=== PATIENT | male | born 1940 | race Caucasian/White ===

== ENCOUNTER → 2025-02-19 | Outpatient (CLI) | payer MEDICARE, OTHER, SELFPAY ==
--- NOTE | 2025-02-19 11:00 | CT_ITS ---
PROCEDURE: CT CHEST, ABD, PEL W/CONTRAST 02/19/2025 REASON FOR EXAM: ESOPHAGEAL CA-IV ONLY TECHNIQUE: Chest, abdomen and pelvis CT with intravenous contrast. Coronal and Sagittal reconstruction series were provided. One or more dose reduction techniques were used (e.g., Automated exposure control, adjustment of the mA and/or kV according to patient size, use of iterative reconstruction technique. PATIENT PREPARATION: Per protocol ORAL CONTRAST TYPE: None. AMOUNT: mL CONTRAST: Isovue 370 VOLUME: 62mL 20 gauge IV RADIATION DOSE SUMMARY: CTDlvol: 19.09 mGy DLP: 1005.71 mGycm COMPARISON: No comparison images are available at time of dictation. FINDINGS: CT CHEST: Mediastinum, lymph nodes and hardware: Esophageal stent is in place. Extensive soft tissue thickening surrounding the esophagus stent measuring 5.3 cm in anteroposterior dimension, 6.9 cm in transverse dimension and 20 cm in craniocaudal dimension consistent with malignancy. Innumerable paraesophageal and mediastinal pathological lymph nodes. For example, a left para-aortic lymph node measures 2 cm. Large sliding hiatal hernia. Heart and Vasculature: Moderate cardiomegaly. Atherosclerotic calcifications of the coronary arteries. Lungs and Airways: Dependent atelectasis in the lower lobes. Pleura: Small bilateral pleural effusions. Bones: No acute bony abnormalities. CT ABDOMEN/PELVIS: Liver: Two indeterminate cyst in the right hepatic lobe with the largest measures 2.2 cm. Gallbladder: Status post cholecystectomy. Spleen: No splenomegaly. Pancreas: Unremarkable. Adrenals: Unremarkable. Kidneys: Multiple parapelvic kidney cysts. A 1.2 cm simple cyst at the midpole of the right kidney. Perinephric fat stranding. Correlation with urinalysis is recommended. Bladder: Unremarkable. Reproductive Organs: Unremarkable. Bowel: Colonic diverticulosis with no evidence of acute diverticulitis. No bowel wall obstruction. Appendix: Normal. Lymph nodes: No lymphadenopathy in the abdomen and pelvis. Vasculature: No aneurysm. Atherosclerotic calcifications. Peritoneum / Retroperitoneum: No free air or free fluid. Bones: No acute bony abnormalities. A 2 mm indeterminate sclerotic focus at the right femur. Another 2 mm dystrophic chronic lesion in the left iliac bone. A 1 cm sclerotic lesion in the right iliac bone. CT/CT Chest, Abd, Pel w/Contrast IMPRESSION: Extensive soft tissue thickening surrounding the esophagus stent measuring 5.3 cm in anteroposterior dimension, 6.9 cm in transverse dimension and 20 cm in craniocaudal dimension consistent with malign gordon. Innumerable paraesophageal and mediastinal pathological lymph nodes. For example, a left bony foci in the right femur and the iliac bones, indeterminate. Lymph node measures 2 cm. No acute abdominopelvic abnormalities. Subcentimeter sclerotic bony lesions in the iliac bones in the right femur, ind eterminate. Reading Location: [id number]
== END | disposition home or self-care (01) ==
LOC: CT 10:59
PROVIDERS: PCP Family Medicine; Referring Provider Internal Medicine Medical Oncology; Visit Provider Internal Medicine Medical Oncology
DX: C15.9 Malignant neoplasm of esophagus, unspecified (principal)
CPT/HCPCS: 71260; 74177; Q9967

== ENCOUNTER 2025-02-27 11:35 | Outpatient (RCR) | payer MEDICARE, OTHER, SELFPAY | END 2025-02-28 23:59 | LOC: NS 11:35 | PROVIDERS: PCP Family Medicine; Visit Provider Internal Medicine Medical Oncology | DX: Z71.3 Dietary counseling and surveillance (principal) | CPT/HCPCS: 97802 ==

== ENCOUNTER 2025-03-03 11:08 | Day surgery (SDC) | payer MEDICARE, OTHER, SELFPAY ==
[2025-03-03] VITALS (9 sets, daily range): BP systolic 92–133; BP diastolic 73–88; PULSE 90–106; RESP 16–18; TEMP 36.2–36.8; O2SAT 95–97; BMI 25.7
--- NOTE | 2025-03-03 11:20 | PCM.PRE.AN2 ---
ASA Classification* ASA Classification ASA Classification: 2 Assessment & Plan Anesthesia* Anesthesia Assessment Anesthesia Assessment: Discussed sedation and/or anesthesia options, risks, benefits, and alternatives with patient/parents/legal guardian/POA. Questions invited. The patient/parents/legal guardian/POA seems to understand and agrees to proceed with anesthesia plan. Reviewed the physical assessment, medical history, allergy history and patient home medications list prior to surgery/procedure/anesthetic and documented any changes. Performed airway and anesthesia risk assessments. Anesthesia Type Anesthesia Type: MAC Anesthesia Focused Assessment* Airway Assessment Mouth opens: >3 cm Mallampati Score: II Labs Anesthesia Preop lab: CBC WBC, (4.4-11.0) 16.1 K/mm3 H 02/19/25, 10:46 RBC, (4.6-6.2) 4.67 M/mm3 02/19/25, 10:46 Hgb, (13.0-16.5) 13.5 g/dL 02/19/25, 10:46 Hct, (40-54) 40.2 % 02/19/25, 10:46 Plt Count, (150-450) 412 K/mm3 02/19/25, 10:46 CHEMISTRY Potassium, (3.3-5.1) 4.5 mmol/L 02/19/25, 10:46 Sodium, (133-145) 136 mmol/L 02/19/25, 10:46 BUN, (4-19) 20 mg/dL H 02/19/25, 10:46 Creatinine, (0.70-1.20) 0.87 mg/dL 02/19/25, 10:46 Glucose, (70-99) 109 mg/dL H 02/19/25, 10:46 COAG Pre-Assessment Diagnosis/Proposed Procedure Planned Operative Procedure(s): RIGHT POSS LEFT INTERNAL JUGULAR PORT Anesthesia History Anesthesia History - installations inspector: Anesthesia History - installations inspector Hx Hospitalization No 02/28/25 10:03 Any Problems With Anesthesia No 02/28/25 10:03 Cholinesterase deficiency No 02/28/25 10:03 You/Your Family Experience No 02/28/25 10:03 fever (hyperthermia) with Relationship Recent Exposure to Contagious Disease Does patient have nerve No 02/28/25 10:03 stimulator Patient instructed to have device shut off --Does patient have Pacemaker or ICD? When Was Last Pacemaker Check QUESTION #4 FULL TEXT: You/Your Family Experience fever (hyperthermia) with Anesthesia Last Oral Intake Last Oral intake: Last Oral Intake NPO since Meds taken in AM with sips of water? Meds patient instructed to take am of surgery PONV PONV - installations inspector: PONV - installations inspector Female No 02/28/25 10:03 HX of Motion Sickness Yes 02/28/25 10:03 HX of N/V After Surgery No 02/28/25 10:03 Non-Smoker Yes 02/28/25 10:03 Duration of Surgery greater No 02/28/25 10:03 than 60 minutes Number of Risk Factors 2 02/28/25 10:03 PONV Score Moderate Risk 02/28/25 10:03 Height & Weight Height & Weight: Anesthesia: Height & Weight Height 5 ft 5 in 02/26/25 13:50 Respiratory Assessment Respiratory Assessment - installations inspector: Respiratory Tract Infection Hx - installations inspector Hx Respiratory Tract Infection No 02/28/25 10:03 STOP Sleep Apnea STOP Sleep Apnea - installations inspector: STOP Sleep Apnea - installations inspector Hx Hypertension Yes: NO MEDS FOR 2 WEEKS 02/28/25 10:03 Hx Sleep Apnea No 02/28/25 10:03 CPAP BIPAP Do you snore loudly (louder Yes 02/28/25 10:03 than talking or can be heard Do you often feel tired/ No 02/28/25 10:03 fatigued/ sleepy during daytime? Has anyone observed you stop No 02/28/25 10:03 breathing during sleep? STOP Results Positive 02/28/25 10:03 QUESTION #5 FULL TEXT : Do you snore loudly (louder than talking or can be heard through closed doors)? Tobacco Use History Tobacco Use History - installations inspector: Tobacco Use History - installations inspector Tobacco Use Smoking Status Never smoker 02/28/25 10:03 Hx Tobacco Use No 02/28/25 10:03 Years Smoking Packs Smoked per Day Smoking Cessation Date was within the last 15 years Hx Smoking Cessation Date Hx Smoking Cessation Counseling Hematologic Medial History Hematologic Hx - installations inspector: Hematologic Medical Hx - roasterman Hx of Blood Transfusion Yes 02/28/25 10:03 Hx of Transfusion in last 3 No 02/28/25 10:03 Months Date of Last Transfusion (if within last 3 months) Ever experience any problems No 02/28/25 10:03 with transfusion(s)? Specify any problems Hx of Preganancy in last 3 N/A 02/28/25 10:03 Months Nurse Filling Out Transfusion DSCHRIBER 02/28/25 10:03 & Questions: Date: 02/28/25 02/28/25 10:03 Time: 10:06 02/28/25 10:03 Patient unable to answer at this time (ie. confused, unrespo /Reproduction History /Reproductive History - installations inspector: /Reproductive Hx- installations inspector Hx Now No 02/28/25 10:03 Gestational Age (in weeks): EDC: Hx Hx Para Hx Section SAB No 02/28/25 10:03 Active Medications Active Medications: Current Medications Generic Name Dose Route Start Last Admin Trade Name Freq PRN Reason Stop Dose Admin Cefazolin Sodium 2 gm/ Sodium 110 mls @ 200 mls/hr 03/03/25 13:00 Chloride IV 03/03/25 13:32 INTRAOP ONE Lactated Ringer's 1,000 mls @ 15 mls/hr 03/03/25 11:30 IV .Q48H CESIA PFSH Medical History Wears dentures Cancer Low iron Easy bruising Injury of head and neck Dietary restriction Non-smoker Hoarseness Hypertension Esophageal pain Walker as ambulation aid Spinal injury Osteoarthritis Dysphagia Anemia Acid reflux disease Home Medications ?Medication ?Instructions ?Recorded ?Last Taken ?Type rabeprazole 20 mg tablet,delayed 20 mg PO QDAY 02/19/25 Unknown History release ondansetron 4 mg disintegrating 4 mg PO Q8H PRN nausea and 02/27/25 Unknown Rx tablet vomiting #30 tabs Allergy/AdvReac Type Severity Reaction Status Date / Time acetaminophen (From Allergy unknown Verified 02/28/25 10:00 Darvocet-N) propoxyphene (From Allergy unknown Verified 02/28/25 10:00 Darvocet-N) gabapentin AdvReac dizziness, Verified 02/28/25 10:00 light headed Family History Father Diabetes Sister Diabetes Surgical History Hx of hernia repair Hx of foot surgery History of esophagogastroduodenoscopy (EGD) History of cholecystectomy History of cataract surgery History of arthroplasty of left knee Status post right foot surgery Social History Smoking Status: Never smoker alcohol intake: never substance use type: does not use Review of Systems (Anesthesia) ROS Narrative System reviewed and no additional complaints, except as documented.
--- NOTE | 2025-03-03 11:53 | HP.PCM_ITS ---
History and Physical
--- NOTE | 2025-03-03 11:53 | PCM.HP.BLA ---
History and Physical Date of Admission: 03/03/25 Intake Vital Signs 02/19/2509:49 02/21/2509:23 02/26/2513:50 Height 5 ft 5 in 5 ft 5 in 5 ft 5 in Weight: 157 lb 5 oz 157 lb BMI 26.2 26.1 BP 113/75 99/72 Blood Pressure Location Rt brachial Rt brachial Position Sitting Sitting Respiration 16 16 Pulse 89 Pulse Source Monitor Temp 97.5 F L Pulse Oximetry (%) 96 94 Oxygen Delivery Method room air room air Intake Visit Reasons: PORT PLACEMENT, POSSIBLE PEG Chief Complaint: esophageal ca Workforce Management Coordinator Required: No Is patient in pain?: No Allergies acetaminophen (From Darvocet-N) Allergy (Verified 02/26/25 13:51) unknown propoxyphene (From Darvocet-N) Allergy (Verified 02/26/25 13:51) unknown gabapentin Adverse Reaction (Verified 02/26/25 13:51) dizziness, light headed Medications ?Medication ?Instructions ?Recorded ?Confirmed ?Type rabeprazole 20 mg tablet,delayed 20 mg PO QDAY 02/19/25 02/26/25 History release Have you fallen in the past year?: No PFSH Medical History Spinal injury Right shoulder pain Osteoarthritis Lesion of face Hyperlipidemia Dysphagia Anemia Acid reflux disease Surgical History History of cholecystectomy History of cataract surgery Inguinal hernia History of arthroplasty of left knee Status post right foot surgery Family History Father Diabetes Sister Diabetes Social History Smoking Status: Never smoker alcohol intake: never substance use type: does not use HPI HPI HPI: Patient is an 84-year-old male here with metastatic esophageal cancer. He is here for port and PEG discussion. He is not wanting a PEG tube at this time. He reports he is swallowing well after he had a stent placed into his esophagus. He would only like port at this time. ROS General General: Yes weight change and fatigue; No appetite, colon cancer, breast cancer or weakness HEENT HEENT: Yes difficulty swallowing; No eye injury, eye surgery, swollen glands or hoarseness Endo Endocrine: No thyroid disease, diabetes mellitus, thyroid cancer, Hair loss, heat intolerance or cold intolerance Skin Skin: No rash or changing moles Breast Breast: No left breast lump, right breast lump, nipple discharge, breast pain, abnormal mammogram, abnormal US or breast enlargement Musc Musculoskeletal: Yes arthritis; No back problems, rheumatoid arthritis, gout or joint pain Cardio Cardiovascular: No murmur, pacemaker, heart disease, atrial fibrillation, high blood pressure, heart attack, heart stent, palpitations, shortness of breath with exertion or chest pain Psych Psychiatric: No depression, anxiety or hearing voices Resp Respiratory: No shortness of breath, No sleep apnea, Yes cough, No COPD, No asthma, No emphysema and No wheezing Gastro Gastrointestinal: No abdominal pain, Yes nausea or vomiting, No diarrhea, Yes constipation, No blood in stool, Yes acid reflux, No hemorrhoids, No ulcers, No gallbladder problem and No black,tarry stools [place] Hematologic: No blood thinners, No blood disorders, No bleeding, No anemia and No blood clots Neuro Neurologic: No system reviewed and no additional complaints, except as documented, No as per HPI, No abnormal gait, No abnormal hearing, No abnormal movements, No abnormal speech, No behavioral changes, No burning sensations, No confusion, No convulsions, No disequilibrium, No dizziness, No localized weakness, No frequent falls, No headache(s), No lack of coordination, No loss of vision, No memory loss, No numbness, No other visual disturbances, No radicular pain, No restless legs, No sensory deficit, No syncope, No tingling, No tremor(s), No weakness and No other Exam Const General: cooperative and frail appearing Orientation: alert and oriented x3 [facility] Head: normal to inspection Neck Neck: normal visual inspection and full ROM Chest Chest palpation & inspection: normal inspection of the chest Resp Effort & Inspection: normal respiratory effort Auscultation: clear to auscultation bilaterally Cardio Rate: regular rate Rhythm: regular rhythm GI Inspection: non-distended Palpation: soft and nontender Skin General: no rashes or lesions noted Neuro General: patient alert and patient oriented x3 Extrem General: full ROM Psych Appearance: grossly normal Mental Status: mental status grossly normal Assessment and Plan Assessment and Plan (1) Esophageal adenocarcinoma: Status: Acute Comment: Discussed disease, staging with CT and PET/CT before deciding on therapy which may include Chemotherapy, Radiation therapy and or Surgery. Pt wants therapy. (2) Encounter for insertion of venous access port: Status: Acute Plan The patient would like a port placed but he would like to forego PEG tube placement at this time. I also have concerns with a PEG tube as the patient has an esophageal stent in place and I think it may be hard to place a PEG tube. The patient may eventually require a laparoscopic feeding tube. I discussed right chest port placement with the patient in detail. I discussed the risks including but not limited to bleeding, infection, injury to other organs such as the vessels in the neck or the lung. Patient understands the risks and is willing to proceed. Vinod Hicks MD Pager: [facility] [address] [place] [address] [address] [place] [address] Office: I have examined the patient and the H&P has been reviewed. There are no clinical changes since date of exam.
[2025-03-03] MEDS: Lactated Ringers 1,000 ML 15 ML IV (11:59)
[2025-03-03] MEDS: Cefazolin 1 GM/5 ML Vial 2 GM IV (12:32)
[2025-03-03] MEDS: Midazolam 2 MG/2 ML Syringe 1 MG IV (12:43)
[2025-03-03] MEDS: Lidocaine 1% /Epi 1:100 (20ml) 20 ML Vial (12:49)
--- NOTE | 2025-03-03 13:11 | OP.PCM_ITS ---
Operative Report (Standard)
--- NOTE | 2025-03-03 13:11 | PCM.OPRPT ---
Operative Report (Standard) Operative Information Date of Procedure: 03/03/25 Pre-Operative Diagnosis: Esophageal cancer and need for vascular access for chemotherapy Post-Operative Diagnosis: Same Surgery/Procedure Performed: Ultrasound and fluoroscopy guided right chest port placement utilizing right IJ centrifugal separator: No Type of Anesthesia: Local MAC RN Documented Start/Stop Times: Operation Date: 03/03/25 13:00 Case Time Into Pre-Op 03/03/25 11:18 Out of Pre-Op 03/03/25 12:28 Anesthesia Start 03/03/25 12:32 Into Room 03/03/25 12:32 Procedure Start 03/03/25 12:46 Procedure End 03/03/25 13:02 Anesthesia End 03/03/25 13:06 Out of Room 03/03/25 13:06 Procedure Start Time: 12:46 Procedure Stop Time: 13:02 Select all DRAINS/GRAFTS/IMPLANTS that apply: Implanted device Implanted device details: 8 Irish PowerPort Estimated Blood Loss: 5 Specimen collected: No Description of surgery: After obtaining informed consent patient was brought back to the operating room MAC anesthesia was induced and the right chest and neck were prepped in normal sterile fashion. Ultrasound was used to evaluate both IJs and the right IJ was selected. Next, using a needle, the right IJ was accessed and a guidewire was passed on into the superior vena cava under fluoroscopy guidance. A small incision was made over the puncture site and the dilator introducer was placed over the guidewire. Next this was capped and the pocket was made for the port. 1% lidocaine with epinephrine was injected in the proposed port site. An incision was made with scalpel. Electrocautery was used to make a pocket under the skin and subcutaneous tissue. Hemostasis was obtained. Next, the catheter was tunneled up to the neck incision site and placed through the introducer. The peel-away introducer was removed and the position of the catheter was confirmed on fluoroscopy. Next, the catheter was trimmed and attached to the port with the locking device. Interrupted 2-0 Vicryl sutures were used to anchor the port to the chest wall and then the port was placed inside the pocket. The pocket was then flushed with saline and the port irrigated with saline. There was good blood return and the port flushed easily. Next, heparin was injected into the port. The skin was closed with subcutaneous interrupted 3-0 Vicryl sutures. A single 3-0 Vicryl sutures placed under the skin at the neck incision site. The port was then accessed and the catheter was flushed with heparinized saline. Steri-Strips were placed as well as op sites. Patient tolerated procedure well, was taken to PACU in stable condition. Chest x-ray will be obtained. Surgical Findings: None Complications Complications: No Admit VTE Documentation VTE Mechan Device Prophylaxis: SCD's
--- NOTE | 2025-03-03 13:12 | DCINST_ITS ---
Discharge Instructions
--- NOTE | 2025-03-03 13:12 | EX.PCM.DISCH ---
Discharge Instructions Procedure Port-A-Cath Diet Discharge Diet: Light diet - advance as tolerated (Pain medication may cause nausea. You should typically eat light foods as you take your pain medication.) Activity Discharge Activity: Return to Normal Activity and May Shower (with your bandage in place in 1-2 days after surgery. DO NOT SHOWER WHEN YOUR PORT IS ACCESSED.) Additional Activity Instructions:: Alternate ibuprofen and Tylenol for pain control Dressing / Incision Call your doctor if your incision/area has: Continuous Slow Oozing, Sudden Increased Bleeding, Increased Pain/ Swelling, Increased Redness and Foul Smelling Discharge Call your doctor if you observe: Fever of 101 or Higher Remove Dressing in: 2 days Cleanse incision/area with: Soap & Water Follow Up Care Please Follow Up With: Vinod Hicks MD When: as needed [phone] Test Results: Test results from this visit will be discussed in further detail at your follow-up appointment, if applicable. Discharge Plan Admission Attending Provider: Vinod Hicks Primary Care Provider: Ervin Tate Instructions Print Language: Indonesian Discharge Orders/Prescriptions Prescriptions: No Action rabeprazole 20 mg tablet,delayed release (DR/EC) 20 mg PO QDAY ondansetron 4 mg tablet,disintegrating 4 mg PO Q8H PRN (Reason: nausea and vomiting) Qty: 30 0RF Referrals / Follow Up: Ervin Tate DO [Primary Care Provider, Medical] Disposition Disposition (needs filled in before D/C Order can be placed): Home, Self Care
--- NOTE | 2025-03-03 13:20 | RAD_ITS ---
PROCEDURE: RAD/CXR for Line Placement
--- NOTE | 2025-03-03 13:45 | EKG12_ITS ---
Test Reason : arrythmia
--- NOTE | 2025-03-03 14:07 | POSTOP.ANE_ITS ---
Anesthesia: Postop Eval I
--- NOTE | 2025-03-03 14:07 | PCM.POST.ANE ---
Anesthesia: Postop Eval I Current Vital Signs Temperature: 98.2 F Pulse Rate: 94 Blood Pressure: 112/84 Respiratory Rate: 16 Pulse Ox: 97 Oxygen Delivery Method: Room Air Assessment Airway patent: Yes Spontaneous unlabored respirations: Yes Mental status: Awake and Calm nausea: No Vomiting: No Anesthesia Complication: No Fluid Hydration Crystalloid volume administer (ml): 200 Total IV fluid infused: 200 Progress Note Post-operative progress note: Patient appears to be in Atrial Fibrillation upon arrival to PACU. PLODDING MACHINE OPERATOR states, patient probably in AFIB upon arrival to OR. Anesthesia document: Postop Eval 1 completed: Yes
--- NOTE | 2025-03-03 14:09 | POSTOPAN2_ITS ---
Anesthesia Postop Eval I Sum
--- NOTE | 2025-03-03 14:09 | PCM.POSTANE2 ---
Anesthesia Postop Eval I Sum Postop Eval Completion status Anesthesia document: Postop Eval 1 completed: Yes Anesthesia Postop Eval I Summary Anesthesia Postop Eval I Summary: Anesthesia Postop Eval I: Assessment Summary Airway patent Yes 03/03/25 14:09 Spontaneous unlabored Yes 03/03/25 14:09 respirations Mental status Awake,Calm 03/03/25 14:09 nausea No 03/03/25 14:09 Vomiting No 03/03/25 14:09 Anesthesia Postop Eval I: Fluid Summary Crystalloid volume administer 200 03/03/25 14:09 (ml) Colloids volume administered ( ml) Blood Product volume administered (ml) Total IV fluid infused 200 03/03/25 14:09 Anesthesia Postop Eval I: Summary Notes Anesthesia Complication No 03/03/25 14:09 Anesthesia Complication Comment: Post-operative progress note Patient appears to 03/03/25 14:09 be in Atrial Fibrillation upon arrival to PACU. CHARGER OPERATOR states, patient probably in AFIB upon arrival to OR. Anesthesia: Postop Eval II Evaluation Mental status: Awake and Calm Pain Level: 0 nausea: No Vomiting: No Progress Note Post-operative progress note: Atrial fibrillation. discussed with Dr. Lind and patient. Dr. Hicks's office will set up Cardiology visit with patient on outpatient basis, per patient wishes as he prefers not to be admitted. I did inform patient of risk of Stroke, HI, Rapid HR. seems to understand importance of urgent follow up. Complications Anesthesia Complication: No
== END 2025-03-03 14:43 | disposition home or self-care (01) ==
LOC: SDC 11:10 → AC 11:12
PROVIDERS: PCP Family Medicine; Referring Provider Surgery; Visit Provider Surgery
PROC: (CPT 36561; principal; 2025-03-03 12:45)
DX: Z45.2 Encounter for adjustment and management of vascular access device (principal); C15.9 Malignant neoplasm of esophagus, unspecified; E78.5 Hyperlipidemia, unspecified; K21.9 Gastro-esophageal reflux disease without esophagitis; Z79.899 Other long term (current) drug therapy
CPT/HCPCS: 36561; 00532; 71045; 77001; 93005; C1788; J2405

== ENCOUNTER 2025-03-18 11:37 | Inpatient (IN) | payer MEDICARE, OTHER, SELFPAY ==
[2025-03-18] VITALS (30 sets, daily range): BP systolic 74–114; BP diastolic 47–85; PULSE 102–163; RESP 17–25; TEMP 36.5–36.8; O2SAT 91–100; BMI 25.4; BMI 25.2
--- NOTE | 2025-03-18 11:51 | EKG12_ITS ---
Test Reason : SOB Blood Pressure : */* mmHG Vent. Rate : 153 BPM Atrial Rate : * BPM P-R Int : * ms QRS Dur : 130 ms QT Int : 330 ms P-R-T Axes : * -74 74 degrees QTcB Int : 526 ms Critical Test Result: High HR Atrial fibrillation with rapid ventricular response Left axis deviation Right bundle branch block Inferior infarct , age undetermined Abnormal ECG Confirmed by LEIGH ABDALLA MD ([id number]), film and video editor CHRISTOPHER JUNG ([id number]) on 03/19/2025 6:49:56 AM Referred By: NOELLE/CG Confirmed By: LEIGH ABDALLA MD
--- NOTE | 2025-03-18 11:51 | RAD_ITS ---
PROCEDURE: CHEST 1 VIEW (PORTABLE) 03/18/2025 REASON FOR EXAM: TACHYPNEA TECHNIQUE: Frontal view of the chest. COMPARISON: 03/03/2025 FINDINGS: Hardware: Right-sided MediPort unchanged. Heart: Heart size is mildly enlarged. Lungs: Interval development of a moderate right pleural effusion, superimposed consolidation not excluded. Diffuse pulmonary vascular congestion. No definite pneumothorax. Bones: The bones are unremarkable. RAD/Chest 1 View (Portable) IMPRESSION: 1. Developing moderate right pleural effusion, superimposed consolidation not e xcluded. 2. Mild cardiomegaly and diffuse pulmonary vascular congestion. [facility]
[2025-03-18] MEDS: 0.9% Normal Saline (500mL Bag) 500 ML 999 ML IV (12:02)
[2025-03-18 12:06] LABS: Hematocrit 31.8 % (40-54); Hemoglobin 10.8 g/dL (13.0-16.5); Immature Granulocytes Count 0.310 X10^3/uL (0.0-0.0); Mean Corp Hgb Conc 34.0 g/dL (32-36); Mean Corpuscular Volume 87.6 fL (80-94); Mean Platelet Vol. 9.4 fl (6.2-12.0); NRBC Flagged by Analyzer 0 % (0-5); POSITIVE DIFFERENTIAL YES; Platelet Count 372 K/mm3 (150-450); RBC Distribution Width CV 14.6 % (11.6-14.6); RBC Distribution Width SD 46.5 fl (35.1-43.9); Red Blood Count 3.63 M/mm3 (4.6-6.2); White Blood Count 19.9 K/mm3 (4.4-11.0)
[2025-03-18 12:43] LABS: Troponin T High Sensitivity 34 ng/L (<=22)
[2025-03-18] MEDS: 0.9% Normal Saline (500mL Bag) 500 ML 1000 ML IV (12:59)
[2025-03-18 13:11] LABS: Anion Gap 15 (5-15); BUN 62 mg/dL (4-19); BUN/Creat Ratio 63.3 RATIO (10-20); Calcium,Total 9.1 mg/dL (7.6-11.0); Carbon Dioxide 21.6 mmol/L (21.0-32.0); Chloride 96 mmol/L (98-108); Estimated Creatinine Clearance 51.07 ml/min (50-250); Glucose 126 mg/dL (70-99); Potassium 4.1 mmol/L (3.3-5.1)
--- NOTE | 2025-03-18 13:39 | EDS_ITS ---
HPI History of Present Illness Chief Complaint: Palpitations Detail of Chief Complaint: Fast heart rate Informant: patient, spouse/S.O. and other (Radiology HARNESS WORKER who performed thoracentesis) Onset/Context/Timing Onset: - (Unknown, patient's not felt well for the past 2 to 3 weeks) Context: - (Unknown) Timing: Continuous (Presumed) Quality: Generalized weakness and not feeling well Location: Cardiovascular Current Severity: Severe Maximum Severity: Severe Worsened by: Dyspnea with activity Relieved by: Nothing Associated Symptoms Associated Symptoms: Weight loss Narrative Narrative: Patient is an 84-year-old male. No and is discuss CODE STATUS with this gentleman. He has history of nonoperable adenocarcinoma of the esophagus. He is undergoing radiation therapy by Dr. Quintin Lewis. He had a thoracentesis performed today. 950 cc of fluid was removed. Patient was brought to the emergency department because of rapid heartbeat. Patient was unaware that he had a fast heart rate. Patient states he does not feel well. He endorses weight loss. He denies heat or cold intolerance. He does report lightheadedness with activity and dyspnea with activity. He denies orthopnea or PND. He denies chest pressure or tightness. He denies abdominal pain. He denies black or maroon-colored stool. He denies dysuria, frequency, urgency or hematuria. Prior similar symptoms: No Recent Illness/Hospital[facility]: [facility] Medical History Afib Wears dentures Cancer Low iron Easy bruising Injury of head and neck Dietary restriction Non-smoker Hoarseness Hypertension Esophageal pain Walker as ambulation aid Spinal injury Osteoarthritis Dysphagia Anemia Acid reflux disease Home Medications ?Medication ?Instructions ?Recorded ?Last Taken ?Type rabeprazole 20 mg tablet,delayed 20 mg PO QDAY 5 Unknown History release Allergy/AdvReac Type Severity Reaction Status Date / Time acetaminophen (From Allergy unknown Verified 03/18/25 11:41 Darvocet-N) propoxyphene (From Allergy unknown Verified 03/18/25 11:41 Darvocet-N) gabapentin AdvReac dizziness, Verified 03/18/25 11:41 light headed Family History Father Diabetes Sister Diabetes Surgical History Hx of hernia repair Hx of foot surgery History of esophagogastroduodenoscopy (EGD) History of cholecystectomy History of cataract surgery History of arthroplasty of left knee Status post right foot surgery Social History Smoking Status: Never smoker alcohol intake: never substance use type: does not use ROS ROS ED Constitutional Constitutional ED: Reports weight loss; Denies chills, fever(s), subjective or sweats Eyes Eyes: Denies blurry vision or change in vision ENT ENT ED: Denies ear pain, rhinorrhea or sore throat Cardiovascular Cardiovascular: Reports orthopnea; Denies chest pain, palpitations, paroxysmal nocturnal dyspnea or racing heartbeat Respiratory/Chest Respiratory/Chest: Reports dyspnea, dyspnea on exertion and orthopnea; Denies cough, paroxysmal nocturnal dyspnea or sputum Gastrointestinal Gastrointestinal: Reports other Details: Patient states his stool is dark. He is not on iron. ; Denies abdominal pain, diarrhea, melena or vomiting Genitourinary Genitourinary ED: Denies dysuria, hematuria or urinary frequency Musculoskeletal Musculoskeletal: Denies arthralgias or myalgias Integumentary Denies abscess, Abrasions or rash Neurologic Neurologic: Reports weakness; Denies headache(s) or paresthesias Psychiatric Psychiatric: Denies anxiety or depression Endocrine Endocrinology: Denies cold intolerance or heat intolerance Hematologic/Lymphatic Hematologic/Lymphatic: Reports systems reviewed and no addt'l complaints, except as documented EXAM Physical Exam Const Vital Signs: 03/18/25 11:38 03/18/25 12:05 03/18/25 12:07 Temperature 97.8 F Temperature Source Oral Pulse Rate 154 H 163 H Respiratory Rate 24 H 19 H Respiratory Effort Normal Blood Pressure 91/76 83/62 L Blood Pressure Mean 81 69 Pulse Ox 91 98 Oxygen Delivery Method Room Air Room Air 03/18/25 12:30 03/18/25 13:00 03/18/25 13:30 Temperature Temperature Source Pulse Rate 130 H 123 H 130 H Respiratory Rate 25 H 17 19 H Respiratory Effort Blood Pressure 97/62 87/72 L 101/50 L Blood Pressure Mean 73 77 67 Pulse Ox 92 93 100 Oxygen Delivery Method Room Air Room Air 03/18/25 13:59 03/18/25 14:00 03/18/25 14:30 Temperature 97.7 F L Temperature Source Pulse Rate 102 H 110 H 109 H Respiratory Rate 17 23 H 18 Respiratory Effort Blood Pressure 87/66 L 96/59 L 82/61 L Blood Pressure Mean 73 71 68 Pulse Ox 96 94 99 Oxygen Delivery Method Positive well developed; Negative for obese or contractures Constitutional Narrative: Patient is not appear well. He appears slightly pale. Blood pressure is low. General Appearance ED: well developed and pallor; Negative for contractures, cyanotic, diaphoretic or NAD Nutritional Appearance: Negative for obese HEENT HEENT Narrative: Head is atraumatic and normocephalic. Ears are normal. Nares patent. Eyes PERRL and EOMs intact bilaterally Eyes Narrative: Question of pallor to the conjunctive up. General Eye ED: Yes pale conjunctiva Neck no lymphadenopathy, supple and no JVD Resp normal respiratory effort and clear to auscultation bilaterally Cardio S1 normal heart sound, S2 normal heart sound and no murmurs; Negative for regular rate or regular rhythm Rate: tachycardic Rhythm: abnormal rhythm irregularly irregular GI normal to inspection, nondistended, normoactive bowel sounds, non-tender, non- distended and no masses; Negative for hepatosplenomegaly Palpation: soft Back/Spine no CVA tenderness Extremity Negative for normal to inspection General Extremety ED: Yes edema; Negative for tenderness General Extremity: edema Neuro oriented x3 and CN's II-XII intact bilaterally Sensorium / Orientation: alert Psych mental status grossly normal Skin no rashes or lesions noted, no wounds and No skin turgor normal Skin Narrative: Patient has skin markings for radiation. General Skin Exam: pallor; Negative for elasticity normal or jaundice MDM MDM MDM Narrative Medical decision making narrative: Patient with A-fib which is new onset. He has not seen a assembly machine feeder in 5 years. states he saw someone at the clinic 5 years ago. He is not seeing anyone through the [facility]. He denies chest pressure, tightness or heaviness. He is unaware that his heart is going fast and regular and does not know when it may have started. Has patient hypotensive but no history of heart failure he received a 500 cc bolus and 10 mg of diltiazem. His heart rate slowed down slightly and blood pressure did improve. He received another additional 500 cc bolus and was given an additional dose of diltiazem. There was no improvement [id number] his heart rate is again above 150. Will assess TSH to evaluate for possible hyperthyroidism, troponin to rule out cardiac ischemia. Chest x-ray was obtained to assess for pneumonia, CHF, pneum othorax. Since patient had no improvement with diltiazem and fluid boluses with respect to his heart rate and the fact that his TSH is low he was given 5 mg of metoprolol. Also, Dr. Butler who is on-call for assembly machine feeder was paged. Patient's presentation not consistent with pulmonary embolus. Therefore D-dimer is not obtained especially since he has history of cancer. If there was concern for PE he is considered moderate to high risk and would need a CTA. History & Record Review Additional record(s) reviewed:: Prior outpatient record, Prior ED visit and Prior labs Lab Data Attestation: I reviewed the patient's lab results. Lab results narrative: White count is elevated 19.9 thousand. There is a shift. In light of this blood cultures were ordered. H&H is 10.8 and 31.8. Indices are normal. Basic metabolic panel reveals an elevated glucose of 126. CO2 and anion gap are normal. Lactate is elevated at 2.3. TSH is low at 0.17. First troponin was elevated 34. Labs: Laboratory Results - last 24 hr 03/18/25 11:59 WBC 19.9 H RBC 3.63 L Hgb 10.8 L Hct 31.8 L MCV 87.6 MCH 29.8 MCHC 34.0 RDW Std Deviation 46.5 H RDW Coeff of Kat 14.6 Plt Count 372 MPV 9.4 Immature Gran % (Auto) 1.600 H Neut % (Auto) 93.3 H Lymph % (Auto) 0.9 L [place] % (Auto) 3.9 Eos % (Auto) 0.1 Baso % (Auto) 0.2 Absolute Neuts (auto) 18.6 H Absolute Lymphs (auto) 0.18 L Nucleated RBC % 0 Sodium 132 L Potassium 4.1 Chloride 96 L Carbon Dioxide 21.6 Anion Gap 15 BUN 62 H Creatinine 0.97 Estim Creat Clear Calc 51.07 Est GFR (MDRD) Non-Af 78 BUN/Creatinine Ratio 63.3 H Glucose 126 H Lactic Acid 2.3 H* Calcium 9.1 Troponin T High Sens 34 H TSH 0.170 L Radiography Chest X-Ray - ED: 1 View and Read by ED Physician (Patient has a small right pleural effusion which is residual. There is also evidence of enlarged heart question of some mild cephalization. There is no curly B-lines. The hilum is full and is asymmetric. This is probably due to his adenocarcinoma.) Diagnostic Testing: Clinical Impression(s) from Imaging Studies Chest X-Ray 03/18/25 11:51 IMPRESSION: 1. Developing moderate right pleural effusion, superimposed consolidation not excluded. 2. Mild cardiomegaly and diffuse pulmonary vascular congestion. Reading Location: [facility] Differential Diagnosis Chest pain/SOB: pneumothorax Reason(s) pneumothorax less likely: Positive for bilateral breath sounds and PELLETIZER TENDER withhout PTX, pneumonia Reason(s) pneumonia less likely: Positive for no infiltrate on CXR, no noted fever and symptoms not consistent with acute infection, aortic dissection Reason(s) Aortic dissection less likely:: Positive for normal vascular exam, normal neurological exam, no significant risk factors for dissection, no widened mediastinum on CXR, pain not sudden onset, no ripping/tearing pain and no pain to back, CHF Reason(s) CHF less likely: Positive for no orthopnea and COPD Reason(s) COPD less likely: Positive for no significant wheezing on exam, no tachypnea, no conversational dyspnea and normal air movement noted on auscultation on lungs Management Discussion w/another healthcare provider: Hospitalist (Hospitalist was paged for admission. Will discuss patient's history, physical, CODE STATUS, treatment etc.) and Airline Lounge Receptionist (Dr. Rodríguez recommended metoprolol 25 mg twice daily. He will see patient in consultation.) Critical Care Time Critical Care Time: Yes Critical care time (excluding procedures): 30-74 minutes (33), Including time spent: (History, physical, documentation, discussion with patient and family, discussion regarding CODE STATUS), Discussing w/Patient &/or Family/Machine Fancy Stitcher, Discussing w/Consultants, Arranging Admission or Transfer and - (Spoke with Dr. Naveen Knox. He will see patient in the emergency department and discussed his CODE STATUS again. He will determine appropriate unit for admission) Discharge Plan Dx/Rx/DC Orders Clinical Impression: Atrial fibrillation with rapid ventricular response, Acute hypotension, Pleural effusion, right, Esophageal adenocarcinoma, DNR (do not resuscitate) discussion Disposition Disposition: Acute Care [facility]
[2025-03-18 14:47] LABS: Troponin T High Sens 2 HR 32 ng/L (<=22)
--- NOTE | 2025-03-18 14:56 | HP.PCM.HOS_ITS ---
HPI - General General Date of Admission: 03/18/25 Date of Service: 03/18/25 Chief Complaint: New onset A-fib with RVR HPI Narrative STARLA MASCORRO, is a 84 M who presented to [facility] ED on 03/18/2025 with new onset A-fib with RVR. 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 Chatman and Dr. Mullins, see office notes for further details. In short, he was found imaging to have an esophageal mass in December. Had upper endoscopy on 02/10 with mass at 30 cm obstructing the esophagus. Biopsy was done and pathology showed moderately differentiated adenocarcinoma. He had another endoscopy with placement of esophageal stent on 02/17. He had CT chest abdomen pelvis and PET CT scan done for staging and was found to have stage IVb cancer with extensive local disease in bilateral adrenal gland involvement. Plan determined at that time was for palliative radiation therapy to keep esophagus open then consider systemic therapy. Patient has now completed 7 rounds of radiation therapy as of 03/18, last treatment on morning of 03/18. Patient was found on imaging recently to have a right sided pleural effusion, and he had right-sided thoracentesis done this morning as well with 905 mL removed. He was noted to be in A-fib with RVR at that time and was sent to the ED for further evaluation. In the ED was in A-fib with RVR with heart rate to the 140s to 150s and was hypotensive to the 80s over 60s. Lab workup notable for for mild hyperthyroidism with REGIS 0.17 and free T4 1.50 and lactic acid 2.3. He was given two 500 cc IV fluid boluses, two IV Cardizem boluses and a dose of IV Lopressor with some improvement in heart rate and blood pressure, but he did not convert back to sinus rhythm. Hospitalist was then contacted for admission. I saw the patient at bedside in the ED, was present. Patient was laying back in bed and was fatigued appearing but was otherwise answering questions with short appropriate responses for me. He denied any palpitations or chest pain currently. Did note that he has not been eating or drinking much over the past several days due to weakness and fatigue. Has not had any aspiration events. Does have difficulty swallowing with a solids but is typically able to get liquids down. Importantly, I discussed goals of care with the patient and his for about 15 minutes at the bedside. I noted that given his stage IV cancer, worsening weakness with poor p.o. intake, and new onset A-fib with RVR with hypotension, I am very concerned both about his short-term prognosis. I discussed with him that per Dr. Chatman's note, patient has stage IV cancer and the radiation therapy and chemotherapy are palliative in nature and not curative. I also discussed code status and noted that full code would be quite aggressive with the patient at this time given his prognosis. Patient's was the primary person to answer questions during this conversation and seemed to have some difficulty grasping the severity of the patient's illness. She and patient did note wanting to keep him full code at this time. I noted to them that I would like to have palliative care see the patient during his hospitalization for assistance with goals of care discussions and they were agreeable to this. Will be admitted for further management. [facility] Medical History Afib Wears dentures Cancer Low iron Easy bruising Injury of head and neck Dietary restriction Non-smoker Hoarseness Hypertension Esophageal pain Walker as ambulation aid Spinal injury Osteoarthritis Dysphagia Anemia Acid reflux disease Home Medications ?Medication ?Instructions ?Recorded ?Last Taken ?Type rabeprazole 20 mg tablet,delayed 20 mg PO QDAY 5 Unknown History release Allergy/AdvReac Type Severity Reaction Status Date / Time acetaminophen (From Allergy unknown Verified 03/18/25 11:41 Darvocet-N) propoxyphene (From Allergy unknown Verified 03/18/25 11:41 Darvocet-N) gabapentin AdvReac dizziness, Verified 03/18/25 11:41 light headed Family History Father Diabetes Sister Diabetes Surgical History Hx of hernia repair Hx of foot surgery History of esophagogastroduodenoscopy (EGD) History of cholecystectomy History of cataract surgery History of arthroplasty of left knee Status post right foot surgery Social History Smoking Status: Never smoker alcohol intake: never substance use type: does not use ROS Constitutional Constitutional: Reports fatigue and weakness; Denies chills or fever(s) ENT HEENT: Reports dysphagia Cardiovascular Cardiovascular: Denies chest pain, dyspnea on exertion, edema, lightheadedness or palpitations Respiratory/Chest Respiratory/Chest: Denies cough, productive cough, shortness of breath at rest or wheezing Gastrointestinal Gastrointestinal: Denies abdominal pain Musculoskeletal Musculoskeletal: Denies arthralgias or myalgias Neurologic Neurologic: Denies dizziness, focal weakness, headache(s), numbness or tingling Vital Signs Vital Signs Vital Signs: 03/18/25 11:38 03/18/25 12:05 03/18/25 12:07 Temperature 97.8 F Temperature Source Oral Pulse Rate 154 H 163 H Respiratory Rate 24 H 19 H Respiratory Effort Normal Blood Pressure 91/76 83/62 L Blood Pressure Mean 81 69 Pulse Ox 91 98 Oxygen Delivery Method Room Air Room Air 03/18/25 12:30 03/18/25 13:00 03/18/25 13:30 Temperature Temperature Source Pulse Rate 130 H 123 H 130 H Respiratory Rate 25 H 17 19 H Respiratory Effort Blood Pressure 97/62 87/72 L 101/50 L Blood Pressure Mean 73 77 67 Pulse Ox 92 93 100 Oxygen Delivery Method Room Air Room Air 03/18/25 13:59 03/18/25 14:00 03/18/25 14:30 Temperature 97.7 F L Temperature Source Pulse Rate 102 H 110 H 109 H Respiratory Rate 17 23 H 18 Respiratory Effort Blood Pressure 87/66 L 96/59 L 82/61 L Blood Pressure Mean 73 71 68 Pulse Ox 96 94 99 Oxygen Delivery Method Weight Weight: 69.3 kg Body Mass Index (BMI) 25.4 Physical Exam Const alert and no apparent distress Constitutional Narrative: Elderly male, fatigued and somewhat lethargic appearing, otherwise laying back in bed fairly comfortably, answering questions with short appropriate responses, in no acute distress. General Appearance: cooperative and comfortable HEENT normocephalic, head/scalp atraumatic, hearing grossly normal bilaterally, nasal mucous membranes and turbinates normal and moist oral mucous membranes Eyes PERRL, EOMs intact bilaterally and conjunctivae normal Neck full ROM Chest inspection of chest normal Resp no use of accessory muscles and clear to auscultation bilaterally Resp Narrative: Breathing comfortably on room air at rest. Diminished breath sounds in right lung base noted, otherwise good air movement throughout with no wheezing or crackles noted. Cardio no murmurs and peripheral pulses 2+ throughout Cardio Narrative: A-fib with RVR. GI normal to inspection, nondistended, normoactive bowel sounds, soft to palpation, non-tender and non-distended Back/Spine normal ROM Extremity normal to inspection and no pedal edema Skin no rashes or lesions noted Psych mental status grossly normal Psych Narrative: Flat affect. Results Lab / Micro Data 03/18/25 11:59 03/18/25 11:59 Labs: Laboratory Results - last 24 hr 03/18/25 11:59: WBC 19.9 H, RBC 3.63 L, Hgb 10.8 L, Hct 31.8 L, MCV 87.6, MCH 29.8, MCHC 34.0, RDW Std Deviation 46.5 H, RDW Coeff of Kat 14.6, Plt Count 372, MPV 9.4, Immature Gran % (Auto) 1.600 H, Neut % (Auto) 93.3 H, Lymph % (Auto) 0.9 L, Hall % (Auto) 3.9, Eos % (Auto) 0.1, Baso % (Auto) 0.2, Absolute Neuts (auto) 18.6 H, Absolute Lymphs (auto) 0.18 L, Nucleated RBC % 0, Sodium 132 L, Potassium 4.1, Chloride 96 L, Carbon Dioxide 21.6, Anion Gap 15, BUN 62 H, Creatinine 0.97, Estim Creat Clear Calc 51.07, Est GFR (MDRD) Non-Af 78, B UN/Creatinine Ratio 63.3 H, Glucose 126 H, Lactic Acid 2.3 H*, Calcium 9.1, T roponin T High Sens 34 H, TSH 0.170 L 03/18/25 14:00: Troponin T Hi Sens 2 Hr 32 H Imaging Radiology Impression Chest X-Ray 03/18/25 11:51 IMPRESSION: 1. Developing moderate right pleural effusion, superimposed consolidation not excluded. 2. Mild cardiomegaly and diffuse pulmonary vascular congestion. Reading Location: [facility] Assessment & Plan Assessment/Plan (1) Atrial fibrillation with rapid ventricular response: (2) Acute hypotension: (3) Upper GI bleed: PLAN: Plan Patient is an 84-year-old male who presented to [facility] ED on 03/18/2025 with new onset A-fib with RVR. 1. New onset A-fib with RVR with hypotension ? Admit under inpatient status to ICU. Cardiology consulted. Found to have new onset A-fib with RVR on morning of admission during thoracentesis as below with heart 140s to 150s and hypotension to the 80s over 60s. Heart rate and blood pressure mildly improved with IV fluids, IV Cardizem boluses and dose of IV Lopressor. Started on Cardizem drip but rate remained in the 130s to 140s so this was discontinued. Given dose of IV digoxin to 50 mg with minimal improvement. Given ongoing borderline hypotension to the 80s over 50s, decision made to give IV amiodarone bolus followed by amiodarone drip. Unfortunately heart rate remains in the 130s to 140s at this time on amiodarone drip. Continue MAPs greater than 65 with no need for pressors to this point. Will continue amiodarone drip overnight. Echocardiogram ordered. Appreciate further cardiology recommendations. 2. Suspected upper GI bleed with acute blood loss anemia in setting of esophageal cancer ? GI consulted. Hemoglobin 10.8 on admit, was 13.5 on most recent labs on 02/19. BUN 62 and BUN/creatinine ratio 63 which is highly concerning for upper GI bleed. This is presumed secondary to esophageal cancer below. Given IV Protonix 80 mg bolus and started on IV Protonix drip. Will repeat H&H this evening and then CBC tomorrow morning. Presume this contributing to patient's hypotension as above, so pending repeat H&H will need to consider blood transfusion. 3. Adult failure to thrive in setting of stage IV esophageal cancer ? Palliative care consulted. PT/OT/case management consulted. See HPI for further details. In short, recently diagnosed with stage IV esophageal cancer on esophageal biopsy from EGD on 02/10. Had esophageal stenting done on 02/17. Has had 7 rounds of radiation therapy done as of 03/18 with plan for 15 rounds of treatment total for palliative radiation. Goal of radiation therapy has been to keep the esophagus open for p.o. intake. Has port in place and tentative plan per Dr. Chatman is for systemic palliative chemotherapy after radiation is completed. Patient has had poor p.o. intake since shortly after beginning radiation therapy and has been weaker than previously. Discussed goals of care with patient and his at the bedside on admit, and given the recent diagnosis and decent functional status to this point, was difficult for patient and to grasp the severity of his illness. Appreciate palliative care assistance. Can consider oncology and/or radiation oncology consults as needed. 4. Low TSH level ? TSH 0.17, free T4 1.50 on admit. No prior history of thyroid issues. Patient with no symptoms of hyperthyroidism aside from A-fib with RVR as above, so clinically I suspect A-fib is secondary to cancer as above rather than hyperthyroidism. Suspect mild free T4 elevation may be due to some degree of thyroid hormone release in setting of recent radiation therapy to the esophageal area. Continue treatment for A-fib with RVR as above. 5. Leukocytosis ? Hemoglobin 19.9 on admit. Suspect reactive in setting of cancer and suspected GI bleed above. No infectious symptoms noted. No need for antibiotics at this time. Follow-up a.m. CBC. 6. Right-sided pleural effusion ? Patient had thoracentesis on the morning of 03/18 with 905 mL of cloudy matt- colored fluid removed. 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 Stable on room air at rest at this time. No further inpatient needs, continue close outpatient follow-up. DVT prophylaxis: SCDs CODE STATUS: Full code, verified Expected disposition: TBD Total clinical time spent by myself addressing the patient's medical issues, reviewing all the data, and collaborating with patient's care team: 86 minutes. Charges/Coding Visit Charges Inpatient E&M: 92874 Init Hosp L3
--- NOTE | 2025-03-18 15:02 | ECHOD_ITS ---
Reason For Study Reason For Study: AFIB/FLUTTER Procedure This was a 2D Doppler, Color Flow transthoracic echocardiogram. The study was technically difficult. Due to heart rate/arrhythmia. Exam performed portable in ICU/CCU. Left Ventricle Normal LV size. The left ventricular ejection fraction is 55 %. No regional wall motion abnormalities noted. Right Ventricle Normal RV size. Normal systolic function. Atria Normal left atrium. Normal right atrium. Mitral Valve Normal mitral valve. Tricuspid Valve Normal tricuspid valve. Mild (1+) tricuspid valve insufficiency. Pulmonary artery systolic pressure is 36 mmHg. Aortic Valve Normal aortic valve. Trisinus/trileaflet aortic valve. Pulmonic Valve Normal pulmonic valve. Great Vessels Normal aortic root. The pulmonary artery is normal size. Inferior vena cava collapse with respiration. Pericardium/Pleural No pericardial effusion. MMode/2D Measurements & Calculations LVIDd: 3.9 cm IVSd: 0.88 cm Ao root diam: 3.5 cm LVIDs: 2.0 cm LVPWd: 0.93 cm RVDd: 4.2 cm FS: 48.2 % LAV(MOD-bp): 36.0 ml LVAd ap4: 25.4 cm2 SV(MOD-sp4): 42.4 ml LAV(MOD-bp) Indexed: 20.4 ml/m2 LVLd ap4: 7.4 cm SI(MOD-sp4): 24.1 ml/m2 LAV(MOD-sp2): 37.2 ml EDV(MOD-sp4): 76.8 ml LAV(MOD-sp4): 35.4 ml EDV(sp4-el): 74.1 ml LVAs ap4: 16.0 cm2 LVLs ap4: 6.6 cm ESV(MOD-sp4): 34.4 ml ESV(sp4-el): 33.3 ml EF(MOD-sp4): 55.2 % EF(sp4-el): 55.1 % SV(sp4-el): 40.8 ml LA A4 area: 15.8 cm2 LA dimension(2D): 3.1 cm RA A4 area: 20.7 cm2 TAPSE: 2.0 cm Doppler Measurements & Calculations MV E max izabella: 105.1 cm/sec Ao V2 max: 145.7 cm/sec LV V1 max: 108.7 cm/sec Ao max P.5 mmHg LV V1 max P.7 mmHg Ao V2 mean: 96.4 cm/sec LV V1 mean P.3 mmHg Ao mean P.0 mmHg LV V1 mean: 73.8 cm/sec Ao V2 VTI: 17.2 cm LV V1 VTI: 13.3 cm AV (velocity ratio): 0.78 PA V2 max: 97.3 cm/sec TR max izabella: 282.7 cm/sec TR max P.0 mmHg ECHO/Echo Complete Interpretation Summary The left ventricular ejection fraction is 55 %. Normal LV size. Mild (1+) tricuspid valve insufficiency. Pulmonary artery systolic pressure is 36 mmHg. Ordering Physician: Edwar Knox Referring Physician: Ervin Tate Performed By: Linda Villegas, VENKATA, RVT
--- NOTE | 2025-03-18 15:16 | CASEMGMT ---
Care Management Face to Face with patient for initial transition planning/care coordination assessment in the ED. This technical proposal writer introduced self and role at [facility]. Patient alert and oriented, though fell asleep partway through assessment. Patient's finished answering assessment questions; and daughter were bedside. Care providers, pharmacy, and demographics verified. Admitting Diagnosis: a-fib, Esophageal adenocarcinoma Other diagnosis history: hypertension, anemia, nonoperable adenocarcinoma of the esophagus PCP: Ervin Tate Specialists: Compa, oncology. Susanna, radiation oncology. Preferred Pharmacy: [facility] in [place] Insurance: Medicare A B (primary). Physician Wyarno (secondary). Prescription Benefit: yes Living Will/HPOA: none and questioning whether or not there was a desire to complete during admission LNOK: Renetta, daughter Shweta, son Michel. Living Arrangements: lives with in a ranch style home with 3 steps to enter. They are reportedly working on a ramp. Patient is reportedly independent with all ADLs/IADLs. Transportation: and daughter Shweta drive; Shweta if after dark. DME: cane, walker, shower chair, bedside commode, bed railings, mobility chair HHC: none SNF/Rehab: none Community Resources: none Patient goals: Patient asleep; patient's wishes for patient to discharge home. Patient's states being willing to have HHC if needed, though heavily denies wanting patient to be in a SNF. Disposition Plan: admission to acute; RN CM/SW to follow for discharge planning needs that may arise. Beverley Bhandari, COMPUTER NETWORK SPECIALIST, HELPDESK ADMINISTRATOR
--- OUTSIDE RECORDS SUMMARY | 2025-03-18 15:54 | XMS RPT_ITS | CCD ---
Author Organization [facility] Care Team Providers Care Ammonia Box Operator Name Role Phone Jace Tate Primary Care Provider PROVIDER, UNKNOWN Referring Unavailable Sandip Kidd Attending Unavailable Jace Tate Primary Care Unavailable PROVIDER, UNKNOWN Referring Unavailable Sandip Kidd Attending Unavailable Jace Tate Primary Care Unavailable PROVIDER, UNKNOWN Referring Unavailable Ld Pace Attending Unavailable Jace Tate Primary Care Unavailable PROVIDER, UNKNOWN Referring Unavailable Ld Pace Attending Unavailable Jace Tate Primary Care Unavailable BEBETO SAPP, JACE Holbrook Primary Care Physician JACE TATE DO Attending Unavailable BEBETO , JACE Yusef Primary Care Unavailable BEBETO , JACE Holbrook Attending Unavailable BEBETO , JACE Yusef Primary Care Unavailable BEBETO SAPP, JACE Holbrook Attending Unavailable BEBETO SAPP, JACE Holbrook Primary Care Unavailable BEBETO SAPP, JACE Yusef Primary Care Unavailable BEBETO , JACE Holbrook Attending Unavailable BEBETO DO, JACE Holbrook Attending Unavailable BEBETO DO, JACE Yusef Primary Care Unavailable BEBETO DO, JACE Yusef Primary Care Unavailable BEBETO DO, JACE Holbrook Attending Unavailable BEBETO SAPP, JACE Yusef Primary Care Unavailable BEBETO SAPP, JACE Holbrook Attending Unavailable JACE TATE DO Attending Unavailable BEBETO DO, JACE Yusef Primary Care Unavailable BEBETO DO, JACE J Attending Unavailable BEBETO DO, JACE J Primary Care Unavailable BEBETO , JACE Yusef Attending Unavailable BEBETO SAPP, JACE Yusef Primary Care Unavailable Jace Tate Primary Care Provider JACE TATE DO Attending Unavailable BEBETO DO, JACE Yusef Primary Care Unavailable BEBETO DO, JCAE J Primary Care Unavailable BEBETO , JACE J Attending Unavailable BEBETO , JACE J Attending Unavailable BEBETO SAPP, JACE Yusef Primary Care Unavailable BEBETO SAPP, JACE Holbrook Attending Unavailable BEBETO SAPP, JACE Holbrook Primary Care Unavailable BEBETO , JACE Yusef Primary Care Unavailable BEBETO , JACE Yusef Attending Unavailable BEBETO DO, JACE J Primary Care Unavailable BEBETO DO, JACE J Attending Unavailable BEBETO DO, JACE J Attending Unavailable BEBETO DO, JACE J Primary Care Unavailable BEBETO DO, JACE J Primary Care Unavailable BEBETO DO, JACE J Attending Unavailable BEBETO DO, JACE J Attending Unavailable BEBETO DO, JACE J Primary Care Unavailable MEJIA SANTOYO, DR BLISS Attending Unavailabl e BEBETO DO, JACE J Primary Care Unavailable MEJIA SANTOYO, DR BLISS Attending Unavailabl e BEBETO DO, JACE J Primary Care Unavailable MEJIA SANTOYO, DR BLISS Attending Unavailabl e BEBETO DO, JACE J Primary Care Unavailable BEBETO DO, JACE J Attending Unavailable BEBETO DO, JACE J Primary Care Unavailable BEBETO DO, JACE J Attending Unavailable BEBETO DO, JACE J Primary Care Unavailable Vinod Hicks Referring Unavailable Vinod Hicks Attending Unavailable Bebeto, Jace Primary Care Unavailable Bebeto, Jace Primary Care Unavailable Prakeesha, Arcadio Attending Unavailable Bebeto, Jace Primary Care Unavailable Arcadio Chatman Attending Unavailable Bebeto, Jace Primary Care Unavailable Arcadio Chatman Referring Unavailable Arcadio Chatman Attending Unavailable Bebeto, Jace Referring Unavailable Arcadio Chatman Attending Unavailable Bebeto, Jace Primary Care Unavailable Bebeto, Jace Referring Unavailable Quintin Mullins Attending Unavailable Bebeto, Jace Primary Care Unavailable Bebeto, Jace Primary Care Unavailable Bebeto, Jace Referring Unavailable Quintin Mullins Attending Unavailable Bebeto, Jace Primary Care Unavailable Quintin Mullins Attending Unavailable Bebeto, Jace Primary Care Unavailable Quintin Mullins Attending Unavailable Bebeto, Jace Primary Care Unavailable Abby Dunn Attending Unavailable Bebeto, Jace Primary Care Unavailable Vinod Hicks Referring Unavailable Vinod Hicks Attending Unavailable Vinod Hicks Consulting Unavailable Bebeto, Jace Primary Care Unavailable Quintin Mullins Attending Unavailable Quintin Mullins Attending Unavailable Bebeto, Jace Primary Care Unavailable Bebeto, Jace Referring Unavailable Bebeto, Jace Primary Care Unavailable PraArcadio navarro Attending Unavailable Bebeto, Jace Primary Care Unavailable Quintin Mullins Attending Unavailable Arcadio Chatman Referring Unavailable Bebeto, Jace Referring Unavailable Vinod Hicks Attending Unavailable Bebeto, Jace Primary Care Unavailable Dr. Jace Tate DO Primary Care Physician [phone] Abby Dunn LPN Attending Physician Ciaraa Dr. Jace Romano DO Referring Provider [phone] Compa SANTOYO, Dr. Ervin Attending Physician Dr. Arcadio Chatman MD Referring Provider Dr. Quintin Mullins DO Attending Physician Fabiola SANTOYO, Dr. Brock Attending Physician Dr. Vinod Hicks MD Referring Provider Fabiola SANTOYO, Dr. Brock Nurse Practitioner Allergies Allergy Classification Reported Allergen(s) Allergy Type Date of Onset Reaction(s) Facility (4 sources) Etodolac Drug Allergy 04-16-20 [facility] Work Phone: (20 sources) gabapentin; Translations: [gabapentin] Drug Allergy 04-16-20 Lightheadedness (finding) [facility] Work Phone: (8 sources) [facility] Acetaminophen / Propoxyphene; Translations: [acetaminophen-p ropoxyphene] Drug Allergy [facility] (3 sources) Etodolac Propensity to adverse reactions 04-16-20 [facility] (1 source) Acetaminophen Drug Allergy 03-12-20 [facility] (1 source) gabapentin Drug Allergy 03-12-20 25 [facility] (1 source) Propoxyphene Drug Allergy 03-12-20 25 [facility] (1 source) Acetaminophen Drug Allergy 03-12-20 unknown [facility] Medications Current Medications Medication Drug Class(es) Dates Sig (Normalized) Sig (Original) acetaminophen 500 mg oral tablet (5 sources) Start: 11-16-2021 acetaminophen (TYLENOL) tablet 1,000 mg take 2 tablets by [facility] every six hours as needed for pain acetaminophen (TYLENOL) 325 MG tablet Ta ke 650 mg by mouth every 6 hours as needed for Pain 0 Active acetaminophen 325 mg / HYDRO codone bitartrate 5 mg oral tablet (1 source) Opioid Agonist Start: 03-12-2025 Start: 03-12-2025 acetaminophen 325 mg / oxyCODONE hydrochloride 5 mg oral tablet (4 sources) Opioid Agonist Start: 11-16-2021 End: 05-15-2022 take 1 tablet by mouth every six hours as needed for pain oxyCODONE-acetaminophen (Percocet) 5-325 MG tablet TAKE 1 TABLET BY MOUTH EVERY 6 HOURS NEEDED FOR PAIN FOR UP TO 7 DAYS. TAKE LOWEST DOSE POSSIBLE TO MANAGE PAIN 28 tablet 0 11/16/2021 05/15/2022 Active ALPRAZolam 0.25 mg disintegrating oral tablet (1 source) Benzodiazepine Start: 11-16-2021 ALPRAZolam (NIRAVAM) dissolvable tablet 0.25 mg aspirin 81 mg delayed release oral tablet (5 sources) Platelet Aggregation Inhibitor, Nonsteroidal Anti-inflammatory Drug Start: 11-16-2021 End: 11-16-2022 take 1 tablet by mouth in the morning aspirin 81 MG EC tablet TAKE 1 TABLET BY MOUTH IN THE MORNING. 30 tablet 0 11/16/2021 11/16/2022 Active calcium chloride 0.0014 meq/ml / potassium chloride 0.004 meq/ml / sodium chloride 0.103 meq/ml / sodium lactate 0.028 meq/ml injectable solution (2 sources) Start: 11-16-2021 lactated ringers infusion 1 ml diphenhydrAMINE hydrochloride 50 mg/ml cartridge (1 source) Histamine-1 Receptor Antagonist Start: 11-16-2021 End: 11-16-2021 diphenhydrAMINE (BENADRYL) injection 12.5 mg 1 ml HYDROmorphone hydrochloride 1 mg/ml cartridge (1 source) Opioid Agonist Start: 11-16-2021 HYDROmorphone (DILAUDID) injection 0.25 mg labetalol (NORMODYNE;TRANDAT E) injection 5 mg (1 source) Start: 11-16-2021 labetalol (NORMODYNE;TRANDATE) injection 5 mg 10 ml lidocaine hydrochloride 10 mg/ml injection (1 source) Antiarrhythmic, Amide Local Anesthetic Start: 11-16-2021 End: 11-16-2021 lidocaine PF 1 % injection 1 mL 1 ml LORazepam 2 mg/ml injection (1 source) Benzodiazepine Start: 11-16-2021 End: 11-16-2021 LORazepam (ATIVAN) injection 0.5 mg ondansetron 4 mg disintegrating oral tablet (8 sources) Serotonin-3 Receptor Antagonist Start: 02-27-2025 take 1 tablet by mouth every eight hours as needed for nausea and vomiting Start: 02-13-2025 End: 02-18-2025 ondansetron 8 mg oral tablet Dose : 8 mg = 1 tab(s), Oral, TID, X 5 day(s), # 15 tab(s), 0 Refill(s), 02/18/25 11:53:00 AM EDT, Pharmacy: [facility]/pharmacy #[id number], 167, cm, 02/10/25 10:17:00 EDT, Height, kg, 02/10/25 10:17:00 EDT, Dosing Weight Start Date: 02/13/25 Stop Date: 02/18/25 Status: Ordered Medication Dispense Status: Completed Quantity: 15.0 Unit: tab(s) Total Allowed Fills: 1 Fills Dispensed: 0 Start: 11-16-2021 End: 11-16-2021 ondansetron (ZOFRAN) injecti on 4 mg Start: 11-16-2021 End: 11-16-2022 take 1 tablet by mouth three times daily as needed for nausea ondansetron ODT (Zofran-ODT) 4 MG disintegrating tablet TAKE 1 TABLET BY MOUTH 3 TIMES DAILY NEEDED FOR NAUSEA OR VOMITING 21 tablet 0 11/16/2021 11/16/2022 Active RABEprazole sodium 20 mg delayed release oral tablet (3 sources) Proton Pump Inhibitor Start: 02-10-2025 take 1 tablet by mouth once daily 5 ml sodium chloride 9 mg/ml injection (6 sources) Start: 11-16-2021 sodium chlorid e flush 0.9 % injection 5-40 mL Start: 11-16-2021 0.9 % sodium c hloride bolus Start: 11-16-2021 0.9 % sodium c hloride infusion Start: 11-16-2021 sodium chlorid e flush 0.9 % injection 5-40 mL Completed/Discontinued Medications Medication Drug Class(es) Dates Sig (Normalized) Sig (Original) amLODIPine 10 mg oral tablet (20 sources) Dihydropyridine Calcium Channel Armani Start: 01-01-2025 End: 02-19-2025 take 1 tablet by mouth once daily Amlodipine 10 mg tablet Discontinued 10 mg PO daily February 17, 2025 11:00pm February 19, 2025 8:41am Start: 04-08-2024 take 1 tablet by andrew th once daily amLODIPine 10 mg oral tablet 1 tab(s), Oral, qDay, # 90 tab(s), 1 Refill(s), [id number] 167, cm, 03/04/24 10:01:00 EST, Height, kg, 03/04/24 10:01:00 EST, Dosing Weight Start Date: 04/08/24 Status: Ordered Quantity: 90.0 Unit: tab(s) Repeat number: 2 Start: 07-04-2023 take 1 tablet by [facility] once daily amLODIPine 10 mg oral tablet 1 tab(s), Oral, qDay, # 90 tab(s), 1 Refill(s), [id number], 167.7, cm, 07/04/23 7:50:00 EST, Height, kg, 07/04/23 7:50:00 EST, Dosing Weight Start Date: 07/04/23 Status: Ordered Start: 01-03-2023 take 1 tablet by [facility] once daily amLODIPine 10 mg oral tablet 1 tab(s), Oral, qDay, # 90 tab(s), 1 Refill(s), [id number] 167.7, cm, 01/03/23 9:00:00 EDT, Height, kg, 01/03/23 9:00:00 EDT, Dosing Weight Start Date: 01/03/23 Status: Ordered Start: 06-20-2022 take 1 tablet by [facility] once daily amLODIPine 10 mg oral tablet 1 tab(s), Oral, qDay, # 90 tab(s), 1 Refill(s), Pharmacy: [facility] [id number], 167.7, cm, 02/14/22 13:09:00 EDT, Height, kg, 02/14/22 13:09:00 EDT, Dosing Weight Start Date: 06/20/22 Status: Ordered take 1 tablet by [facility] once daily amLODIPine (NORVASC) 10 MG tablet Take 10 mg by mouth daily 0 Active famotidine 20 mg oral tablet (18 sources) Histamine-2 Receptor Antagonist Start: 02-18-2025 End: 02-19-2025 take 1 tablet by mouth once daily Famotidine 20 mg tablet Discontinued 20 mg PO daily February 17, 2025 11:00pm February 19, 2025 8:41am Start: 01-03-2023 End: 07-02-2023 Pepcid 20 mg oral tablet Dos e : 20 mg = 1 tab(s), Oral, qDay, # 90 tab(s), 1 Refill(s), [id number], 167.7, cm, 01/03/23 9:00:00 EDT, Height, kg, 01/03/23 9:00:00 EDT, Dosing Weight Start Date: 01/03/23 Stop Date: 07/02/23 Status: Ordered Medication Dispense Status: Completed Quantity: 90.0 Unit: tab(s) Total Allowed Fills: 2 Fills Dispensed: 0 Start: 11-16-2021 End: 11-16-2021 famotidine (PEPCID) tablet 2 0 mg Start: 12-16-2020 Pepcid 20 mg o ral tablet Dose : 20 mg = 1 tab(s), Oral, qDay, # 30 tab(s), 0 Refill(s), [id number], 167.7, cm, 12/15/20 17:44:00 EDT, Height, kg, 12/15/20 17:44:00 EDT, Dosing Weight Start Date: 12/16/20 Status: Ordered lisinopril 20 mg oral tablet (20 sources) Angiotensin Converting Enzyme Inhibitor Start: 01-01-2025 End: 02-19-2025 take 1 tablet by mouth once daily Lisinopril 20 mg tablet Discontinued 20 mg PO daily February 17, 2025 11:00pm February 19, 2025 8:41am Start: 07-01-2024 take 1 tablet by andrew th once daily lisinopril 20 mg oral tablet 1 tab(s), Oral, qDay, # 90 tab(s), 1 Refill(s), Pharmacy: [facility] STORE [id number], 167, cm, 03/04/24 10:01:00 EST, Height, kg, 03/04/24 10:01:00 EST, Dosing Weight Start Date: 07/01/24 Status: Ordered Quantity: 90.0 Unit: tab(s) Repeat number: 1 Start: 07-04-2023 take 1 tablet by andrew th once daily lisinopril 20 mg oral tablet 1 tab(s), Oral, qDay, # 90 tab(s), 1 Refill(s), [id number], 167.7, cm, 07/04/23 7:50:00 EST, Height, kg, 07/04/23 7:50:00 EST, Dosing Weight Start Date: 07/04/23 Status: Ordered Start: 01-03-2023 take 1 tablet by [facility] once daily lisinopril 20 mg oral tablet 1 tab(s), Oral, qDay, # 90 tab(s), 1 Refill(s), [id number], 167.7, cm, 01/03/23 9:00:00 EDT, Height, kg, 01/03/23 9:00:00 EDT, Dosing Weight Start Date: 01/03/23 Status: Ordered Start: 06-20-2022 take 1 tablet by [facility] once daily lisinopril 20 mg oral tablet 1 tab(s), Oral, qDay, # 90 tab(s), 1 Refill(s), Pharmacy: [facility] STORE [id number], 167.7, cm, 02/14/22 13:09:00 EDT, Height, kg, 02/14/22 13:09:00 EDT, Dosing Weight Start Date: 06/20/22 Status: Ordered Start: 02-19-2021 lisinopril (ND INIVIL;ZESTRIL) 20 MG tablet Problems Active Problems Problem Classification Problem Date Documented Da te Episodic/Chronic Allergic reactions (2 sources) Allergy status to narcotic agent status; Translations: [Allergy status to other drugs, medicaments and biological substances status] Onset: 5 Episodic Cancer of esophagus (12 sources) Malignant neoplasm of esophagus, unspecified; Translations: [Adenocarcinoma of esophagus] Onset: 5 Chronic Comment on above: Esophageal adenocarc inoma, 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 Patient want to pursue treatment. Cardiac dysrhythmias (3 sources) Unspecified atrial fibrillation; Translations: [Atrial fibrillation] Onset: 2 Chronic Deficiency and other anemia (16 sources) Anemia 01-03-2015 Episodic Deficiency and other anemia (5 sources) Anemia, unspecified; Translations: [Anemia, unspecified] Onset: 4 Episodic Disorders of lipid metabolism (20 sources) Hyperlipidemia; Translations: [Hyperlipidemia, unspecified] Onset: 4 06-30-2022 Chronic Esophageal disorders (17 sources) Gastroesophageal reflux disease; Translations: [Gastro-esophageal reflux disease without esophagitis] Onset: 5 01-03-2015 Chronic Esophageal disorders (2 sources) Esophageal mass; Translations: [Mass of esophagus] Episodic Essential hypertension (5 sources) Essential (primary) hypertension; Translations: [Essential (primary) hypertension] Onset: 2 Chronic Nausea and vomiting (2 sources) Vomiting; Translations: [Vomiting, unspecified] 02-28-2025 Episodic Osteoarthritis (20 sources) Inflammation of joint of foot; Translations: [Primary osteoarthritis, unspecified ankle and foot] Onset: 1 04-16-2021 Chronic Other aftercare (1 source) Other halfway (current) drug therapy; Translations: [Other laborer marine terminal (current) drug therapy] Onset: 5 Episodic Other aftercare (1 source) Encounter for adjustment and management of vascular access device; Translations: [Encounter for adjustment and management of vascular access device] Onset: 5 Episodic Other aftercare (2 sources) Patient encounter status; Translations: [Encounter for adjustment and management of vascular access device] 02-26-2025 Episodic Other connective tissue disease (3 sources) Presence of left artificial knee joint; Translations: [Presence of left artificial knee joint] Onset: 2 Chronic Other connective tissue disease (1 source) Dysfunction of posterior tibial tendon of right foot; Translations: [Posterior tibial tendinitis, right leg] Episodic Other connective tissue disease (2 sources) Posterior tibial tendinitis, right leg; Translations: [Posterior tibial tendinitis, right leg] Onset: 2 Episodic Other connective tissue disease (2 sources) Arthrodesis status; Translations: [Arthrodesis status] Onset: 2 Episodic Other connective tissue disease (16 sources) Pain in hallux 02-14-2022 Episodic Other gastrointestinal disorders (3 sources) Dysphagia 01-09-2025 Episodic Other injuries and conditions due to external causes (16 sources) Spinal injury 01-03-2015 Episodic Other non-traumatic joint disorders (16 sources) Shoulder pain 12-24-2021 Episodic Other screening for suspected conditions (not mental disorders or infectious disease) (20 sources) Abnormal electrocardiogram [ECG] [EKG]; Translations: [Viral screening status] Onset: 2 Episodic Other skin disorders (3 sources) Lesion of face 01-22-2025 Episodic Residual codes; unclassified (1 source) Sleep apnea, unspecified; Translations: [Sleep apnea, unspecified] Onset: 5 Chronic Residual codes; unclassified (15 sources) Needs influenza immunization 01-03-2023 Episodic Unclassified (2 sources) Congenital pes cavus, right foot; Translations: [Congenital pes cavus, right foot] Onset: 2 Unclassified (20 sources) Patient encounter status 06-30-2022 Unclassified (1 source) Other specified disease of esophagus; Translations: [Other specified disease of esophagus] Onset: 5 Unclassified (1 source) C15.9 - Malignant neoplasm of esophagus, unspecified Unclassified (1 source) K22.89 - Other specified disease of esophagus Past or Other Problems Problem Classification Problem Date Documented Da te Episodic/Chronic Acquired foot deformities (8 sources) Talipes cavus; Translations: [Congenital pes cavus, unspecified foot] Onset: 04-16-2021 04-16-2021 Episodic Results Test Name Value Interpretation Reference Range Facility Radiation Oncology Visiton 1 05-12-2024 Radiation Oncology Visit [facility] [address] [place] [id number] OFFICE VISIT Date of Service: 03/12/25912 MR#: [id number] Acct: [id number] Name: LETITIA MASCORRO Rep #: [id number] : 1940 From: Quintin Mullins DO Age/Sex: 84/M Location: [facility] [place] Status: Signed Intake Vital Signs 03/03/25 11:37 03/12/25 09:27 03/12/25 09:31 Height 5 ft 5 in 5 ft 5 in 5 ft 5 in Weight: 153 lb 4 oz BMI 25.4 BP 91/64 Blood Pressure Location Rt brachial Position Sitting Respiration 16 Pulse 120 H Pulse Source Monitor Temp 97.3 F L Temperature Source Temporal Artery Pulse Oximetry (%) 95 Oxygen Delivery Method room air Intake Is patient in pain?: No Allergies acetaminophen (From Darvocet-N) Allergy (Verified 03/12/25 09:27) unknown propoxyphene (From Darvocet-N) Allergy (Verified 03/12/25 09:27) unknown gabapentin Adverse Reaction (Verified 03/12/25 09:27) dizziness, light headed Medications ???Medication ???Instructions ???Recorded ???Confirmed ???Type rabeprazole 20 mg tablet,delayed 20 mg PO QDAY 02/19/25 03/12/25 Hi story release ondansetron 4 mg disintegrating 4 mg PO Q8H PRN nausea and 5 03/12/25 Rx tablet vomiting #30 tabs hydrocodone-acetaminophen 5-325mg 1 tab PO Q6H PRN 03/12/25 5 History 5mg-325mg Have you fallen in the past year?: No PFSH PFSH Medical History Afib Wears dentures Cancer Low iron Easy bruising Injury of head and neck Dietary restriction Non-smoker Hoarseness Hypertension Esophageal pain Walker as ambulation aid Spinal injury Osteoarthritis Dysphagia Anemia Acid reflux disease Home Medications ???Medication ???Instructions ???Recorded ???Last Taken ???Type rabeprazole 20 mg tablet,delayed 20 mg PO QDAY 02/19/25 Unknown His tory release ondansetron 4 mg disintegrating 4 mg PO Q8H PRN nausea and 5 Unknown Rx tablet vomiting #30 tabs hydrocodone-acetaminophen 5-325mg 1 tab PO Q6H PRN 03/12/25 Unknown History 5mg-325mg Allergy/AdvReac Type Severity Reaction Status Date / Time acetaminophen (From Allergy unknown Verified 03/12/25 09:27 Darvocet-N) propoxyphene (From Allergy unknown Verified 03/12/25 09:27 Darvocet-N) gabapentin AdvReac dizziness, Verified 03/12/25 09:27 light headed Family History Father Diabetes Sister Diabetes Surgical History Hx of hernia repair Hx of foot surgery History of esophagogastroduodenoscopy (EGD) History of cholecystectomy History of cataract surgery History of arthroplasty of left knee Status post right foot surgery Social History Smoking Status: Never smoker alcohol intake: never substance use type: does not use Diagnosis: Isaiah Mascorro is an 84-year-old male diagnosed with at least locally 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 Plan: Plan was made to complete palliative radiation therapy consisting of 3750 cGy delivered in 15 fractions to the esophageal primary tumor and surrounding adenopathy. Treatment Data: Treatment Site: I am I let him go up sorry he yeah Current total dose/Total dose planned: 750 cGy / 3750 cGy Fraction number: Chemotherapy: none Subjective: Pain: 0 / 10 Fatigue: none Skin: no erythema, rash, desquamation GI: swallowing limited diet without coughing, stent in place. No reflux Respiratory: some cough since stent placed, Robitussin, mild SOB, no hemoptysis Objective: Weight: 153 lbs 4 oz Physical Exam: Gen: NAD Resp: CTAB. No wheezes, rhonchi, or rales. No increased work of breathing. On room air. CV: RRR. No murmurs. Skin: no erythema, rash, desquamation. Assessment Plan Assessment/Plan (1) Esophageal adenocarcinoma: PLAN: Plan Assessment: Tolerating treatment well overall.??? I reviewed and approved all treatment associated imaging. Nausea: planning zofran odt tid, take prior to treatment as well Pain in right ribs, induced by coughing, moderate, tylenol helps Some increase in SOB, mild pleural effusion. Weight stable Plan: Continue treatment as planned.??? I have reviewed potential treatment associated toxicities as well as timing for resolution and management. Follow up next week or sooner if needed. Thank you for allowing me to participate in the management and care of your patient. If I may answer any questions in the interim, p (more content not included)... Normal [facility] 12 Lead EKGon 03-03-2025 12 Lead EKG [facility] Cardiovascular Services [address] [place] [address] 12 Lead EKG 03/03/25 1346 MR#: [id number] Acct: [id number] Name: LETITIA MASCORRO Rep #: [id number] : 1940 84 From: Lisandra Irby MD Attending Dr: Dr. Vinod Hicks MD Status: DEP [facility] [place] Ordering Dr: Yovanny Ochoa MD Date: 03/03/25 Location: [facility] [place] Sex: M C Admitted: Test Reason : arrythmia Blood Pressure : */* mmHG Vent. Rate : 96 BPM Atrial Rate : * BPM P-R Int : * ms QRS Dur : 136 ms QT Int : 392 ms P-R-T Axes : * -66 18 degrees QTcB Int : 495 ms Atrial fibrillation Left axis deviation Right bundle branch block Abnormal ECG No previous ECGs available Baseline artifact Confirmed by Lisandra Irby ([id number]), editor house organ PATRICIA AMAYA ([id number]) on 03/04/2025 1:01:09 PM Referred By: Vinod Hicks Confirmed By: Lisandra Irby 03/04/25 1301 Date Lisandra Irby MD CC: Dr. Vinod Hicks MD; Dr. Yovanny Ochoa MD; Dr. Jace Tate DO Signed Normal [facility] CXR for Line Placementon CXR for Line Placement [facility] Imaging Services [address] [place] [address] CXR for Line Placement MR#: [id number] Acct: [id number] Name: LETITIA MASCORRO Rep #: [id number] : 1940 M 84 From: Akbar Palm PCP: Dr. Jace Tate DO Status: REG [facility] Study: CXR for Line Placement Date of Exam: 03/03/25 Exam# [id number] Ordering Dr: Vinod Hicks PROCEDURE: CXR FOR LINE PLACEMENT 03/03/2025 REASON FOR EXAM: LINE PLACEMENT TECHNIQUE: Procedure Code: RADCXRLP Modality: DX Procedure: CXR FOR LINE PLACEMENT COMPARISON: None. RAD/CXR for Line Placement IMPRESSION: A right subclavian central venous catheter with port is seen, tip projecting near the expected junction of the SVC and right atrium. Lungs appear clear throughout. No pleural effusion or pneumothorax is noted. The cardiomediastinal silhouette is remarkable for a somewhat tortuous aorta; no evidence of cardiomegaly. No acute osseous change is seen. No evidence of acute cardiopulmonary disease. Reading Location: [place] [address] CC: Dr. Vinod Hicks MD; Dr. Jace Tate DO Guest Service Agent: Signed [facility] Discharge Instructionon Discharge Instruction [facility] Medical Records Department [address] [place] [address] Instructions for Home/Discharge Instructions 03/03/25 1312 MR#: [id number] Acct: [id number] Name: LETITIA MASCORRO Rep #: [id number] : 1940 84 From: Vinod Hicks MD PCP: Dr. Jace Tate, Status:REG [facility] Discharge Instructions Procedure Port-A-Cath Diet Discharge Diet: Light diet - advance as tolerated (Pain medication may cause nausea. You should typically eat light foods as you take your pain medication.) Activity Discharge Activity: Return to Normal Activity and May Shower (with your bandage in place in 1-2 days after surgery. DO NOT SHOWER WHEN YOUR PORT IS ACCESSED.) Additional Activity Instructions:: Alternate ibuprofen and Tylenol for pain control Dressing / Incision Call your doctor if your incision/area has: Continuous Slow Oozing, Sudden Increased Bleeding, Increased Pain/ Swelling, Increased Redness and Foul Smelling Discharge Call your doctor if you observe: Fever of 101 or Higher Remove Dressing in: 2 days Cleanse incision/area with: Soap Water Follow Up Care Please Follow Up With: Vinod Hicks MD When: as needed [phone] Test Results: Test results from this visit will be discussed in further detail at your follow-up appointment, if applicable. Discharge Plan Admission Attending Provider: Vinod Hicks Primary Care Provider: Jace Tate Instructions Print Language: Luxembourger Discharge Orders/Prescriptions Prescriptions: No Action rabeprazole 20 mg tablet,delayed release (DR/EC) 20 mg PO QDAY ondansetron 4 mg tablet,disintegrating 4 mg PO Q8H PRN (Reason: nausea and vomiting) Qty: 30 0RF Referrals / Follow Up: Jace Tate DO [Primary Care Provider, Medical] Disposition Disposition (needs filled in before D/C Order can be placed): Home, Self Care 03/03/25 1313 Vinod Hicks MD CC: Dr. Jace Tate DO Signed [facility] MR/POSTOP.[facility] 03-03-2025 MR/POSTOP.[facility] Medical Records Department [address] [place] [address] Anesthesia Postop Eval I 03/03/25 1407 MR#: [id number] Acct: [id number] Name: LETITIA MASCORRO Rep #: [id number] : 1940 84 From: Yovanny Ochoa MD PCP: Dr. Jace Tate DO Status:REG SDC Y Race: C Location: [place] [address] Anesthesia: Postop Eval I Current Vital Signs Temperature: 98.2 F Pulse Rate: 94 Blood Pressure: 112/84 Respiratory Rate: 16 Pulse Ox: 97 Oxygen Delivery Method: Room Air Assessment Airway patent: Yes Spontaneous unlabored respirations: Yes Mental status: Awake and Calm nausea: No Vomiting: No Anesthesia Complication: No Fluid Hydration Crystalloid volume administer (ml): 200 Total IV fluid infused: 200 Progress Note Post-operative progress note: Patient appears to be in Atrial Fibrillation upon arrival to PACU. DISTRICT ATTORNEY states, patient probably in AFIB upon arrival to OR. Anesthesia document: Postop Eval 1 completed: Yes 03/03/25 1409 Date [facility]cho[facility] Signature: Date CC: Signed [facility] MR/OZFOINQM2fa 03-03-2025 MR/POSTOPAN2 [facility] Medical Records Department [address] [place] [address] Anesthesia Postop Eval II 03/03/25 1409 MR#: [id number] Acct: [id number] Name: LETITIA MASCORRO Rep #: [id number] : 1940 84 From: Yovanny Ochoa MD PCP: Dr. Jace Tate, DO Status:REG [facility] Y Race: C Location: [place] [address] Anesthesia Postop Eval I Sum Postop Eval Completion status Anesthesia document: Postop Eval 1 completed: Yes Anesthesia Postop Eval I Summary Anesthesia Postop Eval I Summary: Anesthesia Postop Eval I: Assessment Summary Airway patent Yes 03/03/25 14:09 Spontaneous unlabored Yes 03/03/25 14:09 respirations Mental status Awake,Calm 03/03/25 14:09 nausea No 03/03/25 14:09 Vomiting No 03/03/25 14:09 Anesthesia Postop Eval I: Fluid Summary Crystalloid volume administer 200 03/03/25 14:09 (ml) Colloids volume administered ( ml) Blood Product volume administered (ml) Total IV fluid infused 200 03/03/25 14:09 Anesthesia Postop Eval I: Summary Notes Anesthesia Complication No 03/03/25 14:09 Anesthesia Complication Comment: Post-operative progress note Patient appears to 03/03/25 14:09 be in Atrial Fibrillation upon arrival to PACU. DISTRICT ATTORNEY states, patient probably in AFIB upon arrival to OR. Anesthesia: Postop Eval II Evaluation Mental status: Awake and Calm Pain Level: 0 nausea: No Vomiting: No Progress Note Post-operative progress note: Atrial fibrillation. discussed with Dr. Lind and patient. Dr. Hicks's office will set up Cardiology visit with patient on outpatient basis, per patient wishes as he prefers not to be admitted. I did inform patient of risk of Stroke, TX, Rapid HR. seems to understand importance of urgent follow up. Complications Anesthesia Complication: No 03/03/25 1414 Date Yovanny Vigil Signature: Date CC: Signed [facility] Operative Reporton 5 Operative Report [facility] Medical Records Department [address] [place] [address] Operative Report 03/03/25 1311 MR#: [id number] Acct: [id number] Name: LETITIA MASCORRO Rep #: [id number] : 1940 84 From: Vinod Hicks MD PCP: Dr. Jace Tate, DO Status:[facility] Location: [place] [address] Operative Report (Standard) Operative Information Date of Procedure: 03/03/25 Pre-Operative Diagnosis: Esophageal cancer and need for vascular access for chemotherapy Post-Operative Diagnosis: Same Surgery/Procedure Performed: Ultrasound and fluoroscopy guided right chest port placement utilizing right IJ banquet server on call: No Type of Anesthesia: Local MAC RN Documented Start/Stop Times: Operation Date: 03/03/25 13:00 Case Time Into Pre-Op 03/03/25 11:18 Out of Pre-Op 03/03/25 12:28 Anesthesia Start 03/03/25 12:32 Into Room 03/03/25 12:32 Procedure Start 03/03/25 12:46 Procedure End 03/03/25 13:02 Anesthesia End 03/03/25 13:06 Out of Room 03/03/25 13:06 Procedure Start Time: 12:46 Procedure Stop Time: 13:02 Select all DRAINS/GRAFTS/IMPLANTS that apply: Implanted device Implanted device details: 8 [employer] PowerPort Estimated Blood Loss: 5 Specimen collected: No Description of surgery: After obtaining informed consent patient was brought back to the operating room MAC anesthesia was induced and the right chest and neck were prepped in normal sterile fashion. Ultrasound was used to evaluate both IJs and the right IJ was selected. Next, using a needle, the right IJ was accessed and a guidewire was passed on into the superior vena cava under fluoroscopy guidance. A small incision was made over the puncture site and the dilator introducer was placed over the guidewire. Next this was capped and the pocket was made for the port. 1% lidocaine with epinephrine was injected in the proposed port site. An incision was made with scalpel. Electrocautery was used to make a pocket under the skin and subcutaneous tissue. Hemostasis was obtained. Next, the catheter was tunneled up to the neck incision site and placed through the introducer. The peel-away introducer was removed and the position of the catheter was confirmed on fluoroscopy. Next, the catheter was trimmed and attached to the port with the locking device. Interrupted 2-0 Vicryl sutures were used to anchor the port to the chest wall and then the port was placed inside the pocket. The pocket was then flushed with saline and the port irrigated with saline. There was good blood return and the port flushed easily. Next, heparin was injected into the port. The skin was closed with subcutaneous interrupted 3-0 Vicryl sutures. A single 3-0 Vicryl sutures placed under the skin at the neck incision site. The port was then accessed and the catheter was flushed with heparinized saline. Steri-Strips were placed as well as op sites. Patient tolerated procedure well, was taken to PACU in stable condition. Chest x-ray will be obtained. Surgical Findings: None Complications Complications: No Admit VTE Documentation VTE Mechan Device Prophylaxis: SCD's 03/03/25 1312 Cosigner Signature (if applicable): CC: Dr. Vinod Hicks MD; Dr. Jace Tate DO Signed [facility] Oncology Visit Reporton 10-3 Oncology Visit Report [facility] [address] [place] [address] OFFICE VISIT Date of Service: 02/27/25 1009 MR#: [id number] Acct: [id number] Name: LETITIA MASCORRO Rep #: [id number] : 1940 From: Arcadio Chatman MD Age/Sex: 84/M Location: [facility] Status: Signed HPI Subjective Date of Service 02/27/25 Chief Complaint F/u for esophageal ca History of Present Illness 84-year-old man presented with difficulty swallowing. Esophagram on 02/06/2025 showed large mass involving the inferior half of the distal esophagus with extension into the proximal stomach suggestive of esophageal cancer. Had upper GI endoscopy on 02/10/2025 which showed mass at 30 cm obstructing the esophagus. Biopsy was done. 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 He had another endoscopy with placement of stent on 02/17/2025. His swallowing has improved, referred for further evaluation and management. He had CT scan of the chest abdomen and pelvis, PET CT scan to stage disease, comes for follow-up, swallowing is improved. [facility] Medical History (Updated 02/28/25 @ 13:[address] Arcadio Chatman MD) Wears dentures Cancer Low iron Easy bruising Injury of head and neck Dietary restriction Non-smoker Hoarseness Hypertension Esophageal pain Walker as ambulation aid Spinal injury Osteoarthritis Dysphagia Anemia Acid reflux disease Surgical History (Updated 02/28/25 @ 10:20 by Amanda Freeman) Hx of hernia repair Hx of foot surgery History of esophagogastroduodenoscopy (EGD) History of cholecystectomy History of cataract surgery History of arthroplasty of left knee Status post right foot surgery Family History Father Diabetes Sister Diabetes Social History Smoking Status: Never smoker alcohol intake: never substance use type: does not use Intake Vital Signs 02/19/25 09:49 02/26/25 13:50 02/27/25 10:11 Height 5 ft 5 in 5 ft 5 in 5 ft 5 in BP 111/79 Blood Pressure Location Rt brachial Position Sitting Respiration 18 Pulse 114 H Pulse Source Monitor Temp 98.3 F Temperature Source Temporal Artery Pulse Oximetry (%) 97 Oxygen Delivery Method room air Intake Accompanied by: Is patient in pain?: No Allergies acetaminophen (From Darvocet-N) Allergy (Verified 02/28/25 10:00) unknown propoxyphene (From Darvocet-N) Allergy (Verified 02/28/25 10:00) unknown gabapentin Adverse Reaction (Verified 02/28/25 10:00) dizziness, light headed Medications ???Medication ???Instructions ???Recorded ???Confirmed ???Type rabeprazole 20 mg tablet,delayed 20 mg PO QDAY 02/19/25 02/28/25 Hi story release ondansetron 4 mg disintegrating 4 mg PO Q8H PRN nausea and 5 02/28/25 Rx tablet vomiting #30 tabs Have you fallen in the past year?: No Central Venous Access Central Venous Access: No 02/25/2025 PET/CT reviewed. PET/PET/CT Tumor Base -Thigh Init IMPRESSION: FDG avid- 1. Large hypermetabolic mediastinal mass consistent with the known esophageal carcinoma, with extensive contiguous metastatic foci including numerous lymph nodes, throughout the mediastinum, extending superiorly, even unto the bilateral supraclavicular lymph nodes. 2. Bilateral adrenal metastatic foci. Other: 1. Prior cholecystectomy. 2. Moderate sigmoid diverticulosis. Please note the low-dose CT scan was performed to facilitate PET image reconstruction and anatomic localization and does not replace a diagnostic CT. Any diagnostic CT requested and performed at the time of the PET will be reported separately. . 02/19/2025 CT c/a/p reviewed. CT/CT Chest, Abd, Pel w/Contrast IMPRESSION: Extensive soft tissue thickening surrounding the esophagus stent measuring 5.3 cm in anteroposterior dimension, 6.9 cm in transverse dimension and 20 cm in craniocaudal dimension consistent with malignancy. Innumerable paraesophageal and mediastinal pathological lymph nodes. For example, a left bony foci in the right femur and the iliac bones, indeterminate. Lymph node measures 2 cm. No acute abdominopelvic abnormalities. Subcentimeter sclerotic bony lesions in the iliac bones in the right femur, indeterminate. Exam Physical Exam Narrative PS 1 Has difficulty walking because of childhood accident. Elderly man, sitting in a wheelchair., uses a walker at home. Const alert, oriented x3 and no apparent distress Coding Level of Care Code Off vis,est,level 4 Diagnoses Esophageal adenocarcinoma C15.9 Vomiting R11.10 Vomiting type: uns (more content not included)... [facility] Radiation Oncology Visiton 1 Radiation Oncology Visit [facility] [address] [place] [address] OFFICE VISIT Date of Service: 02/27/25 1121 MR#: [id number] Acct: [id number] Name: LETITIA MASCORRO Rep #: [id number] : 1940 From: Quintin Mullins DO Age/Sex: 84/M Location: [facility] [place] Status: Signed Intake Vital Signs 02/21/25 09:23 02/26/25 13:50 02/27/25 11:21 Height 5 ft 5 in 5 ft 5 in 5 ft 5 in Weight: 157 lb BMI 26.1 BP 99/72 111/79 Blood Pressure Location Rt brachial Rt brachial Position Sitting Sitting Respiration 16 18 Pulse 114 H Pulse Source Monitor Temp 98.3 F Temperature Source Temporal Artery Pulse Oximetry (%) 94 97 Oxygen Delivery Method room air room air Intake Is patient in pain?: No Allergies acetaminophen (From Darvocet-N) Allergy (Verified 02/27/25 10:15) unknown propoxyphene (From Darvocet-N) Allergy (Verified 02/27/25 10:15) unknown gabapentin Adverse Reaction (Verified 02/27/25 10:15) dizziness, light headed Have you fallen in the past year?: No Central Venous Access Central Venous Access: Yes Port/PICC: Port PFSH PFSH Medical History Spinal injury Right shoulder pain Osteoarthritis Lesion of face Hyperlipidemia Dysphagia Anemia Acid reflux disease Allergy/AdvReac Type Severity Reaction Status Date / Time acetaminophen (From Allergy unknown Verified 02/27/25 10:15 Darvocet-N) propoxyphene (From Allergy unknown Verified 02/27/25 10:15 Darvocet-N) gabapentin AdvReac dizziness, Verified 02/27/25 10:15 light headed Family History Father Diabetes Sister Diabetes Surgical History History of cholecystectomy History of cataract surgery Inguinal hernia History of arthroplasty of left knee Status post right foot surgery Social History Smoking Status: Never smoker alcohol intake: never substance use type: does not use Diagnosis: Isaiah Mascorro is an 84-year-old male diagnosed with at least locally 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 History of Present Illness: 02/06/2025: Patient completed esophagram.??? This demonstrated a large mass involving the inferior half of the esophagus with extension into the proximal stomach highly concerning for esophageal malignancy. 02/17/2025: Patient completed EGD.??? At about 24 cm from the incisors there was a tumor obstructing the esophagus and the scope could not be passed any further.??? Stent was placed and biopsy was completed.??? Pathology was consistent with moderately differentiated adenocarcinoma HER2 3+. 02/19/2025: Patient completed CT chest/abdomen/pelvis with contrast.??? This demonstrated esophageal stent in place with extensive soft tissue thickening surrounding the esophageal stent measuring 5.3 cm in AP dimension, 6.9 cm in transverse dimension, and 20 cm in craniocaudal dimension consistent with malignancy.??? There are innumerable paraesophageal and mediastinal pathologically enlarged lymph nodes.??? There is a large sliding hiatal hernia.??? There are 2 indeterminate liver cyst in the right hepatic lobe with the largest measuring 2.2 cm.??? There are 3 sclerotic bony lesions 1 measuring 2 mm in the right femur, another measuring 2 mm in the left iliac bone, and the third measuring 1 cm in the right iliac bone. 02/25/2025:??? PET performed.??? This demonstrated a large hypermetabolic mediastinal mass consistent with known esophageal carcinoma with extensive contiguous metastatic foci including numerous lymph nodes throughout the mediastinum extending superiorly even into the bilateral supraclavicular lymph nodes.??? Bilateral adrenal metastatic foci are also noted. Radiation Treatment History: No prior history of radiation therapy. No pacemaker. No diagnosis of radiosensitizing comorbidity. Interval History: Patient returns for follow-up to review PET scan results and discuss treatment recommendations. Continues to have difficulty with swallowing but can get down liquids and soft pur???ed type foods. Does not want a PEG tube. Denies having pain right now. Overall denies having other new concerns since his last visit last week. Review of Systems: A 12-point review of systems was completed and was negative except for what is noted in the HPI/Interval History and by the nurse. Physical Exam: Weight: N/A ECO KARNOFSKY SCORE: 60% CONSTITUTIONAL: Well-developed, well-nourished, and in no appare (more content not included)... [facility] Surgery Visit Reporton 02-26 Surgery Visit Report [facility] [address] [place] [address] OFFICE VISIT Date of Service: 02/26/25 MR#: [id number] Acct: [id number] Name: LETITIA MASCORRO Rep #: [id number] : 1940 Provider: Dr. Vinod rowland MD Age/Sex: 84/M Location: [facility] Status: Signed Intake Vital Signs 02/19/25 09:49 02/21/25 09:23 02/26/25 13:50 Height 5 ft 5 in 5 ft 5 in 5 ft 5 in Weight: 157 lb 5 oz 157 lb BMI 26.2 26.1 BP 113/75 99/72 Blood Pressure Location Rt brachial Rt brachial Position Sitting Sitting Respiration 16 16 Pulse 89 Pulse Source Monitor Temp 97.5 F L Pulse Oximetry (%) 96 94 Oxygen Delivery Method room air room air Intake Visit Reasons: PORT PLACEMENT, POSSIBLE PEG Chief Complaint: esophageal ca Razor Sharpener Required: No Is patient in pain?: No Allergies acetaminophen (From [employer]) Allergy (Verified 02/26/25 13:51) unknown propoxyphene (From Darvocet-N) Allergy (Verified 02/26/25 13:51) unknown gabapentin Adverse Reaction (Verified 02/26/25 13:51) dizziness, light headed Medications ???Medication ???Instructions ???Recorded ???Confirmed ???Type rabeprazole 20 mg tablet,delayed 20 mg PO QDAY 02/19/25 02/26/25 Hi story release Have you fallen in the past year?: No PFSH Medical History Spinal injury Right shoulder pain Osteoarthritis Lesion of face Hyperlipidemia Dysphagia Anemia Acid reflux disease Surgical History History of cholecystectomy History of cataract surgery Inguinal hernia History of arthroplasty of left knee Status post right foot surgery Family History Father Diabetes Sister Diabetes Social History Smoking Status: Never smoker alcohol intake: never substance use type: does not use HPI HPI HPI: Patient is an 84-year-old male here with metastatic esophageal cancer. He is here for port and PEG discussion. He is not wanting a PEG tube at this time. He reports he is swallowing well after he had a stent placed into his esophagus. He would only like port at this time. ROS General General: Yes weight change and fatigue; No appetite, colon cancer, breast cancer or weakness HEENT HEENT: Yes difficulty swallowing; No eye injury, eye surgery, swollen glands or hoarseness Endo Endocrine: No thyroid disease, diabetes mellitus, thyroid cancer, Hair loss, heat intolerance or cold intolerance Skin Skin: No rash or changing moles Breast Breast: No left breast lump, right breast lump, nipple discharge, breast pain, abnormal mammogram, abnormal US or breast enlargement Musc Musculoskeletal: Yes arthritis; No back problems, rheumatoid arthritis, gout or joint pain Cardio Cardiovascular: No murmur, pacemaker, heart disease, atrial fibrillation, high blood pressure, heart attack, heart stent, palpitations, shortness of breath with exertion or chest pain Psych Psychiatric: No depression, anxiety or hearing voices Resp Respiratory: No shortness of breath, No sleep apnea, Yes cough, No COPD, No asthma, No emphysema and No wheezing Gastro Gastrointestinal: No abdominal pain, Yes nausea or vomiting, No diarrhea, Yes constipation, No blood in stool, Yes acid reflux, No hemorrhoids, No ulcers, No gallbladder problem and No black,tarry stools Kane Hematologic: No blood thinners, No blood disorders, No bleeding, No anemia and No blood clots Neuro Neurologic: No system reviewed and no additional complaints, except as documented, No as per HPI, No abnormal gait, No abnormal hearing, No abnormal movements, No abnormal speech, No behavioral changes, No burning sensations, No confusion, No convulsions, No disequilibrium, No dizziness, No localized weakness, No frequent falls, No headache(s), No lack of coordination, No loss of vision, No memory loss, No numbness, No other visual disturbances, No radicular pain, No restless legs, No sensory deficit, No syncope, No tingling, No tremor(s), No weakness and No other Exam Const General: cooperative and frail appearing Orientation: alert and oriented x3 HENMT Head: normal to inspection Neck Neck: normal visual inspection and full ROM Chest Chest palpation inspection: normal inspection of the chest Resp Effort Inspection: normal respiratory effort Auscultation: clear to auscultation bilaterally Cardio Rate: regular rate Rhythm: regular rhythm GI Inspection: non-distended Palpation: soft and nontender Skin General: no rashes or lesions noted Neuro General: patient alert and patient oriented x3 Extrem General: full ROM Psych Appearance: grossly normal Mental (more content not included)... [facility] PET/CT Tumor Base -Thigh Ini [facility] 02-25-2025 PET/CT Tumor Base -Thigh Init [facility] Imaging Services [address] [place], [place] [id number] PET/CT Tumor Base -Thigh Init MR#: [id number] Acct: [id number] Name: LETITIA MASCORRO Rep #: [id number] : 1940 M 84 From: Akbar Palm PCP: Dr. Jace Tate, DO Status: REG [facility] Study: PET/CT Tumor Base -Thigh Init Date of Exam: Exam# [id number] Ordering Dr: Quintin Mullins DO ADDENDUM by Dr. Akbar Archer MD on 03/06/25 at 1640 History of extensive esophageal adenocarcinoma, involving most of the thoracic esophagus. [facility] 03/06/25 1640 Date cc: Dr. Jace Tate DO; Dr. Quintin Mullins DO * Signed PROCEDURE: PET/CT TUMOR BASE -THIGH INIT 02/25/2025 REASON FOR EXAM: 84 y/o M with ESOPHAGEAL adenocarcinoma. TECHNIQUE: Procedure Code: PETPTCTINIT Modality: PT Procedure: PET/CT TUMOR BASE -THIGH INIT Following the intravenous administration of radionucleotide, image acquisition on a dedicated PET/CT unit was performed at one hour post injection. A preliminary CT study encompassing the Skull base, neck, chest, abdomen, pelvis, and proximal thighs was performed for purposes of attenuation correction and anatomic localization. The proximal thighs were also included. The patient's blood glucose level was 98 mg/dL (allowable range: 50-180 mg/dL). RADIOPHARMACEUTICAL: 13.402 mCi 18F-FDG (Fluorodeoxyglucose F18) IV was injected into he patient. RADIATION DOSE SUMMARY: Effective Dose: Approximately 7 mSv for a standard whole-body PET scan Organ Doses: Varies by organ, with higher doses typically to the bladder, liver, and brain COMPARISON: COMPARISON FROM CT, PET OR OTHER PERTINENT EXAMS: CT examination of 02/19/2025. FINDINGS: Physiologic uptake: There may be expected metabolic uptake within the brain, tongue and floor of the mouth and larynx/vocal cords, heart, franky (many normal individuals have hilar uptake in less than 3 nodes with mildly avid hilar nodes less than 2.7 SUV), liver and spleen, system, and GI tract and symmetric muscle uptake. FDG AVID AND NON-AVID LESIONS. Reported avid SUV values (g/mL*) are maximum SUV. NECK: There are no significant neck abnormalities. CHEST: Chest wall- There are no significant chest wall abnormalities. Axilla- There are no significant axillary abnormalities. Lung parenchyma- There are no significant lung parenchyma abnormalities. Mediastinum- Large hypermetabolic mediastinal mass consistent with the known esophageal carcinoma, with extensive contiguous metastatic foci including numerous lymph nodes, throughout the mediastinum, extending superiorly, even involving the bilateral supraclavicular lymph nodes. SUV max Right supraclavicular SUV max of 66.5; Left supraclavicular SUV max of 31.9. Pleura- There are no significant pleural abnormalities. ABDOMEN: Bilateral Adrenal metastatic foci are seen, right worse than left, with SUV max in the right of 19.7. And SUV max of the left of 22.1. Prior cholecystectomy. Stomach- No significant abnormalities. Liver-few small hepatic cysts again seen. No significant abnormalities. Spleen- No significant abnormalities. Pancrease- No significant abnormalities. Kidneys- No significant abnormalities. Bowel- Normal bowel activity. Spine- No significant abnormalities. PELVIS: Moderate sigmoid diverticulosis. Bowel- Normal physiologic bowel activity is identified. Masses- There are no pelvic masses. Bones- With the use of bone window settings, there are no osteolytic or osteoblastic lesions. There are no FDG avid lesions within the visualized portion of the axial skeleton. PET/PET/CT Tumor Base -Thigh Init IMPRESSION: FDG avid- 1. Large hypermetabolic mediastinal mass consistent with the known esophageal carcinoma, with extensive contiguous metastatic foci including numerous lymph nodes, throughout the mediastinum, extending superiorly, even unto the bilateral supraclavicular lymph nodes. 2. Bilateral adrenal metastatic foci. Other: 1. Prior cholecystectomy. 2. Moderate sigmoid diverticulosis. Please note the low-dose CT scan was performed to facilitate PET image reconstruction and anatomic localization and does not replace a diagnostic CT. Any diagnostic CT requested and performed at the time of the PET will be reported separately. Reading Location: [place] [address] CC: Dr. Jace Tate DO; Dr. Quintin Mullins DO Guest Service Agent: Signed Normal [facility] Radiation Oncology Visiton 1 Radiation Oncology Visit [facility] [place] [address] OFFICE VISIT Date of Service: 02/21/25915 MR#: [id number] Acct: [id number] Name: LETITIA MASCORRO Rep #: [id number] : 1940 From: Quintin Susanna Age/Sex: 84/M Location: [facility] [place] Status: Signed Intake Vital Signs 02/19/25 09:49 02/21/25 09:23 Height 5 ft 5 in 5 ft 5 in Weight: 156 lb 7 oz 157 lb 5 oz BMI 26.0 26.2 BP 113/75 Blood Pressure Location Rt brachial Position Sitting Respiration 16 Pulse 89 Pulse Source Monitor Temp 97.5 F L Temperature Source Temporal Artery Pulse Oximetry (%) 96 Oxygen Delivery Method room air Intake Is patient in pain?: No Allergies acetaminophen (From Darvocet-N) Allergy (Verified 02/21/25 09:23) unknown propoxyphene (From Darvocet-N) Allergy (Verified 02/21/25 09:23) unknown gabapentin Adverse Reaction (Verified 02/21/25 09:23) dizziness, light headed Medications ???Medication ???Instructions ???Recorded ???Confirmed ???Type rabeprazole 20 mg tablet,delayed 20 mg PO QDAY 02/19/25 02/21/25 Hi story release Have you fallen in the past year?: No PFSH PFSH Medical History Spinal injury Right shoulder pain Osteoarthritis Lesion of face Hyperlipidemia Dysphagia Anemia Acid reflux disease Home Medications ???Medication ???Instructions ???Recorded ???Last Taken ???Type rabeprazole 20 mg tablet,delayed 20 mg PO QDAY 02/19/25 Unknown His tory release Allergy/AdvReac Type Severity Reaction Status Date / Time acetaminophen (From Allergy unknown Verified 02/21/25 09:23 Darvocet-N) propoxyphene (From Allergy unknown Verified 02/21/25 09:23 Darvocet-N) gabapentin AdvReac dizziness, Verified 02/21/25 09:23 light headed Family History Father Diabetes Sister Diabetes Surgical History History of cholecystectomy History of cataract surgery Inguinal hernia History of arthroplasty of left knee Status post right foot surgery Social History Smoking Status: Never smoker alcohol intake: never substance use type: does not use Referring Provider: Arcadio Chatman MD Diagnosis: Isaiah Mascorro is an 84-year-old male diagnosed with at least 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 History of Present Illness: 02/06/2025: Patient completed esophagram.??? This demonstrated a large mass involving the inferior half of the esophagus with extension into the proximal stomach highly concerning for esophageal malignancy. 02/10/2025: Patient completed EGD.??? At about 24 cm from the incisors there was a tumor obstructing the esophagus and the scope could not be passed any further.??? Stent was placed and biopsy was completed.??? Pathology was consistent with moderately differentiated adenocarcinoma HER2 3+. 02/19/2025: Patient completed CT chest/abdomen/pelvis with contrast.??? This demonstrated esophageal stent in place with extensive soft tissue thickening surrounding the esophageal stent measuring 5.3 cm in AP dimension, 6.9 cm in transverse dimension, and 20 cm in craniocaudal dimension consistent with malignancy.??? There are innumerable paraesophageal and mediastinal pathologically enlarged lymph nodes.??? There is a large sliding hiatal hernia.??? There are 2 indeterminate liver cyst in the right hepatic lobe with the largest measuring 2.2 cm.??? There are 3 sclerotic bony lesions 1 measuring 2 mm in the right femur, another measuring 2 mm in the left iliac bone, and the third measuring 1 cm in the right iliac bone. Radiation Treatment History: No prior history of radiation therapy. No pacemaker. No diagnosis of radiosensitizing comorbidity. Interval History: Patient presents for initial consultation. He does report having a history of mild swallowing difficulty dating back for about 1 year but over the last 3 to 4 months it became much more severe. He got to the point where he could only swallow liquids and even that was a struggle. He denies ever having regurgitation. He does have occasional pain with swallowing. He otherwise denies pain elsewhere in his body. He denies cough, shortness of breath. He denies hematemesis or melena. He did complete EGD with stent placement about 2 weeks ago and reports doing well since then. He is able to swallow pur???ed foods and liquids but has not attempted any solids. He remains relatively inactive in his daily life spending most of his time in his c (more content not included)... Normal [facility] Carcinoembryonic Antigenon 1 CEA 2.0 ng/mL Normal 0.0-4.7 [facility] Comment on above: Result Comment: Nons mokers <3.9 Smokers <5.6 [facility] Electrochemiluminescence Immunoassay (ECLIA) Values obtained with different assay methods or kits cannot be used interchangeably. Results cannot be interpreted as absolute evidence of the presence or absence of malignant disease. Performed at: [facility] [address] [id number] Project Control Officer: Larry Stanley PhD, Phone: [phone] Performed By: #### L 3100.2300, L504.2610, L100.0100, L500.4050 #### [facility] [address] [place], [place], [id number] Absolute lymphocyte countOrd ered By: Arcadio Compa on 02-19-2025 Lymphocytes Auto (Unsp spec) [#/Vol] 1.43 10*3/uL 0.83-4.51 [facility] Absolute neutrophil countOrd ered By: Arcadio Chatman on 02-19-2025 Neutrophils (Bld) [#/Vol] 13.1 10*3/uL High 2.0-7.7 [facility] Anion gap in Serum or Plasma Ordered By: Arcadio Chatman on 02-19-2025 Anion gap [Moles/Vol] 12 mmol/L 5-15 [facility] Automated lymphocyte count a s percentage of total leukocytesOrdered By: Arcadio Chatman on 02-19-2025 Lymphocytes/100 WBC Auto (Unsp spec) 8.9 % Low 19-41 [facility] BUN/creatinine ratioOrdered By: Arcadio Chatman on 02-19-2025 Urea nitrogen/Creatinine [Mass ratio] 22.9 mg/mg High 10- [facility] Basophil percentageOrdered B y: Arcadio Chatman on 02-19-2025 Basophils/100 WBC (Bld) 0.3 % 0-1 [facility] Bilirubin, totalOrdered By: Arcadio Chatman on 02-19-2025 Bilirubin [Mass/Vol] 0.61 mg/dL 0.00-1.30 [facility] CBC W/Diff, Automatedon 01-30 Absolute Lymph 1.43 X10 3/uL Normal 0.83-4.51 [facility] Comment on above: Performed By: #### L 3100.2300, L504.2610, L100.0100, L500.4050 #### [facility] [address] [place], [address] Absolute Neut 13.1 X10 3/uL High 2.0-7.7 [facility] Comment on above: Performed By: #### L 3100.2300, L504.2610, L100.0100, L500.4050 #### [facility] [address] [place], [address] Basophils/100 WBC (Bld) 0.3 % Normal 0-1 [facility] Comment on above: Performed By: #### L 3100.2300, L504.2610, L100.0100, L500.4050 #### [facility] [address] [place], [address] Eosinophils/100 WBC (Bld) 1.1 % Normal 0-5 [facility] Comment on above: Performed By: #### L 3100.2300, L504.2610, L100.0100, L500.4050 #### [facility] [address] [place], [address] Erythrocyte distribution width (RBC) [Ratio] 13.3 % Normal 11.6-14.6 [facility] Comment on above: Performed By: #### L 3100.2300, L504.2610, L100.0100, L500.4050 #### [facility] [address] [place], [address] Hematocrit (Bld) [Volume fraction] 40.2 % Normal 40-54 [facility] Comment on above: Performed By: #### L 3100.2300, L504.2610, L100.0100, L500.4050 #### [facility] [address] [place], [address] Hemoglobin (Bld) [Mass/Vol] 13.5 g/dL Normal 13.0-16.5 [facility] Comment on above: Performed By: #### L 3100.2300, L504.2610, L100.0100, L500.4050 #### [facility] [address] [place], [address] IG% 0.300 Normal 0.0-0.9 [facility] Comment on above: Result Comment: IG% - Immature Granulocytes (promyelocytes, myelocytes and metamyelocytes) > 1% indicates that a LEFT SHIFT is Present. Performed By: #### L 3100.2300, L504.2610, L100.0100, L500.4050 #### [facility] [address] [place], [address] Lymphocytes/100 WBC (Bld) 8.9 % Low 19-41 [facility] Comment on above: Performed By: #### L 3100.2300, L504.2610, L100.0100, L500.4050 #### [facility] [address] [place], [address] MCH (RBC) [Entitic mass] 28.9 pg Normal 27.0-32.0 [facility] Comment on above: Performed By: #### L 3100.2300, L504.2610, L100.0100, L500.4050 #### [facility] [address] [place], [address] MCHC (RBC) [Mass/Vol] 33.6 g/dL Normal 32-36 [facility] Comment on above: Performed By: #### L 3100.2300, L504.2610, L100.0100, L500.4050 #### [facility] [address] [place], [address] MCV (RBC) [Entitic vol] 86.1 fL Normal 80-94 [facility] Comment on above: Performed By: #### L 3100.2300, L504.2610, L100.0100, L500.4050 #### [facility] [address] [place], [address] Monocytes/100 WBC (Bld) 7.6 % Normal 0-10 [facility] Comment on above: Performed By: #### L 3100.2300, L504.2610, L100.0100, L500.4050 #### [facility] [address] [place], [address] Neutrophils/100 WBC (Bld) 81.8 % High 47-70 [facility] Comment on above: Performed By: #### L 3100.2300, L504.2610, L100.0100, L500.4050 #### [facility] [address] [place], [address] Nucleated RBC (Bld) [#/Vol] 0 10*3/uL Normal 0-5 [facility] Comment on above: Performed By: #### L 3100.2300, L504.2610, L100.0100, L500.4050 #### [facility] [address] [place], [address] Platelet mean volume (Bld) [Entitic vol] 9.1 fL Normal 6.2-12.0 [facility] Comment on above: Performed By: #### L 3100.2300, L504.2610, L100.0100, L500.4050 #### [facility] [address] [place], [address] Platelets (Bld) [#/Vol] 412 10*3/uL Normal 150-450 [facility] Comment on above: Performed By: #### L 3100.2300, L504.2610, L100.0100, L500.4050 #### [facility] [address] [place], [address] RBC (Bld) [#/Vol] 4.67 10*6/uL Normal 4.6-6.2 [facility] Comment on above: Performed By: #### L 3100.2300, L504.2610, L100.0100, L500.4050 #### [facility] [address] [place], [address] RDW SD 41.8 fl Normal 35.1-43.9 [facility] Comment on above: Performed By: #### L 3100.2300, L504.2610, L100.0100, L500.4050 #### [facility] [address] [place], [address] WBC (Bld) [#/Vol] 16.1 10*3/uL High 4.4-11.0 [facility] Comment on above: Performed By: #### L 3100.2300, L504.2610, L100.0100, L500.4050 #### [facility] [address] [place], [address] CT Chest, Abd, Pel w/Contras ton 02-19-2025 CT Chest, Abd, Pel w/Contrast [facility] Imaging Services [address] [place] [address] CT Chest, Abd, Pel w/Contrast MR#: [id number] Acct: [id number] Name: LETITIA MASCORRO Rep #: [id number] : 1940 M 84 From: Husam Abad MD PCP: Dr. Jace Tate, DO Status: REG CLI Study: CT Chest, Abd, Pel w/Contrast Date of Exam: Exam# [id number] Ordering Dr: Arcadio Chatman MD PROCEDURE: CT CHEST, ABD, PEL W/CONTRAST 02/19/2025 REASON FOR EXAM: ESOPHAGEAL CA-IV ONLY TECHNIQUE: Chest, abdomen and pelvis CT with intravenous contrast. Coronal and Sagittal reconstruction series were provided. One or more dose reduction techniques were used (e.g., Automated exposure control, adjustment of the mA and/or kV according to patient size, use of iterative reconstruction technique. PATIENT PREPARATION: Per protocol ORAL CONTRAST TYPE: None. AMOUNT: mL CONTRAST: Isovue 370 VOLUME: 62mL 20 gauge IV RADIATION DOSE SUMMARY: CTDlvol: 19.09 mGy DLP: 1005.71 mGycm COMPARISON: No comparison images are available at time of dictation. FINDINGS: CT CHEST: Mediastinum, lymph nodes and hardware: Esophageal stent is in place. Extensive soft tissue thickening surrounding the esophagus stent measuring 5.3 cm in anteroposterior dimension, 6.9 cm in transverse dimension and 20 cm in craniocaudal dimension consistent with malignancy. Innumerable paraesophageal and mediastinal pathological lymph nodes. For example, a left para-aortic lymph node measures 2 cm. Large sliding hiatal hernia. Heart and Vasculature: Moderate cardiomegaly. Atherosclerotic calcifications of the coronary arteries. Lungs and Airways: Dependent atelectasis in the lower lobes. Pleura: Small bilateral pleural effusions. Bones: No acute bony abnormalities. CT ABDOMEN/PELVIS: Liver: Two indeterminate cyst in the right hepatic lobe with the largest measures 2.2 cm. Gallbladder: Status post cholecystectomy. Spleen: No splenomegaly. Pancreas: Unremarkable. Adrenals: Unremarkable. Kidneys: Multiple parapelvic kidney cysts. A 1.2 cm simple cyst at the midpole of the right kidney. Perinephric fat stranding. Correlation with urinalysis is recommended. Bladder: Unremarkable. Reproductive Organs: Unremarkable. Bowel: Colonic diverticulosis with no evidence of acute diverticulitis. No bowel wall obstruction. Appendix: Normal. Lymph nodes: No lymphadenopathy in the abdomen and pelvis. Vasculature: No aneurysm. Atherosclerotic calcifications. Peritoneum / Retroperitoneum: No free air or free fluid. Bones: No acute bony abnormalities. A 2 mm indeterminate sclerotic focus at the right femur. Another 2 mm dystrophic chronic lesion in the left iliac bone. A 1 cm sclerotic lesion in the right iliac bone. CT/CT Chest, Abd, Pel w/Contrast IMPRESSION: Extensive soft tissue thickening surrounding the esophagus stent measuring 5.3 cm in anteroposterior dimension, 6.9 cm in transverse dimension and 20 cm in craniocaudal dimension consistent with malignancy. Innumerable paraesophageal and mediastinal pathological lymph nodes. For example, a left bony foci in the right femur and the iliac bones, indeterminate. Lymph node measures 2 cm. No acute abdominopelvic abnormalities. Subcentimeter sclerotic bony lesions in the iliac bones in the right femur, indeterminate. Reading Location: [facility] CC: Dr. Arcadio Chatman MD; Dr. Jace Tate DO Guest Service Agent: Signed Normal [facility] Carbon dioxide, total [Moles /volume] in Central venous bloodOrdered By: Arcadio Chatman on 02-19-2025 CO2 [Moles/Vol] 24.2 mmol/L 21.0-32.0 [facility] Chloride assayOrdered By: Jackelin Chatman on 02-19-2025 Chloride [Moles/Vol] 100 mmol/L 98-108 [facility] Comprehensive Metabolic Prof ilon 02-19-2025 Albumin [Mass/Vol] 3.5 g/dL Normal 3.4-4.8 [facility] Comment on above: Performed By: #### L 3100.2300, L504.2610, L100.0100, L500.4050 #### [facility] [address] [place], [address] Albumin/Globulin [Mass ratio] 1.2 {ratio} Normal 0.9-2.4 [facility] Comment on above: Performed By: #### L 3100.2300, L504.2610, L100.0100, L500.4050 #### [facility] [address] [place], [address] ALK PHOS 90 U/L Normal 40-129 [facility] Comment on above: Performed By: #### L 3100.2300, L504.2610, L100.0100, L500.4050 #### [facility] [address] [place], [address] ALT [Catalytic activity/Vol] 9 U/L Normal <=46 [facility] Comment on above: Performed By: #### L 3100.2300, L504.2610, L100.0100, L500.4050 #### [facility] [address] [place], [address] AST [Catalytic activity/Vol] 17 U/L Normal <=37 [facility] Comment on above: Performed By: #### L 3100.2300, L504.2610, L100.0100, L500.4050 #### [facility] [address] [place], [address] Bilirubin [Mass/Vol] 0.61 mg/dL Normal 0.00-1.30 [facility] Comment on above: Performed By: #### L 3100.2300, L504.2610, L100.0100, L500.4050 #### [facility] [address] [place], [address] BUN/CRE 22.9 RATIO High 10-20 [facility] Comment on above: Performed By: #### L 3100.2300, L504.2610, L100.0100, L500.4050 #### [facility] [address] [place], [address] Calcium [Mass/Vol] 8.7 mg/dL Normal 7.6-11.0 [facility] Comment on above: Performed By: #### L 3100.2300, L504.2610, L100.0100, L500.4050 #### [facility] [address] [place], [address] Chloride [Moles/Vol] 100 mmol/L Normal 98-108 [facility] Comment on above: Performed By: #### L 3100.2300, L504.2610, L100.0100, L500.4050 #### [facility] [address] [place], [address] CO2 [Moles/Vol] 24.2 mmol/L Normal 21.0-32.0 [facility] Comment on above: Performed By: #### L 3100.2300, L504.2610, L100.0100, L500.4050 #### [facility] [address] [place], [address] Creatinine [Mass/Vol] 0.87 mg/dL Normal 0.70-1.20 [facility] Comment on above: Performed By: #### L 3100.2300, L504.2610, L100.0100, L500.4050 #### [facility] [address] [place], [address] GAP 12 Normal 5-15 [facility] Comment on above: Performed By: #### L 3100.2300, L504.2610, L100.0100, L500.4050 #### [facility] [address] [place], [address] GFR/1.73 sq M.predicted among non-blacks MDRD (S/P/Bld) [Vol rate/Area] 86 mL/min/{1.73_m2} Normal >60 [facility] Comment on above: Result Comment: mL/m in/1.73m2 CKD-EPI Creatinine Equation (2020) Performed By: #### L 3100.2300, L504.2610, L100.0100, L500.4050 #### [facility] [address] [place], [address] Globulin (S) [Mass/Vol] 3.0 g/dL Normal 2.2-4.2 [facility] Comment on above: Performed By: #### L 3100.2300, L504.2610, L100.0100, L500.4050 #### [facility] [address] [place], [address] Glucose [Mass/Vol] 109 mg/dL High 70-99 [facility] Comment on above: Performed By: #### L 3100.2300, L504.2610, L100.0100, L500.4050 #### [facility] [address] [place], [address] Potassium [Moles/Vol] 4.5 mmol/L Normal 3.3-5.1 [facility] Comment on above: Performed By: #### L 3100.2300, L504.2610, L100.0100, L500.4050 #### [facility] [address] [place], [address] Sodium [Moles/Vol] 136 mmol/L Normal 133-145 [facility] Comment on above: Performed By: #### L 3100.2300, L504.2610, L100.0100, L500.4050 #### [facility] [address] [place], [address] T PROT 6.6 g/dL Normal 5.9-8.4 [facility] Comment on above: Performed By: #### L 3100.2300, L504.2610, L100.0100, L500.4050 #### [facility] [address] [place], [address] Urea nitrogen [Mass/Vol] 20 mg/dL High 4-19 [facility] Comment on above: Performed By: #### L 3100.2300, L504.2610, L100.0100, L500.4050 #### [facility] [address] [place], [address] Eosinophil percentageOrdered By: Arcadio Chatman on 02-19-2025 Eosinophils/100 WBC (Bld) 1.1 % 0-5 [facility] Erythrocyte distribution wid th ratioOrdered By: Arcadio Chatman on 02-19-2025 Erythrocyte distribution width (RBC) [Ratio] 13.3 % 11.6-14.6 [facility] Erythrocyte distribution wid th standard deviationOrdered By: Arcadio Chatman on 02-19-2025 Erythrocyte distribution width (RBC) [Ratio] 41.8 fl 35.1-43.9 [facility] Glomerular filtration rate ( GFR) estimation/1.73 sq m using serum, plasma, or whole bOrdered By: Arcadio Chatman on 02-19-2025 GFR/1.73 sq M.predicted among non-blacks MDRD (S/P/Bld) [Vol rate/Area] 86 mL/min/{1.73_m2} >60 [facility] Comment on above: mL/min/1.73m2 CKD-EP I Creatinine Equation (2020) Hematocrit Auto (Bld) [Volum e fraction]Ordered By: Arcadio Chatman on 02-19-2025 Hematocrit (Bld) [Volume fraction] 40.2 % 40-54 [facility] Hemoglobin measurementOrdere d By: Arcadio Chatman on 02-19-2025 Hemoglobin (Bld) [Mass/Vol] 13.5 g/dL 13.0-16.5 [facility] Immature granulocytes/100 WB C Auto (Bld)Ordered By: Arcadio Chatman on 02-19-2025 Immature granulocytes/100 WBC (Bld) 0.300 % 0.0-0.9 [facility] Comment on above: IG% - Immature Granu locytes (promyelocytes, myelocytes and metamyelocytes) > 1% indicates that a LEFT SHIFT is Present. LDHon 02-19-2025 LDH 439 U/L High 87-241 [facility] Comment on above: Order Comment: 1 Performed By: #### L 3100.2300, L504.2610, L100.0100, L500.4050 #### [facility] [address] [place], [place], [id number] Laboratory - Chemistry and C hemistry - challengeOrdered By: Arcadio Chatman on 02-19-2025 AST [Catalytic activity/Vol] 17 U/L <38 [facility] Lactate dehydrogenase (LDH) measurementOrdered By: Arcadio Chatman on 02-19-2025 LDH [Catalytic activity/Vol] 439 U/L High 87-241 [facility] MCV (mean corpuscular volume ) determinationOrdered By: Arcadio Chatman on 02-19-2025 MCV (RBC) [Entitic vol] 86.1 fL 80-94 [facility] Mean corpuscular hemoglobin (MCH) determinationOrdered By: Arcadio Chatman on 02-19-2025 MCH (RBC) [Entitic mass] 28.9 pg 27.0-32.0 [facility] Mean corpuscular hemoglobin concentration (MCHC) determinationOrdered By: Arcadio Chatman on 02-19-2025 MCHC (RBC) [Mass/Vol] 33.6 g/dL 32-36 [facility] Mean platelet volume determi nationOrdered By: Arcadio Chatman on 02-19-2025 Platelet mean volume (Bld) [Entitic vol] 9.1 fL 6.2-12.0 [facility] Monocyte percentageOrdered B y: Arcadio Chatman on 02-19-2025 Monocytes/100 WBC (Bld) 7.6 % 0-10 [facility] Neutrophil percentageOrdered By: Arcadio Chatman on 02-19-2025 Neutrophils/100 WBC (Bld) 81.8 % High 47-70 [facility] Nucleated red blood cell per centageOrdered By: Arcadio Chatman on 02-19-2025 Nucleated RBC/100 WBC (Bld) [Ratio] 0 % 0-5 [facility] Oncology Visit Reporton 01-30 Oncology Visit Report [facility] [address] [place] [address] OFFICE VISIT Date of Service: 02/19/25 0939 MR#: [id number] Acct: [id number] Name: LETITIA MASCORRO Rep #: [id number] : 1940 From: Arcadio Chatman MD Age/Sex: 84/M Location: [facility] [place] Status: Signed HPI Subjective Date of Service 02/19/25 Chief Complaint Referred for Esophageal cancer. History of Present Illness 84-year-old man presented with difficulty swallowing. Esophagram on 02/06/2025 showed large mass involving the inferior half of the distal esophagus with extension into the proximal stomach suggestive of esophageal cancer. Had upper GI endoscopy on 02/10/2025 which showed mass at 30 cm obstructing the esophagus. Biopsy was done. 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 He had another endoscopy with placement of stent on 02/17/2025. His swallowing has improved, now referred for further evaluation and management. [facility] Medical History Spinal injury Right shoulder pain Osteoarthritis Lesion of face Hyperlipidemia Dysphagia Anemia Acid reflux disease Surgical History History of cholecystectomy History of cataract surgery Inguinal hernia History of arthroplasty of left knee Status post right foot surgery Family History Father Diabetes Sister Diabetes Social History Smoking Status: Never smoker alcohol intake: never substance use type: does not use ROS ROS Narrative Sitting in a wheelchair, walks with a cane. Constitutional Constitutional: Reports systems reviewed and no addt'l complaints, except as documented Eyes Eyes: Reports systems reviewed and no addt'l complaints, except as documented ENT HEENT: Reports systems reviewed and no addt'l complaints, except as documented Cardiovascular Cardiovascular: Reports systems reviewed and no addt'l complaints, except as documented Respiratory/Chest Respiratory/Chest: Reports systems reviewed and no addt'l complaints, except as documented Gastrointestinal Gastrointestinal: Reports systems reviewed and no addt'l complaints, except as documented Genitourinary Genitourinary: Reports systems reviewed and no addt'l complaints, except as documented Musculoskeletal Musculoskeletal: Reports systems reviewed and no addt'l complaints, except as documented Integumentary Integumentary: Reports systems reviewed and no addt'l complaints, except as documented Neurologic Neurologic: Reports systems reviewed and no addt'l complaints, except as documented Psychiatric Psychiatric: Reports systems reviewed and no addt'l complaints, except as documented Endocrine Endocrinology: Reports systems reviewed and no addt'l complaints, except as documented Hematologic/Lymphatic Hematologic/Lymphatic: Reports systems reviewed and no addt'l complaints, except as documented Allergic/Immunologic Allergic/Immunologic: Reports systems reviewed and no addt'l complaints, except as documented Intake Vital Signs 02/19/25 09:46 02/19/25 09:49 Height 5 ft 5 in 5 ft 5 in Weight: 70.959 kg 70.959 kg BMI 26.0 26.0 BP 114/75 Blood Pressure Location Rt brachial Position Sitting Respiration 18 Pulse 95 Pulse Source Monitor Temp 98.3 F Temperature Source Temporal Artery Pulse Oximetry (%) 97 Oxygen Delivery Method room air Intake Is patient in pain?: No Allergies acetaminophen (From Darvocet-N) Allergy (Verified 02/19/25 09:40) unknown propoxyphene (From Darvocet-N) Allergy (Verified 02/19/25 09:40) unknown gabapentin Adverse Reaction (Verified 02/19/25 09:40) dizziness, light headed Medications ???Medication ???Instructions ???Recorded ???Confirmed ???Type rabeprazole 20 mg tablet,delayed 20 mg PO QDAY 02/19/25 02/19/25 Hi story release Have you fallen in the past year?: No Central Venous Access Central Venous Access: No Exam Physical Exam Const alert, oriented x3 and no apparent distress HEENT normocephalic, external ears normal and external nose normal Eyes PERRL, EOMs intact bilaterally, conjunctivae normal and no scleral icterus Neck supple Lymph Lymphatic: no lymphadenopathy noted Resp clear to auscultation bilaterally Cardio regular rate, regular rhythm, S1 normal heart sound, S2 normal heart sound and no murmurs GI soft to palpation, non-tender and non-distended no CVA tenderness Back/Spine thoracic and lumbar spine normal to inspection Extremity normal to inspection and no clubbing, cyanosis or edema Skin no rashes or lesions noted Neuro oriented x3, CN's II-XII intact bilate (more content not included)... Normal [facility] Platelet countOrdered By: Jackelin Chatman on 02-19-2025 Platelets (Bld) [#/Vol] 412 10*3/uL 150-450 [facility] Potassium measurement (mass/ volume)Ordered By: Arcadio Chatman on 02-19-2025 Potassium (Unsp spec) [Mass/Vol] 4.5 mmol/L 3.3-5.1 [facility] RBC Auto (Bld) [#/Vol]Ordere d By: Arcadio Chatman on 02-19-2025 RBC (Bld) [#/Vol] 4.67 10*6/uL 4.6-6.2 [facility] Serum creatinine measurement (mass/volume)Ordered By: Arcadio Chatman on 02-19-2025 Creatinine [Mass/Vol] 0.87 mg/dL 0.70-1.20 [facility] Serum globulin measurementOr dered By: Arcadio Chatman on 02-19-2025 Globulin (S) [Mass/Vol] 3.0 g/dL 2.2-4.2 [facility] Serum glucose measurement (m ass/volume)Ordered By: Arcadio Chatman on 02-19-2025 Glucose [Mass/Vol] 109 mg/dL High 70-99 [facility] Serum or plasma alanine gutierrez otransferase (ALT) measurementOrdered By: Arcadio Chatman on 02-19-2025 ALT [Catalytic activity/Vol] 9 U/L <47 [facility] Serum or plasma albumin neel urement (mass/volume)Ordered By: Arcadio Chatman on 02-19-2025 Albumin [Mass/Vol] 3.5 g/dL 3.4-4.8 [facility] Serum or plasma albumin/glob ulin mass ratioOrdered By: Arcadio Chatman on 02-19-2025 Albumin/Globulin [Mass ratio] 1.2 {ratio} 0.9-2.4 [facility] Serum or plasma alkaline migue sphatase measurementOrdered By: Arcadio Chatman on 02-19-2025 ALP [Catalytic activity/Vol] 90 U/L 40-129 [facility] Serum or plasma calcium neel urement (mass/volume)Ordered By: Arcadio Chatman on 02-19-2025 Calcium [Mass/Vol] 8.7 mg/dL 7.6-11.0 [facility] Serum or plasma carcinoembry onic antigen measurement (mass/volume)Ordered By: Arcadio Chatman on 02-19-2025 Carcinoembryonic Ag [Mass/Vol] 2.0 ng/mL 0.0-4.7 [facility] Comment on above: Nonsmokers <3.9 Smok ers <5.6[employer] Electrochemiluminescence Immunoassay(ECLIA)Values obtained with different assay methods or kitscannot be used interchangeably. Results cannot beinterpreted as absolute evidence of the presence orabsence of malignant disease.Performed at: [address] [id number] Director: Larry Stanley PhD, Phone: [phone] Serum or plasma urea nitroge n measurement (mass/volume)Ordered By: Arcadio Chatman on 02-19-2025 Urea nitrogen [Mass/Vol] 20 mg/dL High 4-19 [facility] Sodium levelOrdered By: Suhas Chatman on 02-19-2025 Sodium [Moles/Vol] 136 mmol/L 133-145 [facility] Total proteinOrdered By: Juliano Chatman on 02-19-2025 Protein [Mass/Vol] 6.6 g/dL 5.9-8.4 [facility] White blood cell (WBC) count Ordered By: Arcadio Chatman on 02-19-2025 WBC (Bld) [#/Vol] 16.1 10*3/uL High 4.4-11.0 [facility] XR FLUORO < 1HR TECH TIMEon 02-17-2025 XR FLUORO < 1HR TECH TIME ORIGINAL Images acquired, not reported on this accession number. Normal [facility] Final Surgical Pathology Rep [facility] 02-12-2025 Final Surgical Pathology Report . 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 Biomarker Reporting Template GASTRIC HER2 BIOMARKER TESTS TEST(S) PERFORMED: HER2 (by immunohistochemistry) HER2 by IHC RESULTS: Positive (Score 3+) HER2 (PROTEIN EXPRESSION BY IMMUNOHISTOCHEMISTRY): FOOD AND DRUG ADMINISTRATION (FDA) CLEARED (TEST / VENDOR) - [place] PRIMARY ANTIBODY: 4B5 SURVEYOR MINE TUMOR BLOCK(S): A1 MLH1 Result _X__ Intact nuclear expression MSH2 Result _X__ Intact nuclear expression MSH6 Result _X__ Intact nuclear expression PMS2 Result _X__ Intact nuclear expression __X_ Background nonneoplastic tissue / internal control with intact nuclear expression IHC Interpretation _X__ No loss of nuclear expression of MMR proteins: low probability of MSI-H Comment: There are exceptions to the above IHC interpretations. These results should not be considered in isolation, and clinical correlation with genetic counseling is recommended to assess the need for germline testing. MMR - IHC performed on [employer] automated immunostainer using FDA approved protocol. CLINICAL INFORMATION: DYSPHASIA Procedure: ESOPHAGOSCOPY WITH BIOPSY Preoperative diagnosis: DYSPHAGIA Postoperative diagnosis: SAME SPECIMEN: A ESOPHAGEAL MASS GROSS DESCRIPTION: All parts labelled with patient name and [id number] Received in formalin labeled esophageal mass are multiple humphries-brown tissue fragments aggregating 1.5 x 0.3 x 0.2 cm.. TS-1 Alka Wolf, Grossing Acute Coordinator/ Dr. Raúl Valle, Pathologist Performed by Alka Wolf Pathology Reports Accession: Collected Date/Time: Received Date/Time: Pathologist: [id number] 02/10/2025 11:12 EDT 02/11/2025 09:34 EDT MD AYESHA CRUZ MICROSCOPIC DESCRIPTION: The microscopic examination is performed, except in the case of Gross Only. Verified by Pathology Report verified by [facility] AYESHA CRUZ MD Sign out Date: 02/12/2025 14:55 Performing Lab: [facility], [address] [place] [address] Pathology Dept Disclaimer If ancillary studies were utilized, the following Laboratory Developed Test (LDT) disclaimer will apply: Under CLIA requirements, [facility] is qualified to perform high complexity testing. For all ancillary stains, positive and negative controls stain appropriately. Performance characteristics of immunohistochemical and chromogenic in-situ hybridization tests have been determined by [facility]. These tests are used for clinical purposes, They should not be regarded as investigational or for research. Normal [facility] XR ESOPHOGRAM W/BARIUM TABLE Ton 02-06-2025 XR ESOPHOGRAM W/BARIUM TABLET ORIGINAL EXAMINATION: SINGLE CONTRAST ESOPHAGRAM 02/06/2025 HISTORY: ORDERING SYSTEM PROVIDED HISTORY: Reason for Exam: Dysphagia, burning with swallowing. COMPARISON: None. TECHNIQUE: Multiple single contrast images of the esophagus and gastroesophageal junction were obtained following the oral administration of barium FLUOROSCOPY DOSE AND TYPE: Radiation Exposure Index: Kerma mGy, 30.1. 29 images were obtained. FINDINGS: The barium tablet does not pass through the midesophagus. Beginning at the level the mid esophagus there is a long segment stricture which appears to extend into the proximal stomach, this measures approximately 15 cm, there is associated gross irregularity of the luminal wall with some masslike areas. A portion of the fundus of the stomach is above the diaphragm, this is not able to be filled on this study. No evidence of leak. No gastroesophageal reflux was seen. 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 Moderate paraesophageal hernia Interpreted by: Lisandra Burrell MD Preliminary Report By: Lisandra Burrell MD Electronically signed By Lisandra Burrell MD Dictated Date: 02/06/2025 9:22:10 AM Prelim Date: 02/06/2025 9:28:42 AM Sign Date: 02/06/2025 9:28:42 AM Ordering Provider: LARRY BA Normal [facility] .Auto Diffon 01-09-2025 Basophil, Absolute 0.0 10 3/mcL Normal 0.0-0.3 [facility] Comment on above: Performed By: #### F E, GFR, ADIFF, LIPID, CBC, CMP, ANEU, FERR #### [address] [address] Basophils/100 WBC (Bld) 0.2 % Normal 0.0-2.5 [facility] Comment on above: Performed By: #### F E, GFR, ADIFF, LIPID, CBC, CMP, ANEU, FERR #### [address] [address] Eosinophil, Absolute 0.3 10 3/mcL Normal 0.0-0.7 [facility] Comment on above: Performed By: #### F E, GFR, ADIFF, LIPID, CBC, CMP, ANEU, FERR #### [address] [address] Eosinophils/100 WBC (Bld) 2.9 % Normal 0.0-6.0 [facility] Comment on above: Performed By: #### F E, GFR, ADIFF, LIPID, CBC, CMP, ANEU, FERR #### [address] [address] Lymphocyte, Absolute 2.0 10 3/mcL Normal 0.9-4.3 [facility] Comment on above: Performed By: #### F E, GFR, ADIFF, LIPID, CBC, CMP, ANEU, FERR #### [address] [address] Lymphocytes/100 WBC (Bld) 22.1 % Normal 20.0-40.0 [facility] Comment on above: Performed By: #### F E, GFR, ADIFF, LIPID, CBC, CMP, ANEU, FERR #### [address] [address] Monocyte, Absolute 0.8 10 3/mcL Normal 0.1-1.4 [facility] Comment on above: Performed By: #### F E, GFR, ADIFF, LIPID, CBC, CMP, ANEU, FERR #### [address] [address] Monocytes/100 WBC (Bld) 9.0 % Normal 2.0-13.0 [facility] Comment on above: Performed By: #### F E, GFR, ADIFF, LIPID, CBC, CMP, ANEU, FERR #### [address] [address] Neutrophils/100 WBC (Bld) 65.8 % Normal 50.0-75.0 [facility] Comment on above: Performed By: #### F E, GFR, ADIFF, LIPID, CBC, CMP, ANEU, FERR #### [address] [address] .GFRon 01-09-2025 Estimated Glomerular Filtration Rate 70 ml/min/1.73sqm Normal [facility] Comment on above: Result Comment: Stages of Chronic Kidney Disease (CKD) Stage Description eGFR(ml/min/1.73 sq.m.) CKD 1 Normal kidney function or >=90 normal kindney function with possible kidney damage (ex. Proteinuria) CKD 2 Kidney damage with mild loss 60-89 of kidney function CKD 3a Mild to moderate loss of kidney 45-59 function CKD 3b Moderate to severe loss of 30-44 of kindey function CKD 4 Severe loss of kidney function 15-29 CKD 5 Kidney failure <15 Note: (go live 2024) the eGFR calculation was updated to the 2020 CKD-EPI creatinine equation without a race factor to calculate the eGFR results. Performed By: #### A DIFF, FERR, CBC, GFR, CMP, FE, ANEU #### [place] [id number] .NEUABSon 01-09-2025 Neutrophil, Absolute 5.9 10 3/mcL Normal 2.3-8.1 [facility] Comment on above: Performed By: #### F E, GFR, ADIFF, LIPID, CBC, CMP, ANEU, FERR #### [place] [address] CBCon 01-09-2025 Erythrocyte distribution width (RBC) [Ratio] 14.0 % Normal 11.5-15.5 [facility] Comment on above: Performed By: #### F E, GFR, ADIFF, LIPID, CBC, CMP, ANEU, FERR #### [place] [address] Hematocrit (Bld) [Volume fraction] 43.2 % Normal 40.0-52.0 [facility] Comment on above: Performed By: #### F E, GFR, ADIFF, LIPID, CBC, CMP, ANEU, FERR #### [place] [address] Hgb 14.4 G/dL Normal 13.0-17.5 [facility] Comment on above: Performed By: #### F E, GFR, ADIFF, LIPID, CBC, CMP, ANEU, FERR #### [place] [address] MCH (RBC) [Entitic mass] 29.8 pg Normal 27.0-33.0 [facility] Comment on above: Performed By: #### F E, GFR, ADIFF, LIPID, CBC, CMP, ANEU, FERR #### [place] [address] MCHC 33.2 G/dL Normal 32.0-36.0 [facility] Comment on above: Performed By: #### F E, GFR, ADIFF, LIPID, CBC, CMP, ANEU, FERR #### [place] [address] MCV (RBC) [Entitic vol] 89.7 fL Normal 81.0-100.0 [facility] Comment on above: Performed By: #### F E, GFR, ADIFF, LIPID, CBC, CMP, ANEU, FERR #### [place] [address] Platelet 379 10 3/mcL Normal 150-450 [facility] Comment on above: Performed By: #### F E, GFR, ADIFF, LIPID, CBC, CMP, ANEU, FERR #### [place] [address] Platelet mean volume (Bld) [Entitic vol] 7.7 fL Normal 6.4-10.5 [facility] Comment on above: Performed By: #### F E, GFR, ADIFF, LIPID, CBC, CMP, ANEU, FERR #### [place] [address] RBC 4.82 10 6/mcL Normal 4.50-6.00 [facility] Comment on above: Performed By: #### F E, GFR, ADIFF, LIPID, CBC, CMP, ANEU, FERR #### [place] [id number] WBC 8.9 10 3/mcL Normal 4.5-10.8 [facility] Comment on above: Performed By: #### F E, GFR, ADIFF, LIPID, CBC, CMP, ANEU, FERR #### [place] [address] CMPon 01-09-2025 Albumin Level 3.6 G/dL Normal 3.2-4.8 [facility] Comment on above: Performed By: #### A DIFF, FERR, CBC, GFR, CMP, FE, ANEU #### [place] [address] Albumin/Globulin [Mass ratio] 1.1 {ratio} Normal 0.9-1.6 [facility] Comment on above: Performed By: #### A DIFF, FERR, CBC, GFR, CMP, FE, ANEU #### [place] [id number] ALP [Catalytic activity/Vol] 79 U/L Normal 38-126 [facility] Comment on above: Performed By: #### A DIFF, FERR, CBC, GFR, CMP, FE, ANEU #### [place] [address] ALT/SGPT <7 Low 12-55 [facility] Comment on above: Performed By: #### A DIFF, FERR, CBC, GFR, CMP, FE, ANEU #### [place] [id number] AST [Catalytic activity/Vol] 14 U/L Normal 8-34 [facility] Comment on above: Performed By: #### A DIFF, FERR, CBC, GFR, CMP, FE, ANEU #### [place] [address] Bili Total 0.80 mg/dL Normal 0.20-1.20 [facility] Comment on above: Result Comment: Use of this assay is not recommended for patients undergoing treatment with eltrombopag due to the potential for falsely elevated results. Performed By: #### A DIFF, FERR, CBC, GFR, CMP, FE, ANEU #### [place] [address] BUN/Creatinine Ratio 15.1 ratio Normal 10.0-22.0 [facility] Comment on above: Performed By: #### A DIFF, FERR, CBC, GFR, CMP, FE, ANEU #### [place] [address] Calcium [Mass/Vol] 9.6 mg/dL Normal 8.7-10.4 [facility] Comment on above: Performed By: #### A DIFF, FERR, CBC, GFR, CMP, FE, ANEU #### [place] [address] Chloride [Moles/Vol] 106 mmol/L Normal 98-110 [facility] Comment on above: Performed By: #### A DIFF, FERR, CBC, GFR, CMP, FE, ANEU #### [address] [address] CO2 [Moles/Vol] 27 mmol/L Normal 22-32 [facility] Comment on above: Performed By: #### A DIFF, FERR, CBC, GFR, CMP, FE, ANEU #### [address] [address] Creatinine [Mass/Vol] 1.06 mg/dL Normal 0.60-1.40 [facility] Comment on above: Result Comment: Test ing performed on [employer] analyzer using enzymatic creatinine methodology. Performed By: #### A DIFF, FERR, CBC, GFR, CMP, FE, ANEU #### [address] [address] Electrolyte Balance 7.0 mEq/L Normal 4.0-15.0 [facility] Comment on above: Performed By: #### A DIFF, FERR, CBC, GFR, CMP, FE, ANEU #### [address] [address] Globulin 3.3 G/dL Normal 2.5-4.2 [facility] Comment on above: Performed By: #### A DIFF, FERR, CBC, GFR, CMP, FE, ANEU #### [address] [address] Glucose [Mass/Vol] 83 mg/dL Normal 82-115 [facility] Comment on above: Performed By: #### A DIFF, FERR, CBC, GFR, CMP, FE, ANEU #### [address] [address] Potassium [Moles/Vol] 4.8 mmol/L Normal 3.5-5.0 [facility] Comment on above: Performed By: #### A DIFF, FERR, CBC, GFR, CMP, FE, ANEU #### [address] [address] Sodium [Moles/Vol] 140 mmol/L Normal 136-145 [facility] Comment on above: Performed By: #### A DIFF, FERR, CBC, GFR, CMP, FE, ANEU #### [address] [address] Total Protein 6.9 G/dL Normal 5.7-8.2 [facility] Comment on above: Performed By: #### A DIFF, FERR, CBC, GFR, CMP, FE, ANEU #### [address] [address] Urea nitrogen [Mass/Vol] 16.0 mg/dL Normal 8.0-22.0 [facility] Comment on above: Performed By: #### A DIFF, FERR, CBC, GFR, CMP, FE, ANEU #### [address] [address] FEon 01-09-2025 Iron [Mass/Vol] 70 ug/dL Normal 65-175 [facility] Comment on above: Performed By: #### A DIFF, FERR, CBC, GFR, CMP, FE, ANEU #### [address] [address] Chris 01-09-2025 Ferritin [Mass/Vol] 88.0 ng/mL Normal 26.0-388.0 [facility] Comment on above: Performed By: #### A DIFF, FERR, CBC, GFR, CMP, FE, ANEU #### [address] [address] LIPIDon 01-09-2025 Cholesterol [Mass/Vol] 166 mg/dL Normal 50-199 [facility] Comment on above: Result Comment: Chol esterol Reference Interval: Less than 200 Desirable 200-239 Borderline high risk 240 and above High risk Performed By: #### A DIFF, FERR, CBC, GFR, CMP, FE, ANEU #### [address] [address] Cholesterol in HDL [Mass/Vol] 37 mg/dL Low 40-59 [facility] Comment on above: Performed By: #### A DIFF, FERR, CBC, GFR, CMP, FE, ANEU #### [address] [address] Cholesterol in LDL [Mass/Vol] 91 mg/dL Normal 0-129 [facility] Comment on above: Performed By: #### A DIFF, FERR, CBC, GFR, CMP, FE, ANEU #### [address] [address] Triglyceride [Mass/Vol] 191 mg/dL High 3-149 [facility] Comment on above: Performed By: #### A DIFF, FERR, CBC, GFR, CMP, FE, ANEU #### [address] [address] .Auto Diffon 09-09-2024 Basophil, Absolute 0.1 10 3/mcL Normal 0.0-0.3 [facility] Comment on above: Performed By: #### A DIFF, FERR, CBC, GFR, CMP, FE, ANEU #### [address] [address] Basophils/100 WBC (Bld) 0.5 % Normal 0.0-2.5 [facility] Comment on above: Performed By: #### A DIFF, FERR, CBC, GFR, CMP, FE, ANEU #### [address] [address] Eosinophil, Absolute 0.3 10 3/mcL Normal 0.0-0.7 [facility] Comment on above: Performed By: #### A DIFF, FERR, CBC, GFR, CMP, FE, ANEU #### [address] [address] Eosinophils/100 WBC (Bld) 3.0 % Normal 0.0-6.0 [facility] Comment on above: Performed By: #### A DIFF, FERR, CBC, GFR, CMP, FE, ANEU #### [address] [address] Lymphocyte, Absolute 1.9 10 3/mcL Normal 0.9-4.3 [facility] Comment on above: Performed By: #### A DIFF, FERR, CBC, GFR, CMP, FE, ANEU #### [address] [address] Lymphocytes/100 WBC (Bld) 19.5 % Low 20.0-40.0 [facility] Comment on above: Performed By: #### A DIFF, FERR, CBC, GFR, CMP, FE, ANEU #### [address] [address] Monocyte, Absolute 0.9 10 3/mcL Normal 0.1-1.4 [facility] Comment on above: Performed By: #### A DIFF, FERR, CBC, GFR, CMP, FE, ANEU #### [address] [address] Monocytes/100 WBC (Bld) 8.7 % Normal 2.0-13.0 [facility] Comment on above: Performed By: #### A DIFF, FERR, CBC, GFR, CMP, FE, ANEU #### [address] [address] Neutrophils/100 WBC (Bld) 68.3 % Normal 50.0-75.0 [facility] Comment on above: Performed By: #### A DIFF, FERR, CBC, GFR, CMP, FE, ANEU #### [place] [address] .GFRon 09-09-2024 Estimated Glomerular Filtration Rate 85 ml/min/1.73sqm Normal [facility] Comment on above: Result Comment: Stages of Chronic Kidney Disease (CKD) Stage Description eGFR(ml/min/1.73 sq.m.) CKD 1 Normal kidney function or >=90 normal kindney function with possible kidney damage (ex. Proteinuria) CKD 2 Kidney damage with mild loss 60-89 of kidney function CKD 3a Mild to moderate loss of kidney 45-59 function CKD 3b Moderate to severe loss of 30-44 of kindey function CKD 4 Severe loss of kidney function 15-29 CKD 5 Kidney failure <15 Note: (go live 2024) the eGFR calculation was updated to the 2020 CKD-EPI creatinine equation without a race factor to calculate the eGFR results. Performed By: #### A DIFF, FERR, CBC, GFR, CMP, FE, ANEU #### [address] [address] .NEUABSon 09-09-2024 Neutrophil, Absolute 6.8 10 3/mcL Normal 2.3-8.1 [facility] Comment on above: Performed By: #### A DIFF, FERR, CBC, GFR, CMP, FE, ANEU #### [place] [address] CBCon 09-09-2024 Erythrocyte distribution width (RBC) [Ratio] 23.9 % High 11.5-15.5 [facility] Comment on above: Performed By: #### A DIFF, FERR, CBC, GFR, CMP, FE, ANEU #### [place] [address] Hematocrit (Bld) [Volume fraction] 36.8 % Low 40.0-52.0 [facility] Comment on above: Performed By: #### A DIFF, FERR, CBC, GFR, CMP, FE, ANEU #### [place] [address] Hgb 11.5 G/dL Low 13.0-17.5 [facility] Comment on above: Performed By: #### A DIFF, FERR, CBC, GFR, CMP, FE, ANEU #### [place] [address] MCH (RBC) [Entitic mass] 25.7 pg Low 27.0-33.0 [facility] Comment on above: Performed By: #### A DIFF, FERR, CBC, GFR, CMP, FE, ANEU #### [place] [address] MCHC 31.3 G/dL Low 32.0-36.0 [facility] Comment on above: Performed By: #### A DIFF, FERR, CBC, GFR, CMP, FE, ANEU #### [place] [address] MCV (RBC) [Entitic vol] 82.2 fL Normal 81.0-100.0 [facility] Comment on above: Performed By: #### A DIFF, FERR, CBC, GFR, CMP, FE, ANEU #### [place] [address] Platelet 410 10 3/mcL Normal 150-450 [facility] Comment on above: Performed By: #### A DIFF, FERR, CBC, GFR, CMP, FE, ANEU #### [place] [address] Platelet mean volume (Bld) [Entitic vol] 7.9 fL Normal 6.4-10.5 [facility] Comment on above: Performed By: #### A DIFF, FERR, CBC, GFR, CMP, FE, ANEU #### [place] [address] RBC 4.48 10 6/mcL Low 4.50-6.00 [facility] Comment on above: Performed By: #### A DIFF, FERR, CBC, GFR, CMP, FE, ANEU #### [place] [address] WBC 10.0 10 3/mcL Normal 4.5-10.8 [facility] Comment on above: Performed By: #### A DIFF, FERR, CBC, GFR, CMP, FE, ANEU #### [place] [address] CMPon 09-09-2024 Albumin Level 3.1 G/dL Low 3.2-4.8 [facility] Comment on above: Performed By: #### A DIFF, FERR, CBC, GFR, CMP, FE, ANEU #### [place] [address] Albumin/Globulin [Mass ratio] 1.0 {ratio} Normal 0.9-1.6 [facility] Comment on above: Performed By: #### A DIFF, FERR, CBC, GFR, CMP, FE, ANEU #### [place] [address] ALP [Catalytic activity/Vol] 74 U/L Normal 38-126 [facility] Comment on above: Performed By: #### A DIFF, FERR, CBC, GFR, CMP, FE, ANEU #### [place] [address] ALT [Catalytic activity/Vol] 9 U/L Low 12-55 [facility] Comment on above: Performed By: #### A DIFF, FERR, CBC, GFR, CMP, FE, ANEU #### [place] [address] AST [Catalytic activity/Vol] 17 U/L Normal 8-34 [facility] Comment on above: Performed By: #### A DIFF, FERR, CBC, GFR, CMP, FE, ANEU #### [place] [id number] Bili Total 0.50 mg/dL Normal 0.20-1.20 [facility] Comment on above: Result Comment: Use of this assay is not recommended for patients undergoing treatment with eltrombopag due to the potential for falsely elevated results. Performed By: #### A DIFF, FERR, CBC, GFR, CMP, FE, ANEU #### [place] [address] BUN/Creatinine Ratio 17.6 ratio Normal 10.0-22.0 [facility] Comment on above: Performed By: #### A DIFF, FERR, CBC, GFR, CMP, FE, ANEU #### [place] [id number] Calcium [Mass/Vol] 8.5 mg/dL Low 8.7-10.4 [facility] Comment on above: Performed By: #### A DIFF, FERR, CBC, GFR, CMP, FE, ANEU #### [place] [address] Chloride [Moles/Vol] 109 mmol/L Normal 98-110 [facility] Comment on above: Performed By: #### A DIFF, FERR, CBC, GFR, CMP, FE, ANEU #### [place] [id number] CO2 [Moles/Vol] 25 mmol/L Normal 22-32 [facility] Comment on above: Performed By: #### A DIFF, FERR, CBC, GFR, CMP, FE, ANEU #### [place] [id number] Creatinine [Mass/Vol] 0.91 mg/dL Normal 0.60-1.40 [facility] Comment on above: Result Comment: Test ing performed on [employer] analyzer using enzymatic creatinine methodology. Performed By: #### A DIFF, FERR, CBC, GFR, CMP, FE, ANEU #### [place] [id number] Electrolyte Balance 9.0 mEq/L Normal 4.0-15.0 [facility] Comment on above: Performed By: #### A DIFF, FERR, CBC, GFR, CMP, FE, ANEU #### [address] [address] Globulin 3.0 G/dL Normal 2.5-4.2 [facility] Comment on above: Performed By: #### A DIFF, FERR, CBC, GFR, CMP, FE, ANEU #### [address] [address] Glucose [Mass/Vol] 143 mg/dL High 82-115 [facility] Comment on above: Performed By: #### A DIFF, FERR, CBC, GFR, CMP, FE, ANEU #### [address] [address] Potassium [Moles/Vol] 4.2 mmol/L Normal 3.5-5.0 [facility] Comment on above: Performed By: #### A DIFF, FERR, CBC, GFR, CMP, FE, ANEU #### [address] [address] Sodium [Moles/Vol] 143 mmol/L Normal 136-145 [facility] Comment on above: Performed By: #### A DIFF, FERR, CBC, GFR, CMP, FE, ANEU #### [place] [id number] Total Protein 6.1 G/dL Normal 5.7-8.2 [facility] Comment on above: Performed By: #### A DIFF, FERR, CBC, GFR, CMP, FE, ANEU #### [address] [address] Urea nitrogen [Mass/Vol] 16.0 mg/dL Normal 8.0-22.0 [facility] Comment on above: Performed By: #### A DIFF, FERR, CBC, GFR, CMP, FE, ANEU #### [address] [address] FEon 09-09-2024 Iron [Mass/Vol] 47 ug/dL Low 65-175 [facility] Comment on above: Performed By: #### A DIFF, FERR, CBC, GFR, CMP, FE, ANEU #### [address] [address] Chris 09-09-2024 Ferritin [Mass/Vol] 180.0 ng/mL Normal 26.0-388.0 [facility] Comment on above: Performed By: #### A DIFF, FERR, CBC, GFR, CMP, FE, ANEU #### [facility] [address] [place] [address] .Auto Diffon 08-02-2024 Basophil, Absolute 0.1 10 3/mcL Normal 0.0-0.3 [facility] Comment on above: Performed By: #### A LAITH, FE, ADIFF, CBC, FERR ####[address] [address] Basophils/100 WBC (Bld) 0.6 % Normal 0.0-2.5 [facility] Comment on above: Performed By: #### A LAITH, FE, ADIFF, CBC, FERR ####[address] [address] Eosinophil, Absolute 0.2 10 3/mcL Normal 0.0-0.7 [facility] Comment on above: Performed By: #### A LAITH, FE, ADIFF, CBC, FERR ####[address] [address] Eosinophils/100 WBC (Bld) 1.6 % Normal 0.0-6.0 [facility] Comment on above: Performed By: #### A LAITH, FE, ADIFF, CBC, FERR ####[address] [address] Lymphocyte, Absolute 2.0 10 3/mcL Normal 0.9-4.3 [facility] Comment on above: Performed By: #### A LAITH, FE, ADIFF, CBC, FERR ####[address] [address] Lymphocytes/100 WBC (Bld) 17.9 % Low 20.0-40.0 [facility] Comment on above: Performed By: #### A LAITH, FE, ADIFF, CBC, FERR ####[address] [address] Monocyte, Absolute 1.3 10 3/mcL Normal 0.1-1.4 [facility] Comment on above: Performed By: #### A LAITH, FE, ADIFF, CBC, FERR ####[address] [address] Monocytes/100 WBC (Bld) 11.7 % Normal 2.0-13.0 [facility] Comment on above: Performed By: #### A LAITH, FE, ADIFF, CBC, FERR ####[address] [address] Neutrophils/100 WBC (Bld) 68.2 % Normal 50.0-75.0 [facility] Comment on above: Performed By: #### A LAITH, FE, ADIFF, CBC, FERR ####[address] [address] .NEUABSon 08-02-2024 Neutrophil, Absolute 7.5 10 3/mcL Normal 2.3-8.1 [facility] Comment on above: Performed By: #### A LAITH, FE, ADIFF, CBC, FERR ####[place] [address] CBCon 08-02-2024 Erythrocyte distribution width (RBC) [Ratio] 20.2 % High 11.5-15.5 [facility] Comment on above: Performed By: #### A LAITH, FE, ADIFF, CBC, FERR ####[place] [address] Hematocrit (Bld) [Volume fraction] 33.9 % Low 40.0-52.0 [facility] Comment on above: Performed By: #### A LAITH, FE, ADIFF, CBC, FERR ####[place] [address] Hgb 10.7 G/dL Low 13.0-17.5 [facility] Comment on above: Performed By: #### A LAITH, FE, ADIFF, CBC, FERR ####[place] [address] MCH (RBC) [Entitic mass] 24.3 pg Low 27.0-33.0 [facility] Comment on above: Performed By: #### A LAITH, FE, ADIFF, CBC, FERR ####[address] [address] MCHC 31.6 G/dL Low 32.0-36.0 [facility] Comment on above: Performed By: #### A LAITH, FE, ADIFF, CBC, FERR ####[address] [address] MCV (RBC) [Entitic vol] 77.1 fL Low 81.0-100.0 [facility] Comment on above: Performed By: #### A LAITH, FE, ADIFF, CBC, FERR ####[address] [address] Platelet 433 10 3/mcL Normal 150-450 [facility] Comment on above: Performed By: #### A LAITH, FE, ADIFF, CBC, FERR ####[address] [address] Platelet mean volume (Bld) [Entitic vol] 7.5 fL Normal 6.4-10.5 [facility] Comment on above: Performed By: #### A LAITH, FE, ADIFF, CBC, FERR ####[address] [address] RBC 4.39 10 6/mcL Low 4.50-6.00 [facility] Comment on above: Performed By: #### A LAITH, FE, ADIFF, CBC, FERR ####[address] [address] WBC 10.9 10 3/mcL High 4.5-10.8 [facility] Comment on above: Performed By: #### A LAITH, FE, ADIFF, CBC, FERR ####[address] [address] FEon 08-02-2024 Iron [Mass/Vol] 13 ug/dL Low 65-175 [facility] Comment on above: Performed By: #### A LAITH, FE, ADIFF, CBC, FERR ####[address] [address] Chris 08-02-2024 Ferritin [Mass/Vol] 68.0 ng/mL Normal 26.0-388.0 [facility] Comment on above: Performed By: #### A LAITH, FE, ADIFF, CBC, FERR ####[address] [address] .Auto Diffon 07-18-2024 Basophil, Absolute 0.1 10 3/mcL Normal 0.0-0.2 [facility] Comment on above: Performed By: #### A DIFF, CBC, ANEU #### [address] [address] Basophils/100 WBC (Bld) 1.0 % Normal 0.0-2.5 [facility] Comment on above: Performed By: #### A DIFF, CBC, ANEU #### [address] [address] Eosinophil, Absolute 0.3 10 3/mcL Normal 0.0-0.7 [facility] Comment on above: Performed By: #### A DIFF, CBC, ANEU #### [address] [address] Eosinophils/100 WBC (Bld) 3.3 % Normal 0.0-7.0 [facility] Comment on above: Performed By: #### A DIFF, CBC, ANEU #### [address] [address] Lymphocyte, Absolute 1.7 10 3/mcL Normal 0.9-4.3 [facility] Comment on above: Performed By: #### A DIFF, CBC, ANEU #### [address] [address] Lymphocytes/100 WBC (Bld) 17.9 % Low 20.0-40.0 [facility] Comment on above: Performed By: #### A DIFF, CBC, ANEU #### [address] [address] Monocyte, Absolute 0.9 10 3/mcL Normal 0.1-1.4 [facility] Comment on above: Performed By: #### A DIFF, CBC, ANEU #### [address] [address] Monocytes/100 WBC (Bld) 9.6 % Normal 2.0-13.0 [facility] Comment on above: Performed By: #### A DIFF, CBC, ANEU #### [address] [address] Neutrophils/100 WBC (Bld) 68.2 % Normal 50.0-75.0 [facility] Comment on above: Performed By: #### A DIFF, CBC, ANEU #### [address] [address] .NEUABSon 07-18-2024 Neutrophil, Absolute 6.3 10 3/mcL Normal 2.3-8.1 [facility] Comment on above: Performed By: #### A DIFF, CBC, ANEU #### [address] [address] CBCon 07-18-2024 Erythrocyte distribution width (RBC) [Ratio] 16.9 % High 11.5-15.5 [facility] Comment on above: Performed By: #### A DIFF, CBC, ANEU #### [address] [address] Hematocrit (Bld) [Volume fraction] 29.0 % Low 40.0-52.0 [facility] Comment on above: Performed By: #### A DIFF, CBC, ANEU #### [address] [address] Hgb 9.3 G/dL Low 13.0-17.5 [facility] Comment on above: Performed By: #### A DIFF, CBC, ANEU #### [address] [address] MCH (RBC) [Entitic mass] 23.9 pg Low 27.0-33.0 [facility] Comment on above: Performed By: #### A DIFF, CBC, ANEU #### [facility] [address] [place], [place] [address] MCHC 32.2 G/dL Normal 32.0-36.0 [facility] Comment on above: Performed By: #### A DIFF, CBC, ANEU #### [place] [id number] [place], [place] [address] MCV (RBC) [Entitic vol] 74.4 fL Low 81.0-100.0 [facility] Comment on above: Performed By: #### A DIFF, CBC, ANEU #### [address] [address] Platelet 633 10 3/mcL High 150-450 [facility] Comment on above: Performed By: #### A DIFF, CBC, ANEU #### [address] [address] Platelet mean volume (Bld) [Entitic vol] 6.6 fL Normal 6.4-10.5 [facility] Comment on above: Performed By: #### A DIFF, CBC, ANEU #### [address] [address] RBC 3.90 10 6/mcL Low 4.50-6.00 [facility] Comment on above: Performed By: #### A DIFF, CBC, ANEU #### [address] [address] WBC 9.2 10 3/mcL Normal 4.5-10.8 [facility] Comment on above: Performed By: #### A DIFF, CBC, ANEU #### [address] [address] .Auto Diffon 07-11-2024 Basophil, Absolute 0.1 10 3/mcL Normal 0.0-0.2 [facility] Comment on above: Performed By: #### G FR, ADIFF, CMP, ANEU, CBC, LIPID #### [address] [address] Basophils/100 WBC (Bld) 1.1 % Normal 0.0-2.5 [facility] Comment on above: Performed By: #### G FR, ADIFF, CMP, ANEU, CBC, LIPID #### [address] [address] Eosinophil, Absolute 0.1 10 3/mcL Normal 0.0-0.7 [facility] Comment on above: Performed By: #### G FR, ADIFF, CMP, ANEU, CBC, LIPID #### [address] [address] Eosinophils/100 WBC (Bld) 1.0 % Normal 0.0-7.0 [facility] Comment on above: Performed By: #### G FR, ADIFF, CMP, ANEU, CBC, LIPID #### [address] [address] Lymphocyte, Absolute 1.1 10 3/mcL Normal 0.9-4.3 [facility] Comment on above: Performed By: #### G FR, ADIFF, CMP, ANEU, CBC, LIPID #### [address] [address] Lymphocytes/100 WBC (Bld) 9.1 % Low 20.0-40.0 [facility] Comment on above: Performed By: #### G FR, ADIFF, CMP, ANEU, CBC, LIPID #### [address] [address] Monocyte, Absolute 1.1 10 3/mcL Normal 0.1-1.4 [facility] Comment on above: Performed By: #### G FR, ADIFF, CMP, ANEU, CBC, LIPID #### [address] [address] Monocytes/100 WBC (Bld) 8.7 % Normal 2.0-13.0 [facility] Comment on above: Performed By: #### G FR, ADIFF, CMP, ANEU, CBC, LIPID #### [address] [address] Neutrophils/100 WBC (Bld) 80.1 % High 50.0-75.0 [facility] Comment on above: Performed By: #### G FR, ADIFF, CMP, ANEU, CBC, LIPID #### [address] [address] .GFRon 07-11-2024 Estimated Glomerular Filtration Rate 70 ml/min/1.73sqm Normal [facility] Comment on above: Result Comment: Stages of Chronic Kidney Disease (CKD) Stage Description eGFR(ml/min/1.73 sq.m.) CKD 1 Normal kidney function or >=90 normal kindney function with possible kidney damage (ex. Proteinuria) CKD 2 Kidney damage with mild loss 60-89 of kidney function CKD 3a Mild to moderate loss of kidney 45-59 function CKD 3b Moderate to severe loss of 30-44 of kindey function CKD 4 Severe loss of kidney function 15-29 CKD 5 Kidney failure <15 Note: (go live 2024) the eGFR calculation was updated to the 2020 CKD-EPI creatinine equation without a race factor to calculate the eGFR results. Performed By: #### G FR, ADIFF, CMP, ANEU, CBC, LIPID #### [address] [address] .NEUABSon 07-11-2024 Neutrophil, Absolute 9.8 10 3/mcL High 2.3-8.1 [facility] Comment on above: Performed By: #### G FR, ADIFF, CMP, ANEU, CBC, LIPID ####[address] [address] CBCon 07-11-2024 Erythrocyte distribution width (RBC) [Ratio] 16.9 % High 11.5-15.5 [facility] Comment on above: Performed By: #### G FR, ADIFF, CMP, ANEU, CBC, LIPID #### [address] [address] Hematocrit (Bld) [Volume fraction] 30.7 % Low 40.0-52.0 [facility] Comment on above: Performed By: #### G FR, ADIFF, CMP, ANEU, CBC, LIPID #### [address] [address] Hgb 9.6 G/dL Low 13.0-17.5 [facility] Comment on above: Performed By: #### G FR, ADIFF, CMP, ANEU, CBC, LIPID #### [address] [address] MCH (RBC) [Entitic mass] 24.0 pg Low 27.0-33.0 [facility] Comment on above: Performed By: #### G FR, ADIFF, CMP, ANEU, CBC, LIPID #### [place] [address] MCHC 31.1 G/dL Low 32.0-36.0 [facility] Comment on above: Performed By: #### G FR, ADIFF, CMP, ANEU, CBC, LIPID #### [place] [address] MCV (RBC) [Entitic vol] 77.2 fL Low 81.0-100.0 [facility] Comment on above: Performed By: #### G FR, ADIFF, CMP, ANEU, CBC, LIPID #### [place] [address] Platelet 515 10 3/mcL High 150-450 [facility] Comment on above: Performed By: #### G FR, ADIFF, CMP, ANEU, CBC, LIPID #### [place] [address] Platelet mean volume (Bld) [Entitic vol] 7.5 fL Normal 6.4-10.5 [facility] Comment on above: Performed By: #### G FR, ADIFF, CMP, ANEU, CBC, LIPID #### [address] [address] RBC 3.98 10 6/mcL Low 4.50-6.00 [facility] Comment on above: Performed By: #### G FR, ADIFF, CMP, ANEU, CBC, LIPID #### [address] [address] WBC 12.2 10 3/mcL High 4.5-10.8 [facility] Comment on above: Performed By: #### G FR, ADIFF, CMP, ANEU, CBC, LIPID #### [address] [address] CMPon 07-11-2024 Albumin Level 3.0 G/dL Low 3.4-4.8 [facility] Comment on above: Performed By: #### G FR, ADIFF, CMP, ANEU, CBC, LIPID #### [address] [address] Albumin/Globulin [Mass ratio] 0.9 {ratio} Low 1.1-2.5 [facility] Comment on above: Performed By: #### G FR, ADIFF, CMP, ANEU, CBC, LIPID #### [place] [id number] ALP [Catalytic activity/Vol] 98 U/L Normal 40-135 [facility] Comment on above: Performed By: #### G FR, ADIFF, CMP, ANEU, CBC, LIPID #### [place] [id number] ALT [Catalytic activity/Vol] 13 U/L Low 16-63 [facility] Comment on above: Performed By: #### G FR, ADIFF, CMP, ANEU, CBC, LIPID #### [place] [address] AST [Catalytic activity/Vol] 24 U/L Normal 10-40 [facility] Comment on above: Performed By: #### G FR, ADIFF, CMP, ANEU, CBC, LIPID #### [place] [address] Bili Total 0.5 mg/dL Normal 0.2-1.0 [facility] Comment on above: Result Comment: Use of this assay is not recommended for patients undergoing treatment with eltrombopag due to the potential for falsely elevated results. Performed By: #### G FR, ADIFF, CMP, ANEU, CBC, LIPID #### [address] [address] BUN/Creatinine Ratio 18 ratio Normal 7-27 [facility] Comment on above: Performed By: #### G FR, ADIFF, CMP, ANEU, CBC, LIPID #### [address] [address] Calcium [Mass/Vol] 8.6 mg/dL Normal 8.4-10.2 [facility] Comment on above: Performed By: #### G FR, ADIFF, CMP, ANEU, CBC, LIPID #### [address] [address] Chloride [Moles/Vol] 104 mmol/L Normal 98-107 [facility] Comment on above: Performed By: #### G FR, ADIFF, CMP, ANEU, CBC, LIPID #### [address] [address] CO2 [Moles/Vol] 24 mmol/L Normal 23-31 [facility] Comment on above: Performed By: #### G FR, ADIFF, CMP, ANEU, CBC, LIPID #### [place] [address] Creatinine [Mass/Vol] 1.07 mg/dL Normal 0.70-1.30 [facility] Comment on above: Result Comment: Test ing performed on Siemens Dimension EXL analyzer using a modified kinetic Cadence technique. Performed By: #### G FR, ADIFF, CMP, ANEU, CBC, LIPID #### [address] [address] Electrolyte Balance 8.0 mEq/L Normal 4.0-15.0 [facility] Comment on above: Performed By: #### G FR, ADIFF, CMP, ANEU, CBC, LIPID #### [address] [address] Globulin 3.5 G/dL Normal 1.5-3.8 [facility] Comment on above: Performed By: #### G FR, ADIFF, CMP, ANEU, CBC, LIPID #### [address] [address] Glucose [Mass/Vol] 92 mg/dL Normal 83-110 [facility] Comment on above: Performed By: #### G FR, ADIFF, CMP, ANEU, CBC, LIPID #### [address] [address] Potassium [Moles/Vol] 4.5 mmol/L Normal 3.5-5.1 [facility] Comment on above: Performed By: #### G FR, ADIFF, CMP, ANEU, CBC, LIPID #### [address] [address] Sodium [Moles/Vol] 136 mmol/L Normal 136-145 [facility] Comment on above: Performed By: #### G FR, ADIFF, CMP, ANEU, CBC, LIPID #### [address] [address] Total Protein 6.5 G/dL Normal 6.4-8.2 [facility] Comment on above: Performed By: #### G FR, ADIFF, CMP, ANEU, CBC, LIPID #### [address] [address] Urea nitrogen [Mass/Vol] 19 mg/dL High 7-18 [facility] Comment on above: Performed By: #### G FR, ADIFF, CMP, ANEU, CBC, LIPID #### [address] [address] LIPIDon 07-11-2024 Cholesterol [Mass/Vol] 149 mg/dL Normal 0-200 [facility] Comment on above: Result Comment: Chol esterol Reference Interval: Less than 200 Desirable 200-239 Borderline high risk 240 and above High risk Performed By: #### G FR, ADIFF, CMP, ANEU, CBC, LIPID #### [address] [address] Cholesterol in HDL [Mass/Vol] 43 mg/dL Normal 40-60 [facility] Comment on above: Performed By: #### G FR, ADIFF, CMP, ANEU, CBC, LIPID #### [address] [address] Cholesterol in LDL [Mass/Vol] 84 mg/dL Normal 0-130 [facility] Comment on above: Performed By: #### G FR, ADIFF, CMP, ANEU, CBC, LIPID #### [address] [address] Triglyceride [Mass/Vol] 108 mg/dL Normal 0-150 [facility] Comment on above: Result Comment: Trig lyceride Reference Interval: Less than 150 Normal 150-199 Borderline high risk 200-499 High risk 500 or higher Very high risk Performed By: #### G FR, ADIFF, CMP, ANEU, CBC, LIPID #### [address] [address] .Auto Diffon 07-04-2023 Basophil, Absolute 0.1 10 3/mcL Normal 0.0-0.3 [facility] [place] ([place]) Comment on above: Performed By: #### R BCP #### [address] [address] Basophils/100 WBC (Bld) 1.2 % Normal 0.0-2.5 [facility] ([place]) Comment on above: Performed By: #### R BCP #### [address] [address] Eosinophil, Absolute 0.4 10 3/mcL Normal 0.0-0.7 [facility] ([place]) Comment on above: Performed By: #### R BCP #### [address] [address] Eosinophils/100 WBC (Bld) 6.3 % High 0.0-6.0 [facility] ([place]) Comment on above: Performed By: #### R BCP #### [address] [address] Lymphocyte, Absolute 1.4 10 3/mcL Normal 0.9-4.3 [facility] ([place]) Comment on above: Performed By: #### R BCP #### [address] [address] Lymphocytes/100 WBC (Bld) 20.9 % Normal 20.0-40.0 [facility] ([place]) Comment on above: Performed By: #### R BCP #### [address] [address] Monocyte, Absolute 0.6 10 3/mcL Normal 0.1-1.4 [facility] ([place]) Comment on above: Performed By: #### R BCP #### [address] [address] Monocytes/100 WBC (Bld) 9.4 % Normal 2.0-13.0 [facility] ([place]) Comment on above: Performed By: #### R BCP #### [address] [address] Neutrophils/100 WBC (Bld) 62.2 % Normal 50.0-75.0 [facility] ([place]) Comment on above: Performed By: #### R BCP #### [address] [address] .GFRon 07-04-2023 GFR Non- >60 Normal [facility] ([place]) Comment on above: Result Comment: GFR Population mean for , Non- Americans Ages 20-29 = 116 mL/min/1.73 sq.m. Ages 30-39 = 107 mL/min/1.73 sq.m. Ages 40-49 = 99 mL/min/1.73 sq.m. Ages 50-59 = 93 mL/min/1.73 sq.m. Ages 60-69 = 85 mL/min/1.73 sq.m. Ages 70+ = 75 mL/min/1.73 sq.m. Chronic Kidney Disease: Less than 60 mL/min/1.73 square meters End Stage Renal Disease: Less than 15 mL/min/1.73 square meters Performed By: #### A BOG, ANSG #### [address] [address] GFR >60 [facility] [facility] ([place]) Comment on above: Result Comment: GFR Population mean for , Non- Americans Ages 20-29 = 116 mL/min/1.73 sq.m. Ages 30-39 = 107 mL/min/1.73 sq.m. Ages 40-49 = 99 mL/min/1.73 sq.m. Ages 50-59 = 93 mL/min/1.73 sq.m. Ages 60-69 = 85 mL/min/1.73 sq.m. Ages 70+ = 75 mL/min/1.73 sq.m. Chronic Kidney Disease: Less than 60 mL/min/1.73 square meters End Stage Renal Disease: Less than 15 mL/min/1.73 square meters Performed By: #### A PAULA EVANS #### [place] [address] .Morphon 07-04-2023 Acanthocytes 1+ Normal [facility] ([place]) Comment on above: Performed By: #### A ROSY EVANSG #### [place] [address] Anisocytosis Ql (Bld) 3+ Normal [facility] ([place]) Comment on above: Performed By: #### A PAULA EVANS #### [place] [address] Microcytosis 1+ Normal [facility] ([place]) Comment on above: Performed By: #### A PAULA EVANS #### [place] [address] Ovalocytes 2+ Normal [facility] ([place]) Comment on above: Performed By: #### A PAULA EVANS #### [place] [address] Platelet Estimate Normal [facility] ([place]) Comment on above: Performed By: #### A PAULA EVANS #### [place] [address] Poik 1+ Normal [facility] ([place]) Comment on above: Performed By: #### A PAULA EVANS #### [place] [address] Tear Cell 1+ Normal [facility] ([place]) Comment on above: Performed By: #### A PAULA EVANS #### [place] [address] Toxic Gran 1+ Normal [facility] ([place]) Comment on above: Performed By: #### A PAULA EVANS #### [place] [address] .NEUABSon 07-04-2023 Neutrophil, Absolute 4.3 10 3/mcL Normal 2.3-8.1 [facility] ([place]) Comment on above: Performed By: #### R BCP #### [place] [id number] CBCon 07-04-2023 Erythrocyte distribution width (RBC) [Ratio] 31.1 % High 11.5-15.5 [facility] ([place]) Comment on above: Performed By: #### A ROSY EVANSG #### [place] [address] Hematocrit (Bld) [Volume fraction] 38.7 % Low 40.0-52.0 [facility] ([place] Comment on above: Performed By: #### A ROSY EVANSG #### [place] [address] Hgb 12.4 G/dL Low 13.0-17.5 [facility] ([place]) Comment on above: Performed By: #### A ROSY EVANSG #### [address] [address] MCH (RBC) [Entitic mass] 26.7 pg Low 27.0-33.0 [facility] ([place] Comment on above: Performed By: #### A ROSY EVANSG #### [address] [address] MCHC 32.1 G/dL Normal 32.0-36.0 [facility] ([place]) Comment on above: Performed By: #### A CRISTINA ANSG #### [address] [address] MCV (RBC) [Entitic vol] 83.3 fL Normal 81.0-100.0 [facility] ([place]) Comment on above: Performed By: #### A ROSY EVANSG #### [address] [address] Platelet 337 10 3/mcL Normal 150-450 [facility] ([place]) Comment on above: Performed By: #### A PAULA EVANS #### [address] [address] Platelet mean volume (Bld) [Entitic vol] 8.9 fL Normal 6.4-10.5 [facility] ([place]) Comment on above: Performed By: #### A PAULA EVANS #### [address] [address] RBC 4.64 10 6/mcL Normal 4.50-6.00 [facility] ([place]) Comment on above: Performed By: #### A PAULA EVANS #### [address] [address] WBC 6.9 10 3/mcL Normal 4.5-10.8 [facility] ([place] Comment on above: Performed By: #### A PAULA EVANS #### [address] [address] CMPon 07-04-2023 Albumin Level 3.6 G/dL Normal 3.2-4.8 [facility] ([place]) Comment on above: Performed By: #### A PAULA EVANS #### [address] [address] Albumin/Globulin [Mass ratio] 1.4 {ratio} Normal 0.9-1.6 [facility] ([place]) Comment on above: Performed By: #### A PAULA EVANS #### [address] [address] ALP [Catalytic activity/Vol] 73 U/L Normal 38-126 [facility] ([place]) Comment on above: Performed By: #### A PAULA EVANS #### [address] [address] ALT [Catalytic activity/Vol] 9 U/L Low 12-55 [facility] ([place] Comment on above: Performed By: #### A PAULA EVANS #### [address] [address] AST [Catalytic activity/Vol] 14 U/L Normal 8-34 [facility] ([place]) Comment on above: Performed By: #### A PAULA EVANS #### [address] [address] Bili Total 0.70 mg/dL Normal 0.20-1.20 [facility] ([place]) Comment on above: Result Comment: Use of this assay is not recommended for patients undergoing treatment with eltrombopag due to the potential for falsely elevated results. Performed By: #### A PAULA EVANS #### [address] [address] BUN/Creatinine Ratio 17.0 ratio Normal 10.0-22.0 [facility] ([place]) Comment on above: Performed By: #### A PAULA EVANS #### [place] [id number] Calcium [Mass/Vol] 9.0 mg/dL Normal 8.7-10.4 [facility] ([place]) Comment on above: Performed By: #### A PAULA EVANS #### [place] [id number] Chloride [Moles/Vol] 111 mmol/L High 98-110 [facility] ([place]) Comment on above: Performed By: #### A PAULA EVANS #### [place] [id number] CO2 [Moles/Vol] 28 mmol/L Normal 22-32 [facility] ([place]) Comment on above: Performed By: #### A PAULA EVANS #### [address] [address] Creatinine [Mass/Vol] 0.88 mg/dL Normal 0.60-1.40 [facility] ([place] Comment on above: Performed By: #### A PAULA EVANS #### [address] [address] Electrolyte Balance 4.0 mEq/L Normal 4.0-15.0 [facility] [place] Comment on [place]: Performed By: #### A PAULA EVANS #### [address] [address] Globulin 2.5 G/dL Normal 1.5-3.8 [facility] ([place]) Comment on above: Performed By: #### A PAULA EVANS #### [address] [address] Glucose [Mass/Vol] 85 mg/dL Normal 82-115 [facility] ([place] Comment on above: Performed By: #### A PAULA EVANS #### [address] [address] Potassium [Moles/Vol] 4.6 mmol/L Normal 3.5-5.0 [facility] ([place] Comment on above: Performed By: #### A PAULA EVANS #### [address] [address] Sodium [Moles/Vol] 143 mmol/L Normal 136-145 [facility] ([place] Comment on above: Performed By: #### A PAULA EVANS #### [address] [address] Total Protein 6.1 G/dL Normal 5.7-8.2 [facility] ([place]) Comment on above: Result Comment: No te - New Reference Range in effect 19 Performed By: #### A PAULA EVANS #### [address] [address] Urea nitrogen [Mass/Vol] 15.0 mg/dL Normal 8.0-22.0 [facility] ([place]) Comment on above: Performed By: #### A PAULA EVANS #### [address] [address] FEon 07-04-2023 Iron [Mass/Vol] 53 ug/dL Low 65-175 [facility] ([place]) Comment on above: Performed By: #### A PAULA EVANS #### [address] [address] Chris 07-04-2023 Ferritin [Mass/Vol] 40.7 ng/mL Normal 26.0-388.0 [facility] [place] Comment [place]: Performed By: #### A PAULA EVANS #### [address] [address] LIPIDon 07-04-2023 Cholesterol [Mass/Vol] 190 mg/dL Normal 50-199 [facility] ([place]) Comment on above: Result Comment: Chol esterol Reference Interval: Less than 200 Desirable 200-239 Borderline high risk 240 and above High risk Performed By: #### A PAULA EVANS #### [address] [address] Cholesterol in HDL [Mass/Vol] 44 mg/dL Normal 40-59 [facility] ([place]) Comment on above: Performed By: #### A PAULA EVANS #### [address] [address] Cholesterol in LDL [Mass/Vol] 121 mg/dL Normal 0-129 [facility] ([place]) Comment on above: Performed By: #### A PAULA EVANS #### [address] [address] Triglyceride [Mass/Vol] 127 mg/dL Normal 3-149 [facility] ([place]) Comment on above: Performed By: #### A PAULA EVANS #### [address] [address] PSAon 07-04-2023 Prostate Specific Antigen 2.44 ng/mL Normal 0.02-4.00 [facility] ([place]) Comment on above: Result Comment: Mitzy ent results determined by assays using different manufacturers for methods may not be comparable. Performed By: #### A PAULA EVANS #### [address] [address] .CBC Path Reviewon CBC Path Review Marked microcytic, hypochromic anemia with moderate anisopoikilocytosis noted. A few ovalocytes and microcytes are seen. Mild thrombocytosis also noted. Rule out combined iron deficiency/thalassemia. Rule out blood loss. Normal [facility] ([place]) Comment on above: Result Comment: Elec tronically signed by: TOM MONROE 05.10.2023 11:31 EST Performed By: #### A PAULA EVANS #### [address] [address] RBC (Product)on 05-10-2023 RBC Product Ready RBC Ready for Pickup Normal [facility] ([place]) Comment on above: Performed By: #### R BCP #### [address] [address] .GFRon 05-09-2023 GFR Non- 59 ml/min/1.73sqm Normal [facility] ([place]) Comment on above: Result Comment: GFR Population mean for , Non- Americans Ages 20-29 = 116 mL/min/1.73 sq.m. Ages 30-39 = 107 mL/min/1.73 sq.m. Ages 40-49 = 99 mL/min/1.73 sq.m. Ages 50-59 = 93 mL/min/1.73 sq.m. Ages 60-69 = 85 mL/min/1.73 sq.m. Ages 70+ = 75 mL/min/1.73 sq.m. Chronic Kidney Disease: Less than 60 mL/min/1.73 square meters End Stage Renal Disease: Less than 15 mL/min/1.73 square meters Performed By: #### D IFF, MORPH, CMP, FE, CBC, FERR, GFR, IBC #### [address] [address] #### CBCPR #### [address] [address] GFR 71 ml/min/1.73sqm Normal [facility] ([place]) Comment on above: Result Comment: GFR Population mean for , Non- Americans Ages 20-29 = 116 mL/min/1.73 sq.m. Ages 30-39 = 107 mL/min/1.73 sq.m. Ages 40-49 = 99 mL/min/1.73 sq.m. Ages 50-59 = 93 mL/min/1.73 sq.m. Ages 60-69 = 85 mL/min/1.73 sq.m. Ages 70+ = 75 mL/min/1.73 sq.m. Chronic Kidney Disease: Less than 60 mL/min/1.73 square meters End Stage Renal Disease: Less than 15 mL/min/1.73 square meters Performed By: #### D IFF, MORPH, CMP, FE, CBC, FERR, GFR, IBC #### [address] [address] #### CBCPR #### [address] [address] .Manual Diffon 05-09-2023 Atypical Lymphs 1.0 % Normal 0.0-5.0 [facility] ([place]) Comment on above: Performed By: #### D IFF, MORPH, CMP, FE, CBC, FERR, GFR, IBC #### [place] [address] #### CBCPR #### [place] [address] Basophil %, Manual 1.0 % Normal 0.0-2.5 [facility] ([place]) Comment on above: Performed By: #### D IFF, MORPH, CMP, FE, CBC, FERR, GFR, IBC #### [address] [address] #### CBCPR #### [place] [address] Basophil, Abs Manual 0.1 10 3/mcL Normal 0.0-0.2 [facility] ([place]) Comment on above: Performed By: #### D IFF, MORPH, CMP, FE, CBC, FERR, GFR, IBC #### [place] [address] #### CBCPR #### [place] [address] Eosinophil %, Manual 0.0 % Normal 0.0-7.0 [facility] ([place]) Comment on above: Performed By: #### D IFF, MORPH, CMP, FE, CBC, FERR, GFR, IBC #### [address] [address] #### CBCPR #### [place] [address] Eosinophil, Abs Manual 0.0 10 3/mcL Normal 0.0-0.4 [facility] ([place]) Comment on above: Performed By: #### D IFF, MORPH, CMP, FE, CBC, FERR, GFR, IBC #### [address] [address] #### CBCPR #### [address] [address] Lymphocyte %, Manual 14.0 % Normal 10.0-50.0 [facility] ([place]) Comment on above: Performed By: #### D IFF, MORPH, CMP, FE, CBC, FERR, GFR, IBC #### [address] [address] #### CBCPR #### [address] [address] Lymphocyte, Abs Manual 1.1 10 3/mcL Normal 0.8-3.9 [facility] ([place]) Comment on above: Performed By: #### D IFF, MORPH, CMP, FE, CBC, FERR, GFR, IBC #### [address] [address] #### CBCPR #### [address] [address] Monocyte %, Manual 4.0 % Normal 1.7-13.0 [facility] ([place]) Comment on above: Performed By: #### D IFF, MORPH, CMP, FE, CBC, FERR, GFR, IBC #### [place] [address] #### CBCPR #### [address] [address] Monocyte, Abs Manual 0.3 10 3/mcL Normal 0.2-1.0 [facility] ([place]) Comment on above: Performed By: #### D IFF, MORPH, CMP, FE, CBC, FERR, GFR, IBC #### [address] [address] #### CBCPR #### [address] [address] Neutrophil %, Manual 80.0 % Normal 37.0-80.0 [facility] ([place]) Comment on above: Performed By: #### D IFF, MORPH, CMP, FE, CBC, FERR, GFR, IBC #### [address] [address] #### CBCPR #### [place] [address] Neutrophil, Abs Manual 6.2 10 3/mcL Normal 2.9-6.2 [facility] ([place]) Comment on above: Performed By: #### D IFF, MORPH, CMP, FE, CBC, FERR, GFR, IBC #### [place] [address] #### CBCPR #### [place] [address] Nucleated RBC 0.0 /100 WBC Normal [facility] ([place]) Comment on above: Performed By: #### D IFF, MORPH, CMP, FE, CBC, FERR, GFR, IBC #### [place] [address] #### CBCPR #### [place] [address] .Morphon 05-09-2023 Anisocytosis Ql (Bld) 1+ Normal [facility] ([place]) Comment on above: Performed By: #### D IFF, MORPH, CMP, FE, CBC, FERR, GFR, IBC #### [place] [address] #### CBCPR #### [place] [address] Hypochrom 2+ Normal [facility] ([place]) Comment on above: Performed By: #### D IFF, MORPH, CMP, FE, CBC, FERR, GFR, IBC #### [place] [address] #### CBCPR #### [place] [address] Microcytosis 2+ Normal [facility] ([place]) Comment on above: Performed By: #### D IFF, MORPH, CMP, FE, CBC, FERR, GFR, IBC #### [address] [address] #### CBCPR #### [place] [address] Ovalocytes 1+ Normal [facility] ([place]) Comment on above: Performed By: #### D IFF, MORPH, CMP, FE, CBC, FERR, GFR, IBC #### [address] [address] #### CBCPR #### [place] [address] Platelet Estimate Slt Increased Normal [facility] ([place]) Comment on above: Performed By: #### D IFF, MORPH, CMP, FE, CBC, FERR, GFR, IBC #### [address] [address] #### CBCPR #### [place] [address] Poik 1+ [facility] ([place]) Comment on above: Performed By: #### D IFF, MORPH, CMP, FE, CBC, FERR, GFR, IBC #### [address] [address] #### CBCPR #### [place] [address] Spherocyte 1+ [facility] ([place]) Comment on above: Performed By: #### D IFF, MORPH, CMP, FE, CBC, FERR, GFR, IBC #### [address] [address] #### CBCPR #### [place] [address] CBCon 05-09-2023 Erythrocyte distribution width (RBC) [Ratio] 19.6 % High 11.5-14.5 [facility] ([place]) Comment on above: Performed By: #### D IFF, MORPH, CMP, FE, CBC, FERR, GFR, IBC #### [address] [address] #### CBCPR #### [place] [address] Hematocrit (Bld) [Volume fraction] 21.1 % Low 42.0-52.0 [facility] ([place]) Comment on above: Performed By: #### D IFF, MORPH, CMP, FE, CBC, FERR, GFR, IBC #### [place] [address] #### CBCPR #### [place] [address] Hgb 6.2 G/dL Critically abnormal 14.0-18.0 [facility] ([place]) Comment on above: Performed By: #### D IFF, MORPH, CMP, FE, CBC, FERR, GFR, IBC #### [place] [address] #### CBCPR #### [place] [address] MCH (RBC) [Entitic mass] 16.6 pg Low 27.0-31.2 [facility] ([place]) Comment on above: Performed By: #### D IFF, MORPH, CMP, FE, CBC, FERR, GFR, IBC #### [place] [address] #### CBCPR #### [place] [address] MCHC 29.4 G/dL Low 31.8-35.4 [facility] ([place]) Comment on above: Performed By: #### D IFF, MORPH, CMP, FE, CBC, FERR, GFR, IBC #### [place] [address] #### CBCPR #### [place] [address] MCV (RBC) [Entitic vol] 56.3 fL Low 80.0-94.0 [facility] ([place]) Comment on above: Performed By: #### D IFF, MORPH, CMP, FE, CBC, FERR, GFR, IBC #### [place] [address] #### CBCPR #### [place] [address] Platelet 549 10 3/mcL High 130-400 [facility] ([place]) Comment on above: Performed By: #### D IFF, MORPH, CMP, FE, CBC, FERR, GFR, IBC #### [place] [address] #### CBCPR #### [place] [address] Platelet mean volume (Bld) [Entitic vol] 7.1 fL Low 7.4-10.4 [facility] ([place]) Comment on above: Performed By: #### D IFF, MORPH, CMP, FE, CBC, FERR, GFR, IBC #### [place] [address] #### CBCPR #### [place] [address] RBC 3.75 10 6/mcL Low 4.04-6.13 [facility] ([place]) Comment on above: Performed By: #### D IFF, MORPH, CMP, FE, CBC, FERR, GFR, IBC #### [place] [address] #### CBCPR #### [place] [address] WBC 7.8 10 3/mcL Normal 4.6-10.8 [facility] ([place]) Comment on above: Performed By: #### D IFF, MORPH, CMP, FE, CBC, FERR, GFR, IBC #### [place] [address] #### CBCPR #### [place] [address] CMPon 05-09-2023 Albumin Level 3.1 G/dL Low 3.4-4.8 [facility] ([place]) Comment on above: Performed By: #### D IFF, MORPH, CMP, FE, CBC, FERR, GFR, IBC #### [address] [address] #### CBCPR #### [address] [address] Albumin/Globulin [Mass ratio] 1.0 {ratio} Low 1.1-2.5 [facility] ([place]) Comment on above: Performed By: #### D IFF, MORPH, CMP, FE, CBC, FERR, GFR, IBC #### [place] [address] #### CBCPR #### [address] [address] ALP [Catalytic activity/Vol] 79 U/L Normal 40-135 [facility] ([place]) Comment on above: Performed By: #### D IFF, MORPH, CMP, FE, CBC, FERR, GFR, IBC #### [place] [address] #### CBCPR #### [address] [address] ALT [Catalytic activity/Vol] 10 U/L Low 16-63 [facility] ([place]) Comment on above: Performed By: #### D IFF, MORPH, CMP, FE, CBC, FERR, GFR, IBC #### [address] [address] #### CBCPR #### [address] [address] AST [Catalytic activity/Vol] 10 U/L Normal 10-40 [facility] ([place]) Comment on above: Performed By: #### D IFF, MORPH, CMP, FE, CBC, FERR, GFR, IBC #### [place] [address] #### CBCPR #### [address] [address] Bili Total 0.6 mg/dL Normal 0.2-1.0 [facility] ([place]) Comment on above: Result Comment: Use of this assay is not recommended for patients undergoing treatment with eltrombopag due to the potential for falsely elevated results. Performed By: #### D IFF, MORPH, CMP, FE, CBC, FERR, GFR, IBC #### [address] [address] #### CBCPR #### [address] [address] BUN/Creatinine Ratio 11 ratio Normal 7-27 [facility] ([place]) Comment on above: Performed By: #### D IFF, MORPH, CMP, FE, CBC, FERR, GFR, IBC #### [address] [address] #### CBCPR #### [address] [address] Calcium [Mass/Vol] 8.5 mg/dL Normal 8.4-10.2 [facility] ([place]) Comment on above: Performed By: #### D IFF, MORPH, CMP, FE, CBC, FERR, GFR, IBC #### [place] [address] #### CBCPR #### [address] [address] Chloride [Moles/Vol] 106 mmol/L Normal 98-107 [facility] ([place]) Comment on above: Performed By: #### D IFF, MORPH, CMP, FE, CBC, FERR, GFR, IBC #### [address] [address] #### CBCPR #### [address] [address] CO2 [Moles/Vol] 24 mmol/L Normal 23-31 [facility] ([place]) Comment on above: Performed By: #### D IFF, MORPH, CMP, FE, CBC, FERR, GFR, IBC #### [address] [address] #### CBCPR #### [address] [address] Creatinine [Mass/Vol] 1.19 mg/dL Normal 0.70-1.30 [facility] ([place]) Comment on above: Performed By: #### D IFF, MORPH, CMP, FE, CBC, FERR, GFR, IBC #### [address] [address] #### CBCPR #### [address] [address] Electrolyte Balance 11.0 mEq/L Normal 4.0-15.0 [facility] [place] Comment on above: Performed By: #### D IFF, MORPH, CMP, FE, CBC, FERR, GFR, IBC #### [place] [address] #### CBCPR #### [address] [address] Globulin 3.2 G/dL Normal [facility] ([place]) Comment on above: Performed By: #### D IFF, MORPH, CMP, FE, CBC, FERR, GFR, IBC #### [place] [address] #### CBCPR #### [address] [address] Glucose [Mass/Vol] 120 mg/dL High 83-110 [facility] ([place]) Comment on above: Performed By: #### D IFF, MORPH, CMP, FE, CBC, FERR, GFR, IBC #### [place] [address] #### CBCPR #### [address] [address] Potassium [Moles/Vol] 4.5 mmol/L Normal 3.5-5.1 [facility] ([place]) Comment on above: Performed By: #### D IFF, MORPH, CMP, FE, CBC, FERR, GFR, IBC #### [address] [address] #### CBCPR #### [address] [address] Sodium [Moles/Vol] 141 mmol/L Normal 136-145 [facility] ([place]) Comment on above: Performed By: #### D IFF, MORPH, CMP, FE, CBC, FERR, GFR, IBC #### [place] [address] #### CBCPR #### [place] [address] Total Protein 6.3 G/dL Low 6.4-8.2 [facility] ([place]) Comment on above: Performed By: #### D IFF, MORPH, CMP, FE, CBC, FERR, GFR, IBC #### [place] [address] #### CBCPR #### [place] [address] Urea nitrogen [Mass/Vol] 13 mg/dL Normal 7-18 [facility] ([place]) Comment on above: Performed By: #### D IFF, MORPH, CMP, FE, CBC, FERR, GFR, IBC #### [place] [address] #### CBCPR #### [place] [address] FEon 05-09-2023 Iron [Mass/Vol] 9 ug/dL Low 65-175 [facility] ([place]) Comment on above: Performed By: #### D IFF, MORPH, CMP, FE, CBC, FERR, GFR, IBC #### [place] [address] #### CBCPR #### [place] [address] Chris 05-09-2023 Ferritin [Mass/Vol] 8.0 ng/mL Low 26.0-388.0 [facility] [place] Comment on above: Performed By: #### D IFF, MORPH, CMP, FE, CBC, FERR, GFR, IBC #### [place] [address] #### CBCPR #### [place] [id number] Gel ABOon 05-09-2023 ABO/Rh Interp AB POS Invalid Interpretation Code [facility] ([place]) Comment on above: Performed By: #### A PAULA EVANS #### [place] [address] [place], [place] [address] Gel ABSon 05-09-2023 Antibody Screen Gel Negative Normal [facility] [place] Comment on above: Performed By: #### A PAULA EVANS #### [place] [address] [place], [place] [address] IBCon 05-09-2023 TIBC 336 mcg/dL Normal 250-450 [facility] ([place]) Comment on above: Performed By: #### A PAULA EVANS #### [address] [address] LABORATORYOrdered By: Krystina Pagan on 07-04-2022 ABO/Rh Interp AB POS Invalid Interpretation Code AO BB SS Antibody Screen Gel Negative ABSC (07/04/22 10:25 AM) Invalid Interpretation Code AO BB SS Hematocrit (Bld) [Volume fraction] 18.0 % Invalid Interpretation Code 42.0 - 52.0 % AO Workflow SS Hemoglobin (Bld) [Mass/Vol] 5.1 G/dL Invalid Interpretation Code 14.0 - 18.0 G/dL AO Workflow SS RBC Product Ready RBC Ready for Pickup (07/04/22 10:09 AM) Invalid Interpretation Code AO BB SS XR Foot - right 3 Viewson 3 weight bearing vie ws of the right foot were obtained and the following is my interpretation of the findings present of the X-rays: Interval bone healing is noted at the triple arthrodesis fusion sites. The orthopedic hardware crossing each fusion site in the hindfoot is intact with no signs of loosening or failure. Intraoperative correction of the preoperative deformity has been maintained in the hindfoot/midfoot. IMAGING Radiology Study observation (narrative) [place] XR Foot - right 3 ViewsOrder ed By: Ld Pace on 05-06-2022 [place] Work Phone: CR Foot Complete 3+ Views Christopher igor 02-11-2022 CR Foot Complete 3+ Views Right Patient Name: LETITIA MASCORRO Diagnostic Radiology ACCESSION EXAM DATE/TIME PROCEDURE ORDERING PROVIDER [id number] 02/11/2022 14:10 EDT CR Foot Complete 3+ [id number] -SANDIP KIDD Views Right CPT code 44760 Reason For Exam (CR Foot Complete 3+ Views Right) PAIN Report Examination: CR Foot Complete 3+ Views Right Clinical: PAIN Comparison: 12/31/2021 Findings: Three views of the right foot. Postsurgical changes, prior hardware fusion. Three screws extend from distal to proximal across the talonavicular joint. No solid osseous bridging. Plate and four screws transfix the calcaneal cuboid with suggestion of partial osseous fusion. Additional screw extends across the posterior subtalar joint with partial osseous fusion. Gross preservation of the tarsal arch. Mild tibiotalar osteoarthropathy with anterior osteophytes. Calcaneal enthesophyte/bone spur. Midfoot demonstrates mild osteoarthropathy with dorsal osteophytes. Impression: Persistent hindfoot hardware fusion subtalar, talonavicular and calcaneocuboid joints similar to comparison. Some partial osseous fusion across the posterior subtalar and calcaneal cuboid articulations. No significant solid bridging seen across the talonavicular. Report Dictated on Final Dictating Physician: MD COLBY ANTHONY J Signed Date and Time: 02/14/2022 3:51 pm Signed by: MD COLBY ANTHONY J Transcribed Date and Time: 02/14/2022 3:52 Normal [facility] CR Foot Complete 3+ Views [facility] 12-31-2021 CR Foot Complete 3+ Views Right [id number] ACCESSION EXAM DATE/TIME PROCEDURE ORDERING PROVIDER [id number] 12/31/2021 14:26 EDT CR Foot Complete 3+ [id number] -SANDIP KIDD Views Right CPT code 27161 Reason For Exam (CR Foot Complete 3+ Views Right) PAIN Report CLINICAL INFORMATION: Right foot pain secondary to degenerative arthritis. Status post right foot surgery proximally 6 weeks ago. Follow-up evaluation. Right foot: COMPARISON: None at this institution. AP, oblique and lateral views demonstrate a triple arthrodesis of the right hindfoot consisting of a instrumented fusion of the talonavicular joint using three retrograde cannulated orthopedic screws, fusion of the calcaneocuboid joint using a lateral orthopedic plate with four transfixing screw and a fusion of the posterior aspect of the subtalar joint using a retrograde large bore cannulated orthopedic screw. The fusion hardware appears to be intact. The posterior subtalar joint is extremely narrowed and barely perceptible. The other joints remain visualized. There is no evidence of acute fracture or dislocation. No bone erosion or periosteal reaction is seen. There are no significant abnormal soft tissue densities. IMPRESSION: Status post triple arthrodesis of the hindfoot as described. Report Dictated on Final Dictating Physician: MD STORY HARLAN Signed Date and Time: 01/04/2022 2:06 pm Signed by: MD STORY HARLAN Transcribed Date and Time: 01/04/2022 2:07 Normal [facility] OPERATIVE REPORTon 2 Ordered by an unspec ified provider. [facility] Op Noteon 11-16-2021 Op Note Pre-operative Diagno sis: Right foot deformity Post-operative Diagnosis: Same Procedure: #1 Right foot triple arthrodesis, #2 Right Achilles triple cut tendon lengthening, #3 open tenotomies Right posterior tibial tendon and Right peroneus longus tendon Components used: Synthes Anesthesia: General and Regional Block Surgeon: Katelynn Assistants: Bernabe Pablo Estimated Blood Loss: 200 ml Complications: None Specimens: No Medications: Ancef 2 g IV Operative findings: At the conclusion of the case the hindfoot was in 5? of valgus, the foot was in a plantigrade position based on simulated weightbearing on a flat plate intraoperatively and full dorsiflexion of the ankle with the hindfoot in the corrected position was achieved. History of present illness: Letitia is a 80 y.o. male with Right foot deformity who had failed all attempts at nonoperative treatment. Because of continued problems despite nonoperative care Letitia wish to undergo surgical intervention. Despite the risks of the above mentioned operative procedure Letitia wish to proceed. Operative report: I met with Letitia in the preoperative area prior to the procedure and discussed the surgical plan once again and answered all of his questions related to the procedure and the expected post-operative course. The risks of surgery were discussed including but not limited to the risks of medications given for surgery, the risk of blood loss during and after surgery that can lead to the need for blood products in certain situations, infection, damage to normal structures that can lead to halfway problems of pain or dysfunction, wound healing complications, the possibility of nonunion, malunion and late or chronic pain were also discussed. In addition potentially life threatening complications at the time of surgery and after surgery were discussed including but not limited to deep vein thrombosis, pulmonary embolism, myocardial infarction, stroke and . I initialed his Left lower extremity and signed his consent form. Letitia was then taken for a popliteal block by the anesthesia staff. Letitia was then brought to the operating room and placed in the supine position on the Operating Room table. Care was taken to identify and pad all bony prominences. A general anesthetic was then given by the anesthesia staff and an endotracheal tube was placed by the anesthesia staff. At all times during the operative procedure the patient's head neck and airway were protected by the anesthesia staff. A tourniquet was applied to the proximal thigh over cast padding. Total tourniquet time was less than 2 hours. The Right lower extremity was then prepped and draped in the usual orthopedic sterile fashion. A surgical timeout was then performed with the patient's identification, the procedure to be performed being reviewed with the consent form, verification that the patient had received preoperative antibiotics, and verification of the correct surgical side. Everyone in the operating room stopped what they were doing in order to participate in the timeout. This timeout was performed by myself, the circulating room nurse and the anesthesia staff. The patient's ASA was verified by the nurse authorization rep and the anesthesia staff. Fire risk was assessed. The Right lower extremity was then exanguinated using an Esmarch bandage and the tourniquet was inflated. Right ankle dorsiflexion was assessed with the knee in extension and flexion. 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 After tourniquet inflation a triple cut Achilles tendon lengthening was performed with 2 medial sided incisions and one lateral sided. Each incision was percutaneous and 1/3-1/2 of the tendon was released at each percutaneous incision site. The first incision was 1 cm proximal to the posterior calcaneal tuberosity on the medial side followed by a lateral incision 1 cm proximal followed by a medial incision 1 cm proximal to the lateral incision. Once released the ankle was brought into maximal dorsiflexion with the knee extended and the tendon was lengthened. Dorsiflexion past neutral was now possible with the knee extended signifying correction of the contracture and adequate lengthening of the Achilles tendon. Palpation was performed and a continuous tendinous structure was noted throughout the course of the Achilles. A tarsal sinus incision was then made from the tip of the lateral malleolus extending towards the base of the fourth metatarsal. Skin and subcutaneous tissues were divided with care taken to protect branches of the superficial peroneal and sural nerves. Any crossing vessels were cauterized. The wound was deepened down to the level of the interval between the peroneus brevis tendon and the inferior edge of the extensor digitorum brevis. The peroneus brevis was found to be torn and retracted. The peroneus longus was i (more content not included)... Normal [facility] Basic Metabolic Panelon 07- Anion gap [Moles/Vol] 7 mmol/L Normal 3-13 [facility] Comment on above: Performed By: #### B MP3, HEMOG #### [facility] [address] [place] [address] Sodium [Moles/Vol] 142 mmol/L Normal 135-145 [facility] Comment on above: Performed By: #### B MP3, HEMOG #### [facility] [address] [place] [address] Calcium [Mass/Vol] 8.2 mg/dL Low 8.4-10.4 [facility] Comment on above: Performed By: #### B MP3, HEMOG #### [facility] [address] [place] [address] CO2 [Moles/Vol] 26 mmol/L Normal 22-30 [facility] Comment on above: Performed By: #### B MP3, HEMOG #### [facility] [address] [place] [address] Glucose [Mass/Vol] 156 mg/dL High 70-100 [facility] Comment on above: Performed By: #### B MP3, HEMOG #### [facility] [address] [place] [address] Urea nitrogen [Mass/Vol] 13 mg/dL Normal 7-17 [facility] Comment on above: Performed By: #### B MP3, HEMOG #### [facility] [address] [place] [address] Creatinine [Mass/Vol] 0.83 mg/dL Normal 0.52-1.25 [facility] Comment on above: Performed By: #### B MP3, HEMOG #### [facility] [address] [place] [address] GFR/1.73 sq M.predicted among blacks MDRD (S/P/Bld) [Vol rate/Area] mL/min/{1.73_m2} Normal >60 [facility] Comment on above: Performed By: #### B MP3, HEMOG #### [facility] [address] [place] [address] GFR/1.73 sq M.predicted among non-blacks MDRD (S/P/Bld) [Vol rate/Area] 83.7 mL/min/{1.73_m2} Normal >60 [facility] Comment on above: Result Comment: KDIG O guidelines provide the following GFR categories: Stage GFR(ml/min/1.73 m2) Terms G1 >=90 Normal or high G2 60-89 Mildly decreased* G3a 45-59 Mildly to moderately decreased G3b 30-44 Moderately to severely decreased G4 15-29 Severely decreased G5 <15 Kidney failure *Relative to young adult level. In the absence of evidence of kidney damage, neither GFR category G1 nor G2 fulfill the criteria for CKD. The CKD-EPI equation is validated in individuals 18 years of age and older. Currently the best equation for estimating glomerular filtration rate (GFR) from serum creatinine in children is the Bedside Urias equation. It is less accurate in patients with extremes of muscle mass, restriction of dietary protein, ingestion of creatine, extra-renal metabolism of creatinine, or treatment with medications that affect renal tubular creatinine secretion. Performed By: #### B MP3, HEMOG #### [facility] [address] [place] [address] Potassium [Moles/Vol] 3.5 mmol/L Normal 3.5-5.1 [facility] Comment on above: Performed By: #### B MP3, HEMOG #### [facility] [address] [place] [address] Chloride [Moles/Vol] 112 mmol/L High 98-107 [facility] Comment on above: Performed By: #### B MP3, HEMOG #### [facility] [address] [place] [address] EGFR IF NonAfrican [place] Citizen 83.7 mL/min >60 [facility] Comment on above: KDIGO guidelines pro vide the following GFR categories: Stage GFR(ml/min/1.73 m2) Terms G1 >=90 Normal or high G2 60-89 Mildly decreased* G3a 45-59 Mildly to moderately decreased G3b 30-44 Moderately to severely decreased G4 15-29 Severely decreased G5 <15 Kidney failure *Relative to young adult level. In the absence of evidence of kidney damage, neither GFR category G1 nor G2 fulfill the criteria for CKD. The CKD-EPI equation is validated in individuals 18 years of age and older. Currently the best equation for estimating glomerular filtration rate (GFR) from serum creatinine in children is the Bedside Urias equation. It is less accurate in patients with extremes of muscle mass, restriction of dietary protein, ingestion of creatine, extra-renal metabolism of creatinine, or treatment with medications that affect renal tubular creatinine secretion. Urea nitrogen (BldV) [Mass/Vol] 13 mg/dL 7 - 17 mg/dL [facility] 11-09-2021 Hematocrit (Bld) [Volume fraction] 36.1 % Low 40.0 - 52.0 % [facility] Hemoglobin (Bld) [Mass/Vol] 11.7 g/dL Low 13.0 - 18.0 g/dL [facility] MCH (RBC) [Entitic mass] 29.5 pg 26.0 - 34.0 pg [facility] MCHC (RBC) [Mass/Vol] 32.5 % 32.0 - 36.0 % [facility] MCV (RBC) [Entitic vol] 90.7 fL 80.0 - 98.0 fL [facility] Platelet distribution width (Bld) [Ratio] 14.6 % High 11.5 - 14.5 % [facility] Platelet mean volume (Bld) [Entitic vol] 7.3 fL Low 7.4 - 12.4 fL [facility] Comment on above: MPV is a calculated measurement using platelet volume ratio. Platelets (Bld) [#/Vol] 317 10*3/uL 140 - 440 10*3/uL [facility] RBC (Bld) [#/Vol] 3.97 10*6/uL Low 4.40 - 5.90 10*6/uL [facility] WBC (Bld) [#/Vol] 7.6 10*3/uL 3.6 - 10.7 10*3/uL [facility] Hemogramon 11-09-2021 Erythrocyte distribution width (RBC) [Ratio] 14.6 % High 11.5-14.5 [facility] Comment on above: Performed By: #### B MP3, HEMOG #### [facility] [address] [place] [address] Hematocrit (Bld) [Volume fraction] 36.1 % Low 40.0-52.0 [facility] Comment on above: Performed By: #### B MP3, HEMOG #### [facility] [address] [place] [address] Hemoglobin (Bld) [Mass/Vol] 11.7 g/dL Low 13.0-18.0 [facility] Comment on above: Performed By: #### B MP3, HEMOG #### [facility] [address] [place] [address] MCH (RBC) [Entitic mass] 29.5 pg Normal 26.0-34.0 [facility] Comment on above: Performed By: #### B MP3, HEMOG #### [facility] [address] [place] [address] MCHC 32.5 % Normal 32.0-36.0 [facility] Comment on above: Performed By: #### B MP3, HEMOG #### [facility] [address] [place] [address] MCV (RBC) [Entitic vol] 90.7 fL Normal 80.0-98.0 [facility] Comment on above: Performed By: #### B MP3, HEMOG #### [facility] [address] [place] [address] Platelet mean volume (Bld) [Entitic vol] 7.3 fL Low 7.4-12.4 [facility] Comment on above: Result Comment: MPV is a calculated measurement using platelet volume ratio. Performed By: #### B MP3, HEMOG #### [facility] [address] [place] [address] Platelets (Bld) [#/Vol] 317 10*3/uL Normal 140-440 [facility] Comment on above: Performed By: #### B MP3, HEMOG #### [facility] [address] [place] [address] RBC (Bld) [#/Vol] 3.97 10*6/uL Low 4.40-5.90 [facility] Comment on above: Performed By: #### B MP3, HEMOG #### [facility] [address] [place] [address] WBC (Bld) [#/Vol] 7.6 10*3/uL Normal 3.6-10.7 [facility] Comment on above: Performed By: #### B MP3, HEMOG #### [facility] [address] [place] [address] No Panel Informationon 11-09 Interpretation and review of laboratory results Abnormal [facility] Test Performed by [facility], [address] [place] [address] [facility] Basic Metabolic Panelon 07-30 Anion gap [Moles/Vol] 5 mmol/L Normal 3-13 [facility] Comment on above: Performed By: #### H TRENTON BMP3 #### [facility] [address] [place] [address] Calcium [Mass/Vol] 9.3 mg/dL Normal 8.4-10.4 [facility] Comment on above: Performed By: #### H TRENTON BMP3 #### [facility] [address] [place] [address] CO2 [Moles/Vol] 29 mmol/L Normal 22-30 [facility] Comment on above: Performed By: #### H EMOG, BMP3 #### [facility] [address] [place] [address] Glucose [Mass/Vol] 121 mg/dL High 70-100 [facility] Comment on above: Performed By: #### H EMOG, BMP3 #### [facility] [address] [place] [address] Urea nitrogen [Mass/Vol] 16 mg/dL Normal 7-17 [facility] Comment on above: Performed By: #### H TRENTON BMP3 #### [facility] [address] [place] [address] Creatinine [Mass/Vol] 0.85 mg/dL Normal 0.52-1.25 [facility] Comment on above: Performed By: #### H TRENTON BMP3 #### [facility] [address] [place] [address] GFR/1.73 sq M.predicted among blacks MDRD (S/P/Bld) [Vol rate/Area] mL/min/{1.73_m2} Normal >60 [facility] Comment on above: Performed By: #### H TRENTON BMP3 #### [facility] [address] [place] [address] GFR/1.73 sq M.predicted among non-blacks MDRD (S/P/Bld) [Vol rate/Area] 83.1 mL/min/{1.73_m2} Normal >60 [facility] Comment on above: Result Comment: KDIG O guidelines provide the following GFR categories: Stage GFR(ml/min/1.73 m2) Terms G1 >=90 Normal or high G2 60-89 Mildly decreased* G3a 45-59 Mildly to moderately decreased G3b 30-44 Moderately to severely decreased G4 15-29 Severely decreased G5 <15 Kidney failure *Relative to young adult level. In the absence of evidence of kidney damage, neither GFR category G1 nor G2 fulfill the criteria for CKD. The CKD-EPI equation is validated in individuals 18 years of age and older. Currently the best equation for estimating glomerular filtration rate (GFR) from serum creatinine in children is the Bedside Urias equation. It is less accurate in patients with extremes of muscle mass, restriction of dietary protein, ingestion of creatine, extra-renal metabolism of creatinine, or treatment with medications that affect renal tubular creatinine secretion. Performed By: #### H TRENTON BMP3 #### [facility] [address] [place] [address] Chloride [Moles/Vol] 108 mmol/L High 98-107 [facility] Comment on above: Performed By: #### H Vigno, BMP3 #### [facility] [address] [place] [address] Potassium [Moles/Vol] 4.3 mmol/L Normal 3.5-5.1 [facility] Comment on above: Performed By: #### H GENEG, BMP3 #### [facility] [address] [place] [address] Sodium [Moles/Vol] 141 mmol/L Normal 135-145 [facility] Comment on above: Performed By: #### H [facility], BMP3 #### [facility] [address] [place] [address] Anion gap [Moles/Vol] 5 mmol/L 3 - 13 mmol/L [facility] Calcium [Mass/Vol] 9.3 mg/dL 8.4 - 10. 4 mg/dL [facility] Chloride [Moles/Vol] 108 mmol/L High 98 - 10 7 mmol/L [facility] CO2 [Moles/Vol] 29 mmol/L 22 - 30 mmol/L [facility] Creatinine [Mass/Vol] 0.85 mg/dL 0.52 - 1.25 mg/dL [facility] EGFR IF NonAfrican [place] Citizen 83.1 mL/min >60 [facility] Comment on above: KDIGO guidelines pro vide the following GFR categories: Stage GFR(ml/min/1.73 m2) Terms G1 >=90 Normal or high G2 60-89 Mildly decreased* G3a 45-59 Mildly to moderately decreased G3b 30-44 Moderately to severely decreased G4 15-29 Severely decreased G5 <15 Kidney failure *Relative to young adult level. In the absence of evidence of kidney damage, neither GFR category G1 nor G2 fulfill the criteria for CKD. The CKD-EPI equation is validated in individuals 18 years of age and older. Currently the best equation for estimating glomerular filtration rate (GFR) from serum creatinine in children is the Bedside Urias equation. It is less accurate in patients with extremes of muscle mass, restriction of dietary protein, ingestion of creatine, extra-renal metabolism of creatinine, or treatment with medications that affect renal tubular creatinine secretion. GFR/1.73 sq M.predicted among blacks MDRD (S/P/Bld) [Vol rate/Area] mL/min/{1.73_m2} >60 mL/min [facility] Glucose [Mass/Vol] 121 mg/dL High 70 - 100 mg/dL [facility] Interpretation and review of laboratory results Abnormal [facility] Potassium [Moles/Vol] 4.3 mmol/L 3.5 - 5.1 mmol/L [facility] Sodium [Moles/Vol] 141 mmol/L 135 - 145 mmol/L [facility] Urea nitrogen (BldV) [Mass/Vol] 16 mg/dL 7 - 17 mg/dL [facility] Test Performed by [facility], [address] [facility] 08-12-2021 Hematocrit (Bld) [Volume fraction] 39.5 % Low 40.0 - 52.0 % [facility] Hemoglobin.gastrointes tinal spec 1 Ql (Stl) 13.0 g/dL 13.0 - 18.0 g/dL [facility] Interpretation and review of laboratory results Abnormal [facility] MCH (RBC) [Entitic mass] 27.8 pg 26.0 - 34.0 pg [facility] MCHC (RBC) [Mass/Vol] 33.0 % 32.0 - 36.0 % [facility] MCV (RBC) [Entitic vol] 84.4 fL 80.0 - 98.0 fL [facility] Platelet distribution width (Bld) [Ratio] 22.4 % High 11.5 - 14.5 % [facility] Platelet mean volume (Bld) [Entitic vol] 7.4 fL 7.4 - 10.4 fL [facility] Platelets (Bld) [#/Vol] 337 10*3/uL 140 - 440 10*3/uL [facility] RBC (Bld) [#/Vol] 4.68 10*6/uL 4.40 - 5.90 10*6/uL [facility] WBC (Bld) [#/Vol] 8.4 10*3/uL 3.6 - 10.7 10*3/uL [facility] Test Performed by [facility], [address] [facility] Hemogramon 08-12-2021 Erythrocyte distribution width (RBC) [Ratio] 22.4 % High 11.5-14.5 [facility] Comment on above: Performed By: #### H SARAH CHOWDHURY3 #### [facility] [address] [place] [address] Hematocrit (Bld) [Volume fraction] 39.5 % Low 40.0-52.0 [facility] Comment on above: Performed By: #### Keesha CHOWDHURY BMP3 #### [facility] [address] [place] [address] Hemoglobin (Bld) [Mass/Vol] 13.0 g/dL Normal 13.0-18.0 [facility] Comment on above: Performed By: #### Keesha CHOWDHURY BMP3 #### [facility] [address] [place] [address] MCH (RBC) [Entitic mass] 27.8 pg Normal 26.0-34.0 [facility] Comment on above: Performed By: #### H TRENTON BMP3 #### [facility] [address] [place] [address] MCHC 33.0 % Normal 32.0-36.0 [facility] Comment on above: Performed By: #### Keesha CHOWDHURY BMP3 #### [facility] [address] [place] [address] MCV (RBC) [Entitic vol] 84.4 fL Normal 80.0-98.0 [facility] Comment on above: Performed By: #### Keesha CHOWDHURY BMP3 #### [facility] [address] [place] [address] Platelet mean volume (Bld) [Entitic vol] 7.4 fL Normal 7.4-10.4 [facility] Comment on above: Performed By: #### Keesha CHOWDHURY BMP3 #### [facility] [address] [place] [address] Platelets (Bld) [#/Vol] 337 10*3/uL Normal 140-440 [facility] Comment on above: Performed By: #### H TRENTON BMP3 #### [facility] [address] [place] [address] RBC (Bld) [#/Vol] 4.68 10*6/uL Normal 4.40-5.90 [facility] Comment on above: Performed By: #### Keesha CHOWDHURY BMP3 #### [facility] [address] [address] WBC (Bld) [#/Vol] 8.4 10*3/uL Normal 3.6-10.7 [facility] Comment on above: Performed By: #### H SARAH CHOWDHURY3 #### [facility] [address] [place] [address] Vital Signs Date Time Vital Sign Value Performing Clinician Facility 03-12-2025 09:36-0500 Body height 165.[address] Jace Tate DO Work Phone: [facility] 03-12-2025 09:36-0500 Body weight 69.[address] Jace Tate DO Work Phone: [facility] 03-12-2025 09:27-0500 Body mass index (BMI) [Ratio] 25.4 kg/m2 Dr. Jace Tate DO Work Phone: [facility] 03-12-2025 09:27-0500 Body temperature 97.3 [degF] Dr. Jace Tate DO Work Phone: [facility] 03-12-2025 09:27-0500 Body weight 69.[address] Jace Tate DO Work Phone: [facility] 03-12-2025 09:27-0500 Diastolic blood pressure 64 mm[Hg] Dr. Jace Tate DO Work Phone: [facility] 03-12-2025 09:27-0500 Heart rate 120 /min Dr. Jace Tate DO Work Phone: [facility] 03-12-2025 09:27-0500 Respiratory rate 16 /min Dr. Jace Tate DO Work Phone: [facility] 03-12-2025 09:27-0500 SaO2% (BldA) [Mass fraction] 95 % Dr. Jace Tate DO Work Phone: [facility] 03-12-2025 09:27-0500 Systolic blood pressure 91 mm[Hg] Dr. Jace Tate DO Work Phone: [facility] 03-03-2025 14:09-0500 Body temperature 98.2 [degF] Dr. Jace Tate DO Work Phone: [facility] 03-03-2025 14:09-0500 Diastolic blood pressure 84 mm[Hg] Dr. Jace Tate DO Work Phone: [facility] 03-03-2025 14:09-0500 Heart rate 94 /min Dr. Jace Tate DO Work Phone: [facility] 03-03-2025 14:09-0500 Respiratory rate 16 /min Dr. Jace Tate DO Work Phone: [facility] 03-03-2025 14:09-0500 SaO2% (BldA) [Mass fraction] 97 % Dr. Jace Tate DO Work Phone: [facility] 03-03-2025 14:09-0500 Systolic blood pressure 112 mm[Hg] Dr. Jace Tate DO Work Phone: [facility] 03-03-2025 11:37-0500 Body mass index (BMI) [Ratio] 25.7 kg/m2 Dr. Jace Tate DO Work Phone: [facility] 03-03-2025 11:37-0500 Body weight [address] Jace Tate DO Work Phone: [facility] 02-27-2025 14:48-0400 Body weight 71.[address] Jace Tate DO Work Phone: [facility] 02-27-2025 11:21-0400 Body temperature 98.3 [degF] Dr. Jace Tate DO Work Phone: [facility] 02-27-2025 11:21-0400 Diastolic blood pressure 79 mm[Hg] Dr. Jace Tate DO Work Phone: [facility] 02-27-2025 11:21-0400 Heart rate 114 /min Dr. Jace Tate DO Work Phone: [facility] 02-27-2025 11:21-0400 Respiratory rate 18 /min Dr. Jace Tate DO Work Phone: [facility] 02-27-2025 11:21-0400 SaO2% (BldA) [Mass fraction] 97 % Dr. Jace Tate DO Work Phone: [facility] 02-27-2025 11:21-0400 Systolic blood pressure 111 mm[Hg] Dr. Jace Tate DO Work Phone: [facility] 02-27-2025 10:11-0400 Body temperature 98.3 [degF] Dr. Jace Tate DO Work Phone: [facility] 02-27-2025 10:11-0400 Diastolic blood pressure 79 mm[Hg] Dr. Jace Tate DO Work Phone: [facility] 02-27-2025 10:11-0400 Heart rate 114 /min Dr. Jace Tate DO Work Phone: [facility] 02-27-2025 10:11-0400 Respiratory rate 18 /min Dr. Jace Tate DO Work Phone: [facility] 02-27-2025 10:11-0400 SaO2% (BldA) [Mass fraction] 97 % Dr. Jace Tate DO Work Phone: [facility] 02-27-2025 10:11-0400 Systolic blood pressure 111 mm[Hg] Dr. Jace Tate DO Work Phone: [facility] 02-26-2025 13:50-0400 Body mass index (BMI) [Ratio] 26.1 kg/m2 Dr. Jace Tate DO Work Phone: [facility] 02-26-2025 13:50-0400 Body weight 71.[address] Jace Tate DO Work Phone: [facility] 02-26-2025 13:50-0400 Diastolic blood pressure 72 mm[Hg] Dr. Jace Tate DO Work Phone: [facility] 02-26-2025 13:50-0400 Respiratory rate 16 /min Dr. Jace Tate DO Work Phone: [facility] 02-26-2025 13:50-0400 SaO2% (BldA) [Mass fraction] 94 % Dr. Jace Tate DO Work Phone: [facility] 02-26-2025 13:50-0400 Systolic blood pressure 99 mm[Hg] Dr. Jace Tate DO Work Phone: [facility] 02-21-2025 09:23-0400 Body mass index (BMI) [Ratio] 26.2 kg/m2 Dr. Jace Tate DO Work Phone: [facility] 02-21-2025 09:23-0400 Body temperature 97.5 [degF] Dr. Jace Tate DO Work Phone: [facility] 02-21-2025 09:23-0400 Body weight 71.[address] Jace Tate DO Work Phone: [facility] 02-21-2025 09:23-0400 Diastolic blood pressure 75 mm[Hg] Dr. Jace Tate DO Work Phone: [facility] 02-21-2025 09:23-0400 Heart rate 89 /min Dr. Jace Tate DO Work Phone: [facility] 02-21-2025 09:23-0400 Respiratory rate 16 /min Dr. Jace Tate DO Work Phone: [facility] 02-21-2025 09:23-0400 SaO2% (BldA) [Mass fraction] 96 % Dr. Jace Tate DO Work Phone: [facility] 02-21-2025 09:23-0400 Systolic blood pressure 113 mm[Hg] Dr. Jace Tate DO Work Phone: [facility] 02-19-2025 09:49-0400 Body mass index (BMI) [Ratio] 26 kg/m2 Dr. Jace Tate DO Work Phone: [facility] 02-19-2025 09:49-0400 Body weight 70.[address] Jace Tate DO Work Phone: [facility] 02-19-2025 09:46-0400 Body temperature 98.3 [degF] Dr. Jace Tate DO Work Phone: [facility] 02-19-2025 09:46-0400 Diastolic blood pressure 75 mm[Hg] Dr. Jace Tate DO Work Phone: [facility] 02-19-2025 09:46-0400 Heart rate 95 /min Dr. Jace Tate DO Work Phone: [facility] 02-19-2025 09:46-0400 Respiratory rate 18 /min Dr. Jace Tate DO Work Phone: [facility] 02-19-2025 09:46-0400 SaO2% (BldA) [Mass fraction] 97 % Dr. Jace Tate DO Work Phone: [facility] 02-19-2025 09:46-0400 Systolic blood pressure 114 mm[Hg] Dr. Jace Tate DO Work Phone: [facility] 02-17-2025 14:46-0400 Diastolic Blood Pressure Non-Invasive 72 mm[Hg] DR LARRY BA MD [facility] 02-17-2025 14:46-0400 Heart rate 90 /min DR LARRY BA MD [facility] 02-17-2025 14:46-0400 Respiratory rate 18 /min DR LARRY BA MD [facility] 02-17-2025 14:46-0400 Systolic Blood Pressure Non-Invasive 117 mm[Hg] DR LARRY BA MD [facility] 02-17-2025 14:37-0400 Diastolic Blood Pressure Non-Invasive 71 mm[Hg] DR LARRY BA MD [facility] 02-17-2025 14:37-0400 Heart rate 88 /min DR LARRY BA MD [facility] 02-17-2025 14:37-0400 Respiratory rate 15 /min DR LARRY BA MD [facility] 02-17-2025 14:37-0400 Systolic Blood Pressure Non-Invasive 118 mm[Hg] DR LARRY BA MD [facility] 02-17-2025 14:27-0400 Diastolic Blood Pressure Non-Invasive 71 mm[Hg] DR LARRY BA MD [facility] 02-17-2025 14:27-0400 Heart rate 86 /min DR LARRY BA MD [facility] 02-17-2025 14:27-0400 Respiratory rate 23 /min DR LARRY BA MD [facility] 02-17-2025 14:27-0400 Systolic Blood Pressure Non-Invasive 108 mm[Hg] DR LARRY BA MD [facility] 02-17-2025 14:05-0400 Body temperature 97.52 [degF] DR LARRY BA MD [facility] 02-17-2025 14:05-0400 Respiratory Rate - Anes 0 br/min DR LARRY BA MD [facility] 02-17-2025 14:00-0400 Respiratory Rate - Anes 5 br/min DR LARRY BA MD [facility] 02-17-2025 13:55-0400 Respiratory Rate - Anes 19 br/min DR LARRY BA MD [facility] 02-17-2025 12:15-0400 Body height [address] LARRY BA MD [facility] 02-17-2025 12:15-0400 Body temperature 98.24 [degF] DR LARRY AB MD [facility] 02-17-2025 12:15-0400 Body weight [address] LARRY BA MD [facility] 02-17-2025 12:15-0400 Heart rate 89 /min DR LARRY BA MD [facility] 02-10-2025 11:27-0400 Diastolic Blood Pressure Non-Invasive 65 mm[Hg] DR LARRY BA MD [facility] 02-10-2025 11:27-0400 Heart rate 90 /min DR LARRY BA MD [facility] 02-10-2025 11:27-0400 Respiratory rate 22 /min DR LARRY BA MD [facility] 02-10-2025 11:27-0400 Systolic Blood Pressure Non-Invasive 104 mm[Hg] DR LARRY BA MD [facility] 02-10-2025 11:22-0400 Diastolic Blood Pressure Non-Invasive 67 mm[Hg] DR LARRY BA MD [facility] 02-10-2025 11:22-0400 Heart rate 97 /min DR LARRY BA MD [facility] 02-10-2025 11:22-0400 Respiratory rate 21 /min DR LARRY BA MD [facility] 02-10-2025 11:22-0400 Systolic Blood Pressure Non-Invasive 109 mm[Hg] DR LARRY BA MD [facility] 02-10-2025 11:17-0400 Body temperature 97.16 [degF] DR LARRY BA MD [facility] 02-10-2025 11:17-0400 Diastolic Blood Pressure Non-Invasive 92 mm[Hg] DR LARRY BA MD [facility] 02-10-2025 11:17-0400 Heart rate 110 /min DR LARRY BA MD [facility] 02-10-2025 11:17-0400 Respiratory rate 23 /min DR LARRY BA MD [facility] 02-10-2025 11:17-0400 Systolic Blood Pressure Non-Invasive 109 mm[Hg] DR LARRY BA MD [facility] 02-10-2025 11:10-0400 Respiratory Rate - Anes 20 br/min DR LARRY BA MD [facility] 02-10-2025 11:05-0400 Respiratory Rate - Anes 16 br/min DR LARRY BA MD [facility] 02-10-2025 10:17-0400 Body height [address] LARRY BA MD [facility] 02-10-2025 10:17-0400 Body temperature 97.34 [degF] DR LARRY BA MD [facility] 02-10-2025 10:17-0400 Body weight 26.89 kg/m2 DR LARRY BA MD [facility] 02-10-2025 10:17-0400 Body weight [address] LARRY BA MD [facility] 02-10-2025 10:17-0400 Heart rate 88 /min DR LARRY BA MD [facility] 09-05-2024 13:54-0400 Body temperature 98.24 [degF] JACE BEBETO DO [facility] 09-05-2024 13:54-0400 Diastolic Blood Pressure Non-Invasive 78 mm[Hg] JACE BEBETO DO [facility] 09-05-2024 13:54-0400 Heart rate 85 /min JACE BEBETO DO [facility] 09-05-2024 13:54-0400 Respiratory rate 18 /min JACE BEBETO DO [facility] 09-05-2024 13:54-0400 Systolic Blood Pressure Non-Invasive 128 mm[Hg] JACE BEBETO DO [facility] 09-05-2024 11:57-0400 Blood Pressure Method JACE BEBETO DO [facility] 09-05-2024 11:57-0400 Body temperature 98.24 [degF] JACE BEBETO DO [facility] 09-05-2024 11:57-0400 Diastolic Blood Pressure Non-Invasive 84 mm[Hg] JACE BEBETO DO [facility] 09-05-2024 11:57-0400 Heart rate 70 /min JACE BEBETO DO [facility] 09-05-2024 11:57-0400 Systolic Blood Pressure Non-Invasive 128 mm[Hg] JACE BEBETO DO [facility] 08-29-2024 13:56-0400 Body temperature 98.42 [degF] JACE BEBETO DO [facility] 08-29-2024 13:56-0400 Diastolic Blood Pressure Non-Invasive 81 mm[Hg] JACE BEBETO DO [facility] 08-29-2024 13:56-0400 Heart rate 82 /min JACE BEBETO DO [facility] 08-29-2024 13:56-0400 Respiratory rate 16 /min JACE BEBETO DO [facility] 08-29-2024 13:56-0400 Systolic Blood Pressure Non-Invasive 147 mm[Hg] JACE BEBETO DO [facility] 08-29-2024 12:11-0400 Body temperature 97.7 [degF] JACE BEBETO DO [facility] 08-29-2024 12:11-0400 Diastolic Blood Pressure Non-Invasive 80 mm[Hg] JACE BEBETO DO [facility] 08-29-2024 12:11-0400 Heart rate 95 /min JACE BEBETO DO [facility] 08-29-2024 12:11-0400 Respiratory rate 18 /min JACE BEBETO DO [facility] 08-29-2024 12:11-0400 Systolic Blood Pressure Non-Invasive 131 mm[Hg] JACE BEBETO DO [facility] 08-22-2024 11:52-0400 Body temperature 97.7 [degF] JACE TATE DO [facility] 08-22-2024 11:52-0400 Diastolic Blood Pressure Non-Invasive 78 mm[Hg] JACE TATE DO [facility] 08-22-2024 11:52-0400 Heart rate 92 /min JACE GALLEGOSAN DO [facility] 08-22-2024 11:52-0400 Reason For Taking VItal Signs JACE GALLEGOSAN DO [facility] 08-22-2024 11:52-0400 Respiratory rate 18 /min JACE GALLEGOSAN DO [facility] 08-22-2024 11:52-0400 Systolic Blood Pressure Non-Invasive 123 mm[Hg] JACE BEBETO DO [facility] 07-31-2023 14:12-0400 Body temperature 97.88 [degF] JACE TATE DO [facility] 07-31-2023 14:12-0400 Diastolic Blood Pressure Non-Invasive 75 mm[Hg] JACE BEBETO DO [facility] 07-31-2023 14:12-0400 Heart rate 73 /min JACE GALLEGOSAN DO [facility] 07-31-2023 14:12-0400 Systolic Blood Pressure Non-Invasive 121 mm[Hg] JACE BEBETO DO [facility] 07-31-2023 12:52-0400 Body temperature 97.7 [degF] JACE TATE DO [facility] 07-31-2023 12:52-0400 Diastolic Blood Pressure Non-Invasive 69 mm[Hg] JACE TATE DO [facility] 07-31-2023 12:52-0400 Heart rate 66 /min JACE TATE DO [facility] 07-31-2023 12:52-0400 Reason For Taking VItal Signs JACE TATE DO [facility] 07-31-2023 12:52-0400 Systolic Blood Pressure Non-Invasive 117 mm[Hg] JACE GALLEGOSAN DO [facility] 07-24-2023 12:54-0400 Body temperature 98.06 [degF] JACE TATE DO [facility] 07-24-2023 12:54-0400 Diastolic Blood Pressure Non-Invasive 69 mm[Hg] JACE GALLEGOSAN DO [facility] 07-24-2023 12:54-0400 Heart rate 90 /min JACE GALLEGOSAN DO [facility] 07-24-2023 12:54-0400 Reason For Taking VItal Signs JACE TATE DO [facility] 07-24-2023 12:54-0400 Respiratory rate 16 /min JACE GALLEGOSAN DO [facility] 07-24-2023 12:54-0400 Systolic Blood Pressure Non-Invasive 126 mm[Hg] JACE GALLEGOSAN DO [facility] 07-17-2023 12:58-0400 Body temperature 98.06 [degF] JACE BEBETO DO [facility] 07-17-2023 12:58-0400 Diastolic Blood Pressure Non-Invasive 82 mm[Hg] JACE BEBETO DO [facility] 07-17-2023 12:58-0400 Heart rate 74 /min JACE BEBETO DO [facility] 07-17-2023 12:58-0400 Respiratory rate 18 /min JACE BEBETO DO [facility] 07-17-2023 12:58-0400 Systolic Blood Pressure Non-Invasive 145 mm[Hg] JACE BEBETO DO [facility] 05-31-2023 11:28-0500 Blood Pressure Method JACE BEBETO DO [facility] 05-31-2023 11:28-0500 Body temperature 97.88 [degF] JACE BEBETO DO [facility] 05-31-2023 11:28-0500 Diastolic Blood Pressure Non-Invasive 75 mm[Hg] JACE BEBEOT DO [facility] 05-31-2023 11:28-0500 Heart rate 83 /min JACE BEBETO DO [facility] 05-31-2023 11:28-0500 Respiratory rate 16 /min JACE GALLEGOSAN DO [facility] 05-31-2023 11:28-0500 Systolic Blood Pressure Non-Invasive 121 mm[Hg] JACE BEBETO DO [facility] 05-24-2023 11:30-0500 Body temperature 98.06 [degF] JACE BEBETO DO [facility] 05-24-2023 11:30-0500 Diastolic Blood Pressure Non-Invasive 65 mm[Hg] JACE BEBETO DO [facility] 05-24-2023 11:30-0500 Heart rate 78 /min JACE TATE DO [facility] 05-24-2023 11:30-0500 Respiratory rate 18 /min JACE TATE DO [facility] 05-24-2023 11:30-0500 Systolic Blood Pressure Non-Invasive 113 mm[Hg] JACE GALLEGOSAN DO [facility] 05-18-2023 14:06-0500 Body temperature 98.06 [degF] JACE GALLEGOSAN DO [facility] 05-18-2023 14:06-0500 Diastolic Blood Pressure Non-Invasive 77 mm[Hg] JACE GALLEGOSAN DO [facility] 05-18-2023 14:06-0500 Heart rate 89 /min JACE TATE DO [facility] 05-18-2023 14:06-0500 Systolic Blood Pressure Non-Invasive 148 mm[Hg] JACE BEBETO DO [facility] 05-18-2023 11:28-0500 Blood Pressure Cuff Size JACE TATE DO [facility] 05-18-2023 11:28-0500 Blood Pressure Location JACE GALLEGOSAN DO [facility] 05-18-2023 11:28-0500 Blood Pressure Method JACE GALLEGOSAN DO [facility] 05-18-2023 11:28-0500 Body temperature 98.24 [degF] JACE GALLEGOSAN DO [facility] 05-18-2023 11:28-0500 Diastolic Blood Pressure Non-Invasive 75 mm[Hg] JACE TATE DO [facility] 05-18-2023 11:28-0500 Heart rate 70 /min JACE TATE DO [facility] 05-18-2023 11:28-0500 Reason For Taking VItal Signs JACE TATE DO [facility] 05-18-2023 11:28-0500 Systolic Blood Pressure Non-Invasive 122 mm[Hg] JACE TATE DO [facility] 07-04-2022 16:16-0500 Body temperature 98.24 [degF] JACE TATE DO [facility] 07-04-2022 16:16-0500 Diastolic Blood Pressure Non-Invasive 87 1 JACE ATTE DO [facility] 07-04-2022 16:16-0500 Heart rate 84 /min JACE TATE DO [facility] 07-04-2022 16:16-0500 Reason For Taking VItal Signs JACE TATE DO [facility] 07-04-2022 16:16-0500 Respiratory rate 14 /min JACE TATE DO [facility] 07-04-2022 16:16-0500 Signs/Symptoms Transfusion Reaction JACE TATE DO [facility] 07-04-2022 16:16-0500 Systolic Blood Pressure Non-Invasive 158 1 JACE TATE DO [facility] 07-04-2022 15:17-0500 Body temperature 98.24 [degF] JACE TATE DO [facility] 07-04-2022 15:17-0500 Diastolic blood pressure 67 mm[Hg] JACE TATE DO [facility] 07-04-2022 15:17-0500 Diastolic Blood Pressure Non-Invasive 67 1 JACE GALLEGOSAN DO [facility] 07-04-2022 15:17-0500 Heart rate 80 /min JACE TATE DO [facility] 07-04-2022 15:17-0500 Reason For Taking VItal Signs JACE TATE DO [facility] 07-04-2022 15:17-0500 Respiratory rate 20 /min JACE TATE DO [facility] 07-04-2022 15:17-0500 Signs/Symptoms Transfusion Reaction JACE TATE DO [facility] 07-04-2022 15:17-0500 Systolic blood pressure 133 mm[Hg] JACE TATE DO [facility] 07-04-2022 15:17-0500 Systolic Blood Pressure Non-Invasive 133 1 JACE TATE DO [facility] 07-04-2022 15:16-0500 Signs/Symptoms Transfusion Reaction No JACE TATE DO [facility] 07-04-2022 14:43-0500 Body temperature 98.42 [degF] JACE TATE DO [facility] 07-04-2022 14:43-0500 Diastolic Blood Pressure Non-Invasive 72 1 JACE GALLEGOSAN DO [facility] 07-04-2022 14:43-0500 Heart rate 79 /min JACE TATE DO [facility] 07-04-2022 14:43-0500 Reason For Taking VItal Signs JACE TATE DO [facility] 07-04-2022 14:43-0500 Respiratory rate 14 /min JACE BEBETO DO [facility] 07-04-2022 14:43-0500 Systolic Blood Pressure Non-Invasive 134 1 JACE GALLEGOSAN DO [facility] 07-04-2022 14:15-0500 Diastolic blood pressure 74 mm[Hg] JACE BEBETO DO [facility] 07-04-2022 14:15-0500 Heart rate 80 /min JACE BEBETO DO [facility] 07-04-2022 14:15-0500 Systolic blood pressure 148 mm[Hg] JACE BEBETO DO [facility] 07-04-2022 13:55-0500 Inspected Blood Donor Unit Appearance JACE TATE DO [facility] 07-04-2022 13:43-0500 Diastolic blood pressure 79 mm[Hg] JACE TATE DO [facility] 07-04-2022 13:43-0500 Heart rate 78 /min JACE BEBETO DO [facility] 07-04-2022 13:43-0500 Systolic blood pressure 158 mm[Hg] JACE BEBETO DO [facility] 07-04-2022 12:10-0500 Inspected Blood Donor Unit Appearance JACE GALLEGOSAN DO [facility] 07-04-2022 11:59-0500 Heart rate 84 /min JACE GALLEGOSAN DO [facility] 07-04-2022 11:59-0500 Mean blood pressure 109 mm[Hg] JACE TATE DO [facility] 05-06-2022 14:43-0500 Body height 167.6 cm Ld Pace MD Work Phone: [facility] 05-06-2022 14:43-0500 Body mass index (BMI) [Ratio] 30.83 kg/m2 Ld Pace MD Work Phone: [facility] 05-06-2022 14:43-0500 Body temperature 97.9 [degF] Ld Pace MD Work Phone: [facility] 05-06-2022 14:43-0500 Body weight 86.64 kg Ld Pace MD Work Phone: [facility] 05-06-2022 14:43-0500 Diastolic blood pressure 63 mm[Hg] Ld Pace MD Work Phone: [facility] 05-06-2022 14:43-0500 Heart rate 106 /min Ld Pace MD Work Phone: [facility] 05-06-2022 14:43-0500 Systolic blood pressure 120 mm[Hg] Ld Pace MD Work Phone: [facility] 11-16-2021 15:30-0400 Diastolic blood pressure 73 mm[Hg] Ld Pace MD Work Phone: [facility] 11-16-2021 15:30-0400 Heart rate 88 /min Ld Pace MD Work Phone: [facility] 11-16-2021 15:30-0400 Respiratory rate 14 /min Ld Pace MD Work Phone: [facility] 11-16-2021 15:30-0400 SaO2% (BldA) [Mass fraction] 93 % Ld Pace MD Work Phone: [facility] 11-16-2021 15:30-0400 Systolic blood pressure 115 mm[Hg] Ld Pace MD Work Phone: [facility] 11-16-2021 14:15-0400 Body temperature 97.5 [degF] Ld Pace MD Work Phone: [facility] 11-16-2021 08:51-0400 Body height 167.6 cm Ld Pace MD Work Phone: [facility] 11-16-2021 08:51-0400 Body mass index (BMI) [Ratio] 30.83 kg/m2 Ld Pace MD Work Phone: [facility] 11-16-2021 08:51-0400 Body weight 86.64 kg Ld Pace MD Work Phone: [facility] 11-09-2021 10:55-0400 Body height 167.6 cm Ld Pace MD Work Phone: [facility] 11-09-2021 10:55-0400 Body mass index (BMI) [Ratio] 30.86 kg/m2 Ld Pace MD Work Phone: [facility] 11-09-2021 10:55-0400 Body temperature 98.1 [degF] Ld Pace MD Work Phone: [facility] 11-09-2021 10:55-0400 Body weight 86.73 kg Ld Pace MD Work Phone: [facility] 11-09-2021 10:55-0400 Diastolic blood pressure 74 mm[Hg] Ld Pace MD Work Phone: [facility] 11-09-2021 10:55-0400 Heart rate 67 /min Ld Pace MD Work Phone: [facility] 11-09-2021 10:55-0400 Respiratory rate 16 /min Ld Pace MD Work Phone: [facility] 11-09-2021 10:55-0400 SaO2% (BldA) [Mass fraction] 98 % Ld Pace MD Work Phone: [facility] 11-09-2021 10:55-0400 Systolic blood pressure 135 mm[Hg] Ld Pace MD Work Phone: [facility] 08-12-2021 09:26-0400 Body height 167.6 cm Ld Pace MD Work Phone: [facility] 08-12-2021 09:26-0400 Body mass index (BMI) [Ratio] 29.92 kg/m2 Ld Pace MD Work Phone: [facility] 08-12-2021 09:26-0400 Body temperature 97.59 [degF] Ld Pace MD Work Phone: [facility] 08-12-2021 09:26-0400 Body weight 84.1 kg Ld Pace MD Work Phone: [facility] 08-12-2021 09:26-0400 Diastolic blood pressure 70 mm[Hg] Ld Pace MD Work Phone: [facility] 08-12-2021 09:26-0400 Heart rate 77 /min Ld Pace MD Work Phone: [facility] 08-12-2021 09:26-0400 Respiratory rate 16 /min Ld Pace MD Work Phone: [facility] 08-12-2021 09:26-0400 SaO2% (BldA) [Mass fraction] 96 % Ld Pace MD Work Phone: [facility] 08-12-2021 09:26-0400 Systolic blood pressure 137 mm[Hg] Ld Pace MD Work Phone: [facility] Encounters Encounter Date Encounter Type Care Provider Facility Start: 03-12-2025 End: 03-12-2025 ambulatory aJce Tate Facility:[facility] Start: 03-11-2025 ambulatory Jace Tate Facility: [facility] Start: 03-10-2025 ambulatory Jace Tate Facility: [facility] Start: 03-06-2025 ambulatory Jace Tate Facility: [facility] Start: 03-04-2025 ambulatory Jace Tate Facility: [facility] Start: 03-03-2025 End: 03-03-2025 ambulatory Vinod Hicks Facility:[facility] Start: 02-27-2025 End: 02-28-2025 ambulatory [place] Bebeto Facility:[facility] Start: 02-27-2025 End: 02-27-2025 ambulatory Jace Tate Facility:[facility] Start: 02-26-2025 End: 02-26-2025 ambulatory Jace Tate Facility:[facility] Start: 02-21-2025 End: 02-21-[address] Quintin Mullins DO -[facility] Work Phone: Start: 02-21-2025 End: 02-21-2025 ambulatory Quintin Mullins Facility:[facility] Start: 02-19-2025 End: 02-19-[address] Arcadio Chatman MD -[facility] Work Phone: Start: 02-19-2025 End: 02-19-[address] Arcadio Chatman MD -[facility] Work Phone: Start: 02-19-2025 End: 02-19-2025 ambulatory Jace Tate Facility:[facility] Start: 02-18-2025 Non-patient / Non-visit Abby Duvall julia RIVERAN -[facility] Work Phone: Start: 02-18-2025 End: 02-19-2025 ambulatory Jace Taet Facility:[facility] Start: 02-17-2025 End: 02-17-[address] LARRY BA MD [facility] Start: 02-17-2025 End: 02-17-[address] LARRY BA MD [facility] Start: 02-10-2025 End: 02-10-[address] LARRY BA MD [facility] Start: 02-10-2025 End: 02-10-[address] LARRY BA MD [facility] Start: 02-06-2025 End: 02-06-[address] LARRY BA MD [facility] Start: 02-06-2025 End: 02-06-[address] LARRY BA MD [facility] Start: 01-09-2025 End: 01-09-2025 ambulatory JACE J BEBETO DO Facility:[facility] Start: 10-10-2024 End: 10-10-2024 ambulatory JACE J BEBETO DO [facility] Start: 10-10-2024 End: 10-10-2024 SAME DAY STAY JACE J BEBETO DO [facility] Start: 10-03-2024 End: 10-03-2024 ambulatory JACE J BEBETO DO [facility] Start: 10-03-2024 End: 10-03-2024 SAME DAY STAY JACE J BEBETO DO [facility] Start: 09-26-2024 End: 09-26-2024 ambulatory JACE J BEBETO DO [facility] Start: 09-26-2024 End: 09-26-2024 SAME DAY STAY JACE J BEBETO DO [facility] Start: 09-09-2024 End: 09-13-2024 ambulatory JACE J BEBETO DO Facility:[facility] Start: 09-05-2024 End: 09-05-2024 ambulatory JACE J BEBETO DO [facility] Start: 09-05-2024 End: 09-05-2024 SAME DAY STAY JACE J BEBETO DO [facility] Start: 08-29-2024 End: 08-29-2024 ambulatory JACE J BEBETO DO [facility] Start: 08-29-2024 End: 08-29-2024 SAME DAY STAY JACE J BEBETO DO [facility] Start: 08-22-2024 End: 08-22-2024 ambulatory JACE J BEBETO DO [facility] Start: 08-22-2024 End: 08-22-2024 SAME DAY STAY JACE J BEBETO DO [facility] Start: 08-02-2024 End: 08-02-2024 ambulatory JACE J BEBETO DO [facility] Start: 07-18-2024 End: 07-18-2024 ambulatory JACE J BEBETO DO [facility] Start: 07-11-2024 End: 07-15-2024 ambulatory JACE J BEBETO DO [facility] Start: 07-31-2023 End: 07-31-2023 ambulatory JACE J BEBETO DO Facility:[facility] Start: 07-31-2023 End: 07-31-2023 SAME DAY STAY JACE J BEBETO DO [facility] Start: 07-24-2023 End: 07-24-2023 ambulatory JACE J BEBETO DO Facility:[facility] Start: 07-24-2023 End: 07-24-2023 SAME DAY STAY JACE J BEBETO DO [facility] Start: 07-17-2023 End: 07-17-2023 ambulatory JACE J BEBETO DO Facility:[facility] Start: 07-17-2023 End: 07-17-2023 SAME DAY STAY JACE J BEBETO DO [facility] Start: 07-04-2023 End: 07-09-2023 ambulatory JACE J BEBETO DO Facility:[facility] Start: 05-31-2023 End: 05-31-2023 ambulatory JACE J BEBETO DO Facility:[facility] Start: 05-31-2023 End: 05-31-2023 SAME DAY STAY JACE J BEBETO DO [facility] Start: 05-24-2023 End: 05-24-2023 ambulatory JACE TATE DO Facility:[facility] Start: 05-24-2023 End: 05-24-2023 SAME DAY STAY JACE TATE DO [facility] Start: 05-18-2023 End: 05-18-2023 ambulatory JACE TATE DO Facility:[facility] Start: 05-18-2023 End: 05-18-2023 [facility] DAY ST[facility] [facility] Start: 05-10-2023 End: 05-10-2023 ambulatory JACE TATE DO Facility:B Start: 05-09-2023 End: 05-10-2023 ambulatory JACE TATE DO Facility:B Start: 05-09-2023 End: 05-14-2023 ambulatory JACE TATE DO Facility:A Start: 07-04-2022 End: 07-04-2022 SAME DAY STAY JACE TATE DO [facility] Start: 05-06-2022 End: 05-06-2022 Office outpatient visit 10 minutes Ld Pace MD Work Phone: [facility] [place] Comment on above: Arthritis of foot (P rimary Dx) Start: 05-06-2022 End: 05-06-2022 Subsequent hospital visit [facility] 3 [facility] Radiology Comment on above: Primary osteoarthrit is, unspecified ankle and foot Start: 02-11-2022 ambulatory UNKNOWN PROVIDER [facility] Start: 02-11-2022 End: 02-11-2022 Subsequent hospital visit by physician Sandip GREGORY Work Phone: [facility] [place] Radiology Comment on above: Posterior tibial ten don dysfunction, right Start: 12-31-2021 ambulatory UNKNOWN PROVIDER [facility] Start: 11-16-2021 End: 11-16-2021 Subsequent hospital visit by physician Ld Pace MD Work Phone: [facility] Comment on above: Arthritis of foot (P rimary Dx); Pes cavus Start: 11-09-2021 ambulatory UNKNOWN PROVIDER [facility] Start: 11-09-2021 Encounter for other preprocedural examination Ld Pace [facility] Start: 11-09-2021 End: 11-09-2021 Subsequent hospital visit by physician Ld Pace MD Work Phone: [facility] Comment on above: Arrived Start: 08-12-2021 ambulatory UNKNOWN PROVIDER [facility] Start: 08-12-2021 End: 08-12-2021 Subsequent hospital visit by physician Ld Pace MD Work Phone: [facility] Comment on above: Arrived Procedures Date Procedure Procedure Detail Performing Clinician Start: 02-19-2025 CT of thorax, abdome n and pelvis with contrast Dr. Jace Tate DO Work Phone: Start: 05-06-2022 Radex foot complete minimum 3 views Sandip GREGORY Work Phone: Start: 11-16-2021 OPERATIVE REPORT Physic jonah Generic Start: 11-09-2021 Basic metabolic pane l calcium total Cristopher Kinney MD Work Phone: Start: 08-12-2021 Basic metabolic pane l calcium total Cristopher Kinney MD Work Phone: Start: 08-12-2021 Ecg routine ecg w/le ast 12 lds w/i&r Cristopher Kinney MD Work Phone: Start: 05-01-2021 Structure of right f oot (body structure) JACE TATE DO Start: 2020 Arthroplasty of knee RO ADAMARIS TATE DO Comment on above: Left Cataract surgery JACE IBARRA DO Comment on above: TONY Gallbladder structur e (body structure) JACE TATE DO Inguinal hernia (disorder) R RANDYHEIDI TATE DO Leg repair JACE Blevins Plan of Treatment Date Care Activity Detail Author Start: 03-12-2025 Registered Recurring Registered Recu rring -Radiation Oncology Start: 03-12-2025 End: 03-12-2025 Patient encounter procedure Esophageal adenocarcinoma -[facility] Work Phone: Start: 03-10-2025 Non-patient / Non-visit Non-patient / Non-visit -[facility] Start: 03-06-2025 Non-patient / Non-visit Non-patient / Non-visit -[facility] Start: 03-04-2025 Non-patient / Non-visit Non-patient / Non-visit -[facility] Start: 03-03-2025 Anesthesia access central venous circulation ANESTH VASCULAR ACCESS [facility] Start: 03-03-2025 Insj tunneled ctr va d w/subq port age 7 yr/> INSERT TUNNELED CV CATH [facility] Start: 03-03-2025 Plain chest X-ray CXR for Line Place [facility] Start: 03-03-2025 [facility] Start: 03-03-2025 Fluoroscopic guidance O.R. Flu hollis for CVP/PICC/PORT [facility] Start: 03-03-2025 Non-patient / Non-visit Non-patient / Non-visit -[facility] Start: 03-03-2025 End: 03-03-2025 Admission to same day surgery center [facility] Start: 02-27-2025 End: 02-28-2025 Discharged Recurring Discharged Recurring -Nutritional Servi rika Work Phone: Start: 02-27-2025 End: 02-27-2025 Patient encounter procedure Esophageal adenocarcinoma -[facility] Work Phone: Start: 02-26-2025 End: 02-26-2025 Patient encounter procedure Encounter for insertion of venous access port -[facility] Work Phone: Start: 02-25-2025 End: 02-25-2025 Positron emission tomography with computed tomography [facility] Start: 08-12-2022 Creatinine measurement Creatinine mo nitoring [facility] Start: 08-12-2022 Potassium monitoring Potassium monit oring [facility] Start: 05-13-2022 End: 05-13-2022 Patient encounter procedure 05/13/2022 Office Visit Orthopedic Surgery Ld Pace MD [address] [facility] [address] [place] [address] [facility] [place] Start: 05-13-2022 End: 05-13-2022 Nursing evaluation of patient and report 05/13/2022 Nurse Only Orthopedic Surgery [facility] Start: 12-30-2021 Influenza vaccination Flu vaccine (# 1) [facility] Start: 12-03-2021 End: 12-03-2021 Patient encounter procedure 12/03/2021 Office Visit Orthopedic Surgery Ld Pace MD [address] [facility] [address] [place] [address] [facility] [place] Start: 11-29-2021 Influenza vaccination Flu vaccine (# 1) [facility] Start: 11-16-2021 End: 11-16-2021 Patient encounter procedure 11/16/2021 Appointment General Surgery Ld Pace MD [address] [facility] [address] [place] [address] [facility] Start: 08-20-2021 End: 08-20-2021 Patient encounter procedure 08/20/2021 Office Visit Cardiology Arcadio Og MD [address] [place] [address] [address] [place], [place] [id number] [facility] Start: 07-16-2021 COVID-19 Vaccine (4 - Booster for Pfizer series) COVID-19 Vaccine (4 - Booster for Pfizer series) [facility] Start: 06-27-2021 Annual Wellness Visi t (AWV) Annual Wellness Visit (AWV) [facility] Start: 05-29-2018 Pneumococcal 65+ yea rs Vaccine (2 - PCV) Pneumococcal 65+ years Vaccine (2 - PCV) [facility] Start: 05-29-2018 Pneumococcal Vaccine : 65+ Years (2 - PCV) Pneumococcal Vaccine: 65+ Years (2 - PCV) [facility] Start: 1992 Shingles Vaccine (1 of 2) Shingles Vaccine (1 of 2) [facility] Start: 1992 Zoster Vaccines (1 o f 2) Zoster Vaccines (1 of 2) [facility] Start: 1961 DTaP/Tdap/Td vaccine (1 - Tdap) DTaP/Tdap/Td vaccine (1 - Tdap) [facility] Start: 1961 DTaP/Tdap/Td Vaccine s (1 - Tdap) DTaP/Tdap/Td Vaccines (1 - Tdap) [facility] Start: 1960 Diabetes mellitus screening Diabetes Screening [facility] Start: 1960 Hepatitis C screening S [facility] Start: 1954 Depression Screen Depression Screen [facility] Start: 1942 Annual Wellness Visi t (AWV) Annual Wellness Visit (AWV) [facility] Start: 1942 Hepatitis B Vaccines (1 of 3 - 3-dose series) Hepatitis B Vaccines (1 of 3 - 3-dose series) [facility] Start: 1942 Hepatitis C screening Hepatitis C sc reen [facility] Start: 1942 Lipid panel Lipid Panel [facility] Blood glucose - POCT Blood gluco se - POCT Point of Care Testing STAT As Needed until discontinued starting 11/16/2021 [facility] Work Phone: Comment on above: As Needed until disc ontinued starting 11/16/2021 End: 11-16-2021 Creatinine [Mass/volume] in Serum or Plasma Creatinine, serum Lab STAT One Time for 1 Occurrences starting 11/16/2021 until 11/16/2021 [facility] Work Phone: Comment on above: One Time for 1 Occur rences starting 11/16/2021 until 11/16/2021 EKG 12 Lead EKG 12 Lead ECG Routine 08/12/2021 9:[address] [facility] Work Phone: End: 11-16-2021 FL Greater Than 1 Hour [facility] Work Phone: Comment on above: Once for 1 Occurrenc es starting 11/16/2021 until 11/16/2021 End: 11-16-2021 INITIATE PACU OXYGEN THERAPY PROTOCOL Initiate PACU Oxygen Therapy Protocol Respiratory Care Routine Continuous until discontinued starting 11/16/2021 [facility] Work Phone: Comment on above: Continuous until dis continued starting 11/16/2021 End: 11-16-2021 Intermittent pulse oximetry Pulse Oximetry Spot Check Respiratory Care Routine One Time for 1 Occurrences starting 11/16/2021 until 11/16/2021 [facility] Work Phone: Comment on above: One Time for 1 Occur rences starting 11/16/2021 until 11/16/2021 Nasal Cannula Oxygen Nasal Cannu la Oxygen Respiratory Care Routine As Needed until discontinued starting 11/16/2021 [facility] Work Phone: Comment on above: As Needed until disc ontinued starting 11/16/2021 Nasal Cannula Oxygen Nasal Cannu la Oxygen Respiratory Care Routine As Needed until discontinued starting 11/16/2021 [facility] Work Phone: Comment on above: As Needed until disc ontinued starting 11/16/2021 Nonrebreather mask oxygen Nonrebreather mask oxygen Respiratory Care Routine As Needed until discontinued starting 11/16/2021 [facility] Work Phone: Comment on above: As Needed until disc ontinued starting 11/16/2021 Nonrebreather mask oxygen Nonrebreather mask oxygen Respiratory Care Routine As Needed until discontinued starting 11/16/2021 [facility] Work Phone: Comment on above: As Needed until disc ontinued starting 11/16/2021 Oxygen therapy [[facility] Data Set] Initiate Oxygen Therapy Protocol Respiratory Care Routine As Needed until discontinued starting 11/16/2021 [facility] Work Phone: Comment on above: As Needed until disc ontinued starting 11/16/2021 End: 11-16-2021 Potassium w/ Reflex to Magnesium Potassium w/ Reflex to Magnesium Lab Routine One Time for 1 Occurrences starting 11/16/2021 until 11/16/2021 [facility] Work Phone: Comment on above: One Time for 1 Occur rences starting 11/16/2021 until 11/16/2021 End: 11-16-2021 , urine POCT , urine POCT Point of Care Testing Routine One Time for 1 Occurrences starting 11/16/2021 until 11/16/2021 [facility] Work Phone: Comment on above: One Time for 1 Occur rences starting 11/16/2021 until 11/16/2021 End: 11-16-2021 Protime-INR Protime-INR Lab STAT One Time for 1 Occurrences starting 11/16/2021 until 11/16/2021 [facility] Work Phone: Comment on above: One Time for 1 Occur rences starting 11/16/2021 until 11/16/2021 Spirometry panel Incentive tray metry Respiratory Care Routine Q1H PRN until discontinued starting 11/16/2021 [facility] Work Phone: Comment on above: Q1H PRN until discon tinued starting 11/16/2021 End: 02-11-2022 XR FOOT RIGHT (MIN 3 VIEWS) [facility] Work Phone: Comment on above: 1 Occurrences starti ng 02/11/2022 until 02/11/2022 Immunizations Immunization Date Immunization Notes [facility] Provider [facility]-09-2025 influenza, high dose seasonal, preservative-free; Translations: [Fluzone High-Dose PF Prefilled Syringe ] DR LARRY BA MD [facility] 03-04-2024 influenza, high dose seasonal, preservative-free; Translations: [Fluad Quadrivalent PF ] JACE TATE DO [address] 01-03-2023 influenza, high dose seasonal, preservative-free; Translations: [Fluad Quadrivalent PF ] JACE TATE DO [facility] 03-17-2022 influenza virus vacc ine, unspecified formulation JACE TATE DO [facility] 03-18-2021 Pfizer SARS-CoV-2 Vaccination; Translations: [Pfizer-BioNTech COVID-19 Vaccine] Ld Pace MD Work Phone: [facility] 01-30-2021 influenza virus vacc ine, unspecified formulation JACE TATE DO [facility] 07-18-2020 Pfizer SARS-CoV-2 Vaccination; Translations: [Pfizer-BioNTech COVID-19 Vaccine] Ld Pace MD Work Phone: [facility] 06-27-2020 Pfizer SARS-CoV-2 Vaccination; Translations: [Pfizer-BioNTech COVID-19 Vaccine] Ld Pace MD Work Phone: [facility] 02-08-2019 influenza virus vacc ine, unspecified formulation JACE TATE DO [facility] 03-08-2018 influenza virus vacc ine, unspecified formulation JACE TATE DO [facility] 05-29-2017 pneumococcal polysaccharide vaccine, 23 valent JACE TATE DO [facility] 02-15-2017 influenza virus vacc ine, unspecified formulation JACE TATE DO [facility] 02-13-2015 influenza virus vacc ine, unspecified formulation JACE TATE DO [facility] Payers Date Payer Category Payer Self-pay [id number] 2020 Medicare [id number] 2020 Unknown [id number] 2018 Private Health Insurance [id number] 2008 Unknown 2008 Medicare 1942 Unknown [id number] 2.16. 840.1.676619.3.579.2.66 1942 Unknown [id number] 2.16. 840.1.812611.3.579.2. 1942 Unknown [id number] 2.16. 840.1.184944.3.579.2. 1942 Unknown [id number] 2. 840.1.067585.3.579.2. 1942 Unknown [id number] 2.16.8 40.1.663133.3.579.2. 1942 Unknown [id number] 2.16.8 40.1.144595.3.579.2. 1942 Unknown [id number] 2.16.8 40.1.729547.3.579.2. 1942 Unknown [id number] 2.16.8 40.1.927855.3.579.2.62 1942 Unknown [id number] 2.16.8 40.1.974954.3.579.2.62 1942 Unknown [id number] 2.16.8 40.1.604267.3.579.2.62 1942 Unknown [id number] 2.16.8 40.1.795872.3.579.2.62 1942 Unknown [id number] 2.16.8 40.1.087408.3.579.2.62 1942 Unknown [id number] 2.16.8 40.1.777259.3.579.2627 1942 Unknown [id number] 2.16.8 40.1.314444.3.579.2.627 1942 Unknown [id number] 2.16. 840.1.519656.3.579.2.627 1942 Unknown [id number] 2.16.8 40.1.412098.3.579.2.627 1942 Unknown [id number] 2.16. 840.1.803142.3.579.2.62 1942 Unknown [id number] 2.16. 840.1.082619.3.579.2.62 1942 Unknown [id number] 2.16. 840.1.722800.3.579.2.627 1942 Unknown [id number] 2.16. 840.1.898260.3.579.2.62 1942 Unknown [id number] 2.16. 840.1.208280.3.579.2.62 1942 Unknown [id number] 2.16.8 40.1.482737.3.579.2.62 1942 Unknown [id number] 2.16.8 40.1.737088.3.579.2.627 1942 Unknown [id number] 2.16.8 40.1.042487.3.579.2.627 1942 Unknown [id number] 2.16.8 40.1.365477.3.579.2.627 1942 Unknown [id number] 2.16.8 40.1.390034.3.579.2.627 1942 Unknown [id number] 2.16.8 40.1.324599.3.579.2.627 1942 Unknown [id number] 2.16.8 40.1.569743.3.579.2.627 Unknown [id number] 2.16.8 40.1.286218.3.579.2.462 Unknown [id number] 2.16.8 40.1.445150.3.579.2.462 Unknown [id number] 2.16.8 40.1.690695.3.579.2.462 Unknown [id number] 2.16.8 40.1.740745.3.579.2.462 Unknown [id number] 2.16.8 40.1.197231.3.579.2.462 Unknown [id number] 2.16.8 40.1.374154.3.579.2.462 Unknown [id number] 2.16.8 40.1.826513.3.579.2.462 Unknown [id number] 2.16.8 40.1.756365.3.579.2.462 Unknown [id number] 2.16.8 40.1.820080.3.579.2.462 Unknown [id number] 2.16.8 40.1.417420.3.579.2.462 Unknown [id number] 2.16.8 40.1.169039.3.579.2.462 Unknown [id number] 2.16.8 40.1.246174.3.579.2.462 Unknown [id number] 2.16.8 40.1.299434.3.579.2.462 Unknown [id number] 2.16.8 40.1.310843.3.579.2.462 Unknown [id number] 2.16.8 40.1.628523.3.579.2.462 Social History Date Type Detail Facility Start: 04-16-2021 End: 02-28-2025 Tobacco smoking status MTIS Never smoked tobacco [facility] Work Phone: Start: 04-16-2021 End: 12-03-2021 Tobacco use and exposure Smokeless tobacco non-user [facility] Work Phone: Start: 08-12-2021 End: 12-31-2021 Alcohol intake Lifetime non-drinker (finding) [employer] Work Phone: Start: 08-12-2021 History SDOH Alcohol Frequency 1 [facility] Work Phone: Start: 1940 Sex Assigned At Not on file [facility] Work Phone: Start: 08-02-2021 End: 05-06-2022 Exposure to SARS-CoV-2 (event) Not sure [facility] Work Phone: Start: 1940 Sex Assigned At Male A [facility] Sexual Orientation [facility] Start: 06-21-2018 Sex Male (finding) [facility] Start: 02-10-2025 End: 02-17-2025 Not applicable (qualifier value) [facility] Sex Male [facility] Medical Equipment Procedure Code Equipment Code Equipment Origin al Text Equipment Identifier Dates Insertion, vascular access port ([id number]) Vascular port/catheter [id number] FDA Start: 03-03-2025 Goals Date Patient Goal Desired Activity /State Functional Status Date Assessment Result Facility 02-17-2025 Functional Status Repositions self [facility] 02-17-2025 Functional Status Maintained [facility] 02-10-2025 Functional Status Awake [facility] 02-10-2025 Functional Status Maintained [facility] 07-17-2023 Functional Status Room check performed [facility] 05-18-2023 Functional Status Standard Safet y Visitor at bedside [facility] 07-04-2022 Functional Status Up ad sana, Up to chair [facility] Mental Status Date Assessment Result Facility 03-03-2025 Cognitive function Voice/Name [facility] Work Phone: 02-17-2025 Mental Status Oriented x 4 [facility] 02-17-2025 Mental Status [facility] 02-10-2025 Mental Status Oriented x 4 [facility] 02-10-2025 Mental Status [facility] 07-17-2023 Mental Status Orientation Oriented x 4 [facility] 05-18-2023 Mental Status Orientation Oriented x 4 [facility] Clinical Notes 08-12-2021 to 03-03-2025 Note Date & Type Note Facility 03-03-2025 Note [facility] Medical Records Department [address] [place] [address] History Physical Exam 03/03/25 1153 MR#: [id number] Acct: [id number] Name: LETITIA MASCORRO Rep #: [id number] : 1940 84 From: Vinod Hicks MD PCP: Dr. Jace Tate, DO Status:[facility] Location: [place] [address] History and Physical Date of Admission: 03/03/25 Intake Vital Signs 02/19/2509:49 02/21/2509:23 02/26/2513:50 Height 5 ft 5 in 5 ft 5 in 5 ft 5 in Weight: 157 lb 5 oz 157 lb BMI 26.2 26.1 BP 113/75 99/72 Blood Pressure Location Rt brachial Rt brachial Position Sitting Sitting Respiration 16 16 Pulse 89 Pulse Source Monitor Temp 97.5 F L Pulse Oximetry (%) 96 94 Oxygen Delivery Method room air room air Intake Visit Reasons: PORT PLACEMENT, POSSIBLE PEG Chief Complaint: esophageal ca Razor Sharpener Required: No Is patient in pain?: No Allergies acetaminophen (From Darvocet-N) Allergy (Verified 02/26/25 13:51) unknown propoxyphene (From Darvocet-N) Allergy (Verified 02/26/25 13:51) unknown gabapentin Adverse Reaction (Verified 02/26/25 13:51) dizziness, light headed Medications ???Medication ???Instructions ???Recorded ???Confirmed ???Type rabeprazole 20 mg tablet,delayed 20 mg PO QDAY 02/19/25 02/26/25 History release Have you fallen in the past year?: No PFSH Medical History Spinal injury Right shoulder pain Osteoarthritis Lesion of face Hyperlipidemia Dysphagia Anemia Acid reflux disease Surgical History History of cholecystectomy History of cataract surgery Inguinal hernia History of arthroplasty of left knee Status post right foot surgery Family History Father Diabetes Sister Diabetes Social History Smoking Status: Never smoker alcohol intake: never substance use type: does not use HPI HPI HPI: Patient is an 84-year-old male here with metastatic esophageal cancer. He is here for port and PEG discussion. He is not wanting a PEG tube at this time. He reports he is swallowing well after he had a stent placed into his esophagus. He would only like port at this time. ROS General General: Yes weight change and fatigue; No appetite, colon cancer, breast cancer or weakness HEENT HEENT: Yes difficulty swallowing; No eye injury, eye surgery, swollen glands or hoarseness Endo Endocrine: No thyroid disease, diabetes mellitus, thyroid cancer, Hair loss, heat intolerance or cold intolerance Skin Skin: No rash or changing moles Breast Breast: No left breast lump, right breast lump, nipple discharge, breast pain, abnormal mammogram, abnormal US or breast enlargement Musc Musculoskeletal: Yes arthritis; No back problems, rheumatoid arthritis, gout or joint pain Cardio Cardiovascular: No murmur, pacemaker, heart disease, atrial fibrillation, high blood pressure, heart attack, heart stent, palpitations, shortness of breath with exertion or chest pain Psych Psychiatric: No depression, anxiety or hearing voices Resp Respiratory: No shortness of breath, No sleep apnea, Yes cough, No COPD, No asthma, No emphysema and No wheezing Gastro Gastrointestinal: No abdominal pain, Yes nausea or vomiting, No diarrhea, Yes constipation, No blood in stool, Yes acid reflux, No hemorrhoids, No ulcers, No gallbladder problem and No black,tarry stools [facility] Hematologic: No blood thinners, No blood disorders, No bleeding, No anemia and No blood clots Neuro Neurologic: No system reviewed and no additional complaints, except as documented, No as per HPI, No abnormal gait, No abnormal hearing, No abnormal movements, No abnormal speech, No behavioral changes, No burning sensations, No confusion, No convulsions, No disequilibrium, No dizziness, No localized weakness, No frequent falls, No headache(s), No lack of coordination, No loss of vision, No memory loss, No numbness, No other visual disturbances, No radicular pain, No restless legs, No sensory deficit, No syncope, No tingling, No tremor(s), No weakness and No other Exam Const General: cooperative and frail appearing Orientation: alert and oriented x3 HENMT Head: normal to inspection Neck Neck: normal visual inspection and full ROM Chest Chest palpation inspection: normal inspection of the chest Resp Effort Inspection: normal respiratory effort Auscultation: clear to auscultation bilaterally Cardio Rate: regular rate Rhythm: regular rhythm GI Inspection: non-distended Palpation: soft and nontender Skin General: no rashes or lesions noted Neuro General: patient alert and patient oriented x3 Extrem General: full ROM Psych (more content not included)... [facility] 02-19-2025 Progress note [facility] 02-19-2025 Progress note Note Date/Time February 19, 2025 11:56am [facility] [address] [address] OFFICE VISIT Date of Service: 02/19/25 0939 MR#: [id number] Acct: [id number] Name: LETITIA MASCORRO Rep #: [id number] : 1940 From: Arcadio Chatman MD Age/Sex: 84/M Location: [facility] Status: Signed HPI Subjective Date of Service 02/19/25 Chief Complaint Referred for Esophageal cancer. History of Present Illness 84-year-old man presented with difficulty swallowing. Esophagram on 02/06/2025 showed large mass involving the inferior half of the distal esophagus with extension into the proximal stomach suggestive of esophageal cancer. Had upper GI endoscopy on 02/10/2025 which showed mass at 30 cm obstructing the esophagus. Biopsy was done. 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 He had another endoscopy with placement of stent on 02/17/2025. His swallowing has improved, now referred for further evaluation and management. [facility] Medical History Spinal injury Right shoulder pain Osteoarthritis Lesion of face Hyperlipidemia Dysphagia Anemia Acid reflux disease Surgical History History of cholecystectomy History of cataract surgery Inguinal hernia History of arthroplasty of left knee Status post right foot surgery Family History Father Diabetes Sister Diabetes Social History Smoking Status: Never smoker alcohol intake: never substance use type: does not use ROS ROS Narrative Sitting in a wheelchair, walks with a cane. Constitutional Constitutional: Reports systems reviewed and no addt'l complaints, except as documented Eyes Eyes: Reports systems reviewed and no addt'l complaints, except as documented ENT HEENT: Reports systems reviewed and no addt'l complaints, except as documented Cardiovascular Cardiovascular: Reports systems reviewed and no addt'l complaints, except as documented Respiratory/Chest Respiratory/Chest: Reports systems reviewed and no addt'l complaints, except as documented Gastrointestinal Gastrointestinal: Reports systems reviewed and no addt'l complaints, except as documented Genitourinary Genitourinary: Reports systems reviewed and no addt'l complaints, except as documented Musculoskeletal Musculoskeletal: Reports systems reviewed and no addt'l complaints, except as documented Integumentary Integumentary: Reports systems reviewed and no addt'l complaints, except as documented Neurologic Neurologic: Reports systems reviewed and no addt'l complaints, except as documented Psychiatric Psychiatric: Reports systems reviewed and no addt'l complaints, except as documented Endocrine Endocrinology: Reports systems reviewed and no addt'l complaints, except as documented Hematologic/Lymphatic Hematologic/Lymphatic: Reports systems reviewed and no addt'l complaints, exceptas documented Allergic/Immunologic Allergic/Immunologic: Reports systems reviewed and no addt'l complaints, except as documented Intake Vital Signs 02/19/25 09:46 02/19/25 09:49 Height 5 ft 5 in 5 ft 5 in Weight: 70.959 kg 70.959 kg BMI 26.0 26.0 BP 114/75 Blood Pressure Location Rt brachial Position Sitting Respiration 18 Pulse 95 Pulse Source Monitor Temp 98.3 F Temperature Source Temporal Artery Pulse Oximetry (%) 97 Oxygen Delivery Method room air Intake Is patient in pain?: No Allergies acetaminophen (From Darvocet-N) Allergy (Verified 02/19/25 09:40) unknown propoxyphene (From Darvocet-N) Allergy (Verified 02/19/25 09:40) unknown gabapentin Adverse Reaction (Verified 02/19/25 09:40) dizziness, light headed Medications ?Medication ?Instructions ?Recorded ?Confirmed ?Type rabeprazole 20 mg tablet,delayed 20 mg PO QDAY 5 02/19/25 History release Have you fallen in the past year?: No Central Venous Access Central Venous Access: No Exam Physical Exam Const alert, oriented x3 and no apparent distress HEENT normocephalic, external ears normal and external nose normal Eyes PERRL, EOMs intact bilaterally, conjunctivae normal and no scleral icterus Neck supple Lymph Lymphatic: no lymphadenopathy noted Resp clear to auscultation bilaterally Cardio regular rate, regular rhythm, S1 normal heart sound, S2 normal heart sound and no murmurs GI soft to palpation, non-tender and non-distended no CVA tenderness Back/Spine thoracic and lumbar spine normal to inspection Extremity normal to inspection and no clubbing, cyanosis or edema Skin no rashes or lesions noted Neuro oriented x3, CN's II-XII intact bilaterally, moves all extremities and no focal motor deficits Psych mental status grossly normal Coding Level of Care Code Off vis,new,level 4 Diagnoses Esophageal adenocarcinoma C15.9 Assessment and Plan Assessment and Plan (1) Esophageal adenocarcinoma: Status: Acute Comment: Discussed disease, staging with CT and PET/CT before deciding on therapy whichmay include Chemotherapy, Radiation therapy and or Surgery. Pt wants therapy. Plan: To obtain CT c/a/p with contrast, PET/CT. Surgery consult for Port Placement. Proceed with Radiation Oncology consult. RTC 2 weeks. Orders: Orders CBC W/Diff, Automated Today C15.9 - Malignant neoplasm of esophagus, unspecified Comprehensive Metabolic Profil Today C15.9 - Malignant neoplasm of esophagus, unspecified Carcinoembryonic Antigen Today C15.9 - Malignant neoplasm of esophagus, unspecified LDH Today C15.9 - Malignant neoplasm of esophagus, unspecified CT Chest, Abd, Pel w/Contrast Today C15.9 - Malignant neoplasm of esophagus, unspecified PET/CT Tumor Base -Thigh Init 02/25/25 C15.5 - Malignant neoplasm of lower third of esophagus Referrals Nutrition Referral - [facility] K22.89 - Other specified disease of esophagus General Surgery C15.9 - Malignant neoplasm of esophagus, unspecified Plan Details Follow Up: 2 Weeks Clinical Quality Measures Falls Risk Screening/Assistive Devices Have you fallen in the past year?: No 02/19/25 1734 <Electronically signed by Arcadio Palm> Date _ Arcadio Chatman MD Cosigner Signature: Date (if applicable) CC: Dr. Jace Tate DO; Dr. Larry Ba MD ~ [facility] Work Phone: 1(318) 488-778510-22-2025 Evaluation note* Diagnosis Onset Date Resolution Status Admit Date Esophageal adenocarcinoma acute February 19, 2025 9:06am Esophageal adenocarcinoma acute February 21, 2025 9:00am Encounter for insertion of venous access port acute February 26, 2025 1:35pm Esophageal adenocarcinoma acute February 26, 2025 1:35pm Esophageal adenocarcinoma acute February 27, 2025 10:02am Vomiting acute February 27, 2025 10:02am Esophageal adenocarcinoma acute February 27, 2025 10:03am Esophageal adenocarcinoma acute March 12, 2025 8:51am [facility] Work Phone: 1(536) 256-743210-20-2025 Hospital Discharge instructions Patient Education 02/17/2025 14:34:09 9 - AO Minor Esophagogastroduodenoscopy (07/12)(CUSTOM) Esophagogastroduodenoscopy This is an endoscopic procedure (a procedure that uses a device like a flexible telescope) that allows your caregiver to view the upper stomach and small bowel. This test allows your caregiver to look at the esophagus. The esophagus carries food from your mouth to your stomach. They can also look at your duodenum. This is the first part of the small intestine that attaches to the stomach. This test is used to detect problems in the bowel such as ulcers and inflammation. MEANING OF TEST Your caregiver will go over the test results with you and discuss the importance and meaning of your results, as well as treatment options and the need for additional tests if necessary. OBTAINING THE TEST RESULTS Your caregiver s office will call you with the results of the test. POST SEDATION INSTRUCTIONS Rest at home today. Since your coordination may be impaired, be cautious on stairways, do not drive any vehicle or operate any heavy machinery, or use any sharp instruments for the remainder of the day. Do not drink any alcoholic beverages or make any major decisions for 24 hours. POST PROCEDURE INSTRUCTIONS Progress slowly with full liquids then resume previous diet and medications. Belching or passing of gas is to be expected. Notify the physician if you have severe chest pain, fever, or if difficulty when swallowing persists. 07/09/13 Custom 02/17/2025 14:33:10 Monitored Anesthesia Care, Care After Monitored Anesthesia Care, Care After These instructions provide you with information about caring for yourself after your procedure. Your health care provider may also give you more specific instructions. Your treatment has been plannedaccording to current medical practices, but problems sometimes occur. Call your health care provider if you have any problems or questions after your procedure. What can I expect after the procedure? After your procedure, you may: Feel sleepy for several hours. Feel clumsy and have poor balance for several hours. Feel forgetful about what happened after the procedure. Have poor judgment for several hours. Feel nauseous or vomit. Have a sore throat if you had a breathing tube during the procedure. Follow these instructions at home: For at least 24 hours after the procedure: Have a responsible adult stay with you. It is important to have someone help care for you until youare awake and alert. Rest as needed. Do not: ?Participate in activities in which you could fall or become injured. ?Drive. ?Use heavy machinery. ?Drink alcohol. ?Take sleeping pills or medicines that cause drowsiness. ?Make important decisions or sign legal documents. ?Take care of children on your own. Eating and drinking Follow the diet that is recommended by your health care provider. If you vomit, drink water, juice, or soup when you can drink without vomiting. Make sure you have little or no nausea before eating solid foods. General instructions Take wlzj-tzn-ucdmazq and prescription medicines only as told by your health care provider. If you have sleep apnea, surgery and certain medicines can increase your risk for breathing problems. Follow instructions from your health care provider about wearing your sleep device: ?Anytime you are sleeping, including during daytime naps. ?While taking prescription pain medicines, sleeping medicines, or medicines that make you drowsy. If you smoke, do not smoke without supervision. Keep all follow-up visits as told by your health care provider. This is important. Contact a health care provider if: You keep feeling nauseous or you keep vomiting. You feel light-headed. You develop a rash. You have a fever. Get help right away if: You have trouble breathing. Summary For several hours after your procedure, you may feel sleepy and have poor judgment. Have a responsible adult stay with you for at least 24 hours or until you are awake and alert. This information is not intended to replace advice given to you by your health care provider. Make sure you discuss any questions you have with your health care provider. Document Released: 08/07/2016 Document Revised: 07/16/2018 Document Reviewed: 08/07/2016 [employer] Patient Education [employer]. Follow Up Care 02/12/2025 12:49:42 With:LARRY BA MD Address: [address] [phone] When: Unknown Comments:CALL DR BA WITH ANY QUESTIONS OR CONCERNS. GO TO THE EMERGENCY ROOM WITH ANY URGENT CONCERNS. LIQUID DIET TODAY. PUREED DIET AFTER THAT . YOU CAN EXPECT SOME CHEST PAIN, HEARTBURN, AND INDIGESTION FROM THE STENT OPENING WITHIN THE NEXT 48 HOURS. YOU HAVE BEEN PRESCRIBED VICODIN FOR THIS PAIN. NO LYING DOWN AFTER EATING . [facility] 10-20-2025 Note Discharge Instructions Thank you for allowing [facility] to assist you with your healthcare needs. The following is importantdischarge information regarding your hospital visit. Your Care Team JACE TATE DO DR. LARRY BA What to do next Scheduled Follow-Up Appointments Appointment Type When With Where Contact Information Status[facility] Medicare with Labs 07/11/2025 08:30 AM EDT JACE TATE DO [facility] Confirmed Follow Up Appointments Follow Up with LARRY BA MD Where:[address] [place] [address]- [phone] Additional Information: CALL DR BA WITH ANY QUESTIONS OR CONCERNS. GO TO THE EMERGENCY ROOM WITH ANY URGENT CONCERNS. LIQUID DIET TODAY. PUREED DIET AFTER THAT . YOU CAN EXPECT SOME CHEST PAIN, HEARTBURN, AND INDIGESTION FROM THE STENT OPENING WITHIN THE NEXT 48 HOURS. YOU HAVE BEEN PRESCRIBED VICODIN FOR THIS PAIN. NO LYING DOWN AFTER EATING . The Following Activity and Diet Have Been Ordered for You Discharge Activity - Ordered -- NO activity restrictions, 02/17/25 14:08:00 EDT Discharge Diet - Ordered -- Follow the post-operative/post-procedure diet instructions provided by your physician's office.,02/17/25 14:08:00 EDT The Following Equipment Has Been Ordered for You Discharge Home Equipment Discharge Wound Care - Ordered -- Follow the post-operative/post-procedure wound care instructions provided by your physician's office., 02/17/25 14:08:00 EDT Someone Will Contact You Regarding These Home Health Referrals No home referrals have been ordered for you. No one will call you. Allergies gabapentin(Severe) Dizziness - light-headed Darvocet Medications Please ask your primary doctor or pharmacist before taking any other medication not listed, including over the counter drugs, herbal medications, vitamins and or supplements as they may interact withyour home medications. What How Much When Instructions Last Dose Unchanged amLODIPine (amLODIPine 10 mg oral tablet) 1 tab(s) by mouth Once a day Unchanged famotidine (Pepcid 20 mg oral tablet) 1 tab(s) by mouth Once a day Duration: 90 Days Unchanged lisinopril (lisinopril 20 mg oral tablet) 1 tab(s) by mouth Once a day Unchanged ondansetron (ondansetron 8 mg oral tablet) 1 tab(s) by mouth Three (3) times a day Duration: 5 Days Unchanged RABEprazole (RABEprazole 20 mg oral delayed release enteric coated tablet) 1 tab(s) by mouth Once a day Please take this list to your next doctor s visit. Bring all medications you take, including over the counter medications, herbals and other supplements with you to your doctor s visit. Patients and families are reminded to discard old lists and to update any records with all medication providers or retail pharmacies. Education Materials Esophagogastroduodenoscopy This is an endoscopic procedure (a procedure that uses a device like a flexible telescope) that allows your caregiver to view the upper stomach and small bowel. This test allows your caregiver to look at the esophagus. The esophagus carries food from your mouth to your stomach. They can also look at your duodenum. This is the first part of the small intestine that attaches to the stomach. This test is used to detect problems in the bowel such as ulcers and inflammation. MEANING OF TEST Your caregiver will go over the test results with you and discuss the importance and meaning of your results, as well as treatment options and the need for additional tests if necessary. OBTAINING THE TEST RESULTS Your caregiver s office will call you with the results of the test. POST SEDATION INSTRUCTIONS Rest at home today. Since your coordination may be impaired, be cautious on stairways, do not drive any vehicle or operate any heavy machinery, or use any sharp instruments for the remainder of the day. Do not drink any alcoholic beverages or make any major decisions for 24 hours. POST PROCEDURE INSTRUCTIONS Progress slowly with full liquids then resume previous diet and medications. Belching or passing of gas is to be expected. Notify the physician if you have severe chest pain, fever, or if difficulty when swallowing persists. 07/09/13 Custom Monitored Anesthesia Care, Care After These instructions provide you with information about caring for yourself after your procedure. Your health care provider may also give you more specific instructions. Your treatment has been plannedaccording to current medical practices, but problems sometimes occur. Call your health care provider if you have any problems or questions after your procedure. What can I expect after the procedure? After your procedure, you may: Feel sleepy for several hours. Feel clumsy and have poor balance for several hours. Feel forgetful about what happened after the procedure. Have poor judgment for several hours. Feel nauseous or vomit. Have a sore throat if you had a breathing tube during the procedure. Follow these instructions at home: For at least 24 hours after the procedure: Have a responsible adult stay with you. It is important to have someone help care for you until youare awake and alert. Rest as needed. Do not: ? Participate in activities in which you could fall or become injured. ? Drive. ? Use heavy machinery. ? Drink alcohol. ? Take sleeping pills or medicines that cause drowsiness. ? Make important decisions or sign legal documents. ? Take care of children on your own. Eating and drinking Follow the diet that is recommended by your health care provider. If you vomit, drink water, juice, or soup when you can drink without vomiting. Make sure you have little or no nausea before eating solid foods. General instructions Take qeex-cdr-ncjasiz and prescription medicines only as told by your health care provider. If you have sleep apnea, surgery and certain medicines can increase your risk for breathing problems. Follow instructions from your health care provider about wearing your sleep device: ? Anytime you are sleeping, including during daytime naps. ? While taking prescription pain medicines, sleeping medicines, or medicines that make you drowsy. If you smoke, do not smoke without supervision. Keep all follow-up visits as told by your health care provider. This is important. Contact a health care provider if: You keep feeling nauseous or you keep vomiting. You feel light-headed. You develop a rash. You have a fever. Get help right away if: You have trouble breathing. Summary For several hours after your procedure, you may feel sleepy and have poor judgment. Have a responsible adult stay with you for at least 24 hours or until you are awake and alert. This information is not intended to replace advice given to you by your health care provider. Make sure you discuss any questions you have with your health care provider. Document Released: 08/07/2016 Document Revised: 07/16/2018 Document Reviewed: 08/07/2016 [employer] Patient Education 2020 [employer] Additional Information VACCINATE! IT SAVES LIVES! Members of the community who have not yet received the COVID-19 vaccine and would like to receive it can visit one of [facility] vaccine clinics. There are many vaccine clinic locations within the [facility]. For locations and available times, please visit https://gettheshot.coronavirus.[place].gov/. It is important to note that some COVID mobile vaccine clinics are held outdoors and may be canceled in rainy or stormy conditions. To learn more about pediatric vaccinations (ages 5-11), we invite you to visit the [facility] webpage. https://www.[facility].org/pages/2177-Walzd-Cflxtkbfhsh-Yqquomabzk-Ujuih-Oob stions.htmlTo learn more about the COVID-19 vaccine, we invite you to visit the CDC website for a list of frequently asked questions.https://www.cdc.gov/coronavirus/2019-ncov/vaccines/faq.html [facility] Patient Portal Access Instructions: Stay connected with your healthcare team and access your personal medical information anytime with the [facility] Patient Portal. Please follow the directions below to create your [facility] account: 1.Access the email account you provided upon registration to the hospital/physician office.2.Look for an invitation email from [facility].3.Open the email and access the invitation link: AcceptInvitation to [facility].4.Fill in the required rendon to create your account. To access your account, visit [facility]. or scan the fitaborate code above. Click the blue button labeled Access Patient Portal and then log in with the username and password that you created in the steps above. You will be able to view your test results, lab results, a summary of your visits, upcoming appointments and more. There is also a convenient messaging option where you can send secure messages to your provider. In addition, you will have the ability to download any documents or summaries to your computer and/or send the information securely to a physician. Remember that your healthcare information is confidential, so carefully consider who you will allowto register on the [facility] Patient Portal for access to your information. You can also access the [facility] Patient Portal on the [facility] mane. Simply click on Patient Portal and then log into your account. If you would like to receive a full copy of your medical records, please contact the [facility] Medical Records Department by calling [phone], Monday through Monday between 8 a.m. and 4:30 p.m. HOW TO SAFELY DISPOSE OF PRESCRIPTION MEDICATIONS Please use one of the following methods to safely dispose of your unused medications. 1.Use a drug disposal kit: the drug disposal pouch allows you to safely discard your old and unuseddrugs. Ask your nurse to give you one when you are discharged.2.Visit a local take-back location: Many local pharmacies and police departments have programs that collect old and unwanted prescriptiondrugs. Call your local pharmacy or go to http://SwipeGood.[address]/3Y9Ze2z to find one close to you.3.Make use of household items: Use cat litter or old coffee grounds to dispose medications if other options arenot available. Mix your drugs with these household products, seal them in an airtight container andthrow it into the garbage. Call [facility]: [phone] to be sure your drugs can be disposed of in this way. Some medicines may require a different approach.4.Never flush your medications down the toilet. IF YOU HAVE BEEN PRESCRIBED AN OPIOID FOR PAIN If you have been prescribed an opioid (such as hydrocodone, oxycodone or morphine), it is critical to understand the possible side effects and risks of opioid pain medications. Even when taken as directed, opioids can have several side effects including: Tolerance, meaning you might need to take more of a medication for the same pain relief. Nausea, vomiting and/or constipation. Sleepiness, dizziness, dry mouth, confusion, depression or itching. Physical dependence, meaning you have withdrawal symptoms when a medication is stopped, can develop within a few days. KNOW YOUR RESPONSIBILITIES It is important to know exactly how much and how often to take the opioid pain medications you are prescribed. Never take opioids in higher amounts or more often than prescribed. Do not combine opioids with alcohol or other drugs that cause drowsiness, such as benzodiazepines, also known as benzos, including diazepam and alprazolam, muscle relaxants or sleep aids. Never sell or share prescription opioids. This is illegal. Store opioids in a secure place and out of reach of others (including children, family, friends and visitors). The last page of this document has been signed and retained as a CHART COPY. Signatures Patient Education Materials 9 - AO Minor Esophagogastroduodenoscopy (07/12)(CUSTOM) Monitored Anesthesia Care, Care After Medication Leaflets My discharge plan and instructions have been reviewed and explained to me and I,SUBHA DELFRED understand my current condition and have read and understand these discharge instructions. I have received a written copy of the plan/instructions. If I have questions, I am aware that I should contact my doctor. Patient/Classified Advertising Clerk Signature: Date/Time: Relationship to Patient: Witness Name/Signature: Date/Time: [facility]10-20-2025 Anesthesiology Consult note Patient: LETITIA MASCORRO Age: 84 years Sex: Male : 1940 Associated Diagnoses: None Author: IAM GONZALES Assessment Postanesthesia assessment Vitals: Measurements from flowsheet . Mental status: alert & oriented x 4. Respiratory function: lungs are clear to auscultation. Respiratory support: oxygen ===L/min, oxygen delivery method via nasal cannula. CV function: Normal rate. Cardiovascular support: none. Pain: Self-reports no pain. Nausea status: denies nausea. Postoperative hydration status: within normal limits. Digitally Signed by IAM GONZALES on 02/17/2025 02:15 PM [facility]10-20-2025 Anesthesiology Consult note Patient: LETITIA MASCORRO Age: 84 years Sex: Male : 1940 Associated Diagnoses: None Author: IAM GONZALES Preoperative Information Time of last food or liquid consumption: 02/17/2025 00:00:00 Anesthesia history Patient's history: negative. Family's history: negative. Review of Systems Ear/Nose/Mouth/Throat: Negative. Respiratory: Sleep apnea. Cardiovascular: anemia, htn. Gastrointestinal: Reflux, esophgeal tumor. Genitourinary: Negative. Endocrine: Negative. Musculoskeletal: Negative, OA. Integumentary: Negative. Neurologic: Negative. Health Status Allergies: Allergic Reactions (Selected) Severe Gabapentin- Dizziness - light-headed. Nonallergic Reactions (Selected) Severity Not Documented Darvocet- No reactions were documented., Allergies (2) ActiveSeverityReaction gabapentinSevereDizziness - light-headed DarvocetNone Documented Current medications: (Selected) Inpatient Medications Ordered Venofer: 200 mg, 10 mL, 100 mL/hr, IV Piggyback, prep pharm Prescriptions Prescribed Pepcid 20 mg oral tablet: 20 mg, 1 tab(s), Oral, qDay, for 90 day(s), 90 tab(s), 1 Refill(s) amLODIPine 10 mg oral tablet: 1 tab(s), Oral, qDay, 90 tab(s), 1 Refill(s) lisinopril 20 mg oral tablet: 1 tab(s), Oral, qDay, 90 tab(s), 1 Refill(s) ondansetron 8 mg oral tablet: 8 mg, 1 tab(s), Oral, TID, for 5 day(s), 15 tab(s), 0 Refill(s) Documented Medications Documented RABEprazole 20 mg oral delayed release enteric coated tablet: 20 mg, 1 tab(s), Oral, qDay, 30 tab(s), 0 Refill(s), No qualifying data available Problem list: Medical Acid reflux disease / SNOMED CT [id number] / Confirmed Anemia / SNOMED CT [id number] / Confirmed Dysphagia / SNOMED CT 03434421 / Confirmed Hyperlipidemia / SNOMED CT 41238295 / Confirmed Lesion of face / SNOMED CT 1567549418 / Confirmed Influenza vaccine needed / SNOMED CT 246427305 / Confirmed Osteoarthritis / SNOMED CT 1065060913 / Confirmed Osteoarthritis of left knee / SNOMED CT 4364235235 / Confirmed Pain of left great toe / SNOMED CT 4155166844 / Confirmed Prostate cancer screening / SNOMED CT 652963399 / Confirmed Medicare annual wellness visit, subsequent / SNOMED CT 568836397 / Confirmed Right shoulder pain / SNOMED CT 14075718 / Confirmed Spinal injury / SNOMED CT [id number] / Confirmed Need for hepatitis C screening test / SNOMED CT 892895550 / Confirmed, Active Problems (15) Acid reflux disease Anemia Dysphagia Hyperlipidemia Hypertension Influenza vaccine needed Lesion of face Medicare annual wellness visit, subsequent Need for hepatitis C screening test Osteoarthritis Osteoarthritis of left knee Pain of left great toe Prostate cancer screening Right shoulder pain Spinal injury Histories Past Medical History: Resolved Back ([id number]): Resolved. Family History: Diabetes Father Sister Procedure history: Right foot ([id number]) in 2021 at 81 Years. Arthroplasty of knee (48611059) on 2020 at 80 Years. Comments: 2020 16:19 EDT - Ailin Flowers RN Left gall bladder ([id number]). Leg repair (886870366). Cataract surgery (571668645). Comments: 03/20/2019 7:56 EST - Ashley Peoples LPN TONY Inguinal hernia ([id number]). Social History: Social & Psychosocial Habits Alcohol Comment: none - 03/20/2019 08:07 - Ashley Peoples LPN Substance Abuse 02/17/2025 Use: Never Tobacco 02/17/2025 Tobacco Use: Never (less than 100 in l Home/Environment 02/17/2025 Domestic Concerns None Living situation: Home with assistance Lives In 1st floor bathroom, 1st floor bedroom Nutrition/Health 02/17/2025 Type of diet: Regular Appetite Good Comment: occasional - 03/20/2019 08:07 - Ashley Peoples LPN Physical Examination Vital Signs 02/17/2025 14:05 EDT Respiratory Rate - Anes 0 br/min br/min 02/17/2025 14:00 EDT Heart Rate Monitored 89 bpm bpm Respiratory Rate - Anes 5 br/min br/min Systolic Blood Pressure Non-Invasive 86 mmHg mmHg Diastolic Blood Pressure Non-Invasive 58 mmHg mmHg 02/17/2025 13:55 EDT Heart Rate Monitored 89 bpm bpm Respiratory Rate - Anes 19 br/min br/min Systolic Blood Pressure Non-Invasive 82 mmHg mmHg Diastolic Blood Pressure Non-Invasive 58 mmHg mmHg 02/17/2025 13:50 EDT Heart Rate Monitored 88 bpm bpm Respiratory Rate - Anes 14 br/min br/min Systolic Blood Pressure Non-Invasive 92 mmHg mmHg Diastolic Blood Pressure Non-Invasive 60 mmHg mmHg 02/17/2025 13:45 EDT Heart Rate Monitored 100 bpm bpm Respiratory Rate - Anes 4 br/min br/min Systolic Blood Pressure Non-Invasive 88 mmHg mmHg Diastolic Blood Pressure Non-Invasive 63 mmHg mmHg 02/17/2025 13:40 EDT Heart Rate Monitored 95 bpm bpm Respiratory Rate - Anes 29 br/min br/min Systolic Blood Pressure Non-Invasive 87 mmHg mmHg Diastolic Blood Pressure Non-Invasive 58 mmHg mmHg 02/17/2025 13:35 EDT Heart Rate Monitored 104 bpm bpm Respiratory Rate - Anes 13 br/min br/min Systolic Blood Pressure Non-Invasive 98 mmHg mmHg Diastolic Blood Pressure Non-Invasive 68 mmHg mmHg 02/17/2025 13:34 EDT Systolic Blood Pressure Non-Invasive 90 mmHg mmHg Diastolic Blood Pressure Non-Invasive 69 mmHg mmHg 02/17/2025 13:31 EDT Systolic Blood Pressure Non-Invasive 77 mmHg mmHg Diastolic Blood Pressure Non-Invasive 48 mmHg mmHg 02/17/2025 13:30 EDT Heart Rate Monitored 83 bpm bpm Respiratory Rate - Anes 14 br/min br/min 02/17/2025 13:25 EDT Heart Rate Monitored 84 bpm bpm Respiratory Rate - Anes 0 br/min br/min 02/17/2025 12:15 EDT Temperature Temporal Artery 36.8 DegC Peripheral Pulse Rate 89 bpm Respiratory Rate 14 br/min Systolic Blood Pressure Non-Invasive 126 mmHg Diastolic Blood Pressure Non-Invasive 77 mmHg Vital Signs (last 24 hrs) Last Charted Temp Xrmxhkhi31.8 DegC (FEB 17 12:15) Heart Rate Iuwichcwi77 bpm (FEB 17 14:00) SBP86 mmHg (FEB 17 14:00) DBP58 mmHg (FEB 17 14:00) Measurements from flowsheet : Measurements 02/17/2025 12:15 EDT Height 167 cm Height in inches 65.7 inch(es) Admission Weight 75 kg Weight Lbs 165 lb [place] Body Weight 63.22 kg Admission Body Mass Index 26.89 m2 Pain assessment: Pain Assessment 02/17/2025 12:15 EDT Primary Pain Intensity 0 Pain Scale Type 0-10 Pain scale . General: Alert and oriented. Airway: Normal temporomandibular joint mobility. Mallampati classification: II (soft palate, fauces, uvula visible). Head: Normocephalic. Dentition Evaluation: Dentures, lower, Dentures, upper. Neck: Supple. Respiratory: Lungs are clear to auscultation. Cardiovascular: Normal rate. Heart Sounds: Normal. Gastrointestinal: Soft. Musculoskeletal Normal range of motion. Integumentary: Intact. Neurologic: Alert, Oriented. Review / Management Results review: No qualifying data available , Lab results 02/17/2025 14:11 EDT Lactated Ringers Injection 500 mL mL 02/17/2025 14:08 EDT XR Fluoro < 1Hr Tech Time XR FLUORO < 1HR TECH TIME (Modified) 02/17/2025 14:08 EDT EGD Procedure Note Procedure Note 02/17/2025 14:06 EDT SN - Cul - Culture Type No Specimen per Surgeon 02/17/2025 14:05 EDT Respiratory Rate - Anes 0 br/min br/min 02/17/2025 14:01 EDT SN - CTm - Anesthesia Stop Time Anesthesia Stop Anesthesia Final Record Esophagogastroduodenoscopy (OPD Procedure with Anesthesia, w/Navigation) (In Error) Anesthesia Final Record Esophagogastroduodenoscopy (OPD Procedure with Anesthesia, w/Navigation) 02/17/2025 14:00 EDT SN - CTm - Surgery Stop 02/17/2025 14:00 02/17/2025 14:00 EDT Heart Rate Monitored 89 bpm bpm Respiratory Rate - Anes 5 br/min br/min Systolic Blood Pressure Non-Invasive 86 mmHg mmHg Diastolic Blood Pressure Non-Invasive 58 mmHg mmHg Oxygen Saturation 91 % % SN - CTm - Surgery Stop Surgery Stop 02/17/2025 13:59 EDT SN - XI - X-Ray Type C-Arm 02/17/2025 13:59 EDT propofol 30 mg mg 02/17/2025 13:55 EDT Heart Rate Monitored 89 bpm bpm Respiratory Rate - Anes 19 br/min br/min Systolic Blood Pressure Non-Invasive 82 mmHg mmHg Diastolic Blood Pressure Non-Invasive 58 mmHg mmHg Oxygen Saturation 90 % % 02/17/2025 13:54 EDT propofol 30 mg mg 02/17/2025 13:50 EDT Heart Rate Monitored 88 bpm bpm Respiratory Rate - Anes 14 br/min br/min Systolic Blood Pressure Non-Invasive 92 mmHg mmHg Diastolic Blood Pressure Non-Invasive 60 mmHg mmHg Oxygen Saturation 91 % % 02/17/2025 13:49 EDT propofol 30 mg mg 02/17/2025 13:45 EDT Heart Rate Monitored 100 bpm bpm Respiratory Rate - Anes 4 br/min br/min Systolic Blood Pressure Non-Invasive 88 mmHg mmHg Diastolic Blood Pressure Non-Invasive 63 mmHg mmHg Oxygen Saturation 91 % % 02/17/2025 13:42 EDT propofol 30 mg mg 02/17/2025 13:40 EDT Heart Rate Monitored 95 bpm bpm Respiratory Rate - Anes 29 br/min br/min Systolic Blood Pressure Non-Invasive 87 mmHg mmHg Diastolic Blood Pressure Non-Invasive 58 mmHg mmHg Oxygen Saturation 89 % % propofol 30 mg mg 02/17/2025 13:36 EDT SN - Proc - Anesthesia Type MAC SN - Proc - EBL 0 mL SN - Proc - Actual Procedure ESOPHAGOGASTRODUODENOSCOPY WITH STENT PLACEMENT UNDER FLOUROSCOPY 02/17/2025 13:35 EDT SN - PP - Body Position Lateral Right Side-up Standard Intra-op 02/17/2025 13:35 EDT Heart Rate Monitored 104 bpm bpm Respiratory Rate - Anes 13 br/min br/min Systolic Blood Pressure Non-Invasive 98 mmHg mmHg Diastolic Blood Pressure Non-Invasive 68 mmHg mmHg Oxygen Saturation 80 % % propofol 30 mg mg 02/17/2025 13:34 EDT SN - Assess - LOC Alert, Awake SN - Assess - Orientation Oriented X 3 SN - Assess - Post-op Skin Integrity Intact/Dry 02/17/2025 13:34 EDT SN - GCD - ASA Class 3 SN - GCD - Post-operative Diagnosis ESOPHAGEAL CANCER SN - GCD - Case Level OPD Level 3 02/17/2025 13:34 EDT SN - CTm - Surgery Start 02/17/2025 13:33 02/17/2025 13:34 EDT Systolic Blood Pressure Non-Invasive 90 mmHg mmHg Diastolic Blood Pressure Non-Invasive 69 mmHg mmHg 02/17/2025 13:33 EDT SN - CAt - Case Attendee SN - CAt - Case Attendee SN - CAt - Case Attendee SN - CAt - Case Attendee SN - CAt - Case Attendee SN - CAt - Case Attendee SN - CAt - Case Attendee SN - CAt - Case Attendee SN - CAt - Case Attendee SN - CAt - Case Attendee SN - CAt - Case Attendee SN - CAt - Case Attendee SN - CAt - Role Performed Primary Surgeon SN - CAt - Role Performed DISTRICT ATTORNEY SN - CAt - Role Performed Manager Documentation 1 SN - CAt - Role Performed Experimental Mechanic SN - CAt - Role Performed Communication Coordinator SN - CAt - Role Performed X-Ray Tech 02/17/2025 13:33 EDT SN - CTm - Surgery Start Surgery Start 02/17/2025 13:31 EDT Systolic Blood Pressure Non-Invasive 77 mmHg mmHg Diastolic Blood Pressure Non-Invasive 48 mmHg mmHg 02/17/2025 13:30 EDT Heart Rate Monitored 83 bpm bpm Respiratory Rate - Anes 14 br/min br/min Oxygen Saturation 95 % % famotidine 40 mg mg 02/17/2025 13:26 EDT lidocaine 100 mg mg propofol 100 mg mg History and Physical Update History and Physical Update Note 02/17/2025 13:25 EDT Heart Rate Monitored 84 bpm bpm Respiratory Rate - Anes 0 br/min br/min Oxygen Saturation 93 % % 02/17/2025 13:20 EDT SN - CTm - Anesthesia Start Time Anesthesia Start (Modified) 02/17/2025 13:20 EDT Lactated Ringers Injection Begin Bag 1,000 mL mL 02/17/2025 12:26 EDT Continuous IV Infusions LR Antecubital Right 02/17/2025 20 gauge Peripheral IV Activity: Insert new site Peripheral IV Dressing Condition: Clean, Dry, Intact Peripheral IV Dressing Activity: Applied, Transparent dressing Peripheral IV Line Status/Patency: Continuous infusion Peripheral IV Site Condition: No complications Peripheral IV Equipment: Extension set, PRN Adaptor Peripheral IV Number of Attempts: 1 02/17/2025 12:15 EDT Height 167 cm Height in inches 65.7 inch(es) Admission Weight 75 kg Weight Lbs 165 lb [place] Body Weight 63.22 kg Admission Body Mass Index 26.89 m2 Temperature Temporal Artery 36.8 DegC Peripheral Pulse Rate 89 bpm Respiratory Rate 14 br/min Systolic Blood Pressure Non-Invasive 126 mmHg Diastolic Blood Pressure Non-Invasive 77 mmHg Primary Pain Intensity 0 Pain Scale Type 0-10 Pain scale Heart Rhythm Regular Respirations Unlabored Respiratory Pattern Regular Breath Sounds Auscultated Anterior and posterior All Lobes Breath Sounds Clear Oxygen Therapy Room air Oxygen Saturation 96 % Skin Description Normal for ethnicity Skin Temperature Warm Skin Integrity Intact Neurological Symptoms Patient denies Extremity Movement Equal Characteristics of Speech Clear Level of Consciousness Alert Strength All Extremities Strong Tone All Extremities Normal Sensation All Extremities Intact Affect/Behavior Appropriate, Calm, Cooperative Orientation Oriented x 4 Positioning Repositions self Activity Status ADL Awake Standard Safety ID band on, Allergy Band on, Call device within reach, Bed in low position, Wheels locked, Safety level maintained 02/17/2025 12:12 EDT Allergies Yes C Programmer On Yes Consent Form Signed Yes Patient Dressed In Hospital gown History & Physical On Chart Yes Belongings At Bedside Cane, Pants, Shirt, Shoes, Socks, Undergarments NPO Status Maintained Allergy Band on and Verified Yes Patient ID Band on and Verified Yes Implants Verified Yes Pacemaker/AICD Verified Yes Site Verified by Patient/Family Yes Last Fluid Intake 02/16/2025 23:00 Last Food Intake 02/16/2025 18:00 02/17/2025 12:08 EDT Designated Person #1 We May Share ARUNA Mascorro - [phone] Designated Person #1 Relationship Spouse Privacy Restrictions Requested None Status N/A Sensory Deficits None Sleep Apnea Snore No Sleep Apnea Tired No Sleep Apnea Obstruction No Sleep Apnea Pressure No Sleep Apnea BMI No Sleep Apnea Age Yes Sleep Apnea Neck No Sleep Apnea Gender Yes Sleep Apnea Score 2 Diagnosed With Sleep Apnea No Advanced Directives No - refuses information Infectious Disease Symptoms Cough Infectious Disease Recent Exposure No Alcohol and Drug Use No Employee of Institutional Living No Health Care Employee No History of Exposure to TB No History of Positive Chest X-Ray for TB No History of Positive TB Skin Test No Homeless No Known Immunosuppression No Recent Immigrant No Resident of Institutional Living No Bloody Sputum No Fatigue No Fever No Loss of Appetite No Night Sweats No Persistent Cough > 3 Weeks No Weight Loss No Barriers to Learning None evident Teaching Method Explanation, Printed materials Preferred Spoken Language Luxembourger Preferred Written Language Luxembourger Teaching Evaluation Verbalizes/Nonverbally indicates understanding Safety Brochure Information Reviewed Yes Sera Lew Video Viewed No Patient's Current Physicians Patient's Current Physicians History of Malignant Hyperthermia No Discharge To, Anticipated Home independently Prev Test Positive/Diagnosis w/COVID-19 No Current Quarantine/Isolated any Illness No Any Contact with Sick Animals/Birds No Traveled Anywhere in Last 30 Days No Lost Weight Unintentionally Recently No Eat Poorly Due to Decreased Appetite No Total MST Score 0 N/A Personal Devices, Patient Valuables None Anesthesia/Transfusions Prior anesthesia Admission Note-Nursing Same Day Patient History . Assessment and Plan [place] Citizen [employer] of Anesthesiologists (ASA) physical status classification: Class III. Anesthetic Preoperative Plan Anesthetic technique: MAC. Postoperative pain management: Per surgeon. Informed consent: signed by patient. 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 Anesthesia provided a MAC. The endoscope was passed directly down to the esophagus at about 24 cm was the tumor it was obstructing the esophagus. The scope could not be passed any further. An 035 guidewire was then used this was passed down the channel of the endoscope and under fluoroscopy was advanced past the diaphragm. At this point the wall flex 18 mm x 153 mm length was then selected. The stent was placed over the guidewire andunder fluoroscopy the stent was placed below the diaphragm. Using fluoroscopy the stent was opened and pulled up into the GE junction the stent was deployed all the way up to the proximal esophagus where a paperclip marker was noted. A rat-tooth forcep was then used to pull the stent up an additional 2 cm to cover the proximal part of the tumor. 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 Total Time Approximately 35 minutes Assessment/Plan Orders: Bedrest, 02/17/25 14:08:00 EDT, Strict, continuous, Constant order, Lying on side until alert or asordered Bedrest, 02/17/25 14:08:00 EDT, Strict, continuous, Constant order, Lying on side until alert or asordered Call Parameters, 02/17/25 14:08:00 EDT, Notify for vomiting, severe pain, signs of bleeding, severeabdominal pain, distention or rigidity, Constant order Diet Order, 02/17/25 14:08:00 EDT, Start Meal: Next meal, Clear Liquid Diet, Post exam or after gagreflex returns if EGD, Constant Order, : N/A, : N/A Discharge Activity, NO activity restrictions, 02/17/25 14:08:00 EDT Discharge Diet, Follow the post-operative/post-procedure diet instructions provided by your physician's office., 02/17/25 14:08:00 EDT Discharge Wound Care, Follow the post-operative/post-procedure wound care instructions provided by your physician's office., 02/17/25 14:08:00 EDT Post Procedure Assessment, 02/17/25 14:08:00 EDT, Stop Date 02/17/25 14:08:00 EDT, [place] in [facility] Recovery Room until Shanita Score of 12 or Preprocedure Vital Signs, 02/17/25 14:08:00 EDT, q15min, 1 hour(s), 02/17/25 15:00:00 EDT Vital Signs, 02/17/25 14:08:00 EDT, q30min, 1 hour(s), 02/17/25 15:00:00 EDT Vital Signs PRN, 02/17/25 14:08:00 EDT, PRN order Follow Up/Recommendation Observe the patient postprocedure patient should be on a pur ed diet only, PPI twice daily dosage daily. Digitally Signed by LARRY BA MD on 02/17/2025 02:12 PM [facility]10-20-2025 Note* Exam Date Time Procedure Performing Provider Status 02/17/25 2:08 PM XR Fluoro < 1Hr Tech Time Modified [id number] ORIGINAL Images acquired, not reported on this accession number. [facility]10-20-2025 History and physical note Date of Service 02/17/2025 History and Physical Update I have examined the patient; reviewed the History and Physical and there are no changes to the History and Physical unless noted below. Digitally Signed by LARRY BA MD on 02/17/2025 01:26 PM [facility]-13-2025 Evaluation + Plan noteExtracted from: Title:History and Physical Author:NABIL BA MD Date:02/10/25 Orders: Lactated Ringers Infusion 1,000 mL(LR 1,000 mL), 1000 mL, Intravenous Communication Order (scheduled), 02/10/25 10:17:00 EDT, Once, 02/10/25 10:17:00 EDT, Pathology Tissue Request Communication Order (scheduled), 02/10/25 10:17:00 EDT, Once, 02/10/25 10:17:00 EDT, Urine Test or waiver for women of child bearing age Communication Order (scheduled), 02/10/25 10:17:00 EDT, Once, 02/10/25 10:17:00 EDT, Fasting Blood Sugar priot to procedure of patient is diabetic Discharge, 02/10/25 10:17:00 EDT, Discharged to: Home, when able to ambulate and after being seen by physician Sign Consent, 02/10/25 10:17:00 EDT, Once, For EGD Future Appointments Appointment Date:07/11/2025 08:30:00 AM Scheduled Provider:JACE TATE DO Location:[facility] Appointment Type: Wellness Medicare with Labs [facility] 10-13-2025 Hospital Discharge instructions Patient Education 02/10/2025 11:36:34 Monitored Anesthesia Care, Care After Monitored Anesthesia Care, Care After These instructions provide you with information about caring for yourself after your procedure. Your health care provider may also give you more specific instructions. Your treatment has been plannedaccording to current medical practices, but problems sometimes occur. Call your health care provider if you have any problems or questions after your procedure. What can I expect after the procedure? After your procedure, you may: Feel sleepy for several hours. Feel clumsy and have poor balance for several hours. Feel forgetful about what happened after the procedure. Have poor judgment for several hours. Feel nauseous or vomit. Have a sore throat if you had a breathing tube during the procedure. Follow these instructions at home: For at least 24 hours after the procedure: Have a responsible adult stay with you. It is important to have someone help care for you until youare awake and alert. Rest as needed. Do not: ?Participate in activities in which you could fall or become injured. ?Drive. ?Use heavy machinery. ?Drink alcohol. ?Take sleeping pills or medicines that cause drowsiness. ?Make important decisions or sign legal documents. ?Take care of children on your own. Eating and drinking Follow the diet that is recommended by your health care provider. If you vomit, drink water, juice, or soup when you can drink without vomiting. Make sure you have little or no nausea before eating solid foods. General instructions Take srhh-wux-ejetaoq and prescription medicines only as told by your health care provider. If you have sleep apnea, surgery and certain medicines can increase your risk for breathing problems. Follow instructions from your health care provider about wearing your sleep device: ?Anytime you are sleeping, including during daytime naps. ?While taking prescription pain medicines, sleeping medicines, or medicines that make you drowsy. If you smoke, do not smoke without supervision. Keep all follow-up visits as told by your health care provider. This is important. Contact a health care provider if: You keep feeling nauseous or you keep vomiting. You feel light-headed. You develop a rash. You have a fever. Get help right away if: You have trouble breathing. Summary For several hours after your procedure, you may feel sleepy and have poor judgment. Have a responsible adult stay with you for at least 24 hours or until you are awake and alert. This information is not intended to replace advice given to you by your health care provider. Make sure you discuss any questions you have with your health care provider. Document Released: 08/07/2016 Document Revised: 07/16/2018 Document Reviewed: 08/07/2016 [employer] Patient Education 2020 [employer]. 02/10/2025 11:36:30 Esophagogastroduodenoscopy, Care After ([id number]) Esophagogastroduodenoscopy, Care After Refer to this sheet in the next few weeks. These instructions provide you with information about caring for yourself after your procedure. Your health care provider may also give you more specific instructions. Your treatment has been planned according to current medical practices, but problems sometimes occur. Call your health care provider if you have any problems or questions after your procedure. What can I expect after the procedure? After the procedure, it is common to have: A sore throat. Nausea. Bloating. Dizziness. Fatigue. Follow these instructions at home: Do not eat or drink anything until the numbing medicine (local anesthetic) has worn off and your gag reflex has returned. You will know that the local anesthetic has worn off when you can swallow comfortably. Do not drive for 24 hours if you received a medicine to help you relax (sedative). If your health care provider took a tissue sample for testing during the procedure, make sure to get your test results. This is your responsibility. Ask your health care provider or the department performing the test when your results will be ready. Keep all follow-up visits as told by your health care provider. This is important. Contact a health care provider if: You cannot stop coughing. You are not urinating. You are urinating less than usual. Get help right away if: You have trouble swallowing. You cannot eat or drink. You have throat or chest pain that gets worse. You are dizzy or light-headed. You faint. You have nausea or vomiting. You have chills. You have a fever. You have severe abdominal pain. You have black, tarry, or bloody stools. This information is not intended to replace advice given to you by your health care provider. Make sure you discuss any questions you have with your health care provider. Document Released: 04/03/2013 Document Revised: 09/22/2016 Document Reviewed: 03/10/2016 [employer] Interactive Patient Education 2019 [employer]. Follow Up Care 01/24/2025 12:32:30 With:LARRY BA Address: [address] [place] [address]- [phone] Business (1) When: Unknown [facility] 10-13-2025 Note Discharge Instructions Thank you for allowing [facility] to assist you with your healthcare needs. The following is importantdischarge information regarding your hospital visit. Your Care Team JACE TATE DO, Dr. What to do next Scheduled Follow-Up Appointments Appointment Type When With Where Contact Information StatusPC Wellness Medicare with Labs 07/11/2025 08:30 AM EDT JACE TATE DO [facility] Confirmed Follow Up Appointments Follow Up with LARRY BA Where:[address] [place] [address]- [phone] Business (1) Allergies gabapentin(Severe) Dizziness - light-headed Darvocet Medications Please ask your primary doctor or pharmacist before taking any other medication not listed, including over the counter drugs, herbal medications, vitamins and or supplements as they may interact withyour home medications. What How Much When Instructions Last Dose Unchanged amLODIPine (amLODIPine 10 mg oral tablet) 1 tab(s) by mouth Once a day Unchanged famotidine (Pepcid 20 mg oral tablet) 1 tab(s) by mouth Once a day Duration: 90 Days Unchanged lisinopril (lisinopril 20 mg oral tablet) 1 tab(s) by mouth Once a day Unchanged RABEprazole (RABEprazole 20 mg oral delayed release enteric coated tablet) 1 tab(s) by mouth Once a day Please take this list to your next doctor s visit. Bring all medications you take, including over the counter medications, herbals and other supplements with you to your doctor s visit. Patients and families are reminded to discard old lists and to update any records with all medication providers or retail pharmacies. Education Materials Monitored Anesthesia Care, Care After These instructions provide you with information about caring for yourself after your procedure. Your health care provider may also give you more specific instructions. Your treatment has been plannedaccording to current medical practices, but problems sometimes occur. Call your health care provider if you have any problems or questions after your procedure. What can I expect after the procedure? After your procedure, you may: Feel sleepy for several hours. Feel clumsy and have poor balance for several hours. Feel forgetful about what happened after the procedure. Have poor judgment for several hours. Feel nauseous or vomit. Have a sore throat if you had a breathing tube during the procedure. Follow these instructions at home: For at least 24 hours after the procedure: Have a responsible adult stay with you. It is important to have someone help care for you until youare awake and alert. Rest as needed. Do not: ? Participate in activities in which you could fall or become injured. ? Drive. ? Use heavy machinery. ? Drink alcohol. ? Take sleeping pills or medicines that cause drowsiness. ? Make important decisions or sign legal documents. ? Take care of children on your own. Eating and drinking Follow the diet that is recommended by your health care provider. If you vomit, drink water, juice, or soup when you can drink without vomiting. Make sure you have little or no nausea before eating solid foods. General instructions Take teli-nhd-wxvyxyj and prescription medicines only as told by your health care provider. If you have sleep apnea, surgery and certain medicines can increase your risk for breathing problems. Follow instructions from your health care provider about wearing your sleep device: ? Anytime you are sleeping, including during daytime naps. ? While taking prescription pain medicines, sleeping medicines, or medicines that make you drowsy. If you smoke, do not smoke without supervision. Keep all follow-up visits as told by your health care provider. This is important. Contact a health care provider if: You keep feeling nauseous or you keep vomiting. You feel light-headed. You develop a rash. You have a fever. Get help right away if: You have trouble breathing. Summary For several hours after your procedure, you may feel sleepy and have poor judgment. Have a responsible adult stay with you for at least 24 hours or until you are awake and alert. This information is not intended to replace advice given to you by your health care provider. Make sure you discuss any questions you have with your health care provider. Document Released: 08/07/2016 Document Revised: 07/16/2018 Document Reviewed: 08/07/2016 [employer] Patient Education 2020 [employer]. Esophagogastroduodenoscopy, Care After Refer to this sheet in the next few weeks. These instructions provide you with information about caring for yourself after your procedure. Your health care provider may also give you more specific instructions. Your treatment has been planned according to current medical practices, but problems sometimes occur. Call your health care provider if you have any problems or questions after your procedure. What can I expect after the procedure? After the procedure, it is common to have: A sore throat. Nausea. Bloating. Dizziness. Fatigue. Follow these instructions at home: Do not eat or drink anything until the numbing medicine (local anesthetic) has worn off and your gag reflex has returned. You will know that the local anesthetic has worn off when you can swallow comfortably. Do not drive for 24 hours if you received a medicine to help you relax (sedative). If your health care provider took a tissue sample for testing during the procedure, make sure to get your test results. This is your responsibility. Ask your health care provider or the department performing the test when your results will be ready. Keep all follow-up visits as told by your health care provider. This is important. Contact a health care provider if: You cannot stop coughing. You are not urinating. You are urinating less than usual. Get help right away if: You have trouble swallowing. You cannot eat or drink. You have throat or chest pain that gets worse. You are dizzy or light-headed. You faint. You have nausea or vomiting. You have chills. You have a fever. You have severe abdominal pain. You have black, tarry, or bloody stools. This information is not intended to replace advice given to you by your health care provider. Make sure you discuss any questions you have with your health care provider. Document Released: 04/03/2013 Document Revised: 09/22/2016 Document Reviewed: 03/10/2016 [employer] Interactive Patient Education 2019 [employer] Additional Information VACCINATE! IT SAVES LIVES! Members of the community who have not yet received the COVID-19 vaccine and would like to receive it can visit one of [facility] vaccine clinics. There are many vaccine clinic locations within the [facility]. For locations and available times, please visit https://gettheshot.coronavirus.[place].gov/. It is important to note that some COVID mobile vaccine clinics are held outdoors and may be canceled in rainy or stormy conditions. To learn more about pediatric vaccinations (ages 5-11), we invite you to visit the [facility] webpage. [email or web address].[email or web address]/[email or web address] [email or web address].htmlTo learn more about the COVID-19 vaccine, we invite you to visit the CDC website for a list of frequently asked questions.https://www.cdc.gov/coronavirus/2019-ncov/vaccines/faq.html [employer] Patient Portal Access Instructions: Stay connected with your healthcare team and access your personal medical information anytime with the [employer] Patient Portal. Please follow the directions below to create your [employer] account: 1.Access the email account you provided upon registration to the hospital/physician office.2.Look for an invitation email from [facility].3.Open the email and access the invitation link: AcceptInvitation to [employer].4.Fill in the required rendon to create your account. To access your account, visit [facility]. or scan the QR code above. Click the blue button labeled Access Patient Portal and then log in with the username and password that you created in the steps above. You will be able to view your test results, lab results, a summary of your visits, upcoming appointments and more. There is also a convenient messaging option where you can send secure messages to your provider. In addition, you will have the ability to download any documents or summaries to your computer and/or send the information securely to a physician. Remember that your healthcare information is confidential, so carefully consider who you will allowto register on the [facility] Patient Portal for access to your information. You can also access the [facility] Patient Portal on the [facility] mane. Simply click on Patient Portal and then log into your account. If you would like to receive a full copy of your medical records, please contact the [facility] Medical Records Department by calling [phone], Monday through Monday between 8 a.m. and 4:30 p.m. HOW TO SAFELY DISPOSE OF PRESCRIPTION MEDICATIONS Please use one of the following methods to safely dispose of your unused medications. 1.Use a drug disposal kit: the drug disposal pouch allows you to safely discard your old and unuseddrugs. Ask your nurse to give you one when you are discharged.2.Visit a local take-back location: Many local pharmacies and police departments have programs that collect old and unwanted prescriptiondrugs. Call your local pharmacy or go to http://SwipeGood.[address]/0K7Hu1i to find one close to you.3.Make use of household items: Use cat litter or old coffee grounds to dispose medications if other options arenot available. Mix your drugs with these household products, seal them in an airtight container andthrow it into the garbage. Call [facility]: [phone] to be sure your drugs can be disposed of in this way. Some medicines may require a different approach.4.Never flush your medications down the toilet. IF YOU HAVE BEEN PRESCRIBED AN OPIOID FOR PAIN If you have been prescribed an opioid (such as hydrocodone, oxycodone or morphine), it is critical to understand the possible side effects and risks of opioid pain medications. Even when taken as directed, opioids can have several side effects including: Tolerance, meaning you might need to take more of a medication for the same pain relief. Nausea, vomiting and/or constipation. Sleepiness, dizziness, dry mouth, confusion, depression or itching. Physical dependence, meaning you have withdrawal symptoms when a medication is stopped, can develop within a few days. KNOW YOUR RESPONSIBILITIES It is important to know exactly how much and how often to take the opioid pain medications you are prescribed. Never take opioids in higher amounts or more often than prescribed. Do not combine opioids with alcohol or other drugs that cause drowsiness, such as benzodiazepines, also known as benzos, including diazepam and alprazolam, muscle relaxants or sleep aids. Never sell or share prescription opioids. This is illegal. Store opioids in a secure place and out of reach of others (including children, family, friends and visitors). The last page of this document has been signed and retained as a CHART COPY. Signatures Patient Education Materials Monitored Anesthesia Care, Care After Esophagogastroduodenoscopy, Care After (89153) Medication Leaflets My discharge plan and instructions have been reviewed and explained to me and I,LETITIA MASCORRO understand my current condition and have read and understand these discharge instructions. I have received a written copy of the plan/instructions. If I have questions, I am aware that I should contact my doctor. Patient/Classified Advertising Clerk Signature: Date/Time: Relationship to Patient: Witness Name/Signature: Date/Time: [facility]10-13-2025 Anesthesiology Consult note Patient: LETITIA MASCORRO Age: 84 years Sex: Male : 1940 Associated Diagnoses: None Author: TAY ADAM APRN-DISTRICT ATTORNEY Assessment Postanesthesia assessment Vitals: Vital signs from flowsheet : Vital Signs 02/10/2025 11:10 EDT Heart Rate Monitored 91 bpm bpm Respiratory Rate - Anes 20 br/min br/min Systolic Blood Pressure Non-Invasive 90 mmHg mmHg Diastolic Blood Pressure Non-Invasive 61 mmHg mmHg 02/10/2025 11:05 EDT Heart Rate Monitored 118 bpm bpm Respiratory Rate - Anes 16 br/min br/min Systolic Blood Pressure Non-Invasive 116 mmHg mmHg Diastolic Blood Pressure Non-Invasive 60 mmHg mmHg 02/10/2025 10:17 EDT Temperature Temporal Artery 36.3 DegC Apical Heart Rate 88 bpm Respiratory Rate 16 br/min Systolic Blood Pressure Non-Invasive 99 mmHg Diastolic Blood Pressure Non-Invasive 69 mmHg . Mental status: alert & oriented x 4. Respiratory function: lungs are clear to auscultation. Respiratory support: none. CV function: Normal rate. Cardiovascular support: none. Pain. Nausea status: see nursing documentation of medications. Postoperative hydration status: within normal limits. Digitally Signed by TAY ADAM on 02/10/2025 11:18 AM [facility]10-13-2025 Note Date of Service 02/10/2025 Procedure Name Esophagoscopy with biopsy Consent Taken before procedure Indication Dysphagia abnormal esophagram Location [facility] Pre-Procedure Exam Dysphagia abnormal esophagram Procedural Sedation Anesthesia provided a MAC Technique Patient was brought to the Endo suite and placed left shoulder down. 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 The scope revealed Thakkar to about 30 cm where there was an entire massobstructing the esophagus at this point. Biopsies were taken of the mass for pathology the endoscope was withdrawn and the patient tolerated the procedure well. 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 Complications None apparent Total Time Approximately 15 minutes Assessment/Plan Orders: Lactated Ringers Infusion 1,000 mL(LR 1,000 mL), 1000 mL, Intravenous Bedrest, 02/10/25 11:15:00 EDT, Strict, continuous, Constant order, Lying on side until alert or asordered Bedrest, 02/10/25 11:15:00 EDT, Strict, continuous, Constant order, Lying on side until alert or asordered Call Parameters, 02/10/25 11:15:00 EDT, Notify for vomiting, severe pain, signs of bleeding, severeabdominal pain, distention or rigidity, Constant order Communication Order (scheduled), 02/10/25 10:17:00 EDT, Once, 02/10/25 10:17:00 EDT, Pathology Tissue Request Communication Order (scheduled), 02/10/25 10:17:00 EDT, Once, 02/10/25 10:17:00 EDT, Urine Test or waiver for women of child bearing age Communication Order (scheduled), 02/10/25 10:17:00 EDT, Once, 02/10/25 10:17:00 EDT, Fasting Blood Sugar priot to procedure of patient is diabetic Diet Order, 02/10/25 11:15:00 EDT, Start Meal: Next meal, Clear Liquid Diet, Post exam or after gagreflex returns if EGD, Constant Order, : N/A, : N/A Discharge, 02/10/25 10:17:00 EDT, Discharged to: Home, when able to ambulate and after being seen by physician Discharge Activity, NO activity restrictions, 02/10/25 11:15:00 EDT Discharge Diet, Follow the post-operative/post-procedure diet instructions provided by your physician's office., 02/10/25 11:15:00 EDT Discharge Wound Care, Follow the post-operative/post-procedure wound care instructions provided by your physician's office., 02/10/25 11:15:00 EDT Pathology Tissue Request, 02/10/25 11:12:00 EDT, Collected, Routine, Nurse Collect, AP Specimen, ESOPHAGEAL MASS, SEE H&P, ESOPHAGOSCOPY, DYSPHAGIA, DYSPHAGIA, Preferred Lab: [facility], [id number] Post Procedure Assessment, 02/10/25 11:15:00 EDT, Stop Date 02/10/25 11:15:00 EDT, [facility] in [facility] Recovery Room until Shanita Score of 12 or Preprocedure Sign Consent, 02/10/25 10:17:00 EDT, Once, For EGD Vital Signs, 02/10/25 11:15:00 EDT, q15min, 1 hour(s), 02/10/25 12:00:00 EDT Vital Signs, 02/10/25 11:15:00 EDT, q30min, 1 hour(s), 02/10/25 12:00:00 EDT Vital Signs PRN, 02/10/25 11:15:00 EDT, PRN order Follow Up/Recommendation Follow-up the pathology consider stent placement, consult oncology. Oncology Digitally Signed by LARRY BA MD on 02/10/2025 11:17 AM [facility]10-13-2025 History and physical note Date of Service 02/10/2025 Physical Exam Vitals and Measurements T: 36.3 C (Temporal Artery) HR: 88 (Apical) RR: 16 BP: 99/69 SpO2: 96% HT: 167 cm WT: 75 kg BMI: 26.89 Weight Dosing Weight: 75 kg (02/10/25) Lab Results No 36 Hour Lab Data Assessment/Plan Orders: Lactated Ringers Infusion 1,000 mL(LR 1,000 mL), 1000 mL, Intravenous Communication Order (scheduled), 02/10/25 10:17:00 EDT, Once, 02/10/25 10:17:00 EDT, Pathology Tissue Request Communication Order (scheduled), 02/10/25 10:17:00 EDT, Once, 02/10/25 10:17:00 EDT, Urine Test or waiver for women of child bearing age Communication Order (scheduled), 02/10/25 10:17:00 EDT, Once, 02/10/25 10:17:00 EDT, Fasting Blood Sugar priot to procedure of patient is diabetic Discharge, 02/10/25 10:17:00 EDT, Discharged to: Home, when able to ambulate and after being seen by physician Sign Consent, 02/10/25 10:17:00 EDT, Once, For EGD Problem List/Past Medical History Ongoing Acid reflux disease Anemia Dysphagia Hyperlipidemia Influenza vaccine needed Lesion of face Medicare annual wellness visit, subsequent Need for hepatitis C screening test Osteoarthritis Osteoarthritis of left knee Pain of left great toe Prostate cancer screening Right shoulder pain Spinal injury Historical Back Procedure/Surgical History Right foot: 2021 Arthroplasty of knee: 12/15/20 Inguinal hernia Cataract surgery Leg repair Medications Home Medications (4) Active amLODIPine 10 mg oral tablet 1 tab(s), Oral, qDay lisinopril 20 mg oral tablet 1 tab(s), Oral, qDay Pepcid 20 mg oral tablet 20 mg = 1 tab(s), Oral, qDay RABEprazole 20 mg oral delayed release enteric coated tablet 20 mg = 1 tab(s), Oral, qDay Allergies gabapentin(Severe) Dizziness - light-headed Darvocet Social History Alcohol Home/Environment Domestic Concerns: None. Living situation: Home with assistance. Lives In: 1st floor bedroom, 1st floor bathroom., 11/23/2020 Nutrition/Health Type of diet: Regular. Appetite Good., 11/23/2020 Substance Abuse Use: Never., 11/23/2020 Tobacco Nicotine Use: Never (less than 100 in lifetime)., 03/20/2019 Family History Diabetes: Father and Sister. Health Status Family Member(s) Immunizations pneumococcal 23-valent vaccine(Pneumovax: 0.5 unknown unit (05/29/17) SARS-CoV-2 mRNA (tozinameran) vaccine: 30 mcg (03/18/21) SARS-CoV-2 mRNA (tozinameran) vaccine: 30 mcg (07/18/20) SARS-CoV-2 mRNA (tozinameran) vaccine: 30 mcg (06/27/20) Code Status No qualifying data available. Digitally Signed by LARRY BA MD on 02/10/2025 11:06 AM [facility]10-13-2025 Anesthesiology Consult note Patient: LETITIA MASCORRO Age: 84 years Sex: Male : 1940 Associated Diagnoses: None Author: TAY ADAM APRN-DISTRICT ATTORNEY Preoperative Information Time of last food or liquid consumption: 02/09/2025 22:00:00 Anesthesia history Patient's history: negative. Family's history: negative. Review of Systems Ear/Nose/Mouth/Throat: Negative except as documented in history of present illness. Respiratory: Negative except as documented in history of present illness. Cardiovascular: Negative except as documented in history of present illness. Gastrointestinal: Negative except as documented in history of present illness. Genitourinary: Negative except as documented in history of present illness. Endocrine: Negative except as documented in history of present illness. Musculoskeletal: Negative except as documented in history of present illness. Integumentary: Negative except as documented in history of present illness. Neurologic: Negative except as documented in history of present illness. Health Status Allergies: Allergic Reactions (Selected) Severe Gabapentin- Dizziness - light-headed. Nonallergic Reactions (Selected) Severity Not Documented Darvocet- No reactions were documented., Allergies (2) ActiveSeverityReaction gabapentinSevereDizziness - light-headed DarvocetNone Documented Current medications: (Selected) Inpatient Medications Ordered LR 1,000 mL: 50 mL/hr, Intravenous Venofer: 200 mg, 10 mL, 100 mL/hr, IV Piggyback, prep pharm Prescriptions Prescribed Pepcid 20 mg oral tablet: 20 mg, 1 tab(s), Oral, qDay, for 90 day(s), 90 tab(s), 1 Refill(s) amLODIPine 10 mg oral tablet: 1 tab(s), Oral, qDay, 90 tab(s), 1 Refill(s) lisinopril 20 mg oral tablet: 1 tab(s), Oral, qDay, 90 tab(s), 1 Refill(s) Documented Medications Documented RABEprazole 20 mg oral delayed release enteric coated tablet: 20 mg, 1 tab(s), Oral, qDay, 30 tab(s), 0 Refill(s), Medications (1) Active Scheduled: (0) Continuous: (1) Lactated Ringers 1,000 mL 1,000 mL, Intravenous, 50 mL/hr PRN: (0) Problem list: Medical Acid reflux disease / SNOMED CT [id number] / Confirmed Anemia / SNOMED CT [id number] / Confirmed Dysphagia / SNOMED CT 52693371 / Confirmed Hyperlipidemia / SNOMED CT 70835286 / Confirmed Lesion of face / SNOMED CT 8918351185 / Confirmed Influenza vaccine needed / SNOMED CT 410683044 / Confirmed Osteoarthritis / SNOMED CT 8374801444 / Confirmed Osteoarthritis of left knee / SNOMED CT 4700333564 / Confirmed Pain of left great toe / SNOMED CT 4959291054 / Confirmed Prostate cancer screening / SNOMED CT 904655741 / Confirmed Medicare annual wellness visit, subsequent / SNOMED CT 672609475 / Confirmed Right shoulder pain / SNOMED CT 88417887 / Confirmed Spinal injury / SNOMED CT [id number] / Confirmed Need for hepatitis C screening test / SNOMED CT 186959149 / Confirmed Resolved: Back / SNOMED CT 245241609, Active Problems (15) Acid reflux disease Anemia Dysphagia Hyperlipidemia Hypertension Influenza vaccine needed Lesion of face Medicare annual wellness visit, subsequent Need for hepatitis C screening test Osteoarthritis Osteoarthritis of left knee Pain of left great toe Prostate cancer screening Right shoulder pain Spinal injury Histories Past Medical History: Resolved Back ([id number]): Resolved. Family History: Diabetes Father Sister Procedure history: Right foot (73462750) in 2021 at 81 Years. Arthroplasty of knee (27868510) on 2020 at 80 Years. Comments: 2020 16:19 EDT - Ailin Flowers RN Left gall bladder ([id number]). Leg repair (790752899). Cataract surgery (488999916). Comments: 03/20/2019 7:56 EST - Ashley Peoples LPN TONY Inguinal hernia ([id number]). Social History: Social & Psychosocial Habits Alcohol Comment: none - 03/20/2019 08:07 - Ashley Peoples LPN Substance Abuse 02/10/2025 Use: Never Tobacco 02/10/2025 Tobacco Use: Never (less than 100 in l Home/Environment 02/10/2025 Domestic Concerns None Living situation: Home with assistance Lives In 1st floor bathroom, 1st floor bedroom Nutrition/Health 02/10/2025 Type of diet: Regular Appetite Good Comment: occasional - 03/20/2019 08:07 - Ashley Peoples LPN Physical Examination Vital Signs 02/10/2025 10:17 EDT Temperature Temporal Artery 36.3 DegC Apical Heart Rate 88 bpm Respiratory Rate 16 br/min Systolic Blood Pressure Non-Invasive 99 mmHg Diastolic Blood Pressure Non-Invasive 69 mmHg Vital Signs (last 24 hrs) Last Charted Temp Olvuyaxu73.3 DegC (FEB 10 10:17) Heart Rate Eeezzw96 bpm (FEB 10 10:17) SBP99 mmHg (FEB 10 10:17) DBP69 mmHg (FEB 10 10:17) BMI26.89 (FEB 10 10:17) Measurements from flowsheet : Measurements 02/10/2025 10:17 EDT Height 167 cm Admission Weight 75 kg [place] Body Weight 63.22 kg BSA Admission 1.84 Body Mass Index 26.89 kg/m2 Pain assessment: Pain Assessment 02/10/2025 10:17 EDT Primary Pain Intensity 5 Pain Scale Type 0-10 Pain scale . General: Alert and oriented. Airway: Normal neck range of motion. Mallampati classification: II (soft palate, fauces, uvula visible). Head: Normocephalic. Dentition Evaluation: Intact, Own teeth. Neck: Full range of motion. Respiratory: Lungs are clear to auscultation. Cardiovascular: Normal rate. Heart Sounds: Normal. Gastrointestinal: Soft. Musculoskeletal Normal range of motion. Integumentary: Intact, Warm, Dry. Neurologic: Alert, Oriented. Review / Management Results review: No qualifying data available , Lab results 02/10/2025 10:58 EDT SN - GCD - Post-operative Diagnosis DYSPHAGIA SN - GCD - Case Level OPD Level 3 02/10/2025 10:58 EDT SN - CAt - Case Attendee SN - CAt - Case Attendee SN - CAt - Case Attendee SN - CAt - Case Attendee SN - CAt - Case Attendee SN - CAt - Case Attendee SN - CAt - Case Attendee SN - CAt - Case Attendee SN - CAt - Role Performed Primary Surgeon SN - CAt - Role Performed DISTRICT ATTORNEY SN - CAt - Role Performed Manager Documentation 1 SN - CAt - Role Performed Experimental Mechanic 02/10/2025 10:53 EDT Forearm Right 02/10/2025 22 gauge Peripheral IV Activity: Insert new site Peripheral IV Dressing Condition: Clean, Dry, Intact Peripheral IV Dressing Activity: Applied, Transparent dressing Peripheral IV Line Status/Patency: Flushes easily, Continuous infusion Peripheral IV Site Condition: No complications Peripheral IV Site Care: Direct pressure applied Peripheral IV Equipment: Extension set Peripheral IV Number of Attempts: 2 02/10/2025 10:50 EDT Lactated Ringers Injection Begin Bag 1,000 mL mL 02/10/2025 10:29 EDT IV Present Present Allergies Yes Anesthesia Extension Set Applied Yes C Programmer On Yes Consent Form Signed Yes Patient Dressed In Hospital gown Pre-op Preparation Dentures, upper removed, Dentures, lower removed History & Physical Update On Chart Yes History & Physical On Chart Yes Belongings At Bedside Cane, Dentures, lower, Dentures, upper, Pants, Shirt, Shoes, Socks NPO Status Maintained Allergy Band on and Verified Yes Patient ID Band on and Verified Yes Implants Verified Yes Pacemaker/AICD Verified Yes Site Verified by Patient/Family Yes Anesthesia Consent Signed Yes Last Fluid Intake 02/09/2025 22:30 Last Food Intake 02/09/2025 16:30 02/10/2025 10:17 EDT Designated Person #1 We May Share ARUNA Mascorro - [phone] Designated Person #1 Relationship Spouse Height 167 cm Admission Weight 75 kg [place] Body Weight 63.22 kg BSA Admission 1.84 Body Mass Index 26.89 kg/m2 Temperature Temporal Artery 36.3 DegC Apical Heart Rate 88 bpm Respiratory Rate 16 br/min Systolic Blood Pressure Non-Invasive 99 mmHg Diastolic Blood Pressure Non-Invasive 69 mmHg Primary Pain Intensity 5 Pain Scale Type 0-10 Pain scale Respirations Unlabored Respiratory Pattern Regular All Lobes Breath Sounds Clear Oxygen Therapy Room air Oxygen Saturation 96 % Abdomen Description Non-distended, Symmetric, Soft Bowel Sounds All Quadrants Present Status N/A Skin Description [place], Normal for ethnicity, Dry Skin Temperature Warm Skin Integrity Intact Skin Moisture General Dry Neurological Symptoms Patient denies Extremity Movement Equal Characteristics of Speech Clear Level of Consciousness Alert KARISSA Yes Strength All Extremities Moderate Affect/Behavior Appropriate, Calm, Cooperative Orientation Oriented x 4 Sensory Deficits None Infectious Disease Symptoms Patient states no symptoms Infectious Disease Recent Exposure No Alcohol and Drug Use No Employee of Institutional Living No Health Care Employee No History of Exposure to TB No History of Positive Chest X-Ray for TB No History of Positive TB Skin Test No Homeless No Known Immunosuppression No Recent Immigrant No Resident of Institutional Living No Bloody Sputum No Fatigue No Fever No Loss of Appetite No Night Sweats No Persistent Cough > 3 Weeks No Weight Loss No Shanita Motor (2) Moves 4 extremities voluntarily or on command Shanita Respirations (2) Spontaneous respiration without support, RR > 10 Shanita Blood Pressure (2) BP 20% above or below preanesthetic level Shanita Pulse (2) Pulse 20% above or below preanesthetic level Shanita Oxygen Saturation (2) 94% or more Shanita Level of Consciousness (2) Fully awake Shanita III Score 12 Barriers to Learning None evident Teaching Method Explanation, Printed materials Preferred Spoken Language Luxembourger Preferred Written Language Luxembourger Patient's Current Physicians Patient's Current Physicians Discharge To, Anticipated Home independently Assistive Device Cane Positioning Repositions self Mobility Assistance Level Minimum assistance Activity Status ADL Awake Standard Safety ID band on, Allergy Band on, Call device within reach, Bed in low position, Wheels locked Prev Test Positive/Diagnosis w/COVID-19 No Current Quarantine/Isolated any Illness No Any Contact with Sick Animals/Birds No Traveled Anywhere in Last 30 Days No N/A Personal Devices, Patient Valuables None Admission Note-Nursing Procedure/Therapy Intake . Assessment and Plan [place] Citizen [employer] of Anesthesiologists (ASA) physical status classification: Class III. Anesthetic Preoperative Plan Premedication: intravenous. Anesthetic technique: MAC. Induction: intravenously. Maintenance airway: Mask. Risks discussed: nausea, vomiting, headache, sore throat, dental injury, hypotension, allergic reaction, serious complications. Informed consent: signed by patient. Digitally Signed by TAY ADAM on 02/10/2025 10:59 AM [facility]10-09-2025 Note* Exam Date Time Procedure Performing Provider Status 02/06/25 9:13 AM XR Esophogram w/Barium Tablet LISANDRA BURRELL MD; Auth (Verified) [id number] ORIGINAL EXAMINATION: SINGLE CONTRAST ESOPHAGRAM 02/06/2025 HISTORY: ORDERING SYSTEM PROVIDED HISTORY: Reason for Exam: Dysphagia, burning with swallowing. COMPARISON: None. TECHNIQUE: Multiple single contrast images of the esophagus and gastroesophageal junction were obtained following the oral administration of barium FLUOROSCOPY DOSE AND TYPE: Radiation Exposure Index: Kerma mGy, 30.1. 29 images were obtained. FINDINGS: The barium tablet does not pass through the midesophagus. Beginning at the level the mid esophagus there is a long segment stricture which appears to extend into the proximal stomach, this measures approximately 15 cm, there is associated gross irregularity of the luminal wall with some masslike areas. A portion of the fundus of the stomach is above the diaphragm, this is not able to be filled on this study. No evidence of leak. No gastroesophageal reflux was seen. 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 Moderate paraesophageal hernia Interpreted by: Lisandra Burrell MD Preliminary Report By: Lisandra Burrell MD Electronically signed By Lisandra Burrell MD Dictated Date: 02/06/2025 9:22:10 AM Prelim Date: 02/06/2025 9:28:42 AM Sign Date: 02/06/2025 9:28:42 AM Ordering Provider: LARRY BA RP [facility]06-12-2025 Nurse Progress note patient tolerated venofer infusion without signs or symptoms of a reaction Digitally Signed by Shauna Garrison RN on 10/10/2024 02:09 PM [facility]06-05-2025 Nurse Progress note patient tolerated venofer infusion without signs or symptoms of a reaction Digitally Signed by Shauna Garrison RN on 10/03/2024 12:00 PM [facility]05-29-2025 Nurse Progress note patient tolerated venofer infusion without signs or symptoms of a reaction Digitally Signed by Shauna Garrison RN on 09/26/2024 02:24 PM [facility]05-08-2025 Nurse Progress note patient tolerated venofer infusion without signs or symptoms of a reaction Digitally Signed by Shauna Garrison RN on 09/05/2024 01:57 PM [facility]05-01-2025 Nurse Progress note patient tolerated venofer infusion without signs or symptoms of a reaction Digitally Signed by Shauna Garrison RN on 08/29/2024 02:00 PM [facility]04-24-2025 Nurse Progress note patient tolerated venofer infusion without signs or symptoms of a reaction. per order patient was observed for 30min post infusion for signs of a reaction. no reaction noted. Digitally Signed by Shauna Garrison RN on 08/22/2024 02:21 PM [facility]03-06-2023 Hospital Discharge instructions Patient Education 07/04/2022 14:12:52 Blood Transfusion, Adult, Care After, [id number] Blood Transfusion, Adult, Care After This sheet gives you information about how to care for yourself after your procedure. Your doctor may also give you more specific instructions. If you have problems or questions, contact your doctor. Follow these instructions at home: Take gvnk-fwk-kemwisj and prescription medicines only as told by your doctor. Go back to your normal activities as told by your doctor. Follow instructions from your doctor about how to take care of the area where an IV tube was put into your vein (insertion site). Make sure you: ?Wash your hands with soap and water before you change your bandage (dressing). If there is no soapand water, use hand director heart. ?Change your bandage as told by your doctor. Check your IV insertion site every day for signs of infection. Check for: ?More redness, swelling, or pain. ?More fluid or blood. ?Warmth. ?Pus or a bad smell. Contact a doctor if: You have more redness, swelling, or pain around the IV insertion site. You have more fluid or blood coming from the IV insertion site. Your IV insertion site feels warm to the touch. You have pus or a bad smell coming from the IV insertion site. Your pee (urine) turns pink, red, or brown. You feel weak after doing your normal activities. Get help right away if: You have signs of a serious allergic or body defense (immune) system reaction, including: ?Itchiness. ?Hives. ?Trouble breathing. ?Anxiety. ?Pain in your chest or lower back. ?Fever, flushing, and chills. ?Fast pulse. ?Rash. ?Watery poop (diarrhea). ?Throwing up (vomiting). ?Dark pee. ?Serious headache. ?Dizziness. ?Stiff neck. ?Yellow color in your face or the white parts of your eyes (jaundice). Summary After a blood transfusion, return to your normal activities as told by your doctor. Every day, check for signs of infection where the IV tube was put into your vein. Some signs of infection are warm skin, more redness and pain, more fluid or blood, and pus or a badsmell where the needle went in. Contact your doctor if you feel weak or have any unusual symptoms. This information is not intended to replace advice given to you by your health care provider. Make sure you discuss any questions you have with your health care provider. Document Released: 05/08/2015 Document Revised: 08/22/2018 Document Reviewed: 12/09/2016 [employer] Patient Education 2020 [employer]. [facility] 01-06-2023 History of Present illness Narrative* Ld Pace MD - 05/06/2022 2:45 PM EST [facility] [address] [address] Dept: [phone] Letitia Mascorro [id number] 05/06/2022 HISTORY OF PRESENT ILLNESS: Letitia is here for his Right foot triple arthrodesis, right achilles triple cut tendon lengthening, open tenotomies right posterior tibial tendon and right peroneus longus tendon on 11/16/21. Patientis roughly 3 months out from date of surgery. Letitia reports that his pain has been minimal Letitia reports that his swelling has been minimal Letitia had been instructed to be weight bearing as tolerated on the right lower extremity. Letitia has been compliant with his weight bearing restrictions Letitia has been working on his home exercise program and it is going well Letitia denies fevers and chills and has not had calf pain or shortness of breath In general Letitia feels that he has been doing well since the surgery Other issues or concerns that Letitia would like addressed at this visit: he has no other issues orconcerns to discuss Review of Systems Surgical Risk Factors: Allergies to Metals or Latex: NO Have you been treated for a blood clot: NO Have you had a history of bleeding disorder: NO Have you had a history of Anesthetic problems: NO Do you have tendency to bruise easily: NO Do you experience prolonged or excessive bleeding from cuts or after surgery: NO General/Constitutional: General: no Cancer: NO Acute/Chronic Infections: NO HEENT/Neck: Problems with theThroat: NO Problems with the Eyes: NO Problems with the Ears: NO Problems with the Nose and Sinuses: NO Endocrine: Problems with Diabetes: NO Problems with Thyroid Disorder: NO Thorax: Problems with the Heart: NO Problems with the Lung: no Cardiovascular: Problems with Circulation: NO Problems with High Blood pressure: NO Gastrointestinal: Problems with Ulcers: NO Problems with the Liver: no Problems with Bowel Habits: NO Genitourinary: Problems with the Genitals: NO Urinary problems: NO Kidney disease or stones: NO Skin: Any general problems: NO Neurologic: Dizziness, blurred vision, headaches, problems with balance : NO Seizures or Stroke: NO Psychiatric: Emotional or Psychological disorders: NO Depression or Anxiety: no PAST MEDICAL HISTORY: Past Medical History: Diagnosis Date Ankle arthritis RIGHT ANKLE ; SCHEDULED FOR THE SURGERY ON 08/14/2021 AT [facility] Arthritis History of blood transfusion Hypertension PONV (postoperative nausea and vomiting) Allergies Allergen Reactions Etodolac Gabapentin Propoxyphene Hives PHYSICAL EXAM: This is an age appropriate appearing male who is alert and oriented x 3. The patient appears well nourished. The patient is able to verbalize normally and seems to have a good understanding of his situation. Normocephalic and atraumatic Respiratory: No shortness of breath The right lower extremity is examined. Skin: warm and dry Lymphatic: Moderate swelling of the hindfoot, midfoot, and forefoot Vascular: Capillary refill in the foot/toes is brisk Neurologic: Sensation is intact except over the surgical incision site(s) Musculoskeletal: The calf is nontender to palpation. The patient is able to actively move the ankle/foot/toes The medial and lateral hindfoot/midfoot incisions are healed and benign Tenderness: no areas of tenderness on exam Gait: Ambulates with a noticeable limp RADIOGRAPHIC INTERPRETATION: 3 weight bearing views of the right foot were obtained and the following is my interpretation of the findings present of the X-rays: Interval bone healing is noted at the triple arthrodesis fusion sites. The orthopedic hardware crossing each fusion site in the hindfoot is intact with no signs of loosening or failure. Intraoperative correction of the preoperative deformity has been maintained in the hindfoot/midfoot. REVIEW OF RELATED PREVIOUS DOCUMENTATION: No documents related to the current problem(s) were reviewed or no documents were available for review. LABORATORY RESULT INTERPRETATION: No labs were reviewed/No labs available for review DIAGNOSIS: Diagnosis Plan 1. Arthritis of foot MEDICAL DECISION MAKING: I had a discussion with Letitia to make sure he has a good understanding of the diagnoses/issues that I think are present today and understands the plan moving forward. Letitia is doing well at this point and I think it is reasonable for him to start to resume more normal activities. I explained to Letitia that as he begins to resume his normal activities he should start slowly and gradually in order to avoid injury and/or pain. If Letitia has any problems or setbacks as he tries to resume his normal activities he is free to call me to discuss. If Letitia has any problems or concerns in the future he will call the office. Follow up if symptoms worsen or fail to improve. Electronically signed by Ld Pace MD [facility] Department of Orthopedic surgery 05/06/2022 5:06 PM Voice recognition was used for portions of this note and although it was reviewed prior to signing some incorrect words or phrases could be present. documented in this [facility]07-19-2022 History of Present illness Narrative* Lacye Saini RN - 11/16/2021 3:47 PM EDT Pt stood at bedside, tolerated well Pt states pain tolerable, denies nausea IV removed, site benign Dc instructions reviewed with pt and family at bedside, all questions answered, packet handed to pt's * Lacey Saini RN - 11/16/2021 2:39 PM EDT Family called to bedside * Lacey Saini RN - 11/16/2021 2:24 PM EDT Family updated via [facility] at 1424 documented in this [facility] Work Phone: [phone] Hospital Discharge instructions* Discharge Instructions* BRI Alvarado - 11/16/2021 10:45 AM EDT Images from the original note were not included. SPLINT INSTRUCTIONS Keep your splint clean and dry. Do not put anything down in the splint to scratch. If your splint gets wet or starts to feel uncomfortable call Dr Pace immediately ([phone]). If you see any blood on the outside bandage reinforce it on the surface with gauze and an kwesi bandage and call Dr Pace [phone]. Do not walk or stand on your splint. You can rest the splint on the floor but do not put weight on it. You should get up and move around once or twice an hour based on your comfort level. You are notto be at bed rest meaning you need to get up and move around in order to prevent blood clots. It is OK to wiggle your toes and you can contract your calf muscle inside the splint as well. When you put your foot down it is normal for the toes to turn a bluish or purple color. Once you elevate the foot for a few minutes a normal pink color should return underneath the toenails. If the color does not change within 10 minutes after elevating call Dr. Pace. ELEVATION Keep your foot/ankle elevated for comfort. Elevating your foot/ankle is the best way to control your swelling and pain. Elevation means keeping the toes at the level of your nose. If your leg is not elevated to that height then it is not truly elevated. Correct elevation height Incorrect elevation height MEDICATIONS You have been given a prescription for a narcotic medication that is intended for postoperative pain control. This medication should be used judiciously to try and minimize your discomfort after surgery. The medication will not relieve all of your pain and you should not take large amounts of the medication in an attempt to be pain free. Please understand that narcotic medications can be addictive and they are intended to decrease but not eliminate your pain and should therefore be used in moderation. If you have questions regarding taking the narcotic medication and other medications that you are currently on please call the office. You cannot drive or operate machinery while taking the narcotic medication. You should not drink alcohol or use recreational drugs while taking the narcotic medication.The [facility] restricts the amount of pain pills that can be legally prescribed and no more than one prescription in a week can be given. If you require a refill of the pain medication it requires that someone come to the office in person as it cannot be called in to the pharmacy or E-prescribed. Please understand that there is a limit to the total amount of pain medication that canbe prescribed so make every effort to take it only when needed. Unless otherwise instructed by Dr Pace you can take an over the counter anti-inflammatory to help with your pain as well. This includes but is not limited to Ibuprofen, Advil, Motrin, Alleve, etc. A prescription for baby aspirin was sent to your pharmacy and Dr. Pace wants you to take one tablet once a day. If you have any issues with the medication call Dr. Pace. WEIGHTBEARING INSTRUCTIONS Dr Pace wants you to be nonweight bearing on the Right lower extremity. You will continue this weight bearing restriction for the next 6 weeks If you have any problems maintaining this weight bearing status please call the office so that appropriate instructions can be given. FREQUENTLY ASKED QUESTIONS FREQUENTLY ASKED QUESTIONS If I am supposed to be non-weight bearing on the operative foot/ankle can I still rest the foot on the ground when I am sitting? Yes, it is OK to rest your operative foot on the ground when you are sitting. Is it normal to feel a scales of fluid or pressure in my foot/ankle when I put it down? Yes, after most foot, ankle or leg surgeries it is very common to feel immediate swelling or pressure in your foot, ankle and leg. Is it OK to put ice on my foot/ankle to help with the swelling and pain? After foot/ankle surgery elevating the foot/ankle is much better at relieving pain and swelling than ice. In many cases you bandage prevents the cold from getting to your skin. At your 2 week visit when your bandage is removed, icing the foot/ankle works much better and you can start it then. If I received a nerve block before surgery, how long will it last? A single shot nerve block can last anywhere from 8 hours to 36 hours on average, some patients' single shot blocks stop sooner and some can go a little longer. A catheter block (pain ball) lasts longer when you have it dialed down and it runs out faster if you have it dialed up. For most patients it lasts for a day and a half to 3 days. Can I shower or bathe after surgery? Yes, you can shower or bathe after surgery but you have to put a plastic bag over your splint/dressing to keep the splint/bandage absolutely dry. The splint/bandage is like a sponge and any water that gets in can damage your skin or cause your incision/incisions to open up and get infected. If your splint/bandage gets water in it, call Dr. Pace's office ([phone]) immediately and you will beinstructed which office can see your the quickest to change your splint/bandage. * Discharge Instr - Activity* BRI Alvarado - 11/16/2021 10:45 AM EDT Weight-bearing and post-operative activity Dr Pace wants you to be nonweight bearing on the Right lower extremity. You will continue this weight bearing restriction for the next 6 weeks If you have any problems maintaining this weight bearing status please call the office so that appropriate instructions can be given. Dr. Pace wants you to get up once per hour during the day to move around for a few minutes while following the above weight bearing orders. He does not want you to be in bed or on a couch all day not getting up. Getting up and moving once per hour helps to promote blood flow and is one way of trying to prevent a blood clot. Remember that when you get up it is normal for your foot/toes to change color and for you to feel fluid, pressure or throbbing (your heart beat) in your foot or toes. When you return to sitting down or laying down elevate your foot as it will lessen your swelling and be more comfortable. If you are having a hard time moving around during the day, let Dr Pace know. * Discharge Instr - Diet* BRI Alvarado - 11/16/2021 10:45 AM EDT Good nutrition is important when healing from an illness, injury, or surgery. Follow any nutrition recommendations given to you during your hospital stay. If you were given an oral nutrition supplement while in the hospital, continue to take this supplement at home. You can take it with meals, in-between meals, and/or before bedtime. These supplements can be purchased at most local grocery stores, pharmacies, and chain super-stores. If you have any questions about your diet or nutrition, call the hospital and ask for the dietitian. documented [facility] this [facility] Work Phone: [phone]) 603-181807-12-2022 Hospital Discharge instructions* Instructions* Josephine Vernon RN - 11/09/2021 ARRIVE 2 HOURS BEFORE SURGERY BRING A PHOTO ID AND INSURANCE CARD. HAVE A RESPONSIBLE ADULT THAT CAN TAKE YOU HOME AND STAY WITH YOU FOR 24 HOURS NO FOOD AFTER MIDNIGHT THE NIGHT BEFORE SURGERY, YOU MAY HAVE CLEAR FLUIDS UP UNTIL 2 HOURS BEFORE SURGERY. IF DIABETIC PLEASE AVOID HIGH SUGAR DRINKS WEAR LOOSE COMFORTABLE CLOTHING YOU CAN GO HOME IN. LEAVE ALL VALUABLES AT HOME, YOU MAY NEED A CO PAY FOR YOUR PRESCRIPTIONS. DO NOT USE ALCOHOL , RECREATIONAL DRUGS OR TOBACCO PRODUCTS FOR 24 HOURS BEFORE SURGERY. PLEASE WRITE DOWN ANY QUESTIONS YOU HAVE. DO NOT USE IBUPROFEN 24 HOURS BEFORE SURGERY. NO ALEVE FOR 3 DAYS. YOU MAY TAKE TYLENOL IF NEEDED HOLD VITAMINS AND SUPPLEMENTS THE WEEK BEFORE SURGERY HOLD LISINOPRIL ON DAY OF SURGERY, TAKE AMLODIPINE documented in this [facility] Work Phone: [phone]) 512-594304-14-2022 Hospital Discharge instructions* Instructions* Josephine Vernon RN - 08/12/2021 ..PLEASE BE AWARE THAT VISITORS UNDER THE AGE OF 12 AND FOOD/DRINKS ARE NO LONGER PERMITTED IN THE SAME DAY SURGERY DEPARTMENT. IF YOU USE A CPAP MACHINE OR RESCUE INHALER AT HOME PLEASE BRING THESE ITEMS WITH YOU THE DAY OF SURGERY. MEDICATION INSTRUCTIONS PRIOR TO SURGERY PLEASE BRING PROVIDED LIST BACK WITH YOU THE DAY OF SURGERY WITH DATE/TIME LAST DOSE OF MEDICATIONSTAKEN. MEDICATIONS TO HOLD STARTING NOW- vitamins, supplements, aspirin, stop nsaids 24 hours before surgery MEDICATIONS THAT YOU SHOULD NOT TAKE THE MORNING OF SURGERY- as above, lisinopril MEDICATIONS THAT YOU SHOULD TAKE THE MORNING OF SURGERY- amlodipine documented in this encounter[facility] Work Phone: Evaluation + Plan note Future Appointments Appointment Date:01/03/2023 09:00:00 AM Scheduled Provider:JACE TATE DO Location:[facility] Appointment Type:PC [facility] Evaluation + Plan note Future Appointments Appointment Date:05/24/2023 11:30:00 AM Scheduled Provider: Location:[facility] Appointment Type:INF Infusion: Venofer (1 Hour) Appointment Date:05/31/2023 11:30:00 AM Scheduled Provider: Location:[facility] Appointment Type:INF Infusion: Venofer (1 Hour) Appointment Date:07/04/2023 08:00:00 AM Scheduled Provider:JACE TATE DO Location: [facility] Appointment Type:[facility] Wellness Medicare with [facility] Evaluation + Plan note Future Appointments Appointment Date:05/31/2023 11:30:00 AM Scheduled Provider: Location:[facility] Appointment Type:INF Infusion: Venofer (1 Hour) Appointment Date:07/04/2023 08:00:00 AM Scheduled Provider:JACE TATE DO Location: [facility] Appointment Type:[facility] Medicare with [facility] Evaluation + Plan note Future Appointments Appointment Date:07/04/2023 08:00:00 AM Scheduled Provider:JACE TATE DO Location: [facility] Appointment Type:PC Wellness Medicare with [facility] Evaluation + Plan note Future Appointments Appointment Date:07/24/2023 01:00:00 PM Scheduled Provider: Location:[place] Appointment Type:INF Infusion: Venofer (1 Hour) Appointment Date:07/31/2023 12:00:00 PM Scheduled Provider: Location:[facility] Appointment Type:INF Infusion: Venofer (1 Hour) Appointment Date:01/04/2024 09:00:00 AM Scheduled Provider:JACE TATE DO Location: [facility] Appointment Type:[facility] Evaluation + Plan note Future Appointments Appointment Date:07/31/2023 12:00:00 PM Scheduled Provider: Location:[place] Appointment Type:INF Infusion: Venofer (1 Hour) Appointment Date:01/04/2024 09:00:00 AM Scheduled Provider:JACE TATE DO Location: [facility] Appointment Type:[facility] Evaluation + Plan note Future Appointments Appointment Date:01/04/2024 09:00:00 AM Scheduled Provider:JACE TATE DO Location:[facility] Appointment Type:[facility] Evaluation + Plan note Future Appointments Appointment Date:09/05/2024 12:00:00 PM Scheduled Provider: Location:[facility] Appointment Type:INF/OSP Infusion: Venofer (2 Hours) Appointment Date:01/09/2025 09:45:00 AM Scheduled Provider:JACE TATE DO Location:[facility] Appointment Type:[facility] Evaluation + Plan note Future Appointments Appointment Date:08/29/2024 12:00:00 PM Scheduled Provider: Location:[place] Appointment Type:INF/OSP Infusion: Venofer (2 Hours) Appointment Date:09/05/2024 12:00:00 PM Scheduled Provider: Location:[place] Appointment Type:INF/OSP Infusion: Venofer (2 Hours) Appointment Date:01/09/2025 09:45:00 AM Scheduled Provider:JACE TATE DO Location:[facility] Appointment Type:[facility] Evaluation + Plan note Future Appointments Appointment Date:01/09/2025 09:45:00 AM Scheduled Provider:JACE TATE DO Location:[facility] Appointment Type:[facility] Evaluation + Plan note Future Appointments Appointment Date:10/03/2024 10:00:00 AM Scheduled Provider: Location:[place] Appointment Type:INF/OSP Infusion: Venofer (2 Hours) Appointment Date:10/10/2024 12:00:00 PM Scheduled Provider: Location:[facility] Appointment Type:INF/OSP Infusion: Venofer (2 Hours) Appointment Date:01/09/2025 09:45:00 AM Scheduled Provider:JACE TATE DO Location:[facility] Appointment Type:[facility] Evaluation + Plan note Future Appointments Appointment Date:10/10/2024 12:00:00 PM Scheduled Provider: Location:[facility] Appointment Type:INF/OSP Infusion: Venofer (2 Hours) Appointment Date:01/09/2025 09:45:00 AM Scheduled Provider:JACE TATE DO Location:[facility] Appointment Type:[facility] Evaluation + Plan note Future Appointments Appointment Date:07/11/2025 08:30:00 AM Scheduled Provider:JACE TATE DO Location:[facility] Appointment Type:PC Wellness Medicare with [facility] Evaluation note* Diagnosis Arthritis of foot- Primary Unspecified arthropathy, 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 documented in this encounter [facility] Work Phone: Evaluation note* Diagnosis Posterior tibial tendon dysfunction, right documented in this encounter [facility] Work Phone: Evaluation note* Diagnosis Arthritis of foot- Primary [facility] Diagnosis Primary osteoarthritis, unspecified ankle and foot [facility] Narrative No data available for this section [facility] Discharge instructions No data available for this section [facility] Discharge instructionsAmbulatory Orders* General Surgery Location: None Selected * Nutrition Referral - [facility] Location: None Selected [facility] Work Phone: Progress note No data available for this section [facility] Summary Purpose Family History Relationship Condition Age at Onset Recorded Date/T eliezer father Diabetes mellitus Unknown sister Diabetes mellitus Unknown Advance Directives Advance Directive Response Recorded Date/ Time Do you have a Healthcare Power of Air Brake Rigger? No February 28, 2025 9:03am Chief Complaint and Reason for Visit Chief Complaint Admit Date Amb Documentation February 18, 2025 9 :44am NEW - ESOPHAGEAL CA February 19, 2025 9 :06am ESOPHAGEAL CA- IV ONLY February 19 10:58am ESOPHAGEAL CA February 21, 2025 9 :00am PORT PLACEMENT, POSSIBLE PEG January 1:35pm [facility] PRIOR REVIEW PET/CT SCAN Octob er 2024 10:02am REVIEW PET February 27, 2025 1 0:03am ONC MNT February 27, 2025 1 1:35am Insertion, Vascular Port right poss left March 03, 2025 11:08am Insertion, Vascular Port right poss left March 03, 2025 11:53am OTV March 12, 2025 8:51am . 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, 2025 9:06am Esophageal adenocarcinoma February 21, 2025 9:00am Encounter for insertion of venous access port February 26, 2025 1:35pm Esophageal adenocarcinoma February 26, 2025 1:35pm Esophageal adenocarcinoma February 27, 2025 10:02am Vomiting February 27, 2025 1 0:02am Esophageal adenocarcinoma February 27, 2025 10:03am Esophageal adenocarcinoma March 12, 2025 8:51am Additional Source Comments Care Teams (unrecognized sec tion and content) Ammonia Box Operator Relationship Specialty Start Date End Date Jace Tate [address] [place] [address] [address] [place], [place] [id number] PCP - General Urgent Care 04/16/21 Ammonia Box Operator Relationship Specialty Start Date End Date Jace Tate [address] [place] [address] [address] [place] [address] PCP - General Urgent Care 04/16/21 Ammonia Box Operator Relationship Specialty Start Date End Date Jace Tate [address] [place] [address] [address] [place] [address] PCP - General Urgent Care 04/16/21 Ammonia Box Operator Relationship Specialty Start Date End Date Jace Tate DO [address] [place] [address] [address] [place], [place] [id number] PCP - General Urgent Care 04/16/21 Ammonia Box Operator Relationship Specialty Start Date End Date Jace Tate [address] [place] [address] [address] [place], [place] [id number] PCP - General 04/16/21 Ammonia Box Operator Relationship Specialty Start Date End Date Jace Tate [address] [facility] [address] [place] [address] PCP - General 04/16/21 Team Status: Active Member Role/Relationship Status Dates Dr. Jace Tate DO Primary care physician Active Team Status: Active Member Role/Relationship Status Dates Dr. Jace Tate DO Primary care physician Active Start: February 18, 2025 Abby Dunn LPN Attending physician Active Start: February 18, 2025 Team Status: Inactive Member Role/Relationship Status Dates Dr. Jace Tate DO Primary care physician Active Start: February 19, 2025 End: February 19, 2025 Dr. Jace Tate DO Referring Provider Active Start: February 19, 2025 End: February 19, 2025 Dr. Arcadio Chatman MD Attending physician Active Start: February 19, 2025 End: February 19, 2025 Team Status: Inactive Member Role/Relationship Status Dates Dr. Jace Tate DO Primary care physician Active Start: February 19, 2025 End: February 19, 2025 Dr. Arcadio Chatman MD Attending physician Active Start: February 19, 2025 End: February 19, 2025 Dr. Arcadio Chatman MD Referring Provider Active S tart: February 19, 2025 End: February 19, 2025 Team Status: Inactive Member Role/Relationship Status Dates Dr. Jace Tate DO Primary care physician Active Start: February 21, 2025 End: February 21, 2025 Dr. Quintin Mullins DO Attending physician Active Start: February 21, 2025 End: February 21, 2025 Team Status: Inactive Member Role/Relationship Status Dates Dr. Jaec Tate DO Primary care physician Active Start: February 26, 2025 End: February 26, 2025 Dr. Jace Tate DO Referring Provider Active Start: February 26, 2025 End: February 26, 2025 Dr. Vinod Hicks MD Attending physician Active Start: February 26, 2025 End: February 26, 2025 Team Status: Inactive Member Role/Relationship Status Dates Dr. Jace Tate DO Primary care physician Active Start: February 27, 2025 End: February 27, 2025 Dr. Jace Tate DO Referring Provider Active Start: February 27, 2025 End: February 27, 2025 Dr. Arcadio Chatman MD Attending physician Active Start: February 27, 2025 End: February 27, 2025 Team Status: Inactive Member Role/Relationship Status Dates Dr. Jace Tate DO Primary care physician Active Start: February 27, 2025 End: February 27, 2025 Dr. Jace Tate DO Referring Provider Active Start: February 27, 2025 End: February 27, 2025 Dr. Quintin Mullins DO Attending physician Active Start: February 27, 2025 End: February 27, 2025 Team Status: Inactive Member Role/Relationship Status Dates Dr. Jace Tate DO Primary care physician Active Start: February 27, 2025 End: February 28, 2025 Dr. Arcadio Chatman MD Attending physician Active Start: February 27, 2025 End: February 28, 2025 Team Status: Inactive Member Role/Relationship Status Dates Dr. Jace Tate DO Primary care physician Active Start: March 03, 2025 End: March 03, 2025 Dr. Vinod Hicks MD Attending physician Active Start: March 03, 2025 End: March 03, 2025 Dr. Vinod Hicks MD Referring Provider Active Start: March 03, 2025 End: March 03, 2025 Team Status: Active Member Role/Relationship Status Dates Dr. Jace Tate DO Primary care physician Active Start: March 03, 2025 Dr. Vinod Hikcs MD Attending physician Active Start: March 03, 2025 Dr. Vinod Hicks MD Referring Provider Active Start: March 03, 2025 Dr. Vinod Hicks MD Nurse Practitioner Active Start: March 03, 2025 Team Status: Active Member Role/Relationship Status Dates Dr. Jace Tate DO Primary care physician Active Start: March 04, 2025 Dr. Quintin Mullins DO Attending physician Active Start: March 04, 2025 Team Status: Active Member Role/Relationship Status Dates Dr. Jace Tate DO Primary care physician Active Start: March 06, 2025 Dr. Quintin Mullins DO Attending physician Active Start: March 06, 2025 Team Status: Active Member Role/Relationship Status Dates Dr. Jace Tate DO Primary care physician Active Start: March 10, 2025 Dr. Quintin Mullins DO Attending physician Active Start: March 10, 2025 Team Status: Inactive Member Role/Relationship Status Dates Dr. Jace Tate DO Primary care physician Active Start: March 12, 2025 End: March 12, 2025 Dr. Jace Tate DO Referring Provider Active Start: March 12, 2025 End: March 12, 2025 Dr. Quintin Mullins DO Attending physician Active Start: March 12, 2025 End: March 12, 2025 Team Status: Active Member Role/Relationship Status Dates Dr. Jace Tate DO Primary care physician Active Start: March 12, 2025 Dr. Quintin Mullins DO Attending physician Active Start: March 12, 2025 Dr. Arcadio Chatman MD Referring Provider Active S tart: March 12, 2025 Ordered Prescriptions (unrec ognized section and content) Prescription Sig Dispensed Refills Start Date End Da te ondansetron (ZOFRAN-ODT) 4 MG disintegrating tabletIndications:Arthrit is of foot,Pes cavus Take 1 tablet by mouth 3 times daily as needed for Nausea or Vomiting 21 tablet 0 11/16/2021 aspirin EC 81 MG EC tabletIndications:Arthrit is of foot,Pes cavus Take 1 tablet by mouth in the morning. 30 tablet 0 11/16/2021 oxyCODONE-acetaminophen (PERCOCET) 5-325 MG per tabletIndications:Arthrit is of foot,Pes cavus Take 1 tablet by mouth every 6 hours as needed for Pain for up to 7 days. Intended supply: 7 days. Take lowest dose possible to manage pain 28 tablet 0 11/16/2021 11/23/2021 Scheduled Active and Recently Administ ered Medications (unrecognized section and content) Medication Order 11/14/2021 11/15/2021 11/16/2021 acetaminophen (TYLENOL) tablet 1,000 mg (COMPLETED) 1,000 mg, Oral, ONCE, 1 dose, On Mon11/16/21 at 0915, Maximum dose of acetaminophen is 4000 mg from all sources in 24 hours. Do not administer if patient has taken tylenol <4 hours earlier. Do not give if contraindicated ie. patient has active liver disease or cirrhosis., Pre-op (day of surgery) 0907 (Given - Provid er: Josephine Menon RN) famotidine (PEPCID) tablet 20 mg (COMPLETED) 20 mg, Oral, ONCE, 1 dose, On Mon11/16/21 at 0915, Pre-op (day of surgery) 906 (Given - Provid er: Josephine Menon RN) sodium chloride flush 0.9 % injection 5-40 mL 5-40 mL, IntraVENous, EVERY 12 HOURS SCHEDULED (2 times per day), First dose on Mon11/16/21 at 0915, Until Discontinued, For Line Patency: Peripheral IV = 5 mL; Midline or Central Line = 10 mL/lumen. If following IV push medication, administer flush at same rate as the IV push. Flush volume is determined by type of infusion therapy being given. For non-viscous solutions use: Peripheral IV = 5 mL Midline or Central Line = 10 mL/lumen For viscous solutions (i.e. blood components, parenteral nutrition, contrast media, or after obtaining blood sample) use: Peripheral IV = 10 mL Midline or Central Line = 20 mL/lumen, Pre-op (day of surgery) 914 (Due)2099 (Due) sodium chloride flush 0.9 % injection 5-40 mL 5-40 mL, IntraVENous, EVERY 12 HOURS SCHEDULED (2 times per day), First dose on Mon11/16/21 at 2100, Until Discontinued, For Line Patency: Peripheral IV = 5 mL; Midline or Central Line = 10 mL/lumen. If following IV push medication, administer flush at same rate as the IV push. Flush volume is determined by type of infusion therapy being given. For non-viscous solutions use: Peripheral IV = 5 mL Midline or Central Line = 10 mL/lumen For viscous solutions (i.e. blood components, parenteral nutrition, contrast media, or after obtaining blood sample) use: Peripheral IV = 10 mL Midline or Central Line = 20 mL/lumen, PACU only 2100 (Due) Continuous Medication Order 11/14/2021 11/15/2021 11/16/2021 lactated ringers infusion IntraVENous, at 50 mL/hr, CONTINUOUS, Starting on Mon11/16/21 at 0915, Upon admission to sameday - please start iv if patient does not have iv access. Use 500ml NS for patients on dialysis., Pre-op (day of surgery) 0915 (New Bag - Prov ider: Josephine Menon RN) lactated ringers infusion IntraVENous, at 50 mL/hr, CONTINUOUS, Starting on Mon11/16/21 at 1445, PACU only 1445 (Due) PRN Medication Order 11/14/2021 11/15/2021 11/16/2021 0.9 % sodium chloride bolus 500 mL (5.77 mL/kg), IntraVENous, at 1,000 mL/hr, Administer over 0.5 Hours, PRN, Anti-nausea, Starting on Mon11/16/21 at 1416, PACU only 0.9 % sodium chloride infusion IntraVENous, at 5-250 mL/hr, PRN, if patient receiving piggyback infusions and maintenance fluids are not ordered OR KVO fluids to protect IV site / prevent frequent line interruptions/ long duration, Starting on Mon11/16/21 at 0850, For piggyback infusion, administer at same rate as piggyback for a total of 25 mL. Enter 25 mL into dose field and piggyback rate into rate field of order. If piggyback is infusing at a rate less than 100 mL/hr, enter 25 mL into dose field and 100 mL/hr into rate field of order. For KVO fluids, enter rate of 20 mL/hr or less into rate field of order., Pre-op (day of surgery) ALPRAZolam (NIRAVAM) dissolvable tablet 0.25 mg 0.25 mg, Oral, PRN, Starting on Mon11/16/21 at 0850, Until Discontinued, Anxiety, Pre-op (day of surgery) diphenhydrAMINE (BENADRYL) injection 12.5 mg 12.5 mg, IntraVENous, ONCE PRN, 1 dose, Starting on Mon11/16/21 at 1416, Until Mon11/16/21 at 2359, Itching, PACU only hydrALAZINE (APRESOLINE) injection 5 mg(Linked Group 1) 5 mg, IntraVENous, EVERY 10 MIN PRN, 2 doses, Starting on Mon11/16/21 at 1416, Until Discontinued, High Blood Pressure, for SBP greater than 160 mmHg for 2 consecutive measurements taken from different sites, PRN for SBP > 160 for 2 consecutive measurements, and if one of the following conditions is met: 1) If IV labetolol is ineffective. 2) If HR is under 60. 3) If patient has heart block, COPD or asthma. If both labetalol and hydralazine ineffective, notify anesthesiologist. for use Sameday and, PACU only HYDROmorphone (DILAUDID) injection 0.25 mg HYDROmorphone (DILAUDID) 1.5mg IV is equivalent to morphine 10mg IV, 0.25 mg, IntraVENous, EVERY 15 MIN PRN, 2 doses, Starting on Mon11/16/21 at 1511, Until Discontinued, Pain Severe (7-10), If oral and IV narcotics ordered, use oral first and only use IV if oral is ineffective or cannot take oral. Do Not give oral and IV within 1 hour of each other unless specifically ordered., STAT 1517 (Given - Provid er: Lacey Saini RN) labetalol (NORMODYNE;TRANDATE) injection 5 mg(Linked Group 1) 5 mg, IntraVENous, EVERY 10 MIN PRN, 2 doses, Starting on Mon11/16/21 at 1416, Until Discontinued, High Blood Pressure, for SBP greater than 160 mmHg for 2 consecutive measurements taken from different sites., PRN for SBP >160 for 2 consecutive measurements, if HR is 60 or greater. If beta armani is contraindicated (HR less than 60, heart block, COPD or asthma) use hydralazine IV order. for use Sameday and, PACU only lidocaine PF 1 % injection 1 mL 1 mL, IntraDERmal, ONCE PRN, 1 dose, Starting on Mon11/16/21 at 0850, Until Mon11/16/21 at 2359, IV start, Pre-op (day of surgery) LORazepam (ATIVAN) injection 0.5 mg 0.5 mg, IntraVENous, ONCE PRN, 1 dose, Starting on Mon11/16/21 at 1416, Until Mon11/16/21 at 2359, for anxiety or muscle spasm., PACU only ondansetron (ZOFRAN) injection 4 mg 4 mg, IntraVENous, ONCE PRN, 1 dose, Starting on Mon11/16/21 at 1416, Until Mon11/16/21 at 2359, Nausea, Initial antiemetic therapy., PACU only sodium chloride flush 0.9 % injection 5-40 mL 5-40 mL, IntraVENous, PRN, Starting on Mon11/16/21 at 0850, Until Discontinued, Line Care, After every IV line use, For Line Patency: Peripheral IV = 5 mL; Midline or Central Line = 10 mL/lumen. If following IV push medication, administer flush at same rate as the IV push. Flush volume is determined by type of infusion therapy being given. For non-viscous solutions use: Peripheral IV = 5 mL Midline or Central Line = 10 mL/lumen For viscous solutions (i.e. blood components, parenteral nutrition, contrast media, or after obtaining blood sample) use: Peripheral IV = 10 mL Midline or Central Line = 20 mL/lumen, Pre-op (day of surgery) sodium chloride flush 0.9 % injection 5-40 mL 5-40 mL, IntraVENous, PRN, Starting on Mon11/16/21 at 1416, Until Discontinued, Line Care, After every IV line use, For Line Patency: Peripheral IV = 5 mL; Midline or Central Line = 10 mL/lumen. If following IV push medication, administer flush at same rate as the IV push. Flush volume is determined by type of infusion therapy being given. For non-viscous solutions use: Peripheral IV = 5 mL Midline or Central Line = 10 mL/lumen For viscous solutions (i.e. blood components, parenteral nutrition, contrast media, or after obtaining blood sample) use: Peripheral IV = 10 mL Midline or Central Line = 20 mL/lumen, PACU only No Frequency Medication Order 11/14/2021 11/15/2021 11/16/2021 midazolam (VERSED) 2 MG/2ML injection 1 dose, Starting on Mon11/16/21 at 1032, Until Mon11/16/21 at 2244, Cat, Ernst: cabinet override, Cat, Ernst: cabinet override 1045 (Due) Linked Groups Order Group 1: labetalol (NORMODYNE;TRANDATE) injection 5 mgJump to med 5 mg, IntraVENous, EVERY 10 MIN PRN, 2 doses, Starting on Mon11/16/21 at 1416, Until Discontinued, High Blood Pressure, for SBP greater than 160 mmHg for 2 consecutive measurements taken from different sites.
PRN for SBP >160 for 2 consecutive measurements, if HR is 60 or greater. If beta armani is contraindicated (HR less than 60, heart block, COPD or asthma) use hydralazine IV order. for use Sameday and
PACU only Or hydrALAZINE (APRESOLINE) injection 5 mgJump to med 5 mg, IntraVENous, EVERY 10 MIN PRN, 2 doses, Starting on Mon11/16/21 at 1416, Until Discontinued, High Blood Pressure, for SBP greater than 160 mmHg for 2 consecutive measurements taken from different sites
PRN for SBP > 160 for 2 consecutive measurements, and if one of the following conditions is met: 1) If IV labetolol is ineffective. 2) If HR is under 60. 3) If patient has heart block, COPD or asthma. If both labetalol and hydralazine ineffective, notify anesthesiologist. for use Same and
PACU only (unrecognized sect ion and content) No Status Records FoundNo Status Records FoundNo Status Records FoundNo Status Records FoundNo Status Records FoundNo Status Records Found INFORMATION SOURCE (unrecogn ized section and content) DATE CREATED AUTHOR 11/21/2021 [facility] [employer] DATE CREATED AUTHOR AUTHOR'S ORGANIZ ATION 02/19/2022 [facility] DATE CREATED AUTHOR AUTHOR'S ORGANIZ ATION 08/02/2023 [facility] ([place] DATE CREATED AUTHOR AUTHOR'S ORGANIZ ATION 01/14/[address] [facility] DATE CREATED AUTHOR AUTHOR'S ORGANIZ ATION 02/25/2025 [facility] DATE CREATED AUTHOR AUTHOR'S ORGANIZ ATION 03/12/2025 [facility] Care Team (unrecognized sect ion and content) Care Team Personnel Name: JACE TATE DO Position: P4 Physician - Primary Care Member Role: Primary Care Physician Address: Address: [address] [place] [address] [place] [address]- [place] Care Team Related Persons Name: QUANG MASCORRO Address: [address] [place], [place] [id number] [place] Reason for Visit (unrecogniz ed section and content) Reason Comments Ankle Pain FOR RECORDS PERTAINING TO PATIENTS WHO ARE OR HAVE BEEN ENROLLED IN A CHEMICAL DEPENDENCY/SUBSTANCEABUSE PROGRAM, SOME INFORMATION MAY BE OMITTED. This clinical summary was aggregated from multiple sources. Caution should be exercised in using it in the provision of clinical care. This summary normalizes information from multiple sources, and as a consequence, information in this document may materially change the coding, format and clinical context of patient data. In addition, data may be omitted in some cases. CLINICAL DECISIONS SHOULD BE BASED ON THE PRIMARY CLINICAL RECORDS. [facility] [employer] [facility]. provides no warranty or guarantee of the accuracy or completeness of information in this document.
[2025-03-18 16:01] LABS: Reflex Lactate? Y
[2025-03-18] MEDS: Diltiazem 125 MG in Dextrose 5%-Water (100mL Bag) 100 ML IV (16:31)
[2025-03-18] MEDS: LACTATED RINGERS 500 ML 999 ML IV (16:32)
[2025-03-18] MEDS: Lactated Ringers 1,000 ML 100 ML IV ×2 (16:32→23:28)
[2025-03-18] MEDS: Digoxin 250 MCG/ML Ampul IV (19:39)
[2025-03-18] MEDS: Lactated Ringers 500 ML 999 ML IV ×2 (20:32→21:53)
[2025-03-18] MEDS: Amiodarone 150 MG in Dextrose 5%-Water (100mL Bag) 100 ML 600 MG IV BOLUS (20:38)
[2025-03-18] MEDS: Amiodarone 360 MG in Dextrose 5% Viaflo Bag 192.8 ML 33.3 MG CONT INF (21:10)
[2025-03-18] MEDS: APIXABAN 5 MG TABLET PO (21:53)
[2025-03-19] VITALS (42 sets, daily range): BP systolic 77–127; BP diastolic 48–104; PULSE 111–152; RESP 15–33; TEMP 36.6–37.1; O2SAT 90–95; BMI 26.2
[2025-03-19] MEDS: Pantoprazole Sodium 80 MG in 0.9% Normal Saline (50mL Bag) 15 ML 420 MG IV BOLUS (00:07)
[2025-03-19 00:20] LABS: Hematocrit 25.2 % (40-54); Hemoglobin 8.1 g/dL (13.0-16.5)
[2025-03-19] MEDS: Amiodarone 150 MG in Dextrose 5%-Water (100mL Bag) 100 ML 600 MG IV BOLUS (00:21)
[2025-03-19] MEDS: Pantoprazole Sodium 80 MG in 0.9% Normal Saline (100mL Bag) 80 ML 10 MG CONT INF ×2 (00:37→10:11)
[2025-03-19] MEDS: Norepinephrine 8 MG in 0.9% Normal Saline (250mL Bag) 242 ML 9.4 MG CONT INF (01:00)
[2025-03-19] MEDS: Amiodarone 360 MG in Dextrose 5% Viaflo Bag 192.8 ML 16.7 MG CONT INF ×2 (03:39→15:53)
[2025-03-19] MEDS: 0.9% Saline Lock 10 ML Syringe IV ×2 (03:53→17:10)
--- NOTE | 2025-03-19 07:44 | PCM.CONS.P ---
[facility] Medical History Afib Wears dentures Cancer Low iron Easy bruising Injury of head and neck Dietary restriction Non-smoker Hoarseness Hypertension Esophageal pain Walker as ambulation aid Spinal injury Osteoarthritis Dysphagia Anemia Acid reflux disease Home Medications ?Medication ?Instructions ?Recorded ?Last Taken ?Type rabeprazole 20 mg tablet,delayed 20 mg PO QDAY 02/19/25 Unknown History release Allergy/AdvReac Type Severity Reaction Status Date / Time acetaminophen (From Allergy unknown Verified 03/18/25 11:41 Darvocet-N) propoxyphene (From Allergy unknown Verified 03/18/25 11:41 Darvocet-N) gabapentin AdvReac dizziness, Verified 03/18/25 11:41 light headed Family History Father Diabetes Sister Diabetes Surgical History Hx of hernia repair Hx of foot surgery History of esophagogastroduodenoscopy (EGD) History of cholecystectomy History of cataract surgery History of arthroplasty of left knee Status post right foot surgery Social History Smoking Status: Never smoker alcohol intake: never substance use type: does not use ROS Constitutional Constitutional: Reports anorexia and weakness Cardiovascular Cardiovascular: Reports irregular heart rhythm, rapid heart rate and weakness in extremities Respiratory/Chest Respiratory/Chest: Reports systems reviewed and no addt'l complaints, except as documented Gastrointestinal Gastrointestinal: Reports systems reviewed and no addt'l complaints, except as documented Genitourinary Genitourinary: Reports as per HPI Musculoskeletal Musculoskeletal: Reports systems reviewed and no addt'l complaints, except as documented Integumentary Integumentary: Reports systems reviewed and no addt'l complaints, except as documented Neurologic Neurologic: Reports systems reviewed and no addt'l complaints, except as documented Psychiatric Psychiatric: Reports systems reviewed and no addt'l complaints, except as documented Endocrine Endocrinology: Reports systems reviewed and no addt'l complaints, except as documented Hematologic/Lymphatic Hematologic/Lymphatic: Reports anemia Allergic/Immunologic Allergic/Immunologic: Reports systems reviewed and no addt'l complaints, except as documented Physical Exam Const alert and oriented x3 General Appearance: cooperative HEENT normocephalic Resp normal respiratory effort, normal air movement and clear to auscultation bilaterally Cardio Cardio Narrative: A-fib with RVR Rate: tachycardic Rhythm: abnormal rhythm irregularly irregular Extremity Extremity Narrative: 1+ pulses radial Neuro Speech: speech normal Gait (Neuro): unable to assess gait Psych affect normal Charges/Coding Palliative Care Palliative Care: [id number] New Pt Consult 80+ min HPI Current admission Current Code Status: DNR CC?a with no intubation Associated Diagnosis: New onset A-fib with RVR, adenocarcinoma Consult Data Date of Consult: 03/19/25 Location of consult: ICU Reason for referral: Goals of care and CODE STATUS Referral source: Dr. Knox Palliative care diagnosis (Summary list): Adenocarcinoma stage IVb, uncontrolled A-fib with RVR Palliative care services/treatment (Accepted, as consult): Accepted Case discussed with referring provider: Family decision on goals of care HPI Narrative HPI Narrative: PAIN ASSESSMENT patient currently denies pain Prior to meeting with the patient at bedside I reviewed previous documentation, labs and radiological studies. I did note that Mr. 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 He did have a thoracentesis yesterday in which they took up to 900 mL he then subsequently went into A-fib with RVR and was sent to the emergency department. He was admitted to ICU and started on Levophed for hypotension. Despite aggressive medical management for his atrial fibrillation, he continues to be in A-fib with RVR. It is doubtful that the patient would tolerate palliative chemotherapy. I then met with the patient, his Renetta and son Michel at bedside. I introduced myself and the concept of palliative care which they voluntarily excepted our services. I did go over what has happened with Mr. Chun in the last 24 hours in which they stated agreement. We then discussed his goals of care going forward and they were in agreement that he is not tolerating radiation and thoracentesis well. We stated understanding that he most likely would not tolerate chemotherapy very well either. Given his current medical status, the patient and his family have decided to transition to home with hospice. Mr. Chun did feel confident in returning home with hospice services. He is interested in quality of life versus quantity of life going forward. We discussed the multiple agencies that would be able to care for him at home and they have chosen [facility] as they are hospice service for home. We then discussed his CODE STATUS in which he is currently a full code. I did review benefits versus burdens and they decided to transition to DNR CCA with no intubation. I did update Dr. Chun, as well as nursing DAY CAMP COUNSELOR/CM. Referrals being placed to [facility]. I did send a warm handoff to the providers at [facility] about this patient. All questions the patient and family had were answered. per hospitalist:STARLA CHUN, is a 84 M who presented to [facility] ED on 03/18/2025 with new onset A-fib with RVR. 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 Chatman and Dr. Mullins, see office notes for further details. In short, he was found imaging to have an esophageal mass in December. Had upper endoscopy on 02/10 with mass at 30 cm obstructing the esophagus. Biopsy was done and pathology showed moderately differentiated adenocarcinoma. He had another endoscopy with placement of esophageal stent on 02/17. He had CT chest abdomen pelvis and PET CT scan done for staging and was found to have stage IVb cancer with extensive local disease in bilateral adrenal gland involvement. Plan determined at that time was for palliative radiation therapy to keep esophagus open then consider systemic therapy. Patient has now completed 7 rounds of radiation therapy as of 03/18, last treatment on morning of 03/18. Patient was found on imaging recently to have a right sided pleural effusion, and he had right-sided thoracentesis done this morning as well with 905 mL removed. He was noted to be in A-fib with RVR at that time and was sent to the ED for further evaluation. In the ED was in A-fib with RVR with heart rate to the 140s to 150s and was hypotensive to the 80s over 60s. Lab workup notable for for mild hyperthyroidism with REGIS 0.17 and free T4 1.50 and lactic acid 2.3. He was given two 500 cc IV fluid boluses, two IV Cardizem boluses and a dose of IV Lopressor with some improvement in heart rate and blood pressure, but he did not convert back to sinus rhythm. Hospitalist was then contacted for admission. I saw the patient at bedside in the ED, was present. Patient was laying back in bed and was fatigued appearing but was otherwise answering questions with short appropriate responses for me. He denied any palpitations or chest pain currently. Did note that he has not been eating or drinking much over the past several days due to weakness and fatigue. Has not had any aspiration events. Does have difficulty swallowing with a solids but is typically able to get liquids down. Importantly, I discussed goals of care with the patient and his for about 15 minutes at the bedside. I noted that given his stage IV cancer, worsening weakness with poor p.o. intake, and new onset A-fib with RVR with hypotension, I am very concerned both about his short-term prognosis. I discussed with him that per Dr. Chatman's note, patient has stage IV cancer and the radiation therapy and chemotherapy are palliative in nature and not curative. I also discussed code status and noted that full code would be quite aggressive with the patient at this time given his prognosis. Patient's was the primary person to answer questions during this conversation and seemed to have some difficulty grasping the severity of the patient's illness. She and patient did note wanting to keep him full code at this time. I noted to them that I would like to have palliative care see the patient during his hospitalization for assistance with goals of care discussions and they were agreeable to this. Will be admitted for further management. Palliative Assessment Advanced Directive - Current Admission Advance Directive: Advance Directive ON ADMISSION - REFERENCE Do you have a Healthcare No 03/18/25 16:07 Living Will? Do you have a Healthcare Power No 03/18/25 16:07 of Olive Picker? Do You Want Additional Declined 03/18/25 16:07 Information on Advanced Directives or Healthcare Proxy/DPOA comments: Renetta. [phone]. Psychosocial/Spiritual Information Living situation/Marital status: Lives with his Geographic location: [facility] Supports: Family Adventist/Mishel or spiritual preference: Roman Catholic Spiritual distress: Denies Prior functional status: Spends most of his time in the recliner or bed Assistive devices at home: Walker and wheelchair Cultrual issues: None Information about the patient as a person: Patient enjoys spending time with family. Symptoms Palliative performance scale: 30% Palliative prognostic index: 6.0 Dyspnea symptoms: Mild Constipation symptoms: Mild Nausea symptoms: None Vomiting symptoms: None Depression symptoms: None Anorexia symptoms: Moderate Cough symptoms: Mild Insomnia symptoms: None Diarrhea symptoms: None Fatigue symptoms: Moderate Weakness symptoms: Moderate Confusion symptoms: None Objective Data Objective Data Vital Signs: Vital Signs Temp Pulse Resp BP Pulse Ox O2 Del Method 98.1 F 132 H 20 H 109/64 94 Room Air 03/19/25 06:55 03/19/25 07:00 03/19/25 07:00 03/19/25 07:00 03/19/25 07:24 03/19/25 07:24 Oxygen Delivery Method Room Air Weight: 157 lb 3.033 oz Body Mass Index (BMI) 26.2 Intake & Output: Intake and Output for Last 24 Hours 03/17/25 03/18/25 03/19/25 23:59 23:59 23:59 Intake Total 3684.84 / 3684.84 1184.98 / 1184.98 Output Total 250 / 550 300 / 300 Balance 3434.84 / 3134.84 884.98 / 884.98 Lab / Micro Data Attestation: I reviewed the patient's lab results. Lab results narrative: Worsening WBCs at 19.9, hemoglobin has decreased to 8.1. Hyponatremia at 132, TSH decreased at 0.170, T4 elevated at 1.50, elevated troponin of 34 and 32. Borderline kidney function. 03/19/25 08:50 03/19/25 08:50 Labs: Laboratory Results - last 24 hr 03/18/25 11:59: WBC 19.9 H, RBC 3.63 L, Hgb 10.8 L, Hct 31.8 L, MCV 87.6, MCH 29.8, MCHC 34.0, RDW Std Deviation 46.5 H, RDW Coeff of Kat 14.6, Plt Count 372, MPV 9.4, Immature Gran % (Auto) 1.600 H, Neut % (Auto) 93.3 H, Lymph % (Auto) 0.9 L, [place] % (Auto) 3.9, Eos % (Auto) 0.1, Baso % (Auto) 0.2, Absolute Neuts (auto) 18.6 H, Absolute Lymphs (auto) 0.18 L, Nucleated RBC % 0, Sodium 132 L, Potassium 4.1, Chloride 96 L, Carbon Dioxide 21.6, Anion Gap 15, BUN 62 H, Creatinine 0.97, Estim Creat Clear Calc 51.07, Est GFR (MDRD) Non-Af 78, BUN/Creatinine Ratio 63.3 H, Glucose 126 H, Lactic Acid 2.3 H*, Calcium 9.1, Troponin T High Sens 34 H, TSH 0.170 L 03/18/25 14:00: Troponin T Hi Sens 2 Hr 32 H, Free T4 1.50 H 03/18/25 16:25: Lactic Acid 1.7 03/18/25 23:27: Hgb 8.1 L, Hct 25.2 L 03/19/25 01:09: Blood Type AB POSITIVE, Antibody Screen NEGATIVE, Crossmatch See Detail Micro: Microbiology 03/18/25 15:45 Mucosa - Nasopharyngeal Respiratory Panel (PCR) - Final Radiography Diagnostic Testing: Radiology Impression Chest X-Ray 03/18/25 11:51 IMPRESSION: 1. Developing moderate right pleural effusion, superimposed consolidation not excluded. 2. Mild cardiomegaly and diffuse pulmonary vascular congestion. Reading Location: [facility] Rhythm Strip Rhythm Strip: A-fib Rate: 144 Impressions & Recommendations Patient & Family Issues discussed with the patient and family: Goals of care going forward as well as CODE STATUS Patient goal: Patient is wanting quality of life versus quantity of life and understands that he is not tolerating palliative treatments at this time. Family goal: Patient's and son will like to take him home with hospice as soon as possible Ethical & Legal Ethical and legal: None Impressions Impressions: Patient would benefit from hospice services Recommentation Palliative recommendations: Based on patient's presentation with uncontrolled atrial fibrillation with RVR and adenocarcinoma stage IVb I do recommend hospice. Encouter Achieved as a result of this Palliative Care Encounter: [ 30?07 52, 0900?1002, 1120?1202] minutes were spent in total for this visit which consisted, primarily of counseling and education dealing with the complex and emotionally intense issues of symptom management and palliative care in the setting of serious and potentially life-threatening illness. Review of documentation, labs and radiological studies. ?Patient/family had the opportunity to ask questions Plan (1) Atrial fibrillation with rapid ventricular response: (2) Esophageal adenocarcinoma: (3) Goals of care, counseling/discussion: (4) Pleural effusion, right: (5) Palliative care encounter: PLAN: Plan *Goals of care discussion *CODE STATUS discussion *Family meeting with and son in which they have decided to transition to home with [facility] *CODE STATUS changed to DNR CCA with no intubation *Warm handoff to [facility] *Medical management per primary team
--- NOTE | 2025-03-19 07:54 | EX.PCM.CONCC ---
Assessment & Plan Assessment/Plan (1) Acute hypotension: (2) Afib: PLAN: Plan RECOMMENDATIONS: 1. Wean Levophed off, if feasible. 2. Rate/rhythm control strategy per cardiology. 3. Await results of echocardiogram. 4. Pleural fluid cytology is pending. 5. Agree with palliative care consultation. 6. Monitor H&H and transfuse if hemoglobin drops below 7 g/dL. Continue PPI therapy. 7. The patient should remain n.p.o. for now. 8. Cardiology consultation is pending. IMPRESSIONS: 1. Multifactorial shock Most likely secondary to a component of intravascular volume depletion coupled with possible hemorrhagic component in the setting of blood loss anemia along with the hemodynamic implications associated with his atrial fibrillation. Given that his A-fib remains uncontrolled on amiodarone, recommend weaning the patient off of Levophed completely, if feasible. Will administer digoxin. Cardiology consultation is currently pending. Will await echocardiogram results. In the interim, the patient is going to receive 2 units of packed red blood cells with consultation pending to cardiology. Continue PPI therapy. 2. New onset atrial fibrillation with RVR Continue amiodarone with consultation to cardiology pending. Echocardiogram has been completed with read pending. 3. Anemia The patient is currently being transfused packed red blood cells due to a hemoglobin of 8.0 g/dL. From this point forward, recommend continuing to monitor H&H and transfuse if hemoglobin is at or below 7 g/dL. Continue PPI therapy. Gastroenterology consultation is pending. 4. History of metastatic esophageal cancer, complicated by failure to thrive The patient apparently recently completed palliative radiation treatment and there are tentative plans to proceed with chemotherapy. However, in light of his decompensated status, I do feel that hospice care services would be most appropriate. Palliative care is currently consulted and following to assist with goals of care discussion. 5. Right-sided pleural effusion Most likely malignant in etiology. The patient underwent thoracentesis with pleural fluid cytology pending. TIME: 38 minutes of critical care time, independent of procedures, was spent addressing the patient's multifactorial shock, new onset atrial fibrillation, anemia, history of metastatic esophageal cancer, review of all data and collaboration with the care team. HPI Consult Data Date of Consult: 03/19/25 HPI Narrative Reason for Consultation: Atrial fibrillation with RVR, anemia HPI Narrative: The patient is an 84-year-old male, with a history as outlined below, who presented to the emergency department on March 18 with new onset atrial fibrillation with RVR. The patient was recently diagnosed with stage IV esophageal cancer and is currently being followed by Dr. Chatman, with the patient having recently completed palliative radiation therapy. On recent imaging, the patient was found to have a right sided pleural effusion, for which he underwent ultrasound-guided thoracentesis on March 18. He was apparently found to be in atrial fibrillation with RVR at that time and was subsequently referred to the emergency department for evaluation. Pleural fluid cytology is pending. On presentation to the emergency department, the patient was noted to be afebrile but was notably tachycardic and tachypneic with a presenting blood pressure of 91/76 mmHg. Laboratory evaluation was notable for a white blood cell count of 20,000 with a hemoglobin of 10.8 g/dL. Chemistry profile was notable for a sodium of 132 with a chloride of 96 and BUN of 62. Creatinine was normal at 0.97. Lactate was mildly elevated at 2.3. Troponins were increased at 34. Chest imaging demonstrated a right-sided pleural effusion. Blood cultures were collected. Respiratory viral panel was negative. The patient was initially medically managed with Cardizem and IV Lopressor in the emergency department without any significant improvement in his heart rate control. The patient was subsequently admitted to the medical intensive care unit and placed on an amiodarone infusion. It appears that he was started on low-dose Levophed overnight secondary to hypotension. In addition, the patient's hemoglobin dropped to 8.1 g/dL, for which 2 units of packed red blood cells were ordered. At the present time, echocardiogram read and cardiology consultation are pending. [facility] Medical History Afib Wears dentures Cancer Low iron Easy bruising Injury of head and neck Dietary restriction Non-smoker Hoarseness Hypertension Esophageal pain Walker as ambulation aid Spinal injury Osteoarthritis Dysphagia Anemia Acid reflux disease Home Medications ?Medication ?Instructions ?Recorded ?Last Taken ?Type rabeprazole 20 mg tablet,delayed 20 mg PO QDAY 02/19/25 Unknown History release Allergy/AdvReac Type Severity Reaction Status Date / Time acetaminophen (From Allergy unknown Verified 03/18/25 11:41 Darvocet-N) propoxyphene (From Allergy unknown Verified 03/18/25 11:41 Darvocet-N) gabapentin AdvReac dizziness, Verified 03/18/25 11:41 light headed Family History Father Diabetes Sister Diabetes Surgical History Hx of hernia repair Hx of foot surgery History of esophagogastroduodenoscopy (EGD) History of cholecystectomy History of cataract surgery History of arthroplasty of left knee Status post right foot surgery Social History Smoking Status: Never smoker alcohol intake: never substance use type: does not use ROS ROS Narrative 10 systems were reviewed with pertinent positives as noted in the HPI above. Physical Exam Const alert and no apparent distress General Appearance: cooperative HEENT normocephalic, head/scalp atraumatic and moist oral mucous membranes Eyes PERRL, EOMs intact bilaterally and conjunctivae normal Neck supple General: trachea midline Chest inspection of chest normal Resp normal respiratory effort Auscultation: diminished lung sounds right lower Cardio Rate: tachycardic Rhythm: abnormal rhythm GI normal to inspection, nondistended, normoactive bowel sounds Extremity no clubbing, cyanosis or edema Skin no rashes or lesions noted Neuro CN's II-XII intact bilaterally, moves all extremities and no focal motor deficits Psych cooperative and affect normal Lab / Micro Data 03/19/25 08:50 03/18/25 11:59 Labs: Laboratory Results - last 24 hr 03/18/25 11:59: WBC 19.9 H, RBC 3.63 L, Hgb 10.8 L, Hct 31.8 L, MCV 87.6, MCH 29.8, MCHC 34.0, RDW Std Deviation 46.5 H, RDW Coeff of Kat 14.6, Plt Count 372, MPV 9.4, Immature Gran % (Auto) 1.600 H, Neut % (Auto) 93.3 H, Lymph % (Auto) 0.9 L, [place] % (Auto) 3.9, Eos % (Auto) 0.1, Baso % (Auto) 0.2, Absolute Neuts (auto) 18.6 H, Absolute Lymphs (auto) 0.18 L, Nucleated RBC % 0, Sodium 132 L, Potassium 4.1, Chloride 96 L, Carbon Dioxide 21.6, Anion Gap 15, BUN 62 H, Creatinine 0.97, Estim Creat Clear Calc 51.07, Est GFR (MDRD) Non-Af 78, BUN/Creatinine Ratio 63.3 H, Glucose 126 H, Lactic Acid 2.3 H*, Calcium 9.1, Troponin T High Sens 34 H, TSH 0.170 L 03/18/25 14:00: Troponin T Hi Sens 2 Hr 32 H, Free T4 1.50 H 03/18/25 16:25: Lactic Acid 1.7 03/18/25 23:27: Hgb 8.1 L, Hct 25.2 L 03/19/25 01:09: Blood Type AB POSITIVE, Antibody Screen NEGATIVE, Crossmatch See Detail Micro: Microbiology 03/18/25 15:45 Mucosa - Nasopharyngeal Respiratory Panel (PCR) - Final Imaging Radiology Impression Chest X-Ray 03/18/25 11:51 IMPRESSION: 1. Developing moderate right pleural effusion, superimposed consolidation not excluded. 2. Mild cardiomegaly and diffuse pulmonary vascular congestion. Reading [facility] Charges/Coding Procedures Hospitalists Procedures: 59957 Critical Care 1st Hr
[2025-03-19 09:06] LABS: Hematocrit 32.6 % (40-54); Hemoglobin 10.8 g/dL (13.0-16.5); Immature Granulocytes Count 0.310 X10^3/uL (0.0-0.0); Mean Corp Hgb Conc 33.1 g/dL (32-36); Mean Corpuscular Volume 87.6 fL (80-94); Mean Platelet Vol. 9.5 fl (6.2-12.0); NRBC Flagged by Analyzer 0 % (0-5); POSITIVE DIFFERENTIAL YES; Platelet Count 244 K/mm3 (150-450); RBC Distribution Width CV 14.8 % (11.6-14.6); RBC Distribution Width SD 46.9 fl (35.1-43.9); Red Blood Count 3.72 M/mm3 (4.6-6.2); White Blood Count 18.7 K/mm3 (4.4-11.0)
[2025-03-19 09:36] LABS: Anion Gap 9 (5-15); BUN 41 mg/dL (4-19); BUN/Creat Ratio 54.1 RATIO (10-20); Calcium,Total 8.2 mg/dL (7.6-11.0); Carbon Dioxide 23.8 mmol/L (21.0-32.0); Chloride 100 mmol/L (98-108); Estimated Creatinine Clearance 61.93 ml/min (50-250); Glucose 168 mg/dL (70-99); Magnesium 2.3 mg/dL (1.5-2.2); Potassium 4.2 mmol/L (3.3-5.1)
--- NOTE | 2025-03-19 10:03 | CASEMGMT ---
Addendum entered by Marleny Hendrix 03/19/25 11:18: EUGENIA spoke with Ofelia at [facility]. Brooke, nurse, will be at the hospital at noon for hospice consult with family. Bedside nurse and hospitalist updated. EUGENIA remains available to follow. MARIELLE Del Cid Original Note: Social Work- SW participated in interdisciplinary rounds with care team. Palliative SETTER [employer]AGING MACHINES updated that pt family is interested in hospice referral. Plan will be to return home with hospice. Palliative SETTER JUICE PACKAGING MACHINES feels order is urgent d/t pt medical status. EUGENIA completed referral vis email, marked urgent. EUGENIA received follow up email from [facility] stating that they have availability this morning and will reach out to pt . EUGENIA called pt , Renetta, to provide an update on referral status and to expect a call. EUGENIA updated hospitalist and bedside nurse. EUGENIA remains available to follow. Plan: [facility] at home MARIELLE Del Cid
[2025-03-19] MEDS: Digoxin 250 MCG/ML Ampul 500 MCG IV (11:34)
--- NOTE | 2025-03-19 14:20 | CHAPLAIN ---
Type of Pastoral Visit _x__ Initial Visit ___ Follow-up Visit ___ On-call Visit ___ General Patient Visit ___ Spiritual Assessment ___ Family Conference ___ Bereavement ___ Rapid Response ___ Code Blue ___ Other (describe below) Pastoral Care Referral From _x__ Patient _x__ Family ___ Nurse ___ Physician ___ Bench Loom Weaver ___ Wall Man ___ Other (describe below) Sacrament/Intervention _x__ Active listening ___ Anointing ___ Mandaen ___ Bereavement ___ Communion _x__ Mishel exploration ___ _x__ Life review _x__ Prayer ___ Reconciliation ___ Sacrament of Sick _x__ Supportive presence ___ Wedding ___ Other (describe below) Pastoral Comments patient coughs during the entire visit and is offered time to be calm but he continues to talk and share his life review; pt speaks of the wisdom and mishel of his mother and how she guided him in strict behavior; pt is open to speak of his 'verdict that has been handed down'; pt is asked about his feelings, his mishel and its impact on him at this time; pt is offered support and prayer
--- NOTE | 2025-03-19 14:40 | CASEMGMT ---
Social Work- EUGENIA spoke with [facility] nurse Brooke who reports that the plan is for pt to d/c home with hospice. Brooke reports that a bed will be delivered and a ramp in place tomorrow for pt. Hospice to be updated if pt will d/c for verification that all DME is in place. EUGENIA updated hospitalist. EUGENIA remains available to follow. MARIELLE Del Cid
[2025-03-19] MEDS: guaiFENesin 10 ML UDC (200MG/10ML) PO (17:06)
--- NOTE | 2025-03-19 18:42 | PN.HOSP_ITS ---
Reason for Visit Chief Complaint: New onset A-fib with RVR Subjective Subjective Patient was seen and examined today, he voiced no complaints to this examiner. Patient's white blood cell count this morning was 18.7 and his hemoglobin was 10.8. Family and the patient had discussions with palliative care and finally agreed to enroll in the hospice care program at his home. Things will be set up for the patient tomorrow. I talked briefly with cardiology-because of the patient's hospice status, they felt they could not add any medical input regarding his cardiology issues at this time and so I agreed to withdraw the cardiology consult. Patient is on rate limiting medications at this time and appears comfortable. Objective Data Objective Data Vital Signs: Vital Signs Temp Pulse Resp BP Pulse Ox O2 Del Method 98.3 F 129 H 18 97/56 L 92 Room Air 03/19/25 13:44 03/19/25 17:06 03/19/25 17:06 03/19/25 17:06 03/19/25 17:06 03/19/25 17:06 Oxygen Delivery Method Room Air Weight: 71.3 kg Body Mass Index (BMI) 26.2 Intake & Output: Intake and Output for Last 24 Hours 03/17/25 03/18/25 03/19/25 23:59 23:59 23:59 Intake Total 3684.84 / 3684.84 2034.99 / 2034.99 Output Total 250 / 550 450 / 450 Balance 3434.84 / 3134.84 1584.99 / 1584.99 Lab / Micro Data 03/19/25 08:50 03/19/25 08:50 Labs: Laboratory Results - last 24 hr 03/18/25 23:27: Hgb 8.1 L, Hct 25.2 L 03/19/25 01:09: Blood Type AB POSITIVE, Antibody Screen NEGATIVE, Crossmatch See Detail 03/19/25 08:50: WBC 18.7 H, RBC 3.72 L, Hgb 10.8 L, Hct 32.6 L, MCV 87.6, MCH 29.0, MCHC 33.1, RDW Std Deviation 46.9 H, RDW Coeff of Kat 14.8 H, Plt Count 244, MPV 9.5, Immature Gran % (Auto) 1.700 H, Neut % (Auto) 92.3 H, Lymph % (Auto) 1.2 L, [place] % (Auto) 4.5, Eos % (Auto) 0.1, Baso % (Auto) 0.2, Absolute Neuts (auto) 17.3 H, Absolute Lymphs (auto) 0.22 L, Nucleated RBC % 0, Sodium 132 L, Potassium 4.2, Chloride 100, Carbon Dioxide 23.8, Anion Gap 9, BUN 41 H, Creatinine 0.75, Estim Creat Clear Calc 61.93, Est GFR (MDRD) Non-Af 90, B UN/Creatinine Ratio 54.1 H, Glucose 168 H, Calcium 8.2, Phosphorus 2.5 L, M agnesium 2.3 H Micro: Microbiology 03/18/25 15:45 Mucosa - Nasopharyngeal Respiratory Panel (PCR) - Final Radiography Diagnostic Testing: Radiology Impression Echocardiogram 03/18/25 15:02 Interpretation Summary The left ventricular ejection fraction is 55 %. Normal LV size. Mild (1+) tricuspid valve insufficiency. Pulmonary artery systolic pressure is 36 mmHg. Ordering Physician: Edwar Knox Referring Physician: Ervin Tate Performed By: Linda Villegas, GAMALCS, RVT Rhythm Strip Rhythm Strip: A-fib Rate: 144 Physical Exam Const alert, oriented x3 and no apparent distress Constitutional Narrative: Patient appears her stated age General Appearance: cooperative, well kempt and well developed Orientation / Consciousness: awake, oriented to person, oriented to place and oriented to time HEENT normocephalic, head/scalp atraumatic and moist oral mucous membranes Eyes PERRL, EOMs intact bilaterally and conjunctivae normal Neck supple, no JVD, thyroid normal and no carotid bruits General: trachea midline Resp normal respiratory effort, no retractions, no use of accessory muscles and clear to auscultation bilaterally Auscultation: Negative for rales, rhonchi or wheezes Cardio S1 normal heart sound, S2 normal heart sound, no murmurs, no rub and no gallops Cardio Narrative: Heart rate and rhythm is irregular and tachycardic GI normal to inspection, nondistended, normoactive bowel sounds, soft to palpation, non-tender and non-distended Extremity no clubbing, cyanosis or edema Skin no rashes or lesions noted General Skin Exam: no breakdown Neuro oriented x3, CN's II-XII intact bilaterally, moves all extremities, no focal motor deficits and no sensory deficits noted Sensorium / Orientation: awake and alert Speech: speech normal Psych affect normal Assessment & Plan Assessment/Plan (1) Upper GI bleed: PLAN: Plan 1. New onset A-fib with RVR-patient is on rate limiting medications at this time, patient appears comfortable #2 upper GI bleed with acute blood loss anemia-secondary to esophageal cancer, patient was transitioned over to IV Protonix twice daily, patient received 2 units of packed red blood cells, due to the patient's hospice status, I have elected not to repeat his H&H tomorrow #3 stage IV esophageal cancer-again patient has consented to hospice care at home #4 right pleural effusion-patient underwent a thoracentesis yesterday with removal of 905 mL of fluid. #5 multifactorial shock secondary to cardiac arrhythmia and blood loss anemia, echocardiogram today showed a normal EF of 55% with mild pulmonary hypertension. #6 leukocytosis-etiology unclear Total clinical time spent by myself addressing patient's medical issues, reviewing all of his data, and collaborating with patient's care team: 35 minutes Charges/Coding Visit Charges Inpatient E&M: 14730 Subs Hosp L2
[2025-03-19] MEDS: Pantoprazole Sodium 40 MG in 0.9% Normal Saline (100mL MB+) 100 ML 300 MG IV (21:33)
[2025-03-20] VITALS: BP 112/70; PULSE 132; PULSE 137; RESP 19; O2SAT 91
[2025-03-20 00:44] VITALS: BP 88/67; PULSE 141; RESP 18; O2SAT 91
[2025-03-20] MEDS: Norepinephrine 8 MG in 0.9% Normal Saline (250mL Bag) 242 ML 9.4 MG CONT INF (00:44)
--- NOTE | 2025-03-20 01:04 | PCM.HOSP.N ---
Hospitalist Note Call for ongoing A-fib with RVR. Notes reviewed and appears that the patient is transitioning home with hospice tomorrow. Patient is not uncomfortable with relationship to his tachycardia. Will transition level of care to [facility] and write meds accordingly.
[2025-03-20 05:57] VITALS: BMI 26.2
--- NOTE | 2025-03-20 07:35 | PN.CC_ITS ---
Objective Data Objective Data Vital Signs: Vital Signs Temp Pulse Resp BP Pulse Ox O2 Del Method O2 Flow Rate 98.1 F 141 H 18 88/67 L 91 Nasal Cannula 2 03/19/25 22:00 03/20/25 00:44 03/20/25 00:44 03/20/25 00:44 03/20/25 00:44 03/20/25 04:00 03/20/25 04:00 Oxygen Flow Rate (L/min) 2 Oxygen Delivery Method Nasal Cannula Weight: 157 lb 10.088 oz Body Mass Index (BMI) 26.2 Intake & Output: Intake and Output for Last 24 Hours 03/18/25 03/19/25 03/20/25 23:59 23:59 23:59 Intake Total 3684.84 / 3684.84 2263.58 / 2263.58 2.51 / 2.51 Output Total 250 / 550 450 / 450 200 / 200 Balance 3434.84 / 3134.84 1813.58 / 1813.58 -197.49 / -197.49 Lab / Micro Data 03/19/25 08:50 03/19/25 08:50 Labs: Laboratory Results - last 24 hr 03/19/25 01:09: Crossmatch See Detail 03/19/25 08:50: WBC 18.7 H, RBC 3.72 L, Hgb 10.8 L, Hct 32.6 L, MCV 87.6, MCH 29.0, MCHC 33.1, RDW Std Deviation 46.9 H, RDW Coeff of Kat 14.8 H, Plt Count 244, MPV 9.5, Immature Gran % (Auto) 1.700 H, Neut % (Auto) 92.3 H, Lymph % (Auto) 1.2 L, [place] % (Auto) 4.5, Eos % (Auto) 0.1, Baso % (Auto) 0.2, Absolute Neuts (auto) 17.3 H, Absolute Lymphs (auto) 0.22 L, Nucleated RBC % 0, Sodium 132 L, Potassium 4.2, Chloride 100, Carbon Dioxide 23.8, Anion Gap 9, BUN 41 H, Creatinine 0.75, Estim Creat Clear Calc 61.93, Est GFR (MDRD) Non-Af 90, B UN/Creatinine Ratio 54.1 H, Glucose 168 H, Calcium 8.2, Phosphorus 2.5 L, M agnesium 2.3 H Micro: Microbiology 03/18/25 15:45 Mucosa - Nasopharyngeal Respiratory Panel (PCR) - Final Radiography Diagnostic Testing: Radiology Impression Echocardiogram 03/18/25 15:02 Interpretation Summary The left ventricular ejection fraction is 55 %. Normal LV size. Mild (1+) tricuspid valve insufficiency. Pulmonary artery systolic pressure is 36 mmHg. Ordering Physician: Edwar Knox Referring Physician: Ervin Tate Performed By: Linda Villegas, VENKATA, RVT Rhythm Strip Rhythm Strip: A-fib Rate: 144
[2025-03-20 08:38] VITALS: BP 95/73; PULSE 149; RESP 16; TEMP 36.4; O2SAT 94
[2025-03-20] MEDS: 0.9 % NaCl (Sterile) Posiflush 10 mL IV (09:40)
[2025-03-20] MEDS: Pantoprazole Sodium 40 MG in 0.9% Normal Saline (100mL MB+) 100 ML 300 MG IV (09:41)
--- NOTE | 2025-03-20 11:00 | CASEMGMT ---
Social Work EUGENIA spoke with [facility]. Hospice has arranged transportation for pear picker at 2pm. DME to be delivered to pt home today. EUGENIA met with pt and pt's who state hospice have already called her and informed of the pickup time. Pt's states that DME has not been delivered yet, however hospice is to be returning her call with a time of delivery. Pt agreeable to dc at 2pm. Questions answered regarding transportation costs. Physician and nurse notified of pear picker time. Disposition: home with hospice services MARIELLE Landon
--- NOTE | 2025-03-20 12:15 | PCM.DC.SUM ---
Providers Date of Admission: 03/18/25 Date of Discharge: 03/20/25 Primary Care Physician: Dr. 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 Consulting Provider: [facility]ivists/Pulmonary Med Reason for Consult: GI bleed on levo EMERGENT Consult: No MD Notified: Yes Date Notified: 03/19/25 Time Notified: 04:57 Method of Notification: Text 03/19/25 09:48 Consult: Hospice / Outpatient Palliative Care Routine Consulting Provider: [facility] Reason for Consult: Decline in medical status EMERGENT Consult: Yes MD Notified: Yes Date Notified: 03/19/25 Time Notified: 09:48 Method of Notification: Text Reason For Visit: NEW ONSET AFIB W/ RVR W/ HYPOTENSION Diagnosis Discharge Diagnosis (1) Upper GI bleed: Status: Acute Code(s): K92.2 - Gastrointestinal hemorrhage, unspecified Plan 1. New onset A-fib with RVR-patient is on rate limiting medications at this time, patient appears comfortable #2 upper GI bleed with acute blood loss anemia-secondary to esophageal cancer, patient was transitioned over to IV Protonix twice daily, patient received 2 units of packed red blood cells, due to the patient's hospice status, I have elected not to repeat his H&H tomorrow #3 stage IV esophageal cancer-again patient has consented to hospice care at home #4 right pleural effusion-patient underwent a thoracentesis yesterday with removal of 905 mL of fluid. #5 multifactorial shock secondary to cardiac arrhythmia and blood loss anemia, echocardiogram today showed a normal EF of 55% with mild pulmonary hypertension. #6 leukocytosis-etiology unclear Total clinical time spent by myself addressing patient's medical issues, reviewing all of his data, and collaborating with patient's care team: 35 minutes Medications at Discharge Home Medications nystatin 100,000 unit/gram topical powder 1 applic topical TID #0 grams 03/20/25 Hospital Course Operations None Procedures Blood transfusion Summary of Care Provided Minutes Spent on Discharge: 32 Hospital Course: 74-year-old white male was seen in the emergency room at [facility] after being sent for evaluation of possible atrial fibrillation. Patient had undergone a thoracentesis and it was found that his heart rate was irregular. Patient has a history of his stage IV esophageal cancer. Patient complained of malaise and lightheadedness with activity and dyspnea with activity. EKG was performed in the emergency room and it showed the patient to be in A-fib with rapid ventricular response, patient was given a 500 cc bolus of fluid and 10 mg of diltiazem IV which slowed his heart rate down slightly and improved his blood pressure. He received an additional bolus of fluid and given an additional dose of IV diltiazem but his heart rate did not slow down and the rate was 150. Patient was given 5 mg of metoprolol and labs showed an elevated white blood cell count and hemoglobin of 10.8, chemistry profile showed a sodium of 132 and a BUN of 62. Troponin was slightly elevated at 34 and lactic acid was 2.3. Patient was admitted to ICU for atrial fibrillation with a rapid ventricular response, hypotension and suspected upper GI bleed with acute blood loss anemia. Patient was given a blood transfusion and he was placed on a beta-armani however his low blood pressure complicated the issue of slowing his rate down. Patient was given IV digoxin which helped somewhat for short period of time. Patient agreed to a palliative care consultation, ultimately he consented to hospice and he was sent home with hospice care on 03/20/2025. On that date, patient was seen and examined: On examination he appeared alert and appropriate. Vital signs as documented. Skin warm and dry and without overt rashes. Neck without JVD, neck was supple, trachea midline, thyroid was normal. Lungs clear bilaterally, normal air movement was noted. Heart exam notable for irregular rhythm, normal sounds and absence of murmurs, rubs or gallops. Abdomen unremarkable and without evidence of organomegaly, masses, or abdominal aortic enlargement. Bowel sounds are present, abdomen is not distended. Extremities nonedematous, no cyanosis was noted, no clubbing was noted. Neuro: Cranial nerves II through XII are grossly intact, no focal motor deficits were noted, sensation to light touch and pinprick intact, motor exam 5/5 throughout. Psych: Patient is alert and oriented x3, he does not appear anxious or depressed, he does not appear agitated. Patient was discharged home in stable condition on 03/20/2025, hospice was to see the patient at his home. Weight / BMI Weight Weight: 71.5 kg Body Mass Index (BMI) 26.2 ABG / Lab / Microbiology Data 03/19/25 08:50 03/19/25 08:50 Microbiology: Microbiology 03/18/25 11:51 Blood Culture (Wb) - Port Blood Culture - Final No growth in 5 days. 03/18/25 12:30 Blood Culture (Wb) - Port Blood Culture - Final No growth in 5 days. 03/18/25 15:45 Mucosa - Nasopharyngeal Respiratory Panel (PCR) - Final Radiography Diagnostic Testing: Radiology Impression Echocardiogram 03/18/25 15:02 Interpretation Summary The left ventricular ejection fraction is 55 %. Normal LV size. Mild (1+) tricuspid valve insufficiency. Pulmonary artery systolic pressure is 36 mmHg. Ordering Physician: Edwar Knox Referring Physician: Ervin Tate Performed By: Linda Villegas, VENKATA, RVT D/C Instructions DC O2, CPAP, BIPAP Needs Home O2 Discharge instructions: Yes Type of respiratory needs?: Oxygen Oxygen frequency: Continuous Continuous oxygen liters per minute: 2 L DC home with Oxygen: Yes Home O2 MD Review: I have reviewed the oxygen testing, and the patient qualifies for home oxygen equipment and portability. The patient is mobile in the home and the community. Meaningful Use Info Meaningful Use Meaningful Use Diagnoses (Choose all that apply): None applicable Discharge Plan Admission Admit Date/Time: 03/18/25 14:56 Primary Reason for Your Visit: Upper GI bleed, atrial fibrillation Attending Provider: Krunal Buckley Primary Care Provider: Ervin Tate Consulting Providers: Elsa Wallace; Dudley Elder; Gab Thompson; Theodora Collado; Josephine Brock; Jillian Rodriguez; Edwar Knox; Arash Engle; Linwood Dumont; Leonard Ramirez; Chuck Chun; Akbar Bean; Naye Neumann; Steffen Solis; Jayson Jimenez; Jin Moreno; Joan Mackenzie; Jesús Prince; Suhas Rivas; Erlinda Bragg; Paulo Simental; Juan M Devries; Rinku Clements; Theresa Dudley; Divya Kerr; Trista Anderson; Amairani Mann; Brad Hernández; Krunal Gomez; Daniel,Monae; Ricketts,Delia; Marlon Perez; Cornelio,Mohamed; Logan,Letha; Steve Richardson; Cristofer Carlin; Colt Uriostegui; Zainab,Lai Callahan; Reynold,Mark; Dhesi,Reza; Juan Gayle; Rishi Keys; Shirlene Jean-Baptiste; Kolby,Shaun; Steffen Roche; Mateofe,Yair; Mihir,Jose Carlos; Dane,Ramy; Abdifatah Lofton; Akbar Babb; Simin Trimble; Josephine Elias; Penny Pulido; Deandra Mariano NP; Adriana Fong Discharge Orders/Prescriptions Prescriptions: New nystatin 100,000 unit/gram Powder 1 applic topical TID Qty: 0 0RF Protocol: *Topical Application Instructions APPLICATION INSTRUCTIONS: apply to groin Discontinued rabeprazole 20 mg tablet,delayed release (DR/EC) 20 mg PO QDAY Referrals / Follow Up: Ervin Tate DO [Primary Care Provider, Medical] Disposition Disposition (needs filled in before D/C Order can be placed): Hospice in Home Charges/Coding Visit Charges Inpatient E&M: 30615 Disch Hosp >30min
--- NOTE | 2025-03-20 12:16 | PCM.DC ---
Discharge Instructions DC O2, CPAP, BIPAP needs Home O2 Discharge instructions: Yes Type of respiratory needs?: Oxygen Oxygen frequency: Continuous Continuous oxygen liters per minute: 2 L Dressing / Incision Discharge Activity: Return to Normal Activity Weight Bearing Status: Weight bearing as tolerated Follow Up Care Test Results: Test results from this visit will be discussed in further detail at your follow-up appointment, if applicable. Discharge Plan Admission Admit Date/Time: 03/18/25 14:56 Primary Reason for Your Visit: Upper GI bleed, atrial fibrillation Attending Provider: Krunal Buckley Primary Care Provider: Ervin Tate Consulting Providers: Elsa Wallace; Dudley Elder; Gab Thompson; Theodora Collado; Josephine Brock; Jillian Rodriguez; Edwar Knox; Arash Egnle; Linwood Dumont; Leonard Ramirez; Chuck Chun; Akbar Bean; Naye Neumann; Steffen Solis; Jayson Jimenez; Jin Moreno; Joan Mackenzie; Jesús Prince; Suhas Rivas; Erlinda Bragg; Paulo Simental; Juan M Devries; Rinku Clements; Theresa Dudley; Divya Kerr; Trista Anderson; Amairani Mann; Brad Hernández; Krunal Gomez; Letha Sanchez; Delia Ricketts; Marlon Perez; Melissa Grimes; Letha Ford; Steve Richardson; Cristofer Carlin; Colt Uriostegui; Lai Lamb; Mark Flaherty; Reza Gaines; Juan Gayle; Rishi Keys; Shirlene Jean-Baptiste; Shaun Jarrett; Steffen Roche; Yair Neri; Mihir,Jose Carlos; Dane,Ramy; Abdifatah Lofton; Akbar Babb; Simin Trimble; Josephine Elias; Penny Pulido; Deandra Mariano NP; Adriana Fong Discharge Orders/Prescriptions Prescriptions: New nystatin 100,000 unit/gram Powder 1 applic topical TID Qty: 0 0RF Protocol: *Topical Application Instructions APPLICATION INSTRUCTIONS: apply to groin Discontinued rabeprazole 20 mg tablet,delayed release (DR/EC) 20 mg PO QDAY Referrals / Follow Up: Ervin Tate DO [Primary Care Provider, Medical] Disposition Disposition (needs filled in before D/C Order can be placed): Hospice in Home
[2025-03-20 14:00] VITALS: BP 95/73; PULSE 149; RESP 18; TEMP 36.4; O2SAT 94
== END 2025-03-20 14:00 | disposition hospice, home (50) | DRG 308 ==
LOC: ED 13:51 → ICU 15:20
PROVIDERS: Internal Medicine Critical Care Medicine; Admitting Provider Hospitalist; Emergency Provider Emergency Medicine; PCP Family Medicine; Visit Provider Internal Medicine
DX: I48.91 Unspecified atrial fibrillation (principal); R57.8 Other shock; C77.9 Secondary and unspecified malignant neoplasm of lymph node, unspecified; D62 Acute posthemorrhagic anemia; K92.2 Gastrointestinal hemorrhage, unspecified; C15.5 Malignant neoplasm of lower third of esophagus; J91.0 Malignant pleural effusion; R13.10 Dysphagia, unspecified; I27.20 Pulmonary hypertension, unspecified; E05.90 Thyrotoxicosis, unspecified without thyrotoxic crisis or storm; I10 Essential (primary) hypertension; I95.9 Hypotension, unspecified; E27.9 Disorder of adrenal gland, unspecified; Z51.5 Encounter for palliative care; R62.7 Adult failure to thrive; Z92.3 Personal history of irradiation; Z66 Do not resuscitate; Z92.21 Personal history of antineoplastic chemotherapy; Z79.899 Other long term (current) drug therapy; Z68.26 Body mass index [BMI] 26.0-26.9, adult
CPT/HCPCS: 32555; 36591; 71045; 80048; 83605; 83735; 84100; 84439; 84443; 84484; 85014; 85018; 85025; 86850; 86900; 86901; 87040; 87633; 88108; 88305; 88313; 93005; 93306; 94668; 94762; 99284; P9016; A4216; J2405; J7165

== ENCOUNTER → 2025-03-18 | Outpatient (CLI) | payer MEDICARE, OTHER, SELFPAY ==
--- NOTE | 2025-03-18 10:33 | US_ITS ---
PROCEDURE: THORACENTESIS W US 03/18/2025 REASON FOR EXAM: PLEURAL EFFUSION TECHNIQUE: THORACENTESIS W US COMPARISON: Chest x-ray 03/18/2025. FINDINGS: Procedure: Following informed consent, and using standard sterile technique, an ultrasound- guided diagnostic and therapeutic right thoracentesis was performed via a posterior approach. 2% lidocaine local anesthesia was followed by placement of a 7 cm 5 [place] Yueh catheter into the right pleural fluid collection via a posterior oblique approach. Approximately 905 mL of cloudy matt fluid was successfully removed, a portion sent to the laboratory for analysis. No complication was encountered, the patient left the department in stable condition. US/Thoracentesis W US IMPRESSION: Successful diagnostic and therapeutic ultrasound-guided right thoracentesis. L aboratory results pending. Reading Location: [place] [id number]
[2025-03-18 10:55] VITALS: BP 109/37; PULSE 62; RESP 20; TEMP 36.4; O2SAT 93
--- NOTE | 2025-03-18 10:55 | NURSING ---
When asked how he feels pt states not good. As Dr. Archer is going over consent and preparing for Thoracentesis, LINDSEY Corrales notices pt's HR on SpO2 monitor showing in the 40s. LINDSEY Crorales checks pt's pulse which is very irregular and thready. LINDSEY Corrales asks pt if he has a history of irregular heart rhythm, pt states not that I know of. LINDSEY Corrales then leaves the room to get threat monitoring analyst. Once on threat monitoring analyst pt's HR is irregular 150s- 160s, verified with auscultation of heart sounds. When asked how long pt has felt unwell pt states awhile. With all vital signs being continuously monitored Dr. Archer proceeds with Thoracentesis.
[2025-03-18 11:09] VITALS: BP 95/46; PULSE 160; RESP 20; O2SAT 95
[2025-03-18] MEDS: Lidocaine 2% (20 ml mdv) 20 ML Vial INFILT (11:09)
--- NOTE | 2025-03-18 11:12 | FLU_PTH ---
PATIENT: STARLA MASCORRO LOC: [facility]#:[id number] AGE/SX: 84/M ROOM: RE03/18/[address]: Dr. Quintin Mullins DO : 1940 BED: DIS: 03/18/2025 SPEC #: [id number] RECD: 03/18/25 11:36 STATUS: LILLIAM REQ #: [id number] TORRIE: 03/18/25 11:[address]: Quintin Mullins DEPT: CYTOLOGY RECD BY: Sofya Crowley ENTERED: 03/18/25 14:59 SP TYPE: Fluid OTHR DR: Dr. Ervin Tate DO Tissues: THORACIC FLUID Procedures: Special Stain Group II Surgery Specimen Level IV Cytospin Fluid HEADER OPERATION: Ultrasound guided thoracentesis PRE-OP DIAGNOSIS: Pleural effusion TISSUE SUBMITTED: A- Thoracentesis fluid for cytology DIAGNOSIS CYTOLOGY A. Pleural fluid: * No malignant cells are identified * Acute inflammation CYTOLOGY STUDY Slides are reviewed. CYTOLOGY GROSS A. Received is 110 ml of [id number] fluid labeled with the patient's name and and designated per the requisition as Thoracentesis fluid. Submitted for cytology and cell block preparation. 03/18/2025 CPT: 32502,44289
[2025-03-18 11:13] VITALS: BP 106/48; PULSE 150; RESP 24; O2SAT 97
[2025-03-18 11:15] VITALS: BP 111/56; PULSE 162; RESP 26; O2SAT 94
[2025-03-18 11:19] VITALS: BP 98/65; PULSE 143; RESP 24; O2SAT 94
[2025-03-18 11:24] VITALS: BP 89/54; PULSE 165; RESP 24; O2SAT 95
[2025-03-18 11:50] LABS: Cytology, Body Fluid / CSF SEE PATHOLOGY REPORT
== END | disposition home or self-care (01) ==
PROVIDERS: PCP Family Medicine; Referring Provider Student in an Organized Health Care Education/Training Program; Visit Provider Student in an Organized Health Care Education/Training Program
DX: J90 Pleural effusion, not elsewhere classified (principal)
CPT/HCPCS: 32555; 88108; 88305; 88313